=== PATIENT | female | born 1960 | race Caucasian/White ===

== ENCOUNTER → 2017-09-04 | Day surgery (SDC) | payer OTHER ==
--- NOTE | 2017-09-09 11:20 | PATH ---
Cytology Non-Gynecological Report Patient Name: KULWANT DAVIDSON [facility]. Rec. #: [id number] /Age/Gender: 1960 (Age: 56) / F Account: [id number] Location: [facility] Taken: 09/04/2017 Received: 09/04/2017 Reported: 09/09/2017 Physicians: Joann Duran M.D. Specimen(s) Received A: LEFT BREAST 10O'CLOCK ,ULTRA SOUND GUIDED FNA B: RIGHT 8 O'CLOCK BREAST,ULTRA SOUND GUIDED FNA Clinical History Bilateral breast cyst aspiration. Recently diagnosed left breast cancer. Final Diagnosis A. LEFT BREAST, 10:00 4 CM FROM NIPPLE, FINE NEEDLE ASPIRATION: SATISFACTORY FOR EVALUATION BUT LIMITED BY LACK OF AN INTACT EPITHELIAL COMPONENT. BENIGN (NO MALIGNANT CELLS IDENTIFIED). RED BLOOD CELLS AND DEBRIS PRESENT, ALONG WITH MACROPHAGES AND LYMPHOCYTES CONSISTENT WITH CYST CONTENTS. B. RIGHT BREAST, 8:00 3 CM FROM NIPPLE, FINE NEEDLE ASPIRATION: SATISFACTORY FOR EVALUATION BUT LIMITED BY LACK OF AN INTACT EPITHELIAL COMPONENT. BENIGN (NO MALIGNANT CELLS IDENTIFIED). MACROPHAGES AND DEBRIS CONSISTENT WITH CYST CONTENTS PRESENT. Comment: Immunostain for CD45 on Specimen A show lymphocytes staining positive, with nonstaining macrophages present. Immunostain for cytokeratin AE1/3 is negative. Also see prior specimen [id number]. Electronically Signed Fermin Richards M.D. Gross Description A. Approximately 30 cc of red tinged fluid received fixed in 50% alcohol. Two cytofunnels and one cellblock prepared. B. Approximately 30 cc of opaque white fluid received fixed in 50% alcohol. Two cytofunnels and one cellblock prepared.
== END | disposition home or self-care (01) ==
LOC: FRADUS-SUR 08:35
PROVIDERS: ATTEND Surgery
PROC: 0H9V3ZX Drainage of Bilateral Breast, Percutaneous Approach, Diagnostic (ICD-10-PCS; principal; 2017-09-04)
DX: N60.01 Solitary cyst of right breast (principal); N60.02 Solitary cyst of left breast
CPT/HCPCS: 19000; 19001; 76942-TC; 87899; 88173; 88305-TC; 88341-TC; 88342-TC

== ENCOUNTER 2017-10-22 09:00 | Day surgery (SDC) | payer OTHER ==
[2017-10-11 10:10] VITALS: BMI 26.0
--- NOTE | 2017-10-16 14:47 | HP ---
Admitting History and Physical - Primary Care Physician PCP: Kaden Tierney - Admission Chief Complaint: left breast cancer History of Present Illness: 56 year old postmenapausal female who felt left breast mass 05/2017. Diagnostic mammogram 07/2017 showed highly suspicious mass 3.0 cm left breast at 12:00. There is also a possible satellite lesion at 10:00 .6cm. US showed 2.9x1.4x1.7 cm spiculated mass at 12:00 and .6x.6x.6 cm mass vs cyst at 10:00. US core biopsy at 12:00 showed invasive lobular carcinoma 08/2017. She also underwent successful bilateral cyst aspirations right 8:00 and 10:00 left breast all /2017 due to MRI and targeted bilateral US of the breast. History Source: Patient Limitations to Obtaining History: No Limitations - Past Medical History Cardiovascular: Yes: HTN Musculoskeletal: Yes: Chronic low back pain, Osteoarthritis ENT: Yes: Other (mutiple allergies) - Past Surgical History Additional Past Surgical History: Right breast bx benign 12:00 1992 myomectomy 1999 TMJ 1992 septoplasty 1992. - Advance Directives Advance Directives: Yes: Health Care Proxy - Smoking History Smoking history: Never smoked Have you smoked in the past 12 months: No - Alcohol/Substance Use Hx Alcohol Use: Yes (RARELY) Home Medications - Allergies Allergies/Adverse Reactions: Allergies Allergy/AdvReac Type Severity Reaction Status Date / Time avocado Allergy Severe Vomiting Verified 10/11/17 09:58 Cephalosporins Allergy Severe Rash Verified 10/11/17 09:57 erythromycin base Allergy Severe Rash Verified 10/11/17 09:57 Penicillins Allergy Severe Rash Verified 10/11/17 09:56 Sulfa (Sulfonamide Allergy Severe Rash Verified 10/11/17 09:57 Antibiotics) doxycycline AdvReac Severe Nausea Verified 10/11/17 09:58 - Home Medications Home Medications: Ambulatory Orders Cyclobenzaprine HCl 10 mg PO HS PRN 10/11/17 Diclofenac Sodium 75 mg PO BID PRN 10/11/17 Loratadine 10 mg PO DAILY 10/11/17 Metoprolol Succinate [Toprol Xl] 50 mg PO DAILY 10/11/17 Olmesartan Medoxomil 5 mg PO DAILY 10/11/17 Ranitidine HCl 150 mg PO DAILY 10/11/17 Family Disease History - Family Disease History Family Disease History: CA: Grandparent (mat GM bladder ca 78), Father ( prostate ca 68), Brother (prostate ca 54) Physical Examination Constitutional: Yes: Well Nourished Breast(s): Yes: Other (dense bilaterally 3.0 cm hard irregular mass left breast 12:00retroareolar region nodularity at 10:00 bilaterall core/aspiration changes no adenopathy) Problem List - Problems (1) Breast cancer, left Code(s): C50.912 - MALIGNANT NEOPLASM OF UNSPECIFIED SITE OF LEFT FEMALE BREAST Qualifiers: Breast location: central portion of breast Patient sex: female Assessment/Plan Left breast wide excision lymphoscintogram, sentenel node biopsy possible axillary dissection , possible reconstruction
[2017-10-22] MEDS ORDERED: ROCURONIUM BROMIDE 50 MG/5 ML VIAL ONE (10:16)
[2017-10-22] MEDS ORDERED: PROPOFOL 20 ML ONE ×4 (10:16)
[2017-10-22] MEDS ORDERED: SUCCINYLCHOLINE CHLORIDE 200 MG/10 ML VIAL ONE (10:16)
[2017-10-22] MEDS ORDERED: fentaNYL CITRATE 250 MCG/5 ML VIAL ONE ×2 (10:16→11:52)
[2017-10-22] MEDS ORDERED: MIDAZOLAM HCL 2 MG/2 ML SINGLE DOSE VIAL ONE (10:17)
[2017-10-22] MEDS ORDERED: ISOSULFAN BLUE 10 MG/ML VIAL SQ ONE (10:33)
[2017-10-22] MEDS ORDERED: CLINDAMYCIN PHOSPHATE 600 MG/4 ML VIAL ONE (10:59)
[2017-10-22] MEDS ORDERED: DEXAMETHASONE SOD PHOSPHATE 4 MG/1 ML VIAL ONE (10:59)
[2017-10-22] MEDS ORDERED: ONDANSETRON 4 MG/2 ML VIAL ONE (10:59)
[2017-10-22] MEDS ORDERED: LIDOCAINE HCL 2% JELLY (5 ML/TUBE) ONE (10:59)
[2017-10-22] MEDS ORDERED: ePHEDrine SULFATE 50 MG/1 ML AMPULE ONE (11:11)
[2017-10-22] MEDS ORDERED: ONDANSETRON 4 MG/2 ML VIAL IVPUSH PRN (12:59)
[2017-10-22] MEDS ORDERED: KETOROLAC TROMETHAMINE 30 MG/1 ML VIAL IVPUSH PRN (12:59)
[2017-10-22] MEDS ORDERED: DEXTROSE 5%-0.45% SALINE 1,000 ML IV SCH (13:00)
[2017-10-22] MEDS ORDERED: PROMETHAZINE HCL 25 MG/1 ML VIAL ONE (14:19)
[2017-10-22] MEDS: PROMETHAZINE HCL 25 MG/1 ML VIAL IVPUSH PRN ×2 (14:25→14:49)
[2017-10-22] MEDS ORDERED: oxyCODONE HCL 5 MG TABLET PO PRN ×2 (14:26)
[2017-10-22] MEDS ORDERED: ACETAMINOPHEN 325 MG TABLET (FP) PO PRN (14:26)
[2017-10-22] MEDS ORDERED: LACTATED RINGERS SOLUTION 1,000 ML IV SCH (14:30)
--- NOTE | 2017-10-22 14:34 | OP ---
Operative Note - Note: Operative Date: 10/22/17 Pre-Operative Diagnosis: left breast cancer Operation: left breast reconstruction of partial mastectomy, right breast reduction, left axillary closure Post-Operative Diagnosis: Same as Pre-op Surgeon: Jensen Grove Anesthesia: General Specimens Removed: bilateral breast tissue Drains & Tubes with Location: ADRIANO x 2
[2017-10-22 15:51] VITALS: TEMP 98.9
[2017-10-22] MEDS ORDERED: oxyCODONE HCL 5 MG TABLET ONE (17:14)
[2017-10-22 18:07] VITALS: BP 118/71; PULSE 99
--- NOTE | 2017-10-22 19:29 | OP ---
DATE OF OPERATION:10/22/2017 TITLE OF PROCEDURE: 1. Left breast reconstruction of partial mastectomy defect using epigastric flap and local rearrangement of surrounding tissues. 2. Left sided 4-cm complex closure of axillary wound. 3. Right sided balancing breast reduction. ATTENDING SURGEON: Jensen Leigh M.D. Patient is seen and marked in the holding area with nipple sited at 21 cm from the sternal notch bilaterally, marking was overviewed with Dr. Duran, who was present for the markings and coordinated approach for her left-sided lumpectomy is prepared. ANESTHESIA: General endotracheal anesthesia. PREOPERATIVE DIAGNOSIS: Left-sided breast cancer. POSTOPERATIVE DIAGNOSIS: Left-sided breast cancer with the additional diagnosis of left axillary wound status post sentinel lymph node biopsy. ASSISTANTS: None. The procedure is performed in combination with a left sided central lumpectomy with sacrifice of the nipple areola and left sided sentinel lymph node biopsy; that portion of the procedure will be dictated by Dr. Duran. I was not present for the initial positioning and draping; however, the patient was positioned and draped by the general surgical team. Childress catheter had been placed prior to the surgery, which was removed at the end of the surgery. Patient received 900 mg of clindamycin IV preoperatively. Sequential compressions stockings, HUMBERTO hose had been applied in the holding area preoperatively. A timeout is called, patient procedure, incision sites are verified prior to surgery. While the left-sided central lumpectomy is being performed, attention was first directed by me to the right sided breast for breast reduction. On the right side, an inferior pedicle is marked which is 8 cm in width. A 38-mm cookie cutter is used to trace the nipple areola. This is then scored. The pedicle is entirely de-epithelialized with the exception of the nipple areola. Skin flaps are then elevated 2 cm thick superiorly, medially, and laterally to the level of the chest wall. A resection of breast tissue is then performed in the areas between the resection pattern and the pedicle; this involves skin and parenchymal tissue each superiorly, medially, and laterally. The hemostasis is achieved, wound was copiously irrigated with normal saline. The tissue is mobilized superiorly and the skin is tailor tacked, attention is then directed toward the contralateral side. At the completion of her lumpectomy, a total weight removed from the lumpectomy is 123 g, as compared to the right side, which is 119 g, given that the left side was larger to begin with, with tailor tacking the 2 sides it is determined the left size remains larger, and a small amount of residual tissue is to be removed on the left side. On the left side after completion of the lumpectomy and the additional margins, the inferiorly based epigastric flap is created, skin paddle is developed in the inferior pole of breast skin based on the inframammary fold. This is mobilized on a dermoglandular pedicle superiorly. At this point, incisions are then made on the breast which are mirror imaged to the incisions made on the right breast for the breast reduction on the right side. Skin flaps are elevated superiorly, medially, and laterally. Hemostasis achieved, wound was copiously irrigated with normal saline. The epigastric flap is then mobilized into the keyhole pattern, and it is inset as though the skin paddle is nipple areolar complex, as it is marked at 38 mm similar to the contralateral side. Size 15 round Roe drains are brought out the lateral extents of the incisions. The closures performed on both sides is the same way as per the closure of ordinary breast reduction; this is done with a series of interrupted buried deep dermal 3-0 Monocryl suture on all incision lines, running subcuticular 3-0 Monocryl suture on the vertical and horizontal limbs, with a running subcuticular 4-0 Monocryl suture around the nipple areola on the right breast and surrounding the skin paddle on the left breast flap reconstruction. The inverted T points on both breasts are closed with a half buried mattress 2-0 nylon suture. The axilla is then addressed. The axillary fascia is closed with a series [id number] 3-0 Monocryl suture. The dermis is then closed with a series of interrupted buried deep dermal 3-0 Monocryl suture followed by running subcuticular 3-0 Monocryl suture. All tissues are viable. Drains are placed to bulb suction, they are secured with 2-0 silk drain sutures. Patient is dressed with Steri-Strips, 4x4, and ABD gauze. Surgical bra is applied, she is awoken from anesthesia, transferred to recovery without complications. JENSEN LEIGH M.D. [id number]
--- NOTE | 2017-10-23 10:09 | OP ---
DATE OF OPERATION: 10/22/2017 PREOPERATIVE DIAGNOSIS: Left breast invasive lobular cancer. POSTOPERATIVE DIAGNOSIS: Left breast invasive lobular cancer. PROCEDURE: Left partial mastectomy and sentinel node biopsy with right breast reduction. SURGEONS: Kendall Pruett MD and Jensen Grove MD FILLING SEPARATOR: VANE Iyer ANESTHESIA: General. ANESTHESIOLOGIST: Abelino Dinero MD SPECIMENS: 1. Left axillary sentinel nodes. 2. Left partial mastectomy. 3. Additional margins. DRAINS: Two No. 10 ADRIANO. COMPLICATIONS: None. ESTIMATED BLOOD LOSS: Minimal. INDICATION FOR PROCEDURE: The patient is a 56-year-old white female who had not had a mammogram since 2009. She felt a mass in the left breast in May 2017. She was sent for a diagnostic mammogram which showed a highly suspicious left breast mass at 12 o'clock. Ultrasound showed a 2.9 x 1.4 x 1.7 cm spiculated mass at 12 o' clock retroareolar. Biopsy showed an ER/NY positive invasive lobular cancer. After a discussion of surgical options, she prefered breast conservation. Because the cancer was retroareolar and of a significant size, I referred her to the plastic surgeon to discuss excision through a reduction pattern on the left side with a concomitant right breast reduction for symmetry. Nipple removal was also necessary because of the locaion and size of the mass. The procedures, risks, and complications were discussed with her prior to surgery. DESCRIPTION OF PROCEDURE: The patient was taken to Nuclear Medicine where she underwent a lymphoscintigraphy. She was then identified in the holding area where informed consent was obtained, and the left breast was marked to identify the side with the cancer. Dr. Grove also placed markings on the breast for the planned plastic procedure. She was taken to the operating room and placed on the operating table in the supine position. Sequential compression devices were placed on both legs. She received clindamycin prior to surgery. She was intubated, and the bilateral chest and axilla were prepped and draped in the usual fashion. A timeout was performed. The left breast was injected with isosulfan blue and massaged for 5 minutes. Examination of the left axilla with the navigator probe showed an area of high counts. An incision was made with a scalpel in the axilla. The incision was deepened using electrocautery until the axillary fat pad was exposed. The probe identified an area of high counts in the lower axilla. Dissection in this area revealed 2 blue nodes which were grasped with a clamp and from the axillary fat using electrocautery. They were placed in formalin. Re-examination of the axilla showed additional high counts. Dissection in this area revealed a single larger blue node which was excised and included with the previous specimen. There was no other evidence of high counts when the axilla was re-examined so the procedure was terminated at this point. The lymph nodes were sent to Pathology for further examination. Examination of the left breast showed a retroareolar mass at 12 o'clock. Her breast had already been marked by Dr. Grove for the planned reduction approach. Using these markings as a guide, an incision was made around the areola using a scalpel. The incision was deepened using electrocautery. The mass was hard and irregular. The electrocautery was used to mobilize the mass and separate it from the surrounding breast tissue. The breast tissue was extremely dense, making dissection a little difficult. Once the specimen was completely mobilized, it was removed and labeled with sutures, with a long lateral stitch and a short superior stitch. Additional margins were then removed. Margins were taken from the superior, medial, lateral, deep, and inferior regions of the biopsy cavity. They were all labeled with a stitch at the biopsy cavity side. The specimens were placed in formalin. Hemostasis was achieved. The procedure was then turned over to Dr. Grove who performed bilateral reduction. He will dictate this part of the procedure as well as closure and placement of drains. The patient tolerated the procedure well. At the end of the procedure, all sponge, lap, and instrument counts were correct. The patient was awakened and taken to PACU in satisfactory condition. KENDALL PRUETT M.D. [id number] MTDD
--- NOTE | 2017-10-29 15:07 | PATH ---
Surgical Pathology Report Patient Name: KULWANT DAVIDSON [facility]. Rec. #: [id number] /Age/Gender: 1960 (Age: 57) / F Account: [id number] Location: [facility] Taken: 10/22/2017 Received: 10/22/2017 Reported: 10/29/2017 Physicians: Joann Duran M.D. Specimen(s) Received A: LEFT AXILLARY SENTINEL LYMPH NODE #1 B: LEFT PARTIAL MASTECTOMY C: LEFT BREAST SUPERIOR D: LEFT BREAST INFERIOR MARGIN E: LEFT BREAST MEDIAL MARGIN F: LEFT BREAST LATERAL MARGIN G: LEFT BREAST POSTERIOR MARGIN H: RIGHT BREAST SKIN AND TISSUE I: LEFT BREAST ADDITIONAL MEDIAL MARGIN Clinical History Palpable mass Mammograph findings: Suspicious Final Diagnosis A. AXILLA, SENTINEL LYMPH NODES #1, EXCISION: ONE OF FOUR LYMPH NODES POSITIVE FOR ISOLATED TUMOR CELLS (=0.2 MM AND =200 CELLS) ON H&E AND CYTOKERATIN AE1/3 IMMUNOHISTOCHEMICAL STAINS. B. BREAST, LEFT, PARTIAL MASTECTOMY: INVASIVE LOBULAR CARCINOMA, PLEOMORPHIC TYPE, NUCLEAR GRADE 3. INVASIVE CARCINOMA MEASURES 2.8 X 2 CM IN GREATEST DIMENSION, MICROSCOPICALLY. LOBULAR CARCINOMA IN SITU (LCIS), CLASSICAL TYPE PRESENT. NO LYMPHOVASCULAR INVASION IDENTIFIED. SURGICAL MARGINS ARE UNINVOLVED BY CARCINOMA; CARCINOMA IS AT 1 MM FROM THE CLOSEST SUPERIOR MARGIN. SEE SPECIMEN C-I FOR FINAL MARGINS. CARCINOMA INVADES DEEP DERMIS OF THE SKIN. NIPPLE WITHOUT SIGNIFICANT PATHOLOGIC FINDINGS. REMAINDER OF BREAST TISSUE SHOW FIBROCYSTIC CHANGES INCLUDING STROMAL FIBROSIS, MICROCYSTS, APOCRINE METAPLASIA, COLUMNAR CELL CHANGES, USUAL DUCTAL HYEPRPLASIA, SCLEROSING ADENOSIS, AND MICROCALCIFICATIONS WITHIN BENIGN DUCTS. PRIOR BIOPSY SITE CHANGES ARE PRESENT. SEE ALSO INVASIVE CARCINOMA CASE SUMMARY BELOW. C. BREAST, LEFT, SUPERIOR MARGIN, EXCISION: BENIGN BREAST TISSUE WITH FIBROCYSTIC CHANGES INCLUDING STROMAL FIBROSIS, MICROCYSTS, APOCRINE METAPLASIA, ADENOSIS, AND MICROCALCIFICATIONS WITHIN BENIGN DUCTS. D. BREAST, LEFT, INFERIOR MARGIN, EXCISION: BENIGN BREAST TISSUE WITH FIBROCYSTIC CHANGES INCLUDING STROMAL FIBROSIS, MICROCYSTS, APOCRINE METAPLASIA, COLUMNAR CELL CHANGES, AND MICROCALCIFICATIONS WITHIN BENIGN DUCTS. E. BREAST, LEFT, MEDIAL MARGIN, EXCISION: BENIGN BREAST TISSUE. F. BREAST, LEFT, LATERAL MARGIN, EXCISION: BENIGN BREAST TISSUE WITH CYSTIC CHANGES INCLUDING STROMAL FIBROSIS, MICROCYSTS, SCLEROSING ADENOSIS, AND MICROCALCIFICATIONS WITHIN BENIGN DUCTS. G. BREAST, LEFT, POSTERIOR MARGIN, EXCISION: BREAST TISSUE WITH LOBULAR CARCINOMA IN SITU (LCIS) AND ATYPICAL DUCTAL HYPERPLASIA. H. BREAST, LEFT, SKIN AND TISSUE, EXCISION: BENIGN BREAST TISSUE WITH ATYPICAL DUCTAL HYPERPLASIA, SCLEROSING ADENOSIS, AND COLUMNAR CELL CHANGES. SKIN WITHOUT SIGNIFICANT PATHOLOGIC FINDINGS. I. BREAST, LEFT, ADDITIONAL MEDIAL MARGIN, EXCISION: BENIGN BREAST TISSUE. PATHOLOGIC STAGE (pTNM): pT2 pN0(i+)(sn) Comment: Immunohistochemical stains performed and interpreted at [facility] for E-cadherin and AE1/3 utilized to evaluate this case. Comments Breast Invasive Carcinoma: Surgical Pathology Case Summary (Based on AJCC TNM 8 th edition) Procedure _X_ Excision (less than total mastectomy) Specimen Laterality _X_ Left Tumor Size _X_ Greatest dimension of largest invasive focus >1 mm (specify exact measurement) (millimeters): 28 mm Histologic Type _X_ Invasive lobular carcinoma Histologic Grade (Jewell Histologic Score) Glandular (Acinar)/Tubular Differentiation _X_ Score 3 (<10% of tumor area forming glandular/tubular structures) Nuclear Pleomorphism _X_ Score 3 Mitotic Rate _X_ Score 3 Overall Grade _X__ Grade 3 (scores of 9) Tumor Focality _X_ Single focus of invasive carcinoma Ductal Carcinoma In Situ (DCIS) _X_ No DCIS in specimen Tumor Extension Skin _X_ Invasive carcinoma directly invades into the deep dermis. Nipple _X_ Uninvolved by invasive carcinoma Margins Invasive Carcinoma Margins _X__ Uninvolved by invasive carcinoma Distance from closest margin (millimeters): <1 mm (wide excision) Closest margin: Superior margin (wide excision), additional margins (C-I) are negative. Number of Lymph Nodes Examined: 4 Number of Ethel Nodes Examined : 4 Number of Lymph Nodes with Micrometastases (>0.2 mm to 2 mm and/or >200 cells): 0 Number of Lymph Nodes with Isolated Tumor Cells (=0.2 mm and =200 cells): 1 Extranodal Extension: _X__ Not identified Treatment Effect _X__ No known presurgical therapy Lymphovascular Invasion _X__ Not identified Pathologic Stage Classification (pTNM, AJCC 8th Edition) Primary Tumor (Invasive Carcinoma) (pT) _X__ pT2: Tumor >20 mm but =50 mm in greatest dimension Regional Lymph Nodes (pN) Modifier _X__ (sn): Ethel node(s) evaluated. Category (pN) _X_ pN0 (i+): ITCs only (malignant cell clusters no larger than 0.2 mm) in regional lymph node(s) Biomarker Studies Results of ER and AK studies performed on prior biopsy ( [id number]) at [facility] are as follows: ER (clone [id number] mouse monoclonal antibody by [employer]):>95 % nuclear staining with strong intensity (Positive). AK (clone16 mouse monoclonal antibody by [employer]): ~30% nuclear staining with strong intensity (Positive). Results of Her2 (IHC) & Ki-67 studies performed on previous specimen ([id number]) at [place], [place] ([id number]) are as follows: Her2 IHC (EP3 from [employer], formerly known as [id number], using [employer] Polymer Refine detection kit): 1+ (Negative) Ki67: up to 20% (intermediate proliferative index) Electronically Signed Debi Cabral M.D. Gross Description A. Received in formalin labeled "left axillary sentinel node #1," are 4 walton, irregular lymph nodes ranging from 0.7 x 0.5 x 0.3 cm to 1.2 x 0.8 x 0.8 cm. The specimens are entirely submitted in 4 cassettes as follows: 1-2-one whole lymph node each; 3-one bisected lymph node; 4-one trisected lymph node. B. Received in formalin, labeled "left breast partial mastectomy," is a 8.2 x 7.8 x 4.5 cm. walton-yellow, irregular, portion of fibroadipose tissue. There is no needle localization wire present. There is a short suture marking the superior aspect and a long suture marking the lateral aspect of the specimen, per the surgeon. The anterior surface displays a 4.3 x 3.5 cm walton, ovoid portion of skin with a 1 cm in diameter nipple. The specimen is inked as follows: Superior blue; inferior green; lateral red; medial yellow; deep black. The specimen is serially sectioned from lateral to medial. Sectioning reveals a 2.5 x 2.2 x 2.0 cm walton, indurated mass focally at 0.1 cm from the superior margin. The mass is 0.6 cm from the skin and 1.1 cm from the deep margin. The remaining margins appear clear of the mass. Also received within the same container is an 8.5 x 8.0 x 1.7 cm aggregate of multiple irregular fragments of unremarkable skin and fibroadipose tissue. Assistant Fitness Manager sections are submitted in 10 cassettes as follows: 1-serially sectioned nipple; 2-subareolar shave; 3-full face section of mass; 4-5-mass with superior margin; 6-mass with skin; 7-mass with deep margin; 8-inferior margin; 9-lateral margin; 10-medial margin. Time to formalin fixation: 50 minutes Total formalin fixation time: Approximately 29 hours. C. Received in formalin labeled "left breast superior margin," is a 2.5 x 1.0 x 0.5 cm irregular portion of fibroadipose tissue with a suture marking the biopsy cavity side, per the surgeon. The new margin is inked blue and the specimen is serially sectioned. The specimen is entirely submitted in 2 cassettes. D. Received in formalin labeled "left breast inferior margin," is a 1.6 x 1.3 x 0.4 cm irregular portion of fibroadipose tissue with a suture marking the biopsy cavity side, per the surgeon. The new margin is inked blue and the specimen is serially sectioned. The specimen is entirely submitted in one cassette. E. Received in formalin labeled "left breast medial margin," is a 2.3 x 1.2 x 0.5 cm irregular portion of fibroadipose tissue with a suture marking the biopsy cavity side, per the surgeon. The new margin is inked blue and the specimen is serially sectioned. The specimen is entirely submitted in one cassette. F. Received in formalin labeled "left breast lateral margin," is a 1.8 x 0.8 x 0.7 cm irregular portion of fibroadipose tissue with a suture marking the biopsy cavity side, per the surgeon. The new margin is inked blue and the specimen is serially sectioned. The specimen is entirely submitted in 2 cassettes. G. Received in formalin labeled "left breast posterior margin," is a 1.1 x 1.0 x 0.7 cm irregular portion of fibroadipose tissue with a suture marking the biopsy cavity side, per the surgeon. The new margin is inked blue the specimen is serially sectioned. The specimen is entirely submitted in one cassette. H. Received in formalin labeled "right breast skin and tissue," is a 124 g, 1.5 x 10.0 x 2.0 cm aggregate of multiple irregular, unoriented portions of fibroadipose tissue and walton, unremarkable skin. Sectioning reveals foci of white fibrous tissue. Assistant Fitness Manager sections are submitted in 2 cassettes. I. Received in formalin labeled "left breast additional medial margin," is a 4.5 x 2.5 x 1.5 cm irregular, unoriented portion of fibroadipose tissue. The specimen is serially sectioned and entirely and sequentially submitted in 5 cassettes. 10/23/2017 saudi10/23/2017
== END 2017-10-22 18:09 | disposition home or self-care (01) ==
LOC: FASU 09:00
PROVIDERS: ATTEND Surgery
PROC: 0HBU0ZZ Excision of Left Breast, Open Approach (ICD-10-PCS; principal; 2017-10-22 11:17)
PROC: 0HBT0ZZ Excision of Right Breast, Open Approach (ICD-10-PCS; 2017-10-22 11:17)
PROC: 0HRT07Z Replacement of Right Breast with Autologous Tissue Substitute, Open Approach (ICD-10-PCS; 2017-10-22 11:17)
DX: C50.912 Malignant neoplasm of unspecified site of left female breast (principal); I10 Essential (primary) hypertension; M54.5 Low back pain; G89.29 Other chronic pain
CPT/HCPCS: 78195-TC; 88307-TC; 88342-TC; 94760; A9541

== ENCOUNTER 2017-11-12 07:55 | Day surgery (SDC) | payer OTHER ==
[2017-11-08 10:35] VITALS: BMI 27.1
--- NOTE | 2017-11-08 10:57 | HP ---
Admitting History and Physical - Primary Care Physician PCP: Anjali Pavon - Admission Chief Complaint: Left breast cancer needs chemotherapy History of Present Illness: 57 year old nulliparous female S/P left breast wide excsiion SNB bilateral reduction for a 2.8 cm ILC negative margins 1+/4 lymph nodes. needs life port for chemotherapy History Source: Patient Limitations to Obtaining History: No Limitations - Past Medical History Cardiovascular: Yes: HTN Musculoskeletal: Yes: Chronic low back pain, Osteoarthritis ENT: Yes: Other (mutiple allergies) - Past Surgical History Additional Past Surgical History: myomectomy 1999 TMJ 1992 septoplasty 1992 right breastbx 1992 benign left breast wide excision SNBX and reduction bilaterally for ILC 1+/4 nodes - Smoking History Smoking history: Never smoked Have you smoked in the past 12 months: No - Alcohol/Substance Use Hx Alcohol Use: Yes (RARELY) Home Medications - Allergies Allergies/Adverse Reactions: Allergies Allergy/AdvReac Type Severity Reaction Status Date / Time avocado Allergy Severe Vomiting Verified 11/08/17 10:28 Cephalosporins Allergy Severe Rash Verified 11/08/17 10:28 erythromycin base Allergy Severe Rash Verified 11/08/17 10:28 Penicillins Allergy Severe Rash Verified 11/08/17 10:28 Sulfa (Sulfonamide Allergy Severe Rash Verified 11/08/17 10:28 Antibiotics) doxycycline AdvReac Severe Nausea Verified 11/08/17 10:28 morphine AdvReac Severe Vomiting Verified 11/08/17 10:28 - Home Medications Home Medications: Ambulatory Orders Cyclobenzaprine HCl 10 mg PO HS PRN 10/11/17 Diclofenac Sodium 75 mg PO BID PRN 10/11/17 Loratadine 10 mg PO DAILY 10/11/17 Metoprolol Succinate [Toprol Xl] 50 mg PO DAILY 10/11/17 Olmesartan Medoxomil 5 mg PO DAILY 10/11/17 Ranitidine HCl 150 mg PO DAILY 10/11/17 Family Disease History - Family Disease History Family Disease History: CA: Grandparent (mat GM bladder ca 78), Father ( prostate ca 68), Brother (prostate ca 54) Physical Examination Constitutional: Yes: Well Nourished Breast(s): Yes: Other (Bilateral breast incisions healing well from wide excision and reduction some echymosis right breast) Problem List - Problems (1) Breast cancer, left Code(s): C50.912 - MALIGNANT NEOPLASM OF UNSPECIFIED SITE OF LEFT FEMALE BREAST Qualifiers: Breast location: central portion of breast Patient sex: female Assessment/Plan Life port insertion
[2017-11-12] MEDS ORDERED: PROPOFOL 20 ML ONE (07:56)
[2017-11-12] MEDS ORDERED: MIDAZOLAM HCL 2 MG/2 ML SINGLE DOSE VIAL ONE (07:56)
[2017-11-12 08:35] VITALS: TEMP 97.6
[2017-11-12] MEDS ORDERED: LIDOCAINE HCL 1%, 10 MG/ML (20ML VIAL) ONE ×2 (09:30→10:02)
[2017-11-12] MEDS ORDERED: KETOROLAC TROMETHAMINE 30 MG/1 ML VIAL IVPUSH PRN (09:32)
[2017-11-12] MEDS ORDERED: ONDANSETRON 4 MG/2 ML VIAL IVPUSH PRN (09:32)
[2017-11-12] MEDS ORDERED: DEXTROSE 5%-0.45% SALINE 1,000 ML IV SCH (09:45)
[2017-11-12] MEDS ORDERED: DEXAMETHASONE SOD PHOSPHATE 4 MG/1 ML VIAL ONE (09:46)
[2017-11-12 12:00] VITALS: BP 118/69; PULSE 79
--- NOTE | 2017-11-12 17:48 | OP ---
DATE OF OPERATION: 11/12/2017 PREOPERATIVE DIAGNOSIS: Left breast cancer. POSTOPERATIVE DIAGNOSIS: Left breast cancer. PROCEDURE: Right subclavian single-lumen LifePort placement. ANESTHESIA: IV sedation with local. ATTENDING SURGEON: Anjali Pavon MD ESTIMATED BLOOD LOSS: Minimal. COMPLICATIONS: None. DESCRIPTION OF PROCEDURE: Patient was made aware of the risks and benefits of the procedure. She was placed in supine position, and after IV sedation was administered, the operative site was prepped and draped in the usual sterile fashion. Patient was then placed in Trendelenburg position, and local anesthesia was administered with 1% lidocaine. Using a Seldinger technique, the wire was placed into the right subclavian vein and in good position as documented by intraoperative fluoroscopy. Incisions were then made over the puncture site and inferomedially. Using electrocautery, an inferior skin flap was made in the larger incision. The catheter was then tunneled from the large incision to the smaller incision and fashioned to the proper length. The proximal edge was then attached to the port head which was then placed in the skin pocket. Under direct fluoroscopic control, the dilator and introducer were placed over the wire into good position. The dilator and wire were then removed, and the catheter was placed through the introducer which was then stripped away. Intraoperative fluoroscopy confirmed good position of the catheter. There was easy withdrawal of blood and infusion of heparinized saline. Next, 1 mL of concentrated heparinized saline was infused. The port had to be sutured to the deep tissues with 2-0 Prolene. The wound was copiously irrigated with normal saline. Hemostasis maintained by electrocautery. The deep tissues were then closed with interrupted 3-0 Vicryl, followed by a running subcuticular 4-0 Monocryl. Dermabond was then applied, and the patient, having tolerated the procedure well, was transferred to the recovery room in good condition. Postoperative chest x-ray revealed good catheter placement and no evidence of complications. ANJALI PAVON M.D. [id number]
== END 2017-11-12 12:40 | disposition home or self-care (01) ==
LOC: FASU 07:55
PROVIDERS: ATTEND Surgery Surgical Oncology
PROC: B516ZZA Fluoroscopy of Right Subclavian Vein, Guidance (ICD-10-PCS; 2017-11-12)
PROC: 05H533Z Insertion of Infusion Device into Right Subclavian Vein, Percutaneous Approach (ICD-10-PCS; principal; 2017-11-12 10:00)
DX: C50.912 Malignant neoplasm of unspecified site of left female breast (principal)
CPT/HCPCS: 71045-TC; 76000-TC; J1644

== ENCOUNTER 2017-11-21 07:23 | Day surgery (SDC) | payer OTHER ==
[2017-11-21] MEDS ORDERED: FOSAPREPITANT DIMEGLUMINE 150 MG in SODIUM CHLORIDE 145 ML IVPB ONE (08:00)
[2017-11-21] MEDS ORDERED: PALONOSETRON HCL 0.25 MG/5 ML VIAL IVPUSH ONE (08:00)
[2017-11-21] MEDS ORDERED: DEXAMETHASONE INJECTION 20 MG in SODIUM CHLORIDE 100 ML IVPB ONE (08:00)
[2017-11-21] MEDS ORDERED: SODIUM CHLORIDE IVPB ONE (08:30)
[2017-11-21] MEDS ORDERED: DOXORUBICIN HCL IVPB ONE (08:30)
[2017-11-21] MEDS ORDERED: CYCLOPHOSPHAMIDE INJECTION 980 MG in SODIUM CHLORIDE 250 ML IVPB ONE (09:30)
[2017-11-21 10:09] VITALS: TEMP 98.4
[2017-11-21 10:27] LABS: BASO % 0.9 % (0-2.0); EOS % 5.1 % (0-4.5); HEMATOCRIT 40.5 % (32.4-45.2); HEMOGLOBIN 13.1 GM/dL (10.7-15.3); LYMPH % 28.5 % (8-40); MCH 29.7 pg (25.7-33.7); MCHC 32.4 g/dl (32.0-36.0); MEAN CELL VOLUME 91.5 fl (80-96); MEAN PLT VOLUME 8.2 fl (7.5-11.1); MONO % 8.4 % (3.8-10.2); NEUT % 57.1 % (42.8-82.8); PLATELET COUNT 288 K/MM3 (134-434); RBC 4.42 M/mm3 (3.60-5.2); RDW 12.4 % (11.6-15.6); WHITE BLOOD COUNT 6.3 K/mm3 (4.0-10.0)
[2017-11-21 10:57] LABS: ALBUMIN 3.7 g/dl (3.4-5.0); ANION GAP 7 (8-16); BILIRUBIN,DIRECT < 0.2 mg/dL (0.0-0.2); BILIRUBIN,TOTAL 0.3 mg/dL (0.2-1.0); BLOOD UREA NITROGEN 14 mg/dL (7-18); CALCIUM 9.5 mg/dL (8.5-10.1); CHLORIDE 104 mmol/L (98-107); CO2 30 mmol/L (21-32); CREATININE 0.7 mg/dL (0.55-1.02); GLUCOSE,RANDOM 151 mg/dL (74-106); MAGNESIUM 2.1 mg/dL (1.8-2.4); POTASSIUM 4.6 mmol/L (3.5-5.1); SGOT/AST 21 U/L (15-37); SGPT/ALT 38 U/L (12-78); SODIUM 141 mmol/L (136-145)
[2017-11-21 10:58] LABS: ALK PHOS 101 U/L (45-117)
[2017-11-21 16:53] VITALS: BP 147/76; PULSE 97
[2017-11-21] MEDS ORDERED: PORTA CATH FLUSH 10 ML IVPUSH ONE (16:53)
== END 2017-11-21 15:15 | disposition home or self-care (01) ==
LOC: JONCCHEMO 07:23 → J7W 11:33 → JONCCHEMO 15:15
PROVIDERS: ATTEND Internal Medicine Hematology & Oncology
DX: Z51.11 Encounter for antineoplastic chemotherapy (principal); C50.919 Malignant neoplasm of unspecified site of unspecified female breast; Z17.0 Estrogen receptor positive status [ER+]
CPT/HCPCS: 36415; 80053; 80076; 83735; 85025; 96367; 96375; 96413; 96417; J1100; J1453; J2469; J9070

== ENCOUNTER 2017-11-22 07:26 | Day surgery (SDC) | payer OTHER ==
[2017-11-22] MEDS ORDERED: PEGFILGRASTIM 6 MG/0.6 ML DISP.SYRIN SQ ONE (08:00)
[2017-11-22 13:47] VITALS: BP 134/70; PULSE 110; TEMP 99.2
== END 2017-11-22 10:40 | disposition home or self-care (01) ==
LOC: JONCCHEMO 07:26 → J7W 10:24 → JONCCHEMO 10:40
PROVIDERS: ATTEND Internal Medicine Hematology & Oncology
PROC: 3E013GC Introduction of Other Therapeutic Substance into Subcutaneous Tissue, Percutaneous Approach (ICD-10-PCS; principal; 2017-11-22)
DX: C50.919 Malignant neoplasm of unspecified site of unspecified female breast (principal); Z17.0 Estrogen receptor positive status [ER+]; Z76.89 Persons encountering health services in other specified circumstances
CPT/HCPCS: 96372; J2505

== ENCOUNTER 2017-11-27 16:29 | Inpatient (IN) | payer OTHER ==
--- NOTE | 2017-11-27 17:06 | PDOC ---
Rapid Medical Evaluation Time Seen by Provider: 11/27/17 17:03 Medical Evaluation: Allergies Allergy/AdvReac Type Severity Reaction Status Date / Time avocado Allergy Severe Vomiting Verified 11/08/17 10:28 Cephalosporins Allergy Severe Rash Verified 11/08/17 10:28 erythromycin base Allergy Severe Rash Verified 11/08/17 10:28 Penicillins Allergy Severe Rash Verified 11/08/17 10:28 Sulfa (Sulfonamide Allergy Severe Rash Verified 11/08/17 10:28 Antibiotics) doxycycline AdvReac Severe Nausea Verified 11/08/17 10:28 morphine AdvReac Severe Vomiting Verified 11/08/17 10:28 11/27/17 17:03 I have performed a brief in-person evaluation of this patient. The patient presents with a chief complaint of: hx of brca first chemo treatment last , arm red and "puffy", oncologist sent for US, told by US she has DVT today Pertinent physical exam findings: no SOB, chest pain I have ordered the following: R arm erythema and swelling The patient will proceed to the ED for further evaluation. Discharge Disposition - Diagnosis DVT (deep venous thrombosis) - Referrals - Patient Instructions - Post Discharge Activity
[2017-11-27 17:09] VITALS: BMI 26.8
--- NOTE | 2017-11-27 17:27 | PDOC ---
Attending Attestation - HPI HPI: 11/27/17 18:56 The patient is a 57 year old female, with a significant past medical history of L breast CA (on cytotoxan, doxirubicin), neutropenia (ANC 500) and HTN, who presents to the emergency department with right upper extremity heaviness and swelling. The patient was sent over by her oncologist regarding these symptoms for evaluation. The patient states that she first noticed the swelling 4 days ago. She notes that her arm pain was alleviated with movement. She notes that she went to her oncologist for evaluation and was sent for an US, which revealed a clot on her tight subclavian. She was sent to the ED for further evaluation and lovenox therapy. The patient denies chest pain, shortness of breath, headache and dizziness. Denies fever, chills, nausea, vomit, diarrhea and constipation. Denies dysuria, frequency, urgency and hematuria. Allergies: None Past surgical history: Right chest port Social history: No alcohol, tobacco or drug use reported - Physicial Exam PE: 11/27/17 18:56 General Appearance: Yes: Nourished. 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 Pennie Chan, DO, attest that this document has been prepared under my direction and personally reviewed by me in its entirety. I further attest, that it accurately reflects all work, treatment, procedures and medical decision -making performed by me. 11/27/17 18:31 a/p: 57yo female with R arm heaviness - port placed on Nov 12 -dvt + as outpt in subclavian vein on R -normal renal function on 11/21 - will start lovenox therapy now -tachy - will check cta chest -pt neutropenic on outpt labs - will place in neutropenic precautions -no fevers at this time -will send labs, cta chest, ekg -pt will need to be admitted 11/27/17 23:37 pt updated on labs and imaging microblog sent to [facility] for admission no pe on exam 11/27/17 23:44 pt accepted by [facility] for admission <Pennie Chan - Last Filed: 11/27/17 23:46> Discharge Disposition - Discharge Dispostion Admit: Yes <Pennie Chan - Last Filed: 11/27/17 23:46> - Diagnosis DVT (deep venous thrombosis) - Discharge Dispostion Condition at time of disposition: Fair - Referrals Referrals: Kimberly Rodriguez MD [Primary Care Provider] - - Patient Instructions - Post Discharge Activity Heart Score/ECG Review - ECG Intrepretation Comment:: 11/27/17 18:30 sinus tach at 112, nl axis, lvh, nl interval, no acute st/t wave findings <Pennie Chan - Last Filed: 11/27/17 23:46>
--- NOTE | 2017-11-27 17:38 | PDOC ---
History of Present Illness - General Chief Complaint: Edema Stated Complaint: PCP SENT Time Seen by Provider: 11/27/17 17:03 History Source: Patient Exam Limitations: No Limitations - History of Present Illness Initial Comments: 11/27/17 17:40 57 F with PMH L breast CA (on cytotoxan, doxirubicin), neutropenia (ANC 500), HTN, who presents to the ED after being sent by her oncologist for RUE edema. As per pt, on Saturday, she noticed that her RUE was painful, edematous, erythematous, and "felt heavy." Her arm pain was alleviated by movement, so pt decided to halie. Today, the pt went to see Dr. Mallory and was sent for U/ S which showed a clot in her R subclavian. For this reason, she was sent to the ED for lovenox and further evaluation. Pt denies recent arm immobilization, surgery, hemoptysis, SOB, chest pain, or recent leg edema. Past History - Travel Traveled outside of the country in the last 30 days: No - Past Medical History Allergies/Adverse Reactions: Allergies Allergy/AdvReac Type Severity Reaction Status Date / Time avocado Allergy Severe Vomiting Verified 11/27/17 17:09 Cephalosporins Allergy Severe Rash Verified 11/27/17 17:09 erythromycin base Allergy Severe Rash Verified 11/27/17 17:09 Penicillins Allergy Severe Rash Verified 11/27/17 17:09 Sulfa (Sulfonamide Allergy Severe Rash Verified 11/27/17 17:09 Antibiotics) doxycycline AdvReac Severe Nausea Verified 11/27/17 17:09 morphine AdvReac Severe Vomiting Verified 11/27/17 17:09 Home Medications: Ambulatory Orders Loratadine 10 mg PO DAILY 10/11/17 Metoprolol Succinate [Toprol Xl] 50 mg PO DAILY 10/11/17 Olmesartan Medoxomil 5 mg PO DAILY 10/11/17 Ranitidine HCl 150 mg PO DAILY 10/11/17 Acetaminophen [Tylenol] 650 mg PO TID PRN #30 tablet 11/12/17 Anemia: No Asthma: No Cancer: Yes (LEFT BREAST 09/29) Cardiac Disorders: No CVA: No COPD: No CHF: No Dementia: No Diabetes: No GI Disorders: No Disorders: No HTN: Yes Hypercholesterolemia: No Liver Disease: No Seizures: No Thyroid Disease: No - Surgical History Abdominal Surgery: No Appendectomy: No Cardiac Surgery: No Cholecystectomy: No Lung Surgery: No Neurologic Surgery: No Orthopedic Surgery: No - Suicide/Smoking/Psychosocial Hx Smoking History: Never smoked Have you smoked in the past 12 months: No Information on smoking cessation initiated: No Hx Alcohol Use: No Drug/Substance Use Hx: No Substance Use Type: None Hx Substance Use Treatment: No Review of Systems - Review of Systems Able to Perform ROS?: Yes Is the patient limited Czech proficient: No Musculoskeletal: Yes: Joint Swelling, Muscle Pain Hematologic/Lymphatic: Yes: Blood Clots *Physical Exam - Vital Signs Last Vital Signs Temp Pulse Resp BP Pulse Ox 99.5 F 143 H 18 132/82 99 11/27/17 17:03 11/27/17 17:03 11/27/17 17:03 11/27/17 17:03 11/27/17 17:03 - Physical Exam General Appearance: Yes: Nourished HEENT: positive: EOMI, SUMAN Neck: positive: Supple Respiratory/Chest: positive: Lungs Clear, Normal Breath Sounds, Other ((+) R anterior scar from chemo port ) Cardiovascular: positive: Tachycardia Vascular Pulses: Carotid (R): 2+ Gastrointestinal/Abdominal: positive: Normal Bowel Sounds, Soft Extremity: positive: Other ((+) RUE edema and erythema, warm to touch ) 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 Possible LA enlargement ED Treatment Course - LABORATORY CBC & Chemistry Diagram: 11/27/17 17:43 11/27/17 17:43 Medical Decision Making - Medical Decision Making 11/27/17 17:51 57 F with PMH L breast CA (on cytotoxan, doxirubicin), neutropenia (ANC 500), HTN, who presents to the ED after being sent by her oncologist for RUE edema. Pt found to have R subcavian clot. Started on lovenox 65 mg BID stat. Pt tachycardic, will get CTA to r/o PE The following have been sent: CBC CMP PT/INR PTT Type and screen CTA to r/o PE EKG Tele monitoring Isolation precautions - as pt neutropenic Pt started on: Lovenox 65mg PO BID IV NS 100 cc/hr (in L /unaffected arm) *DC/Admit/Observation/Transfer Diagnosis at time of Disposition: DVT (deep venous thrombosis) - Referrals Referrals: Kimberly Rodriguez MD [Primary Care Provider] - - Patient Instructions - Post Discharge Activity
[2017-11-27] MEDS ORDERED: SODIUM CHLORIDE 1,000 ML IV SCH (17:45)
[2017-11-27 17:56] LABS: BASO % 0.8 % (0-2.0); EOS % 12.2 % (0-4.5); HEMATOCRIT 38.9 % (32.4-45.2); HEMOGLOBIN 12.8 GM/dL (10.7-15.3); LYMPH % 58.4 % (8-40); MCH 30.1 pg (25.7-33.7); MEAN CELL VOLUME 91.2 fl (80-96); MEAN PLT VOLUME 8.8 fl (7.5-11.1); MONO % 10.2 % (3.8-10.2); NEUT % 18.4 % (42.8-82.8); PLATELET COUNT 166 K/MM3 (134-434); RBC 4.26 M/mm3 (3.60-5.2); RDW 12.3 % (11.6-15.6)
[2017-11-27] MEDS ORDERED: ENOXAPARIN NA (PORCINE) 80 MG/0.8 ML DISP.SYRIN SQ ONE ×2 (18:12→22:06)
[2017-11-27] MEDS: ENOXAPARIN NA (PORCINE) 60 MG/0.6 ML DISP.SYRIN SQ SCH ×2 (18:13→22:10)
[2017-11-27 18:21] LABS: INR 1.09 (0.82-1.09); PROTHROMBIN TIME (PATIENT) 12.3 SEC (9.98-11.88)
[2017-11-27 18:23] LABS: ACTIVATED PTT 29.7 SECONDS (26.9-34.4)
[2017-11-27 18:41] LABS: WHITE BLOOD COUNT 1.5 K/mm3 (4.0-10.0)
[2017-11-27 19:14] LABS: ALBUMIN 3.6 g/dl (3.4-5.0); ANION GAP 8 (8-16); BLOOD UREA NITROGEN 10 mg/dL (7-18); CALCIUM 9.4 mg/dL (8.5-10.1); CHLORIDE 102 mmol/L (98-107); CO2 29 mmol/L (21-32); GLUCOSE,RANDOM 106 mg/dL (74-106); POTASSIUM 4.1 mmol/L (3.5-5.1); SODIUM 139 mmol/L (136-145)
[2017-11-27 19:18] LABS: ALK PHOS 145 U/L (45-117); BILIRUBIN,TOTAL 0.4 mg/dL (0.2-1.0); CREATININE 0.5 mg/dL (0.55-1.02); SGOT/AST 15 U/L (15-37); SGPT/ALT 30 U/L (12-78); TOT PROT 7.2 g/dl (6.4-8.2)
--- NOTE | 2017-11-28 01:25 | PN ---
Teaching Attending Note Name of Resident: Glenn Ann ATTENDING PHYSICIAN STATEMENT I saw and evaluated the patient. I reviewed the resident's note and discussed the case with the resident. I agree with the resident's findings and plan as documented. SUBJECTIVE:57yo F with PMH HTN and L breast ca diagnosed 08/30 with permacath placed last month for chemo currently on chemo c/o RUE swelling x 3 days. states arm felt heavy. pain improved with movement. saw oncologist today who ordered u/s showing R SCV clot and sent her to the Er. denkilos Cp, SOB, fever, chills, palpitations, N/V/C/D OBJECTIVE: Last Vital Signs Temp Pulse Resp BP Pulse Ox 99.5 F 110 H 16 142/74 100 11/27/17 17:03 11/27/17 21:54 11/27/17 21:54 11/27/17 21:54 11/27/17 21:54 General NAD CV S1 S2 tachycardic R chest port, non tender, scar across the area, no erythema Lungs CTA B/L no wheezing/rales/rhonchi Extremities RUE swollen, 2+ pulses full ROM at shoulder/elbow wrist. slight diffuse tenderness on palpation ASSESSMENT AND PLAN: 57yo F with PMH HTN and L breast ca diagnosed 08/30 with permacath placed last month for chemo currently on chemo c/o RUE swelling x 3 days. 1. R SCV thrombus- medicine admission. CTA negative for PE. started on full dose lovenox. oncology consulted. consider vascular surgery evaluation for port replacement. pain control 2. neutropenia- ANC 276. afebrile. neutropenic precautions. 3. HTn- controlled. cont home medicaitons 4. DVT ppx- full dose lovenox
--- NOTE | 2017-11-28 02:08 | HP ---
CHIEF COMPLAINT: Sent in by Heme/Onc for RUE swelling PCP: Dr. Rodriguez HISTORY OF PRESENT ILLNESS: 57 y/o F w/PMH of L breast ca (on chemo: cytotoxan & doxirubicin), neutropenia, HTN, migraines, OA presents to the ER after being sent in my oncologist with RUE edema. Pt states she noticed on Saturday her RUE was edematous and felt heavy but had no other symptoms. Heaviness and some swelling was relieved by exercises of the hands/arms and halie. Pt saw her oncologist today who sent her in for duplex US of RUE and found to have R subclavian vein thrombus around port-a-cath. Pt denies any CP, SOB, arm weakness, sensation loss, MEDELLIN, light- headedness, swelling in other extremities. ER course was notable for: (1) CTA chest, lovenox (2) (3) Recent Travel: denies PAST MEDICAL HISTORY:breast ca (on chemo: cytotoxan & doxirubicin), neutropenia , HTN, migraines, OA PAST SURGICAL HISTORY: port-a-cath placed Oct 2017; L lumpectomy Oct 22, 2017, TMJ arthroscopy, septoplasty 1992, myomectomy 1999 Social History: Smoking:denies Alcohol:denies Drugs: denies Family History: mother: stroke at approx 80 y/o and subsequently developed DVT from immobilization after stroke. Father: prostate ca, DM2 Allergies avocado Allergy (Severe, Verified 11/27/17 17:09) Vomiting Cephalosporins Allergy (Severe, Verified 11/27/17 17:09) Rash erythromycin base Allergy (Severe, Verified 11/27/17 17:09) Rash Penicillins Allergy (Severe, Verified 11/27/17 17:09) Rash Sulfa (Sulfonamide Antibiotics) Allergy (Severe, Verified 11/27/17 17:09) Rash doxycycline Adverse Reaction (Severe, Verified 11/27/17 17:09) Nausea morphine Adverse Reaction (Severe, Verified 11/27/17 17:09) Vomiting HOME MEDICATIONS: Home Medications Medication Instructions Recorded Loratadine 10 mg PO DAILY 10/11/17 Metoprolol Succinate [Toprol Xl] 50 mg PO DAILY 10/11/17 Olmesartan Medoxomil 5 mg PO DAILY 10/11/17 Ranitidine HCl 150 mg PO DAILY 10/11/17 Acetaminophen [Tylenol] 650 mg PO TID PRN #30 tablet 11/12/17 REVIEW OF SYSTEMS CONSTITUTIONAL: Absent: fever, chills HEENT: Absent: visual changes CARDIOVASCULAR: Absent: chest pain, palpitations, lightheadedness, peripheral edema RESPIRATORY: Absent: cough, shortness of breath GASTROINTESTINAL: Absent: abdominal pain, nausea, vomiting, diarrhea GENITOURINARY: Absent: dysuria MUSCULOSKELETAL: +RUE swelling and heaviness PHYSICAL EXAMINATION Vital Signs - 24 hr 11/27/17 11/27/17 17:03 21:54 Temperature 99.5 F Pulse Rate 143 H Pulse Rate [ 110 H Apical] Respiratory 18 16 Rate Blood Pressure 132/82 Blood Pressure 142/74 [Left Arm] O2 Sat by Pulse 99 100 Oximetry (%) GENERAL: Awake, alert, and fully oriented, in no acute distress. EYES: extraocular movements intact, sclera anicteric, conjunctiva clear. NECK: Normal range of motion, supple LUNGS: Breath sounds equal, clear to auscultation bilaterally. No wheezes, and no crackles. HEART: Tachycardic, normal S1 and S2 without murmur, rub or gallop. R chest wall port-a-cath in place ABDOMEN: Soft, nontender, not distended, normoactive bowel sounds. MUSCULOSKELETAL: RUE with diffuse mild swelling. No pain to palpation. sensation intact, radial pulse intact, full ROM. 5/5 b/l UE and LE strength. UPPER EXTREMITIES: 2+ pulses, warm, well-perfused. No cyanosis. No clubbing. RUE with diffuse mild swelling. LOWER EXTREMITIES: warm, well-perfused. No calf tenderness. No peripheral edema. NEUROLOGICAL: Normal speech. Gait not observed. sensation to light touch intact on face, b/l UE and LE. PSYCHIATRIC: Cooperative. Good eye contact. Appropriate mood and affect. SKIN: Warm, dry Laboratory Results - last 24 hr 11/27/17 11/27/17 11/27/17 17:43 17:43 17:43 WBC 1.5 L* D RBC 4.26 Hgb 12.8 Hct 38.9 MCV 91.2 MCH 30.1 MCHC 33.0 RDW 12.3 Plt Count 166 D MPV 8.8 Neutrophils % 18.4 L D Lymphocytes % 58.4 H D Monocytes % 10.2 Eosinophils % 12.2 H D Basophils % 0.8 PT with INR 12.30 H INR 1.09 PTT (Actin FS) 29.7 Sodium 139 Potassium 4.1 Chloride 102 Carbon Dioxide 29 Anion Gap 8 BUN 10 Creatinine 0.5 L Creat Clearance w eGFR > 60 Random Glucose 106 Calcium 9.4 Total Bilirubin 0.4 D AST 15 ALT 30 Alkaline Phosphatase 145 H Total Protein 7.2 Albumin 3.6 Blood Type Antibody Screen 11/27/17 17:43 WBC RBC Hgb Hct MCV MCH MCHC RDW Plt Count MPV Neutrophils % Lymphocytes % Monocytes % Eosinophils % Basophils % PT with INR INR PTT (Actin FS) Sodium Potassium Chloride Carbon Dioxide Anion Gap BUN Creatinine Creat Clearance w eGFR Random Glucose Calcium Total Bilirubin AST ALT Alkaline Phosphatase Total Protein Albumin Blood Type A POSITIVE Antibody Screen Negative Imaging: Duplex U/S RUE 11/27/17: IMPRESSION: Findings consistent with deep venous thromboses involving the right subclavian vein around the Port -A-Cath catheter. CTA chest 11/27/17: Impression: No CT evidence of pulmonary embolism. Right subclavian vein thrombosis which is probably acute/subacute. Correlate clinically. Right subclavian venous catheter in place. Active Medications Enoxaparin Sodium (Lovenox -) 65 mg SQ BID [facility] Last Admin: 11/27/17 22:10 Dose: 65 mg Sodium Chloride (Normal Saline -) 1,000 mls @ 100 mls/hr IV ASDIR [facility] [place] Last Admin: 11/27/17 17:55 Dose: 100 mls/hr Metoprolol Succinate (Toprol Xl -) 50 mg PO DAILY [facility] [place] Non-Formulary Medication (Olmesartan Medoxomil [Olmesartan Medoxomil]) 5 mg PO DAILY [facility] [place] Ranitidine HCl (Zantac -) 150 mg PO DAILY [facility] [place] ASSESSMENT/PLAN: 57 y/o F w/PMH of L breast ca (on chemo: cytotoxan & doxirubicin), neutropenia, HTN, migraines, OA presents to the ER after being sent in my oncologist with RUE edema. Found to have to R subclavian vein thrombosis around port-a-cath -R subclavian vein thrombosis around port-a-cath -Lovenox 65 mg bid -Heme/onc consult -will follow recs for port-a-cath going forward -pain control with ibuprofen 400 mg po q6h prn -pt does not tolerate opiods well and prefers ibuprofen over tylenol -Neutropenia -due to chemotherapy -neutropenic precautions -HTN -c/w metoprolol succ 50 mg qd, olmesartan 5mg qd -GERD -c/w ranitidine 150 mg po qd -DVT ppx -on lovenox -FEN -NS @ 75 ml/hr, can d/c if on diet -monitor electrolytes -will make npo for now, put on neutropenic diet if needed. -Dispo: Admit to tele Visit type - Emergency Visit Emergency Visit: Yes ED Registration Date: 11/28/17 Care time: The patient presented to the Emergency Department on the above date and was hospitalized for further evaluation of their emergent condition. - New Patient This patient is new to me today: Yes Date on this admission: 11/28/17 - Critical Care Critical Care patient: No
[2017-11-28] MEDS: SODIUM CHLORIDE 1,000 ML IV SCH (03:01)
[2017-11-28 07:09] LABS: HEMATOCRIT 34.8 % (32.4-45.2); HEMOGLOBIN 11.2 GM/dL (10.7-15.3); MCH 29.5 pg (25.7-33.7); MCHC 32.2 g/dl (32.0-36.0); MEAN CELL VOLUME 91.5 fl (80-96); MEAN PLT VOLUME 9.1 fl (7.5-11.1); PLATELET COUNT 138 K/MM3 (134-434); RDW 12.1 % (11.6-15.6); WHITE BLOOD COUNT 2.1 K/mm3 (4.0-10.0)
[2017-11-28 07:35] LABS: ALBUMIN 3.2 g/dl (3.4-5.0); ALK PHOS 118 U/L (45-117); ANION GAP 6 (8-16); BILIRUBIN,TOTAL 0.3 mg/dL (0.2-1.0); BLOOD UREA NITROGEN 10 mg/dL (7-18); CALCIUM 8.3 mg/dL (8.5-10.1); CHLORIDE 109 mmol/L (98-107); CO2 27 mmol/L (21-32); CREATININE 0.6 mg/dL (0.55-1.02); GLUCOSE,RANDOM 98 mg/dL (74-106); SGOT/AST 10 U/L (15-37); SGPT/ALT 24 U/L (12-78); SODIUM 142 mmol/L (136-145); TOT PROT 5.8 g/dl (6.4-8.2)
[2017-11-28] MEDS ORDERED: ACETAMINOPHEN 325 MG TABLET (FP) ONE (08:03)
--- NOTE | 2017-11-28 08:28 | PN ---
Teaching Attending Note Name of Resident: Barber Hurtado ATTENDING PHYSICIAN STATEMENT I saw and evaluated the patient. I reviewed the resident's note and discussed the case with the resident. I agree with the resident's findings and plan as documented. SUBJECTIVE: OBJECTIVE: Vital Signs Temperature 98.6 F 11/28/17 06:48 Pulse Rate 102 H 11/28/17 06:48 Respiratory Rate 20 11/28/17 06:48 Blood Pressure 138/84 11/28/17 06:48 O2 Sat by Pulse Oximetry (%) 94 L 11/28/17 06:48 CBCD WBC 2.1 K/mm3 (4.0-10.0) L D 11/28/17 06:32 RBC 3.80 M/mm3 (3.60-5.2) 11/28/17 06:32 Hgb 11.2 GM/dL (10.7-15.3) D 11/28/17 06:32 Hct 34.8 % (32.4-45.2) 11/28/17 06:32 MCV 91.5 fl (80-96) 11/28/17 06:32 MCHC 32.2 g/dl (32.0-36.0) 11/28/17 06:32 RDW 12.1 % (11.6-15.6) 11/28/17 06:32 Plt Count 138 K/MM3 (134-434) 11/28/17 06:32 MPV 9.1 fl (7.5-11.1) 11/28/17 06:32 CMP Sodium 142 mmol/L (136-145) 11/28/17 06:32 Potassium 4.0 mmol/L (3.5-5.1) 11/28/17 06:32 Chloride 109 mmol/L (98-107) H 11/28/17 06:32 Carbon Dioxide 27 mmol/L (21-32) 11/28/17 06:32 Anion Gap 6 (8-16) L 11/28/17 06:32 BUN 10 mg/dL (7-18) 11/28/17 06:32 Creatinine 0.6 mg/dL (0.55-1.02) 11/28/17 06:32 Creat Clearance w eGFR > 60 (>60) 11/28/17 06:32 Random Glucose 98 mg/dL (74-106) 11/28/17 06:32 Calcium 8.3 mg/dL (8.5-10.1) L 11/28/17 06:32 Total Bilirubin 0.3 mg/dL (0.2-1.0) D 11/28/17 06:32 AST 10 U/L (15-37) L 11/28/17 06:32 ALT 24 U/L (12-78) 11/28/17 06:32 Alkaline Phosphatase 118 U/L (45-117) H 11/28/17 06:32 Total Protein 5.8 g/dl (6.4-8.2) L 11/28/17 06:32 Albumin 3.2 g/dl (3.4-5.0) L 11/28/17 06:32 Current Medications Generic Name Dose Route Start Last Admin Trade Name Freq PRN Reason Stop Dose Admin Acetaminophen 650 mg 11/28/17 08:11 Tylenol - PO Q6H PRN PAIN Enoxaparin Sodium 65 mg 11/28/17 08:09 Lovenox - SQ BID [facility] Sodium Chloride 1,000 mls @ 75 mls/hr 11/28/17 02:08 11/28/17 03:01 Normal Saline - IV 75 mls/hr ASDIR [facility] Administration Metoprolol Succinate 50 mg 11/28/17 10:00 Toprol Xl - PO DAILY [facility] Ranitidine HCl 150 mg 11/28/17 10:00 Zantac - PO DAILY [facility] Valsartan 40 mg 11/28/17 10:00 Diovan - PO DAILY [facility] Home Medications Medication Instructions Recorded Loratadine 10 mg PO DAILY 10/11/17 Metoprolol Succinate [Toprol Xl] 50 mg PO DAILY 10/11/17 Olmesartan Medoxomil 5 mg PO DAILY 10/11/17 Ranitidine HCl 150 mg PO DAILY 10/11/17 Acetaminophen [Tylenol] 650 mg PO TID PRN #30 tablet 11/12/17 ASSESSMENT AND PLAN: 57yo F with PMH HTN and L breast ca diagnosed 08/30 with permacath placed last month for chemo currently on chemo c/o RUE swelling x 3 days. # R SCV thrombus- medicine admission. CTA negative for PE. started on full dose lovenox. oncology consulted. consider vascular surgery evaluation for port replacement. pain control # neutropenia- ANC 276. afebrile. neutropenic precautions. # HTn- controlled. cont home medicaitons DVT ppx- full dose lovenox
[2017-11-28] MEDS: ACETAMINOPHEN 325 MG TABLET (FP) PO PRN ×2 (08:30→15:56)
--- NOTE | 2017-11-28 09:38 | PN ---
Progress Note (short form) - Note Progress Note: Pt seen and examined chart reviewed in detail Sent from office to the ER yesterday for new onset RUE DVT ( c/o swelling in the office ) and also was tachy to as high as 136. She feels much better today. She does feel her arm is less heavier than the past week. O/E: General: NAD HEENT: NCAT Cor: tachy. regular Lungs: CTA b/l Abd: benign Extremeties: LE: wnl, RUE: mild swelling present Neuro: AAOx3 Last Vital Signs Temp Pulse Resp BP Pulse Ox 99.2 F 105 H 18 134/82 100 11/28/17 08:44 11/28/17 08:44 11/28/17 08:44 11/28/17 08:44 11/28/17 08:44 Current Medications Generic Name Dose Route Start Last Admin Trade Name Freq PRN Reason Stop Dose Admin Acetaminophen 650 mg 11/28/17 08:11 11/28/17 08:30 Tylenol - PO 650 mg Q6H PRN Administration PAIN Enoxaparin Sodium 65 mg 11/28/17 08:09 Lovenox - SQ BID [facility] Sodium Chloride 1,000 mls @ 75 mls/hr 11/28/17 02:08 11/28/17 03:01 Normal Saline - IV 75 mls/hr ASDIR [facility] Administration Metoprolol Succinate 50 mg 11/28/17 10:00 Toprol Xl - PO DAILY [facility] Ranitidine HCl 150 mg 11/28/17 10:00 Zantac - PO DAILY [facility] Valsartan 40 mg 11/28/17 10:00 Diovan - PO DAILY [facility] CBC, BMP 11/28/17 06:32 11/28/17 06:32 New DVT: -provoked from Port-a-cath -will continue with therapeutic dose of lovenox. -prior d/c, will change to NOACs ( will need to confirm from Pharmacy if insurance will cover ) -duration: as long as the Port is in or to be determined upon completion of chemo Tachycardia: ?hypovolemia no PE will repeat TTE, to see if there's been a change in EF ( as post Anthra) will ask cardiology evaluation prior to ddAC, MUGA with 77% will c.w IVF Stage II Left Breast Ca, s/p Lumpectomy , bilateral reduction.presently on adjuvant chemotherapy given high risk histological features s/p C1 of ddAC, today is C1D9 Neutropenic precautions monitor fever curve Appreciate all consultants/ER input
[2017-11-28] MEDS: ENOXAPARIN NA (PORCINE) 80 MG/0.8 ML DISP.SYRIN SQ SCH ×2 (10:17→22:00)
[2017-11-28] MEDS: RANITIDINE HCL 150 MG TABLET (FP) PO SCH (10:17)
[2017-11-28] MEDS: VALSARTAN 40 MG TABLET (FP) PO SCH (10:17)
--- NOTE | 2017-11-28 10:59 | CON.CARD ---
Consult Consult Specialty:: Cardiology Referred by:: Oncology Reason for Consultation:: Sinus tachycardia, h/o adriamycin administration - History of Present Illness Chief Complaint: Right UE swelling History of Present Illness: 57yo F with PMH HTN and L breast ca diagnosed 08/30 with permacath placed last month for chemo post 1 cycle Adriamycin c/o RUE swelling since Saturday. States arm felt heavy. pain improved with movement. saw oncologist ordered u/s showing R SCV clot and sent her to the ER, ruled out PE. She denies Cp, SOB, fever, chills, palpitations, near or true syncope, palpitations, orthopnea, PND or LE edema, noted to be in sinus tachycardia. - History Source History Provided By: Patient Limitations to Obtaining History: No Limitations - Past Medical History Cardio/Vascular: Yes: HTN Musculoskeletal: Yes: Chronic low back pain, Osteoarthritis ENT: Yes: Other (mutiple allergies) - Alcohol/Substance Use Hx Alcohol Use: No - Smoking History Smoking history: Never smoked Have you smoked in the past 12 months: No Home Medications - Allergies Allergies/Adverse Reactions: Allergies Allergy/AdvReac Type Severity Reaction Status Date / Time avocado Allergy Severe Vomiting Verified 11/27/17 17:09 Cephalosporins Allergy Severe Rash Verified 11/27/17 17:09 erythromycin base Allergy Severe Rash Verified 11/27/17 17:09 Penicillins Allergy Severe Rash Verified 11/27/17 17:09 Sulfa (Sulfonamide Allergy Severe Rash Verified 11/27/17 17:09 Antibiotics) doxycycline AdvReac Severe Nausea Verified 11/27/17 17:09 morphine AdvReac Severe Vomiting Verified 11/27/17 17:09 - Home Medications Home Medications: Ambulatory Orders Loratadine 10 mg PO DAILY 10/11/17 Metoprolol Succinate [Toprol Xl] 50 mg PO DAILY 10/11/17 Olmesartan Medoxomil 5 mg PO DAILY 10/11/17 Ranitidine HCl 150 mg PO DAILY 10/11/17 Acetaminophen [Tylenol] 650 mg PO TID PRN #30 tablet 11/12/17 Family Disease History - Family Disease History Family Disease History: CA: Grandparent (mat GM bladder ca 78), Father ( prostate ca 68), Brother (prostate ca 54) Review of Systems - Review of Systems Cardiovascular: reports: Edema Vital Signs: Vital Signs Temperature 98.7 F 11/28/17 10:17 Pulse Rate 107 H 11/28/17 10:17 Respiratory Rate 16 11/28/17 10:17 Blood Pressure 131/81 11/28/17 10:17 O2 Sat by Pulse Oximetry (%) 98 11/28/17 10:17 Constitutional: Yes: No Distress, Calm Neck: Yes: Supple Respiratory: Yes: Regular, CTA Bilaterally Gastrointestinal: Yes: Normal Bowel Sounds, Soft Cardiovascular: Yes: Tachycardia JVD: No Carotid Bruit: No Heart Sounds: Yes: S1, S2 Edema: Yes Edema: RUE: 2+ - Other Data Labs, Other Data: CBC, BMP 11/28/17 06:32 11/28/17 06:32 INR, PTT INR 1.09 (0.82-1.09) 11/27/17 17:43 ST @ 112 LVH, LAE Ejection Fraction %: LVEF > or = 40 % Imaging - Results Cat Scan: Report Reviewed (Rt SCV thrombus without PE) Ultrasound: Report Reviewed (Rt SCV thrombus) Problem List - Problems (1) Sinus tachycardia Code(s): R00.0 - TACHYCARDIA, UNSPECIFIED (2) DVT (deep venous thrombosis) Code(s): I82.409 - ACUTE EMBOLISM AND THOMBOS UNSP DEEP VN UNSP LOWER EXTREMITY Qualifiers: DVT location: upper extremity Chronicity: acute Laterality: right (3) Breast cancer, left Code(s): C50.912 - MALIGNANT NEOPLASM OF UNSPECIFIED SITE OF LEFT FEMALE BREAST Qualifiers: Breast location: central portion of breast Patient sex: female (4) Hypertensive cardiomyopathy Code(s): I11.9 - HYPERTENSIVE HEART DISEASE WITHOUT HEART FAILURE; I43 - CARDIOMYOPATHY IN DISEASES CLASSIFIED ELSEWHERE Qualifiers: Heart failure presence: without heart failure Qualified Code(s): I11.9 - Hypertensive heart disease without heart failure; I43 - Cardiomyopathy in diseases classified elsewhere; I43 - Cardiomyopathy in diseases classified elsewhere; I43 - Cardiomyopathy in diseases classified elsewhere; I43 - Cardiomyopathy in diseases classified elsewhere (5) Neutropenia Code(s): D70.9 - NEUTROPENIA, UNSPECIFIED Qualifiers: Neutropenia type: secondary to cancer chemotherapy Qualified Code(s): D70.1 - Agranulocytosis secondary to cancer chemotherapy; T45.1X5A - Adverse effect of antineoplastic and immunosuppressive drugs, initial encounter; T45.1X5A - Adverse effect of antineoplastic and immunosuppressive drugs, initial encounter Assessment/Plan 11/12/2017 MUGA: Normal LV size and fxn, LVEF 77% 1. New provoked R SCV thrombus from port-a-cath, ruled out for PE 2. Left breast ca s/p Adriamycin 3. HTN/HCVD 4. Neutropenia without fevers 5. Sinus tachycardia P:1. Echocardiogram to assess ventricular function 2. Holter monitor to assess tachyarrhythmia burden 3. Continue Toprol XL 50 qd and Diovan 40 qd 4. Neutropenic precautions, IVF, therapeutic Lovenox->NOAC per heme input 5. Thank you for consultative opportunity
--- NOTE | 2017-11-28 11:50 | EKG ---
Test Reason : Blood Pressure : / mmHG Vent. Rate : 112 BPM Atrial Rate : 112 BPM P-R Int : 144 ms QRS Dur : 064 ms QT Int : 316 ms P-R-T Axes : 045 -02 027 degrees QTc Int : 431 ms SINUS TACHYCARDIA POSSIBLE LEFT ATRIAL ENLARGEMENT LEFT VENTRICULAR HYPERTROPHY ABNORMAL ECG WHEN COMPARED WITH ECG OF 11-OCT-2017 09:51, NO SIGNIFICANT CHANGE WAS FOUND Confirmed by SHIRLENE QUINTANILLA MD ([id number]) on 11/28/2017 11:50:40 AM Referred By: Confirmed By:SHIRLENE QUINTANILLA MD
--- NOTE | 2017-11-28 14:05 | PN ---
Progress Note (short form) - Note Progress Note: VAscular Surgery Pt seen and examined in the ER. Port placed for breast CA end of oct. Now comes in with 4 day history of right upper ext swelling. CT scan shows right subclavian vein DVT. Lovenox is started. Will need AC for 6 months. Right upper ext swelling will get better with AC. No need to remove port. Cont treatments through port. CAn remove once all chemo treatments are finished. Gino Ann DO
--- NOTE | 2017-11-28 16:06 | PN ---
<Barber Hurtado - Last Filed: 11/28/17 16:16> Physical Exam: SUBJECTIVE: Patient seen and examined at bedside. Patient states that her arm is in no pain but that the swelling in the R arm is persistent. States that it started Saturday with edema and progressed. She sees Dr. Mallory as an outpatient. Denies chest pain, SOB, nausea, vomiting, diarrhea. OBJECTIVE: Vital Signs Period Temp Pulse Resp BP Sys/Hurst Pulse Ox Last 24 Hr 98.1 F-99.5 F 100-143 16-20 131-148/63-84 94-100 GENERAL: The patient is awake, alert, and fully oriented, in no acute distress. HEAD: Normal with no signs of trauma. EYES: PERRL, extraocular movements intact, sclera anicteric, conjunctiva clear. No ptosis. ENT: Ears normal, nares patent, oropharynx clear without exudates, moist mucous membranes. NECK: Trachea midline, full range of motion, supple. LUNGS: Breath sounds equal, clear to auscultation bilaterally, no wheezes, no crackles, no accessory muscle use. HEART: Regular rate and rhythm, S1, S2 without murmur, rub or gallop. Port placed in R chest wall without surrounding edema or erythema. ABDOMEN: Soft, nontender, nondistended, normoactive bowel sounds, no guarding, no rebound, no hepatosplenomegaly, no masses. EXTREMITIES: 2+ pulses, warm, well-perfused, RUE significantly more edematous than the left, non-pitting. RUE mildly more erythematous than the left. NEUROLOGICAL: Cranial nerves II through XII grossly intact. Normal speech, gait not observed. PSYCH: Normal mood, normal affect. SKIN: Warm, dry, normal turgor, no rashes or lesions noted Laboratory Results - last 24 hr 11/27/17 11/27/17 11/27/17 17:43 17:43 17:43 WBC 1.5 L* D RBC 4.26 Hgb 12.8 Hct 38.9 MCV 91.2 MCH 30.1 MCHC 33.0 RDW 12.3 Plt Count 166 D MPV 8.8 Neutrophils % 18.4 L D Lymphocytes % 58.4 H D Monocytes % 10.2 Eosinophils % 12.2 H D Basophils % 0.8 PT with INR 12.30 H INR 1.09 PTT (Actin FS) 29.7 Sodium 139 Potassium 4.1 Chloride 102 Carbon Dioxide 29 Anion Gap 8 BUN 10 Creatinine 0.5 L Creat Clearance w eGFR > 60 Random Glucose 106 Calcium 9.4 Total Bilirubin 0.4 D AST 15 ALT 30 Alkaline Phosphatase 145 H Total Protein 7.2 Albumin 3.6 Blood Type Antibody Screen 11/27/17 11/28/17 11/28/17 17:43 06:32 06:32 WBC 2.1 L D RBC 3.80 Hgb 11.2 D Hct 34.8 MCV 91.5 MCH 29.5 MCHC 32.2 RDW 12.1 Plt Count 138 MPV 9.1 Neutrophils % Lymphocytes % Monocytes % Eosinophils % Basophils % PT with INR INR PTT (Actin FS) Sodium 142 Potassium 4.0 Chloride 109 H Carbon Dioxide 27 Anion Gap 6 L BUN 10 Creatinine 0.6 Creat Clearance w eGFR > 60 Random Glucose 98 Calcium 8.3 L Total Bilirubin 0.3 D AST 10 L ALT 24 Alkaline Phosphatase 118 H Total Protein 5.8 L Albumin 3.2 L Blood Type A POSITIVE Antibody Screen Negative Active Medications Generic Name Dose Route Start Last Admin Trade Name Freq PRN Reason Stop Dose Admin Acetaminophen 650 mg 11/28/17 08:11 11/28/17 15:56 Tylenol - PO 650 mg Q6H PRN Administration PAIN Enoxaparin Sodium 65 mg 11/28/17 08:09 11/28/17 10:17 Lovenox - SQ 65 mg BID [facility] Administration Sodium Chloride 1,000 mls @ 75 mls/hr 11/28/17 02:08 11/28/17 03:01 Normal Saline - IV 75 mls/hr ASDIR [facility] Administration Metoprolol Succinate 50 mg 11/28/17 10:00 11/28/17 10:17 Toprol Xl - PO 50 mg DAILY [facility] Administration Ranitidine HCl 150 mg 11/28/17 10:00 11/28/17 10:17 Zantac - PO 150 mg DAILY [facility] Administration Valsartan 40 mg 11/28/17 10:00 11/28/17 10:17 Diovan - PO 40 mg DAILY [facility] Administration ASSESSMENT/PLAN: 57 year old female with a past medical history of HTN, neutropenia, L breast CA s/p lumpectomy currently on chemotherapy is admitted to the hospital for the treatment of R upper extremity subclavian venous thrombosis. #RUE Subclavian vein thrombosis: likely 2/2 hypercoagulability due to cancer to port placement -consult Dr. Ann appreciated - no surgical intervention will be required -consult Dr. Mallory appreciated -Continue lovenox 65mg SQ BID -PRN tylenol for pain -echocardiogram normal -will consider NOACs for future anticoagulation #Hypertension: controlled -continue metoprolol 50mg PO QD -continue diovan 40mg PO QD #Neutropenia: stable #L Breast CA: on chemotherapy -consult Dr. Mallory #FEN -IVF NS -replete lytes in AM -cardiac diet #Prophylaxis -on lovenox #Disposition: continue to monitor on telemetry Visit type - Emergency Visit Emergency Visit: Yes ED Registration Date: 11/27/17 Care time: The patient presented to the Emergency Department on the above date and was hospitalized for further evaluation of their emergent condition. - New Patient This patient is new to me today: Yes Date on this admission: 11/28/17 - Critical Care Critical Care patient: No <Hosea Alvarez - Last Filed: 11/28/17 22:58> Physical Exam: Patient seen and examined with the resident. Agree with the plan. Vital Signs Temperature 98.5 F 11/28/17 18:00 Pulse Rate 76 11/28/17 18:00 Respiratory Rate 18 11/28/17 18:00 Blood Pressure 148/74 11/28/17 18:00 O2 Sat by Pulse Oximetry (%) 98 11/28/17 14:24 CBCD WBC 2.1 K/mm3 (4.0-10.0) L D 11/28/17 06:32 RBC 3.80 M/mm3 (3.60-5.2) 11/28/17 06:32 Hgb 11.2 GM/dL (10.7-15.3) D 11/28/17 06:32 Hct 34.8 % (32.4-45.2) 11/28/17 06:32 MCV 91.5 fl (80-96) 11/28/17 06:32 MCHC 32.2 g/dl (32.0-36.0) 11/28/17 06:32 RDW 12.1 % (11.6-15.6) 11/28/17 06:32 Plt Count 138 K/MM3 (134-434) 11/28/17 06:32 MPV 9.1 fl (7.5-11.1) 11/28/17 06:32 CMP Sodium 142 mmol/L (136-145) 11/28/17 06:32 Potassium 4.0 mmol/L (3.5-5.1) 11/28/17 06:32 Chloride 109 mmol/L (98-107) H 11/28/17 06:32 Carbon Dioxide 27 mmol/L (21-32) 11/28/17 06:32 Anion Gap 6 (8-16) L 11/28/17 06:32 BUN 10 mg/dL (7-18) 11/28/17 06:32 Creatinine 0.6 mg/dL (0.55-1.02) 11/28/17 06:32 Creat Clearance w eGFR > 60 (>60) 11/28/17 06:32 Random Glucose 98 mg/dL (74-106) 11/28/17 06:32 Calcium 8.3 mg/dL (8.5-10.1) L 11/28/17 06:32 Total Bilirubin 0.3 mg/dL (0.2-1.0) D 11/28/17 06:32 AST 10 U/L (15-37) L 11/28/17 06:32 ALT 24 U/L (12-78) 11/28/17 06:32 Alkaline Phosphatase 118 U/L (45-117) H 11/28/17 06:32 Total Protein 5.8 g/dl (6.4-8.2) L 11/28/17 06:32 Albumin 3.2 g/dl (3.4-5.0) L 11/28/17 06:32 Current Medications Generic Name Dose Route Start Last Admin Trade Name Freq PRN Reason Stop Dose Admin Acetaminophen 650 mg 11/28/17 08:11 11/28/17 15:56 Tylenol - PO 650 mg Q6H PRN Administration PAIN Enoxaparin Sodium 65 mg 11/28/17 08:09 11/28/17 10:17 Lovenox - SQ 65 mg BID [facility] Administration Sodium Chloride 1,000 mls @ 75 mls/hr 11/28/17 02:08 11/28/17 03:01 Normal Saline - IV 75 mls/hr ASDIR [facility] Administration Metoprolol Succinate 50 mg 11/28/17 10:00 11/28/17 10:17 Toprol Xl - PO 50 mg DAILY [facility] Administration Ranitidine HCl 150 mg 11/28/17 10:00 11/28/17 10:17 Zantac - PO 150 mg DAILY [facility] Administration Valsartan 40 mg 11/28/17 10:00 11/28/17 10:17 Diovan - PO 40 mg DAILY [facility] Administration Home Medications Medication Instructions Recorded Loratadine 10 mg PO DAILY 10/11/17 Metoprolol Succinate [Toprol Xl] 50 mg PO DAILY 10/11/17 Olmesartan Medoxomil 5 mg PO DAILY 10/11/17 Ranitidine HCl 150 mg PO DAILY 10/11/17 Acetaminophen [Tylenol] 650 mg PO TID PRN #30 tablet 11/12/17
[2017-11-29] MEDS: ACETAMINOPHEN 325 MG TABLET (FP) PO PRN ×2 (01:53→16:28)
[2017-11-29] MEDS: SODIUM CHLORIDE 1,000 ML IV SCH (05:27)
[2017-11-29 06:48] LABS: HEMATOCRIT 32.6 % (32.4-45.2); HEMOGLOBIN 10.9 GM/dL (10.7-15.3); MCH 30.3 pg (25.7-33.7); MCHC 33.3 g/dl (32.0-36.0); MEAN CELL VOLUME 90.8 fl (80-96); MEAN PLT VOLUME 9.5 fl (7.5-11.1); PLATELET COUNT 137 K/MM3 (134-434); RBC 3.59 M/mm3 (3.60-5.2); WHITE BLOOD COUNT 3.9 K/mm3 (4.0-10.0)
[2017-11-29 07:03] LABS: ALBUMIN 2.7 g/dl (3.4-5.0); ANION GAP 9 (8-16); BLOOD UREA NITROGEN 7 mg/dL (7-18); CALCIUM 7.7 mg/dL (8.5-10.1); CHLORIDE 109 mmol/L (98-107); CO2 25 mmol/L (21-32); GLUCOSE,RANDOM 95 mg/dL (74-106); POTASSIUM 3.9 mmol/L (3.5-5.1); SODIUM 143 mmol/L (136-145)
[2017-11-29 07:09] LABS: ALK PHOS 104 U/L (45-117); BILIRUBIN,TOTAL 0.3 mg/dL (0.2-1.0); CREATININE 0.4 mg/dL (0.55-1.02); SGOT/AST 11 U/L (15-37); SGPT/ALT 17 U/L (12-78); TOT PROT 5.3 g/dl (6.4-8.2)
[2017-11-29] MEDS ORDERED: PT OWN MED DRAWER 7, Y5N ONE (09:24)
[2017-11-29] MEDS: ENOXAPARIN NA (PORCINE) 80 MG/0.8 ML DISP.SYRIN SQ SCH ×2 (09:27→21:35)
[2017-11-29] MEDS: RANITIDINE HCL 150 MG TABLET (FP) PO SCH (09:28)
[2017-11-29] MEDS: VALSARTAN 40 MG TABLET (FP) PO SCH (09:28)
--- NOTE | 2017-11-29 09:44 | PN ---
Progress Note, Physician History of Present Illness: RUE swelling and heaviness, denies chest pain or dyspnea. - Current Medication List Current Medications: Active Medications Acetaminophen (Tylenol -) 650 mg PO Q6H PRN PRN Reason: PAIN Last Admin: 11/29/17 01:53 Dose: 650 mg Enoxaparin Sodium (Lovenox -) 65 mg SQ BID [facility] Last Admin: 11/29/17 09:27 Dose: 65 mg Sodium Chloride (Normal Saline -) 1,000 mls @ 75 mls/hr IV ASDIR [facility] Last Admin: 11/29/17 05:27 Dose: 75 mls/hr Metoprolol Succinate (Toprol Xl -) 50 mg PO DAILY [facility] Last Admin: 11/29/17 09:28 Dose: 50 mg Ranitidine HCl (Zantac -) 150 mg PO DAILY [facility] Last Admin: 11/29/17 09:28 Dose: 150 mg Valsartan (Diovan -) 40 mg PO DAILY [facility] Last Admin: 11/29/17 09:28 Dose: 40 mg - Objective Vital Signs: Vital Signs Temperature 98.5 F 11/29/17 05:34 Pulse Rate 96 H 11/29/17 05:34 Respiratory Rate 16 11/29/17 05:34 Blood Pressure 116/65 11/29/17 05:34 O2 Sat by Pulse Oximetry (%) 98 11/28/17 21:00 Constitutional: Yes: No Distress, Calm Neck: Yes: Supple Cardiovascular: Yes: Regular Rate and Rhythm Respiratory: Yes: Regular, CTA Bilaterally Gastrointestinal: Yes: Normal Bowel Sounds, Soft Edema: Yes Edema: RUE: 2+ Labs: CBC, BMP 11/29/17 05:30 11/29/17 05:30 INR, PTT INR 1.09 (0.82-1.09) 11/27/17 17:43 - ....Imaging EKG: Report Reviewed (Tele: ST 110-120) Problem List - Problems (1) Sinus tachycardia Code(s): R00.0 - TACHYCARDIA, UNSPECIFIED (2) DVT (deep venous thrombosis) Code(s): I82.409 - ACUTE EMBOLISM AND THOMBOS UNSP DEEP VN UNSP LOWER EXTREMITY Qualifiers: DVT location: upper extremity Chronicity: acute Laterality: right (3) Breast cancer, left Code(s): C50.912 - MALIGNANT NEOPLASM OF UNSPECIFIED SITE OF LEFT FEMALE BREAST Qualifiers: Breast location: central portion of breast Patient sex: female (4) Hypertensive cardiomyopathy Code(s): I11.9 - HYPERTENSIVE HEART DISEASE WITHOUT HEART FAILURE; I43 - CARDIOMYOPATHY IN DISEASES CLASSIFIED ELSEWHERE Qualifiers: Heart failure presence: without heart failure Qualified Code(s): I11.9 - Hypertensive heart disease without heart failure; I43 - Cardiomyopathy in diseases classified elsewhere; I43 - Cardiomyopathy in diseases classified elsewhere; I43 - Cardiomyopathy in diseases classified elsewhere; I43 - Cardiomyopathy in diseases classified elsewhere (5) Neutropenia Code(s): D70.9 - NEUTROPENIA, UNSPECIFIED Qualifiers: Neutropenia type: secondary to cancer chemotherapy Qualified Code(s): D70.1 - Agranulocytosis secondary to cancer chemotherapy; T45.1X5A - Adverse effect of antineoplastic and immunosuppressive drugs, initial encounter; T45.1X5A - Adverse effect of antineoplastic and immunosuppressive drugs, initial encounter Assessment/Plan 11/12/2017 MUGA: Normal LV size and fxn, LVEF 77% 11/28/2017 Echo: normal biventricular size and fxn, tr MR 1. New provoked R SCV thrombus from port-a-cath, ruled out for PE 2. Left breast ca s/p Adriamycin 3. HTN/HCVD 4. Neutropenia without fevers 5. Sinus tachycardia P: 1. F/u Holter monitor to assess tachyarrhythmia burden 2. Increase Toprol XL 50 bid and Diovan 40 qd, may continue Anthracycline therapy 3. Neutropenic precautions, IVF, therapeutic Lovenox->NOAC per heme input
[2017-11-29 09:55] LABS: ANISOCYTOSIS 2+; MACROCYTOSIS 0; PLATELET ESTIMATE DECREASED
--- NOTE | 2017-11-29 12:29 | PN ---
Progress Note (short form) - Note Progress Note: Pt seen and examined feels much better. Denies any complains Last Vital Signs Temp Pulse Resp BP Pulse Ox 99 F 98 H 16 125/85 98 11/29/17 10:00 11/29/17 10:00 11/29/17 10:00 11/29/17 10:00 11/29/17 09:00 CBC, BMP 11/29/17 05:30 11/29/17 05:30 Current Medications Generic Name Dose Route Start Last Admin Trade Name Freq PRN Reason Stop Dose Admin Acetaminophen 650 mg 11/28/17 08:11 11/29/17 01:53 Tylenol - PO 650 mg Q6H PRN Administration PAIN Enoxaparin Sodium 65 mg 11/28/17 08:09 11/29/17 09:27 Lovenox - SQ 65 mg BID [facility] Administration Sodium Chloride 1,000 mls @ 75 mls/hr 11/28/17 02:08 11/29/17 05:27 Normal Saline - IV 75 mls/hr ASDIR [facility] Administration Metoprolol Succinate 50 mg 11/29/17 10:00 11/29/17 10:23 Toprol Xl - PO Not Given BID [facility] Ranitidine HCl 150 mg 11/28/17 10:00 11/29/17 09:28 Zantac - PO 150 mg DAILY [facility] Administration Rivaroxaban 15 mg 11/30/17 10:00 Xarelto - PO BID [facility] Valsartan 40 mg 11/28/17 10:00 11/29/17 09:28 Diovan - PO 40 mg DAILY [facility] Administration O/E: General: NAD HEENT: NCAT Cor: tachy. regular Lungs: CTA b/l Abd: benign Extremeties: LE: wnl, RUE: no further erythema, swelling decreased Neuro: AAOx3 New DVT: -provoked from Port-a-cath -will continue with therapeutic dose of lovenox. for today -start xarelto from tomorrow (15mg bid for 21 days and then 20mg daily, with food). I spoke to [place] [facility], sent the prescriptions over. pt has only 3 dollar co-pay. 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 Today, 750. if discharged over the weekend, pt to come to office at [facility]'s first floor on 12/03 2:30pm
--- NOTE | 2017-11-29 13:07 | PN ---
<Barber Hurtado - Last Filed: 11/29/17 13:32> Physical Exam: SUBJECTIVE: Patient seen and examined at bedside. Patient appears clinically improved. Denies any pain, shortness of breath, nausea, vomiting, diarrhea. OBJECTIVE: Vital Signs Period Temp Pulse Resp BP Sys/Hurst Pulse Ox Last 24 Hr 98.1 F-99 F 76-103 16-20 116-148/63-85 98-98 GENERAL: The patient is awake, alert, and fully oriented, in no acute distress. LUNGS: Breath sounds equal, clear to auscultation bilaterally, no wheezes, no crackles, no accessory muscle use. HEART: Regular rate and rhythm, S1, S2 without murmur, rub or gallop. Port placed in R chest wall without surrounding edema or erythema. ABDOMEN: Soft, nontender, nondistended, normoactive bowel sounds, no guarding, no rebound, no hepatosplenomegaly, no masses. EXTREMITIES: 2+ pulses, warm, well-perfused, RUE slightly more edematous than the left, non-pitting. RUE mildly more erythematous than the left. Significantly improved compared to yesterday. Laboratory Results - last 24 hr 11/29/17 11/29/17 05:30 05:30 WBC 3.9 L D RBC 3.59 L Hgb 10.9 Hct 32.6 MCV 90.8 MCH 30.3 MCHC 33.3 RDW 12.0 Plt Count 137 MPV 9.5 Neutrophils % Family Helper Neutrophils % (Manual) 19.4 L Band Neutrophils % 8.2 Lymphocytes % Family Helper Lymphocytes % (Manual) 52.1 H Monocytes % Family Helper Monocytes % (Manual) 8 Eosinophils % Family Helper Eosinophils % (Manual) 1.0 Basophils % Family Helper Basophils % (Manual) 0.0 Myelocytes % (Man) 2 Promyelocytes % (Man) 0 Nucleated RBC % 0 Metamyelocytes 2 Hypochromia 0 Platelet Estimate Decreased Polychromasia 0 Poikilocytosis 0 Anisocytosis 2+ Microcytosis 2+ Macrocytosis 0 Sodium 143 Potassium 3.9 Chloride 109 H Carbon Dioxide 25 Anion Gap 9 BUN 7 Creatinine 0.4 L Creat Clearance w eGFR > 60 Random Glucose 95 Calcium 7.7 L Magnesium 2.0 Total Bilirubin 0.3 AST 11 L ALT 17 Alkaline Phosphatase 104 Total Protein 5.3 L Albumin 2.7 L Active Medications Generic Name Dose Route Start Last Admin Trade Name Freq PRN Reason Stop Dose Admin Acetaminophen 650 mg 11/28/17 08:11 11/29/17 01:53 Tylenol - PO 650 mg Q6H PRN Administration PAIN Enoxaparin Sodium 65 mg 11/28/17 08:09 11/29/17 09:27 Lovenox - SQ 11/29/17 23:59 65 mg BID VANESSA Administration Sodium Chloride 1,000 mls @ 75 mls/hr 11/28/17 02:08 11/29/17 05:27 Normal Saline - IV 75 mls/hr ASDIR VANESSA Administration Metoprolol Succinate 50 mg 11/29/17 10:00 11/29/17 10:23 Toprol Xl - PO Not Given BID VANESSA Ranitidine HCl 150 mg 11/28/17 10:00 11/29/17 09:28 Zantac - PO 150 mg DAILY VANESSA Administration Rivaroxaban 15 mg 11/30/17 08:00 Xarelto - PO BID@0800,1800 VANESSA Valsartan 40 mg 11/28/17 10:00 11/29/17 09:28 Diovan - PO 40 mg DAILY VANESSA Administration ASSESSMENT/PLAN: 57 year old female with a past medical history of HTN, neutropenia, L breast CA s/p lumpectomy currently on chemotherapy is admitted to the hospital for the treatment of R upper extremity subclavian venous thrombosis. #RUE Subclavian vein thrombosis: likely 2/2 hypercoagulability due to cancer to port placement, improving -consult Dr. Ann appreciated - no surgical intervention will be required -consult Dr. Mallory appreciated -start Xarelto tomorrow (15mg bid for 21 days and then 20mg daily, with food). -PRN tylenol for pain -echocardiogram normal #Tachycardia: will need better rate control -Toprol XL PO BID -> increased from once a day #Hypertension: controlled -continue metoprolol 50mg PO BID -continue diovan 40mg PO QD #Neutropenia: stable #L Breast CA: on chemotherapy -consult Dr. Mallory #FEN -IVF NS @ 75 -replete lytes in AM -cardiac diet #Prophylaxis -on lovenox -> will change to Xarelto tomorrow #Disposition: continue to monitor on telemetry Visit type - Emergency Visit Emergency Visit: No - New Patient This patient is new to me today: No - Critical Care Critical Care patient: No <Hosea Alvarez - Last Filed: 11/29/17 16:35> Physical Exam: Patient seen and examined, patient is doing better with no acute distress, no shortness of breath, no headache, reduced swelling of the RUE, denies any pain. No fever or chills, no headache. Vital Signs Temperature 100.9 F H 11/29/17 16:25 Pulse Rate 106 H 11/29/17 16:25 Respiratory Rate 19 11/29/17 16:25 Blood Pressure 132/81 11/29/17 16:25 O2 Sat by Pulse Oximetry (%) 98 11/29/17 09:00 CBCD WBC 3.9 K/mm3 (4.0-10.0) L D 11/29/17 05:30 RBC 3.59 M/mm3 (3.60-5.2) L 11/29/17 05:30 Hgb 10.9 GM/dL (10.7-15.3) 11/29/17 05:30 Hct 32.6 % (32.4-45.2) 11/29/17 05:30 MCV 90.8 fl (80-96) 11/29/17 05:30 MCHC 33.3 g/dl (32.0-36.0) 11/29/17 05:30 RDW 12.0 % (11.6-15.6) 11/29/17 05:30 Plt Count 137 K/MM3 (134-434) 11/29/17 05:30 MPV 9.5 fl (7.5-11.1) 11/29/17 05:30 CMP Sodium 143 mmol/L (136-145) 11/29/17 05:30 Potassium 3.9 mmol/L (3.5-5.1) 11/29/17 05:30 Chloride 109 mmol/L (98-107) H 11/29/17 05:30 Carbon Dioxide 25 mmol/L (21-32) 11/29/17 05:30 Anion Gap 9 (8-16) 11/29/17 05:30 BUN 7 mg/dL (7-18) 11/29/17 05:30 Creatinine 0.4 mg/dL (0.55-1.02) L 11/29/17 05:30 Creat Clearance w eGFR > 60 (>60) 11/29/17 05:30 Random Glucose 95 mg/dL (74-106) 11/29/17 05:30 Calcium 7.7 mg/dL (8.5-10.1) L 11/29/17 05:30 Total Bilirubin 0.3 mg/dL (0.2-1.0) 11/29/17 05:30 AST 11 U/L (15-37) L 11/29/17 05:30 ALT 17 U/L (12-78) 11/29/17 05:30 Alkaline Phosphatase 104 U/L (45-117) 11/29/17 05:30 Total Protein 5.3 g/dl (6.4-8.2) L 11/29/17 05:30 Albumin 2.7 g/dl (3.4-5.0) L 11/29/17 05:30 Current Medications Generic Name Dose Route Start Last Admin Trade Name Freq PRN Reason Stop Dose Admin Acetaminophen 650 mg 11/28/17 08:11 11/29/17 16:28 Tylenol - PO 650 mg Q6H PRN Administration PAIN Enoxaparin Sodium 65 mg 11/28/17 08:09 11/29/17 09:27 Lovenox - SQ 11/29/17 23:59 65 mg BID VANESSA Administration Sodium Chloride 1,000 mls @ 75 mls/hr 11/28/17 02:08 11/29/17 05:27 Normal Saline - IV 75 mls/hr ASDIR VANESSA Administration Metoprolol Succinate 50 mg 11/29/17 10:00 11/29/17 10:23 Toprol Xl - PO Not Given BID [facility] Ranitidine HCl 150 mg 11/28/17 10:00 11/29/17 09:28 Zantac - PO 150 mg DAILY VANESSA Administration Rivaroxaban 15 mg 11/30/17 08:00 Xarelto - PO BID@0800,1800 [facility] Valsartan 40 mg 11/28/17 10:00 11/29/17 09:28 Diovan - PO 40 mg DAILY VANESSA Administration Home Medications Medication Instructions Recorded Loratadine 10 mg PO DAILY 10/11/17 Metoprolol Succinate [Toprol Xl] 50 mg PO DAILY 10/11/17 Olmesartan Medoxomil 5 mg PO DAILY 10/11/17 Ranitidine HCl 150 mg PO DAILY 10/11/17 Acetaminophen [Tylenol] 650 mg PO TID PRN #30 tablet 11/12/17
--- NOTE | 2017-11-29 14:54 | HOL ---
Hook-up date: 2017-11-28 12:18:00 Duration: 23:25:00 Test Indications: EVALUATE TACHARRHYTHMIA BURDEN Medications: [id number] QRS complexes 113 Ventricular ectopics which represent <1 % of total QRS comp. 22 Supraventricular ectopics which represent <1 % of total QRS comp. * Paced QRS complexs which represent % of total QRS comp. * % of Time Classified as Noise VENTRICULAR ECTOPY 112 Isolated 0 Bigeminal Cycles 0 Couplets 0 Runs 0 Beats in Runs * Beats LONGEST at * BPM at :: -- * Beats FASTEST at * BPM at :: -- SUPRAVENTRICULAR ECTOPY 16 Isolated 0 Couplets 2 Runs 6 Beats in Runs 3 Beats LONGEST at 174 BPM at 17:52:10 2017-11-28 3 Beats FASTEST at 174 BPM at 17:52:10 2017-11-28 HEART RATES 81 MIN at 20:46:24 2017-11-28 97 AVG 137 MAX at 08:43:38 2017-11-29 LONGEST RR 1.272 secs at 06:25:52 2017-11-29 The underlying rhythm is normal sinus ranging from 81bpm to 137 bpm, average rate = 97 bpm. Minimum rate: 81bpm, Maximum rate: 137 bpm, sinus tachycardia. Rare single APCs and VPCs. No pauses or diary entries. Confirmed by JARVIS OLIVIA MD ([id number]) on 11/29/2017 2:53:56 PM Referred By: [facility] Overread By: JARVIS OLIVIA MD
--- NOTE | 2017-11-29 18:15 | PN ---
Progress Note (short form) - Note Progress Note: noticed pt with fever 100.9 Tachycardia noticed Concern for sepsis in this Pt with Neutropenia (as mentioned earlier to monitor fever curve, pt was given Tylenol): -stat Blood cultures/CXR/Urine studies -One dose of vanc and cefepime -ID consult -close monitoring -nicole [place] and resident
[2017-11-29] MEDS ORDERED: VANCOMYCIN 1 GRAM (PRE-DOCKED) 1,000 MG/250 ML BAG IVPB ONE (18:24)
[2017-11-29] MEDS ORDERED: VANCOMYCIN 1,000 MG in DEXTROSE 5%-WATER - 250 ML IVPB ONE (18:30)
[2017-11-29] MEDS ORDERED: MEROPENEM 500 MG VIAL (RESTRICTED TO ID) IVPB SCH (18:30)
[2017-11-29 19:33] LABS: URINE APPEARANCE CLEAR; URINE BILIRUBIN NEGATIVE (NEGATIVE); URINE BLOOD NEGATIVE (NEGATIVE); URINE COLOR COLORLESS; URINE GLUCOSE (UA) NEGATIVE (NEGATIVE); URINE KETONE NEGATIVE (NEGATIVE); URINE LEUK ESTERASE NEGATIVE (NEGATIVE); URINE NITRITE NEGATIVE (NEGATIVE); URINE PROTEIN NEGATIVE (NEGATIVE); URINE UROBILINOGEN NEGATIVE mg/dL (0.2-1.0)
[2017-11-29] MEDS ORDERED: AZTREONAM 1 GM in DEXTROSE 5%-WATER - 50 ML IVPB SCH (20:00)
[2017-11-29] MEDS ORDERED: AZTREONAM 1 GRAM SYRINGE 1 GM/10 ML DISP.SYRIN IVPUSH SCH (20:15)
[2017-11-30] MEDS ORDERED: AZTREONAM 1 GRAM SYRINGE 1 GM/10 ML DISP.SYRIN IVPUSH ONE (06:30)
[2017-11-30] MEDS: SODIUM CHLORIDE 1,000 ML IV SCH ×2 (06:33→12:13)
[2017-11-30 07:35] LABS: BASO % 0.3 % (0-2.0); HEMATOCRIT 34.1 % (32.4-45.2); HEMOGLOBIN 11.3 GM/dL (10.7-15.3); LYMPH % 16.2 % (8-40); MCH 30.1 pg (25.7-33.7); MCHC 33.1 g/dl (32.0-36.0); MEAN CELL VOLUME 90.9 fl (80-96); MEAN PLT VOLUME 9.4 fl (7.5-11.1); MONO % 0.2 % (3.8-10.2); NEUT % 82.3 % (42.8-82.8); PLATELET COUNT 141 K/MM3 (134-434); RBC 3.75 M/mm3 (3.60-5.2); RDW 12.4 % (11.6-15.6); WHITE BLOOD COUNT 11.7 K/mm3 (4.0-10.0)
[2017-11-30 07:58] LABS: ALBUMIN 2.8 g/dl (3.4-5.0); ANION GAP 8 (8-16); BLOOD UREA NITROGEN 7 mg/dL (7-18); CALCIUM 8.2 mg/dL (8.5-10.1); CHLORIDE 109 mmol/L (98-107); CO2 25 mmol/L (21-32); GLUCOSE,RANDOM 96 mg/dL (74-106); MAGNESIUM 2.2 mg/dL (1.8-2.4); POTASSIUM 3.9 mmol/L (3.5-5.1); SODIUM 142 mmol/L (136-145)
[2017-11-30 08:02] LABS: ALK PHOS 113 U/L (45-117); BILIRUBIN,TOTAL 0.1 mg/dL (0.2-1.0); CREATININE 0.5 mg/dL (0.55-1.02); SGOT/AST 18 U/L (15-37); SGPT/ALT 19 U/L (12-78); TOT PROT 5.6 g/dl (6.4-8.2)
[2017-11-30] MEDS: RIVAROXABAN 15 MG TABLET PO SCH ×2 (09:12→18:00)
--- NOTE | 2017-11-30 10:54 | PN ---
Progress Note (short form) - Note Progress Note: ID Consult dictated Febrile neutropenia R/O neutropenic sepsis R subclavian vein thrombosis Stage II ER+ breast ca Multiple antibiotic allergies Await sepsis work up Empiric vancomycin/ meropenem
[2017-11-30] MEDS ORDERED: MEROPENEM 500 MG VIAL (RESTRICTED TO ID) IVPB SCH (11:00)
[2017-11-30] MEDS: RANITIDINE HCL 150 MG TABLET (FP) PO SCH (11:14)
[2017-11-30] MEDS: VALSARTAN 40 MG TABLET (FP) PO SCH (11:14)
--- NOTE | 2017-11-30 12:02 | PN ---
Progress Note (short form) - Note Progress Note: Hematology/Oncology Follow-up Note S: Patient feels well with no complaints today. She has mild pain and tenderness at the port site where her DVT is. Last Vital Signs Temp Pulse Resp BP Pulse Ox 99.2 F 94 H 16 139/75 98 11/30/17 06:00 11/30/17 06:00 11/30/17 06:00 11/30/17 06:00 11/29/17 21:00 PE : Pleasant, AOx3 PERRLA, EOMI CTA (BL), S1S2 wnl Soft abdomen No c/c/e Nonfocal neuro exam Labs : CBC, BMP 11/30/17 06:00 11/30/17 06:00 Current Medications Generic Name Dose Route Start Last Admin Trade Name Freq PRN Reason Stop Dose Admin Acetaminophen 650 mg 11/28/17 08:11 11/29/17 16:28 Tylenol - PO 650 mg Q6H PRN Administration PAIN Sodium Chloride 1,000 mls @ 75 mls/hr 11/28/17 02:08 11/30/17 06:33 Normal Saline - IV Not Given ASDIR VANESSA Vancomycin HCl 1,000 mg/ 250 mls @ 200 mls/hr 11/30/17 11:00 Dextrose IVPB Q12H VANESSA Meropenem 500 mg in 10 mls @ 120 mls/hr 11/30/17 11:00 Merrem (Restricted To Id) - IVPUSH Q8H-IV VANESSA Metoprolol Succinate 50 mg 11/29/17 10:00 11/30/17 11:14 Toprol Xl - PO 50 mg BID VANESSA Administration Ranitidine HCl 150 mg 11/28/17 10:00 11/30/17 11:14 Zantac - PO 150 mg DAILY VANESSA Administration Rivaroxaban 15 mg 11/30/17 08:00 Xarelto - PO BID@0800,1800 VANESSA Valsartan 40 mg 11/28/17 10:00 11/30/17 11:14 Diovan - PO 40 mg DAILY VANESSA Administration A/P : 57 y/o female with Stage II Left Breast Ca, s/p Lumpectomy , bilateral reduction.presently on adjuvant chemotherapy now admitted with new right arm DVT (provoked, portacath induced) , tachycardia and new onset fever -On Xarelto 15 mg BID for treatment of DVT, continue with the same -tachycardia now improved, on metoprolol 50 mg BID - S/p fever, afebrile today, Blood cultures awaited, on broad spectrum antibiotics - aztreonam (cephalosporin allergy) + vancomycin -ANC > 5000, can discontinue neutropenic precautions
[2017-11-30] MEDS: VANCOMYCIN 1,000 MG in DEXTROSE 5%-WATER - 250 ML IVPB SCH ×2 (12:13→22:08)
[2017-11-30] MEDS: MEROPENEM 500 MG PUSH 500 MG/10 ML DISP.SYRIN IVPUSH SCH ×2 (12:13→18:06)
--- NOTE | 2017-11-30 14:52 | PN ---
Progress Note, Physician Chief Complaint: Events noted Not in distress History of Present Illness: Patient was seen and examined. Awake and alert. Chart was reviewed Denies chest pain, SOB or palpitations - Current Medication List Current Medications: Active Medications Acetaminophen (Tylenol -) 650 mg PO Q6H PRN PRN Reason: PAIN Last Admin: 11/29/17 16:28 Dose: 650 mg Sodium Chloride (Normal Saline -) 1,000 mls @ 75 mls/hr IV ASDIR [facility] Last Admin: 11/30/17 12:13 Dose: 75 mls/hr Vancomycin HCl 1,000 mg/ (Dextrose) 250 mls @ 200 mls/hr IVPB Q12H [facility] Last Admin: 11/30/17 12:13 Dose: 200 mls/hr Meropenem (Merrem (Restricted To Id) -) 500 mg in 10 mls @ 120 mls/hr IVPUSH Q8H-IV [facility] Last Admin: 11/30/17 12:13 Dose: 120 mls/hr Metoprolol Succinate (Toprol Xl -) 50 mg PO BID [facility] Last Admin: 11/30/17 11:14 Dose: 50 mg Ranitidine HCl (Zantac -) 150 mg PO DAILY [facility] Last Admin: 11/30/17 11:14 Dose: 150 mg Rivaroxaban (Xarelto -) 15 mg PO BID@0800,1800 [facility] Last Admin: 11/30/17 09:12 Dose: 15 mg Valsartan (Diovan -) 40 mg PO DAILY [facility] Last Admin: 11/30/17 11:14 Dose: 40 mg - Objective Vital Signs: Vital Signs Temperature 99.2 F 11/30/17 06:00 Pulse Rate 94 H 11/30/17 06:00 Respiratory Rate 16 11/30/17 06:00 Blood Pressure 139/75 11/30/17 06:00 O2 Sat by Pulse Oximetry (%) 98 11/29/17 21:00 Constitutional: Yes: Well Nourished Eyes: Yes: PERRL HENT: Yes: Atraumatic Neck: Yes: Supple Cardiovascular: Yes: Regular Rate and Rhythm, S1, S2 Respiratory: Yes: CTA Bilaterally Gastrointestinal: Yes: Normal Bowel Sounds, Soft. No: Tenderness Edema: Yes Edema: RUE: 1+ Additional Findings/Remarks: - Review of Systems Constitutional: denies: Chills, Fever Cardiovascular: denies: Shortness of Breath. denies: Chest Pain, Palpitations Respiratory: denies: Cough, SOB, SOB on Exertion. denies: Hemoptysis, Orthopnea , PND, Wheezing Gastrointestinal: denies: Abdominal Pain, Constipation, Diarrhea, Melena, Nausea , Rectal Bleeding, Vomiting Genitourinary: denies: Dysuria, Hematuria Neurological: denies: Dizziness, Headache, Seizure, Syncope Labs: CBC, BMP 11/30/17 06:00 11/30/17 06:00 Problem List - Problems (1) DVT (deep venous thrombosis) Code(s): I82.409 - ACUTE EMBOLISM AND THOMBOS UNSP DEEP VN UNSP LOWER EXTREMITY Qualifiers: DVT location: upper extremity Chronicity: acute Laterality: right (2) Hypertensive cardiomyopathy Code(s): I11.9 - HYPERTENSIVE HEART DISEASE WITHOUT HEART FAILURE; I43 - CARDIOMYOPATHY IN DISEASES CLASSIFIED ELSEWHERE Qualifiers: Heart failure presence: without heart failure Qualified Code(s): I11.9 - Hypertensive heart disease without heart failure; I43 - Cardiomyopathy in diseases classified elsewhere; I43 - Cardiomyopathy in diseases classified elsewhere; I43 - Cardiomyopathy in diseases classified elsewhere; I43 - Cardiomyopathy in diseases classified elsewhere (3) Neutropenia Code(s): D70.9 - NEUTROPENIA, UNSPECIFIED Qualifiers: Neutropenia type: secondary to cancer chemotherapy Qualified Code(s): D70.1 - Agranulocytosis secondary to cancer chemotherapy; T45.1X5A - Adverse effect of antineoplastic and immunosuppressive drugs, initial encounter; T45.1X5A - Adverse effect of antineoplastic and immunosuppressive drugs, initial encounter (4) Breast cancer, left Code(s): C50.912 - MALIGNANT NEOPLASM OF UNSPECIFIED SITE OF LEFT FEMALE BREAST Qualifiers: Breast location: central portion of breast Patient sex: female Assessment/Plan 1. New provoked right subclavian vein thrombus from port-a-cath - ruled out for PE 2. Left breast cancer s/p Adriamycin 3. HTN/HCVD 4. Neutropenia without fevers PLAN: 1. Holter report noted 2. Continue Toprol XL 50 bid and Diovan 40 qd 3. Neutropenic precautions 4. Continue Xarelto 5. Continue management as per Hematology/Oncology Further plans are to follow Bunny Stearns MD
[2017-11-30] MEDS ORDERED: PT OWN MED DRAWER 7, Y5N ONE ×2 (16:35→21:29)
[2017-11-30] MEDS: ACETAMINOPHEN 325 MG TABLET (FP) PO PRN (18:09)
--- NOTE | 2017-11-30 21:11 | PN ---
Physical Exam: SUBJECTIVE: Patient seen and examined OBJECTIVE: Vital Signs Temperature 100 F H 11/30/17 17:43 Pulse Rate 99 H 11/30/17 17:43 Respiratory Rate 18 11/30/17 21:00 Blood Pressure 141/75 11/30/17 17:43 O2 Sat by Pulse Oximetry (%) 98 11/30/17 21:00 GENERAL: The patient is awake, alert, and fully oriented, in no acute distress. HEAD: Normal with no signs of trauma. EYES: PERRL, extraocular movements intact, sclera anicteric, conjunctiva clear. No ptosis. ENT: Ears normal, nares patent, oropharynx clear without exudates, moist mucous membranes. NECK: Trachea midline, full range of motion, supple. LUNGS: Breath sounds equal, clear to auscultation bilaterally, no wheezes, no crackles, no accessory muscle use. HEART: Regular rate and rhythm, S1, S2 without murmur, rub or gallop. ABDOMEN: Soft, nontender, nondistended, normoactive bowel sounds, no guarding, no rebound, no hepatosplenomegaly, no masses. EXTREMITIES: 2+ pulses, warm, well-perfused, no edema. NEUROLOGICAL: Cranial nerves II through XII grossly intact. Normal speech, gait not observed. PSYCH: Normal mood, normal affect. SKIN: Warm, dry, normal turgor, no rashes or lesions noted CBCD WBC 11.7 K/mm3 (4.0-10.0) H D 11/30/17 06:00 RBC 3.75 M/mm3 (3.60-5.2) 11/30/17 06:00 Hgb 11.3 GM/dL (10.7-15.3) 11/30/17 06:00 Hct 34.1 % (32.4-45.2) 11/30/17 06:00 MCV 90.9 fl (80-96) 11/30/17 06:00 MCHC 33.1 g/dl (32.0-36.0) 11/30/17 06:00 RDW 12.4 % (11.6-15.6) 11/30/17 06:00 Plt Count 141 K/MM3 (134-434) 11/30/17 06:00 MPV 9.4 fl (7.5-11.1) 11/30/17 06:00 CMP Sodium 142 mmol/L (136-145) 11/30/17 06:00 Potassium 3.9 mmol/L (3.5-5.1) 11/30/17 06:00 Chloride 109 mmol/L (98-107) H 11/30/17 06:00 Carbon Dioxide 25 mmol/L (21-32) 11/30/17 06:00 Anion Gap 8 (8-16) 11/30/17 06:00 BUN 7 mg/dL (7-18) 11/30/17 06:00 Creatinine 0.5 mg/dL (0.55-1.02) L 11/30/17 06:00 Creat Clearance w eGFR > 60 (>60) 11/30/17 06:00 Random Glucose 96 mg/dL (74-106) 11/30/17 06:00 Calcium 8.2 mg/dL (8.5-10.1) L 11/30/17 06:00 Total Bilirubin 0.1 mg/dL (0.2-1.0) L D 11/30/17 06:00 AST 18 U/L (15-37) 11/30/17 06:00 ALT 19 U/L (12-78) 11/30/17 06:00 Alkaline Phosphatase 113 U/L (45-117) 11/30/17 06:00 Total Protein 5.6 g/dl (6.4-8.2) L 11/30/17 06:00 Albumin 2.8 g/dl (3.4-5.0) L 11/30/17 06:00 Home Medications Medication Instructions Recorded Loratadine 10 mg PO DAILY 10/11/17 Metoprolol Succinate [Toprol Xl] 50 mg PO DAILY 10/11/17 Olmesartan Medoxomil 5 mg PO DAILY 10/11/17 Ranitidine HCl 150 mg PO DAILY 10/11/17 Acetaminophen [Tylenol] 650 mg PO TID PRN #30 tablet 11/12/17 Current Medications Generic Name Dose Route Start Last Admin Trade Name Freq PRN Reason Stop Dose Admin Acetaminophen 650 mg 11/28/17 08:11 11/30/17 18:09 Tylenol - PO 650 mg Q6H PRN Administration PAIN Sodium Chloride 1,000 mls @ 75 mls/hr 11/28/17 02:08 11/30/17 12:13 Normal Saline - IV 75 mls/hr ASDIR VANESSA Administration Vancomycin HCl 1,000 mg/ 250 mls @ 200 mls/hr 11/30/17 11:00 11/30/17 12:13 Dextrose IVPB 200 mls/hr Q12H VANESSA Administration Meropenem 500 mg in 10 mls @ 120 mls/hr 11/30/17 11:00 11/30/17 18:06 Merrem (Restricted To Id) - IVPUSH 120 mls/hr Q8H-IV VANESSA Administration Loratadine 10 mg 11/30/17 21:15 Claritin - PO DAILY VANESSA Metoprolol Succinate 50 mg 11/29/17 10:00 11/30/17 11:14 Toprol Xl - PO 50 mg BID VANESSA Administration Ranitidine HCl 150 mg 11/28/17 10:00 11/30/17 11:14 Zantac - PO 150 mg DAILY VANESSA Administration Rivaroxaban 15 mg 11/30/17 08:00 11/30/17 18:00 Xarelto - PO 15 mg BID@0800,1800 VANESSA Administration Valsartan 40 mg 11/28/17 10:00 11/30/17 11:14 Diovan - PO 40 mg DAILY VANESSA Administration A/P: Patient is a 57 year old female with a past medical history of HTN, neutropenia , L breast CA s/p lumpectomy currently on chemotherapy is admitted to the hospital for the treatment of R upper extremity subclavian venous thrombosis. #Neutropenia: Patient developed fever , septic w/u initiated , Id on the case, IV abx continue as per ID; Meropenem/Vancomycin #RUE Subclavian vein thrombosis: s/p Lovenox, switched to Xarelto as per oncologist . #Hypertension: controlled continue metoprolol , diovan #Tachycardia: will need better rate control, Toprol XL PO BID -> increased from once a day #L Breast CA: on chemotherapy, consult Dr. Mallory DVt Px: Xarelto - Visit type - Emergency Visit Emergency Visit: Yes ED Registration Date: 11/27/17 Care time: The patient presented to the Emergency Department on the above date and was hospitalized for further evaluation of their emergent condition. - New Patient This patient is new to me today: No - Critical Care Critical Care patient: No - Discharge Referral Referred to [facility] Med P.C.: No
[2017-11-30] MEDS: LORATADINE 10 MG TABLET PO SCH (21:32)
[2017-12-01] MEDS: MEROPENEM 500 MG PUSH 500 MG/10 ML DISP.SYRIN IVPUSH SCH ×3 (02:34→18:26)
[2017-12-01] MEDS: SODIUM CHLORIDE 1,000 ML IV SCH ×2 (05:00→19:45)
[2017-12-01] MEDS: RIVAROXABAN 15 MG TABLET PO SCH ×2 (08:17→18:26)
[2017-12-01] MEDS ORDERED: PT OWN MED DRAWER 7, Y5N ONE ×2 (08:58→17:50)
[2017-12-01] MEDS: ACETAMINOPHEN 325 MG TABLET (FP) PO PRN ×3 (09:16→20:59)
[2017-12-01] MEDS: LORATADINE 10 MG TABLET PO SCH (09:17)
[2017-12-01] MEDS: RANITIDINE HCL 150 MG TABLET (FP) PO SCH (09:17)
[2017-12-01] MEDS: VALSARTAN 40 MG TABLET (FP) PO SCH (09:17)
--- NOTE | 2017-12-01 10:41 | PN ---
Progress Note, Physician Chief Complaint: Events noted Not in distress History of Present Illness: Patient was seen and examined. Awake and alert. Chart was reviewed Denies chest pain, SOB or palpitations Febrile - Current Medication List Current Medications: Active Medications Acetaminophen (Tylenol -) 650 mg PO Q6H PRN PRN Reason: PAIN Last Admin: 12/01/17 09:16 Dose: 650 mg Sodium Chloride (Normal Saline -) 1,000 mls @ 75 mls/hr IV ASDIR [facility] Last Admin: 12/01/17 05:00 Dose: 75 mls/hr Vancomycin HCl 1,000 mg/ (Dextrose) 250 mls @ 200 mls/hr IVPB Q12H [facility] Last Admin: 11/30/17 22:08 Dose: 200 mls/hr Meropenem (Merrem (Restricted To Id) -) 500 mg in 10 mls @ 120 mls/hr IVPUSH Q8H-IV [facility] Last Admin: 12/01/17 09:17 Dose: 120 mls/hr Loratadine (Claritin -) 10 mg PO DAILY [facility] Last Admin: 12/01/17 09:17 Dose: 10 mg Metoprolol Succinate (Toprol Xl -) 50 mg PO BID [facility] Last Admin: 12/01/17 09:17 Dose: 50 mg Ranitidine HCl (Zantac -) 150 mg PO DAILY [facility] Last Admin: 12/01/17 09:17 Dose: 150 mg Rivaroxaban (Xarelto -) 15 mg PO BID@0800,1800 [facility] Last Admin: 12/01/17 08:17 Dose: 15 mg Valsartan (Diovan -) 40 mg PO DAILY [facility] Last Admin: 12/01/17 09:17 Dose: 40 mg - Objective Vital Signs: Vital Signs Temperature 100.9 F H 12/01/17 05:48 Pulse Rate 102 H 12/01/17 05:48 Respiratory Rate 20 12/01/17 05:48 Blood Pressure 121/60 12/01/17 05:48 O2 Sat by Pulse Oximetry (%) 98 11/30/17 21:00 Constitutional: Yes: Well Nourished Eyes: Yes: Conjunctiva Clear, PERRL HENT: Yes: Atraumatic Neck: Yes: Supple Cardiovascular: Yes: Regular Rate and Rhythm, Tachycardia, S1, S2 Respiratory: Yes: CTA Bilaterally Gastrointestinal: Yes: Normal Bowel Sounds, Soft. No: Tenderness Edema: Yes Edema: RUE: Trace Additional Findings/Remarks: - Review of Systems Constitutional: denies: Chills, Fever Cardiovascular: denies: Shortness of Breath. denies: Chest Pain, Palpitations Respiratory: denies: Cough, SOB, SOB on Exertion. denies: Hemoptysis, Orthopnea , PND, Wheezing Gastrointestinal: denies: Abdominal Pain, Constipation, Diarrhea, Melena, Nausea , Rectal Bleeding, Vomiting Genitourinary: denies: Dysuria, Hematuria Neurological: denies: Dizziness, Headache, Seizure, Syncope Problem List - Problems (1) DVT (deep venous thrombosis) Code(s): I82.409 - ACUTE EMBOLISM AND THOMBOS UNSP DEEP VN UNSP LOWER EXTREMITY Qualifiers: DVT location: upper extremity Chronicity: acute Laterality: right (2) Hypertensive cardiomyopathy Code(s): I11.9 - HYPERTENSIVE HEART DISEASE WITHOUT HEART FAILURE; I43 - CARDIOMYOPATHY IN DISEASES CLASSIFIED ELSEWHERE Qualifiers: Heart failure presence: without heart failure Qualified Code(s): I11.9 - Hypertensive heart disease without heart failure; I43 - Cardiomyopathy in diseases classified elsewhere; I43 - Cardiomyopathy in diseases classified elsewhere; I43 - Cardiomyopathy in diseases classified elsewhere; I43 - Cardiomyopathy in diseases classified elsewhere (3) Neutropenia Code(s): D70.9 - NEUTROPENIA, UNSPECIFIED Qualifiers: Neutropenia type: secondary to cancer chemotherapy Qualified Code(s): D70.1 - Agranulocytosis secondary to cancer chemotherapy; T45.1X5A - Adverse effect of antineoplastic and immunosuppressive drugs, initial encounter; T45.1X5A - Adverse effect of antineoplastic and immunosuppressive drugs, initial encounter (4) Breast cancer, left Code(s): C50.912 - MALIGNANT NEOPLASM OF UNSPECIFIED SITE OF LEFT FEMALE BREAST Qualifiers: Breast location: central portion of breast Patient sex: female Assessment/Plan 1. New provoked right subclavian vein thrombus from port-a-cath - ruled out for PE 2. Left breast cancer s/p Adriamycin 3. HTN/HCVD 4. Neutropenia currently with episode of fevers PLAN: 1. Continue Toprol XL 50 bid and Diovan 40 qd 2. Neutropenic precautions 3. Continue Xarelto 4. Continue management as per Hematology/Oncology 5. Blood culture pending. Empiric antibiotics Further plans are to follow Bunny Stearns MD
[2017-12-01] MEDS: VANCOMYCIN 1,000 MG in DEXTROSE 5%-WATER - 250 ML IVPB SCH ×2 (10:51→23:18)
[2017-12-01] MEDS: LACTOBACILLUS ACIDOPHILUS 1 EACH TAB (FP) PO SCH (14:06)
--- NOTE | 2017-12-01 14:44 | CONS ---
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 The patient was admitted to the hospital on November 27, 2017, with a 4-day history of worsening right upper extremity swelling. She was status post port placement of November 12, 2017. She was found on Doppler exam to have a right subclavian vein thrombosis. The patient was seen in consultation by Vascular Surgery. Her course was complicated by leukopenia and neutropenia, and now fever to 100.9. The patient denies any shaking chills. She does have pain and tenderness at the right port site. She denies any chest pain, shortness of breath, cough, or sputum production. No complaints of dysuria or hematuria. No vomiting or diarrhea. Past medical history positive for left breast CA. She was diagnosed in August of 2017. She reports having a positive lymph node. She was treated with a lumpectomy and bilateral breast reduction. She had a port placed and received the 1st cycle of Adriamycin and Cytoxan on November 21, 2017. Her course has been further complicated by tachycardia. At the present time, she is awake and alert, she is comfortable, she has no complaints of pain. No complaints of recurrent fever or chills. 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 PAST SURGICAL HISTORY: Status post port placement, November 12, 2017; left lumpectomy, October 22, 2017; myomectomy, 2009. Allergies to CEPHALOSPORINS, PENICILLINS, SULFA, DOXYCYCLINE, ERYTHROMYCIN. With respect to the antibiotics, patient reports developing bad rashes. She denies any history of anaphylactic reaction to any of the above. Medications include Tylenol, Diovan, Xarelto, Toprol, Zantac. SOCIAL HISTORY: She lives at home. She is a nonsmoker, nondrinker. SYSTEMS REVIEW: Neurologic: No loss of consciousness, seizure activity, or focal weakness. Cardiac: Negative chest pain or palpitations. Respiratory: Negative cough or sputum production. Gastrointestinal: Negative vomiting or diarrhea. Genitourinary: Negative for urinary tract infection. LABORATORY DATA: White count at the present time is 11.7, 82 neutrophils, 16 lymphocytes, hematocrit 34.1, platelet count 141. BUN 7, creatinine 0.5. Liver enzymes normal. Urine leukocyte esterase negative. Chest x-ray negative. PHYSICAL EXAMINATION: General: She is awake and alert, she is in no acute distress, not acutely toxic appearing. Vital Signs: Temperature 99.2, T-max 100.9. Blood pressure 139/75. Pulse 94, regular. Respirations 16 per minute. Eyes: Sclerae anicteric. Port Site: No erythema. Slight tenderness. Heart Sounds: S1, S2. Lungs: Clear bilaterally. Abdomen: Soft. No tenderness elicited. No mass, rebound or rigidity. Extremities: Negative for edema. Breasts: Surgical sites, bilateral breasts: No evidence of infection. IMPRESSION: 1. Febrile neutropenia. Rule out neutropenic sepsis. 2. Right subclavian vein thrombosis. 3. Stage 2 estrogen-receptor positive left breast cancer. 4. MULTIPLE ANTIBIOTIC ALLERGIES. Await sepsis workup, empiric antibiotic coverage with vancomycin and meropenem. At the present time, it appears her neutropenia has resolved; however, would continue antibiotics, pending cultures, to rule out a bacteremia secondary to possible septic thrombophlebitis. Will follow. Thank you for the kind referral. JARVIS RASHID M.D. [id number]
--- NOTE | 2017-12-01 17:16 | PN ---
Progress Note (short form) - Note Progress Note: Patient is feeling better , with no acute distress. Vital Signs Temperature 102.2 F H 12/01/17 15:18 Pulse Rate 102 H 12/01/17 15:11 Respiratory Rate 22 12/01/17 15:11 Blood Pressure 127/71 12/01/17 15:11 O2 Sat by Pulse Oximetry (%) 98 12/01/17 10:00 GENERAL: The patient is awake, alert, and fully oriented, in no acute distress. HEAD: Normal with no signs of trauma. EYES: PERRL, extraocular movements intact, sclera anicteric, conjunctiva clear. ENT: Ears normal, oropharynx clear without exudates, moist mucous membranes. NECK: Trachea midline, full range of motion, supple. LUNGS: Breath sounds equal, clear to auscultation bilaterally, no wheezes, no crackles, no accessory muscle use. HEART: Regular rate and rhythm, S1, S2 without murmur, rub or gallop. ABDOMEN: Soft, nontender, nondistended, normoactive bowel sounds, no guarding, no rebound, no hepatosplenomegaly, no masses. EXTREMITIES: 2+ pulses, warm, well-perfused, no edema. NEUROLOGICAL: Cranial nerves II through XII grossly intact. Normal speech, gait not observed. PSYCH: Normal mood, normal affect. SKIN: Warm, dry, normal turgor, no rashes or lesions noted CBCD WBC 11.7 K/mm3 (4.0-10.0) H D 11/30/17 06:00 RBC 3.75 M/mm3 (3.60-5.2) 11/30/17 06:00 Hgb 11.3 GM/dL (10.7-15.3) 11/30/17 06:00 Hct 34.1 % (32.4-45.2) 11/30/17 06:00 MCV 90.9 fl (80-96) 11/30/17 06:00 MCHC 33.1 g/dl (32.0-36.0) 11/30/17 06:00 RDW 12.4 % (11.6-15.6) 11/30/17 06:00 Plt Count 141 K/MM3 (134-434) 11/30/17 06:00 MPV 9.4 fl (7.5-11.1) 11/30/17 06:00 CMP Sodium 142 mmol/L (136-145) 11/30/17 06:00 Potassium 3.9 mmol/L (3.5-5.1) 11/30/17 06:00 Chloride 109 mmol/L (98-107) H 11/30/17 06:00 Carbon Dioxide 25 mmol/L (21-32) 11/30/17 06:00 Anion Gap 8 (8-16) 11/30/17 06:00 BUN 7 mg/dL (7-18) 11/30/17 06:00 Creatinine 0.5 mg/dL (0.55-1.02) L 11/30/17 06:00 Creat Clearance w eGFR > 60 (>60) 11/30/17 06:00 Random Glucose 96 mg/dL (74-106) 11/30/17 06:00 Calcium 8.2 mg/dL (8.5-10.1) L 11/30/17 06:00 Total Bilirubin 0.1 mg/dL (0.2-1.0) L D 11/30/17 06:00 AST 18 U/L (15-37) 11/30/17 06:00 ALT 19 U/L (12-78) 11/30/17 06:00 Alkaline Phosphatase 113 U/L (45-117) 11/30/17 06:00 Total Protein 5.6 g/dl (6.4-8.2) L 11/30/17 06:00 Albumin 2.8 g/dl (3.4-5.0) L 11/30/17 06:00 Current Medications Generic Name Dose Route Start Last Admin Trade Name Freq PRN Reason Stop Dose Admin Acetaminophen 650 mg 11/28/17 08:11 12/01/17 15:17 Tylenol - PO 650 mg Q6H PRN Administration PAIN Sodium Chloride 1,000 mls @ 75 mls/hr 11/28/17 02:08 12/01/17 05:00 Normal Saline - IV 75 mls/hr ASDIR VANESSA Administration Vancomycin HCl 1,000 mg/ 250 mls @ 200 mls/hr 11/30/17 11:00 12/01/17 10:51 Dextrose IVPB 200 mls/hr Q12H VANESSA Administration Meropenem 500 mg in 10 mls @ 120 mls/hr 11/30/17 11:00 02/18/18 09:17 Merrem (Restricted To Id) - IVPUSH 120 mls/hr Q8H-IV VANESSA Administration Lactobacillus Acidophilus 1 tab 12/01/17 13:45 12/01/17 14:06 Bacid - PO 1 tab DAILY VANESSA Administration Loratadine 10 mg 11/30/17 21:15 12/01/17 09:17 Claritin - PO 10 mg DAILY VANESSA Administration Metoprolol Succinate 50 mg 11/29/17 10:00 12/01/17 09:17 Toprol Xl - PO 50 mg BID VANESSA Administration Ranitidine HCl 150 mg 11/28/17 10:00 12/01/17 09:17 Zantac - PO 150 mg DAILY VANESSA Administration Rivaroxaban 15 mg 11/30/17 08:00 12/01/17 08:17 Xarelto - PO 15 mg BID@0800,1800 VANESSA Administration Valsartan 40 mg 11/28/17 10:00 12/01/17 09:17 Diovan - PO 40 mg DAILY VANESSA Administration Home Medications Medication Instructions Recorded Loratadine 10 mg PO DAILY 10/11/17 Metoprolol Succinate [Toprol Xl] 50 mg PO DAILY 10/11/17 Olmesartan Medoxomil 5 mg PO DAILY 10/11/17 Ranitidine HCl 150 mg PO DAILY 10/11/17 Acetaminophen [Tylenol] 650 mg PO TID PRN #30 tablet 11/12/17 A/P: Patient is a 57 year old female with a past medical history of HTN, neutropenia , L breast CA s/p lumpectomy currently on chemotherapy is admitted to the hospital for the treatment of R upper extremity subclavian venous thrombosis. #Neutropenia improved on IV antibiotic Meropenem and Vancomycin, ID on the case appreciated, continues to have Fever. #RUE Subclavian vein thrombosis: s/p Lovenox, continue with Xarelto as per oncologist . #Hypertension: controlled continue metoprolol , diovan #Tachycardia: will need better rate control, Toprol XL PO BID -> increased from once a day #Left Breast CA: on chemotherapy, consult Dr. Mallory DVt Px: Xarelto Visit type - Emergency Visit Emergency Visit: Yes ED Registration Date: 11/27/17 Care time: The patient presented to the Emergency Department on the above date and was hospitalized for further evaluation of their emergent condition. - New Patient This patient is new to me today: No - Critical Care Critical Care patient: No - Discharge Referral Referred to [facility] No
--- NOTE | 2017-12-01 17:27 | PN ---
Progress Note, Physician History of Present Illness: Persistent fever past 24hr No rigors + R UE and port site discomfort, occasional cough No dysuria Tolerating antibiotics - Current Medication List Current Medications: Active Medications Acetaminophen (Tylenol -) 650 mg PO Q6H PRN PRN Reason: PAIN Last Admin: 12/01/17 15:17 Dose: 650 mg Sodium Chloride (Normal Saline -) 1,000 mls @ 75 mls/hr IV ASDIR [facility] [place] Last Admin: 12/01/17 05:00 Dose: 75 mls/hr Vancomycin HCl 1,000 mg/ (Dextrose) 250 mls @ 200 mls/hr IVPB Q12H [facility] [place] Last Admin: 12/01/17 10:51 Dose: 200 mls/hr Meropenem (Merrem (Restricted To Id) -) 500 mg in 10 mls @ 120 mls/hr IVPUSH Q8H-IV [facility] [place] Last Admin: 12/01/17 09:17 Dose: 120 mls/hr Lactobacillus Acidophilus (Bacid -) 1 tab PO DAILY [facility] [place] Last Admin: 12/01/17 14:06 Dose: 1 tab Loratadine (Claritin -) 10 mg PO DAILY [facility] [place] Last Admin: 12/01/17 09:17 Dose: 10 mg Metoprolol Succinate (Toprol Xl -) 50 mg PO BID [facility] [place] Last Admin: 12/01/17 09:17 Dose: 50 mg Ranitidine HCl (Zantac -) 150 mg PO DAILY [facility] [place] Last Admin: 12/01/17 09:17 Dose: 150 mg Rivaroxaban (Xarelto -) 15 mg PO BID@0800,1800 [facility] [place] Last Admin: 12/01/17 08:17 Dose: 15 mg Valsartan (Diovan -) 40 mg PO DAILY [facility] [place] Last Admin: 12/01/17 09:17 Dose: 40 mg - Objective Vital Signs: Vital Signs Temperature 102.2 F H 12/01/17 15:18 Pulse Rate 102 H 12/01/17 15:11 Respiratory Rate 22 12/01/17 15:11 Blood Pressure 127/71 12/01/17 15:11 O2 Sat by Pulse Oximetry (%) 98 12/01/17 10:00 Constitutional: Yes: No Distress Eyes: Yes: Conjunctiva Clear Cardiovascular: Yes: Regular Rate and Rhythm, S1, S2 Respiratory: Yes: CTA Bilaterally Gastrointestinal: Yes: Normal Bowel Sounds, Soft Extremities: Yes: Other (+ R UE edema/ warmth/ mild erythema) Edema: No Integumentary: Yes: Other (no erythema at port site) Labs: CBC, BMP 11/30/17 06:00 11/30/17 06:00 INR, PTT INR 1.09 (0.82-1.09) 11/27/17 17:43 Assessment/Plan Fever ? R UE cellulitis R subclavian vein thrombosis S/P neutropenia Stage II breast ca Multiple antibiotic allergies Repeat BC Continue vancomycin/ meropenem Repeat CBC Influenza swab
[2017-12-01] MEDS ORDERED: ACETAMINOPHEN 325 MG TABLET (FP) PO ONE (23:45)
[2017-12-02] MEDS: MEROPENEM 500 MG PUSH 500 MG/10 ML DISP.SYRIN IVPUSH SCH ×3 (02:06→17:45)
[2017-12-02] MEDS: SODIUM CHLORIDE 1,000 ML IV SCH (06:08)
[2017-12-02 07:17] LABS: HEMATOCRIT 32.6 % (32.4-45.2); HEMOGLOBIN 10.6 GM/dL (10.7-15.3); MCH 29.9 pg (25.7-33.7); MCHC 32.7 g/dl (32.0-36.0); MEAN CELL VOLUME 91.5 fl (80-96); MEAN PLT VOLUME 9.4 fl (7.5-11.1); PLATELET COUNT 122 K/MM3 (134-434); RBC 3.56 M/mm3 (3.60-5.2); RDW 12.9 % (11.6-15.6); WHITE BLOOD COUNT 9.2 K/mm3 (4.0-10.0)
[2017-12-02] MEDS ORDERED: PT OWN MED DRAWER 7, Y5N ONE ×4 (07:45→17:42)
[2017-12-02 07:48] LABS: ANION GAP 10 (8-16); BLOOD UREA NITROGEN 10 mg/dL (7-18); CALCIUM 7.7 mg/dL (8.5-10.1); CHLORIDE 109 mmol/L (98-107); CO2 24 mmol/L (21-32); GLUCOSE,RANDOM 87 mg/dL (74-106); POTASSIUM 3.7 mmol/L (3.5-5.1); SODIUM 143 mmol/L (136-145)
[2017-12-02 07:50] LABS: CREATININE 0.6 mg/dL (0.55-1.02)
[2017-12-02] MEDS: RIVAROXABAN 15 MG TABLET PO SCH ×2 (09:10→17:45)
--- NOTE | 2017-12-02 09:56 | PN ---
Progress Note, Physician History of Present Illness: RUE swelling and heaviness resolving, denies chest pain or dyspnea, febrile overnight Tm 103.1. - Current Medication List Current Medications: Active Medications Acetaminophen (Tylenol -) 650 mg PO Q6H PRN PRN Reason: PAIN Last Admin: 12/01/17 20:59 Dose: 650 mg Sodium Chloride (Normal Saline -) 1,000 mls @ 75 mls/hr IV ASDIR [facility] Last Admin: 12/02/17 06:08 Dose: Not Given Vancomycin HCl 1,000 mg/ (Dextrose) 250 mls @ 200 mls/hr IVPB Q12H [facility] Last Admin: 12/01/17 23:18 Dose: 200 mls/hr Meropenem (Merrem (Restricted To Id) -) 500 mg in 10 mls @ 120 mls/hr IVPUSH Q8H-IV [facility] Last Admin: 12/02/17 02:06 Dose: 120 mls/hr Lactobacillus Acidophilus (Bacid -) 1 tab PO DAILY [facility] Last Admin: 12/01/17 14:06 Dose: 1 tab Loratadine (Claritin -) 10 mg PO DAILY [facility] Last Admin: 12/01/17 09:17 Dose: 10 mg Metoprolol Succinate (Toprol Xl -) 50 mg PO BID [facility] Last Admin: 12/01/17 21:00 Dose: 50 mg Ranitidine HCl (Zantac -) 150 mg PO DAILY [facility] Last Admin: 12/01/17 09:17 Dose: 150 mg Rivaroxaban (Xarelto -) 15 mg PO BID@0800,1800 [facility] Last Admin: 12/02/17 09:10 Dose: 15 mg Valsartan (Diovan -) 40 mg PO DAILY [facility] Last Admin: 12/01/17 09:17 Dose: 40 mg - Objective Vital Signs: Vital Signs Temperature 99.2 F 12/02/17 06:33 Pulse Rate 90 12/02/17 06:33 Respiratory Rate 18 12/02/17 06:33 Blood Pressure 97/61 12/02/17 06:33 O2 Sat by Pulse Oximetry (%) 98 12/01/17 21:00 Constitutional: Yes: No Distress, Calm Neck: Yes: Supple Cardiovascular: Yes: Regular Rate and Rhythm Respiratory: Yes: Regular, CTA Bilaterally Gastrointestinal: Yes: Normal Bowel Sounds, Soft Edema: Yes Edema: RUE: 1+ Labs: CBC, BMP 12/02/17 06:50 12/02/17 06:50 INR, PTT INR 1.09 (0.82-1.09) 11/27/17 17:43 - ....Imaging EKG: Report Reviewed (Sinus tachycarda) Problem List - Problems (1) Sinus tachycardia Code(s): R00.0 - TACHYCARDIA, UNSPECIFIED (2) DVT (deep venous thrombosis) Code(s): I82.409 - ACUTE EMBOLISM AND THOMBOS UNSP DEEP VN UNSP LOWER EXTREMITY Qualifiers: DVT location: upper extremity Chronicity: acute Laterality: right (3) Breast cancer, left Code(s): C50.912 - MALIGNANT NEOPLASM OF UNSPECIFIED SITE OF LEFT FEMALE BREAST Qualifiers: Breast location: central portion of breast Patient sex: female (4) Hypertensive cardiomyopathy Code(s): I11.9 - HYPERTENSIVE HEART DISEASE WITHOUT HEART FAILURE; I43 - CARDIOMYOPATHY IN DISEASES CLASSIFIED ELSEWHERE Qualifiers: Heart failure presence: without heart failure Qualified Code(s): I11.9 - Hypertensive heart disease without heart failure; I43 - Cardiomyopathy in diseases classified elsewhere; I43 - Cardiomyopathy in diseases classified elsewhere; I43 - Cardiomyopathy in diseases classified elsewhere; I43 - Cardiomyopathy in diseases classified elsewhere (5) Fever of unknown origin (FUO) Code(s): R50.9 - FEVER, UNSPECIFIED Assessment/Plan 11/12/2017 MUGA: Normal LV size and fxn, LVEF 77% 11/28/2017 Echo: normal biventricular size and fxn, tr MR 11/29/2017 Holter: SR AVG 97 range 81-137 rare since PAC, PVC, no pauses 1. New provoked R SCV thrombus from port-a-cath, ruled out for PE 2. Left breast ca s/p Adriamycin 3. HTN/HCVD 4. Post neutropenia w/ fevers 5. Sinus tachycardia P: 1. Continue Toprol XL 50 bid and Diovan 40 qd, may continue Anthracycline therapy 2. Empiric abx pending C&S, Xarelto 15 bid per heme input
[2017-12-02] MEDS: LACTOBACILLUS ACIDOPHILUS 1 EACH TAB (FP) PO SCH (10:38)
[2017-12-02] MEDS: RANITIDINE HCL 150 MG TABLET (FP) PO SCH (10:39)
[2017-12-02] MEDS: LORATADINE 10 MG TABLET PO SCH (10:39)
[2017-12-02] MEDS: VALSARTAN 40 MG TABLET (FP) PO SCH (10:39)
[2017-12-02] MEDS: ACETAMINOPHEN 325 MG TABLET (FP) PO PRN ×2 (11:01→21:45)
[2017-12-02] MEDS: VANCOMYCIN 1,000 MG in DEXTROSE 5%-WATER - 250 ML IVPB SCH ×2 (11:01→23:21)
--- NOTE | 2017-12-02 11:14 | PN ---
Progress Note (short form) - Note Progress Note: pt seen and examined. New fever, as high 103. +New dry cough +feels "congested" and she feels that she has a "cold". +slight tenderness at the site of the port. O/E: General: NAD HEENT: NCAT Cor: tachy. regular Lungs: CTA b/l Abd: benign Extremeties: LE: wnl, RUE: no further erythema, swelling decreased, +mild tenderness at the site of the port Neuro: AAOx3 Temp Pulse Resp BP Pulse Ox 99.2 F 90 18 97/61 98 12/02/17 06:33 12/02/17 06:33 12/02/17 06:33 12/02/17 06:33 12/01/17 21:00 CBC, BMP 12/02/17 06:50 12/02/17 06:50 Current Medications Generic Name Dose Route Start Last Admin Trade Name Freq PRN Reason Stop Dose Admin Acetaminophen 650 mg 11/28/17 08:11 12/02/17 11:01 Tylenol - PO 650 mg Q6H PRN Administration PAIN Sodium Chloride 1,000 mls @ 75 mls/hr 11/28/17 02:08 12/02/17 06:08 Normal Saline - IV Not Given ASDIR VANESSA Vancomycin HCl 1,000 mg/ 250 mls @ 200 mls/hr 11/30/17 11:00 12/02/17 11:01 Dextrose IVPB 200 mls/hr Q12H VANESSA Administration Meropenem 500 mg in 10 mls @ 120 mls/hr 11/30/17 11:00 12/02/17 10:39 Merrem (Restricted To Id) - IVPUSH 120 mls/hr Q8H-IV VANESSA Administration Lactobacillus Acidophilus 1 tab 12/01/17 13:45 12/02/17 10:38 Bacid - PO 1 tab DAILY VANESSA Administration Loratadine 10 mg 11/30/17 21:15 12/02/17 10:39 Claritin - PO 10 mg DAILY VNAESSA Administration Metoprolol Succinate 50 mg 11/29/17 10:00 12/02/17 10:39 Toprol Xl - PO 50 mg BID VANESSA Administration Ranitidine HCl 150 mg 11/28/17 10:00 12/02/17 10:39 Zantac - PO 150 mg DAILY VANESSA Administration Rivaroxaban 15 mg 11/30/17 08:00 12/02/17 09:10 Xarelto - PO 15 mg BID@0800,1800 VANESSA Administration Valsartan 40 mg 11/28/17 10:00 12/02/17 10:39 Diovan - PO 40 mg DAILY VANESSA Administration A/P : 57 y/o female with Stage II Left Breast Ca, s/p Lumpectomy , bilateral reduction.presently on adjuvant chemotherapy now admitted with new right arm DVT (provoked, portacath induced) , tachycardia and new onset fever -On Xarelto 15 mg BID for treatment of DVT, continue with the same -tachycardia , fever, r/o flu, on abx, repeat cultures, CXR/US UE -abx as written per ID , appreciate ID [id number] -close monitoring
[2017-12-02 11:16] LABS: ANISOCYTOSIS 0; MACROCYTOSIS 1+; OVALOCYTE 1+; PLATELET ESTIMATE DECREASED; TEAR DROP CELLS 1+
--- NOTE | 2017-12-02 11:28 | PN ---
Progress Note, Physician History of Present Illness: Awake, alert Persistant fever + sinus congesion, post nasal drip Less R UE and port site discomfort No dysuria/ diarrhea Tolerating antibiotics WBC 9.2 - Current Medication List Current Medications: Active Medications Acetaminophen (Tylenol -) 650 mg PO Q6H PRN PRN Reason: PAIN Last Admin: 12/02/17 11:01 Dose: 650 mg Sodium Chloride (Normal Saline -) 1,000 mls @ 75 mls/hr IV ASDIR [facility] Last Admin: 12/02/17 06:08 Dose: Not Given Vancomycin HCl 1,000 mg/ (Dextrose) 250 mls @ 200 mls/hr IVPB Q12H [facility] Last Admin: 12/02/17 11:01 Dose: 200 mls/hr Meropenem (Merrem (Restricted To Id) -) 500 mg in 10 mls @ 120 mls/hr IVPUSH Q8H-IV [facility] Last Admin: 12/02/17 10:39 Dose: 120 mls/hr Lactobacillus Acidophilus (Bacid -) 1 tab PO DAILY [facility] Last Admin: 12/02/17 10:38 Dose: 1 tab Loratadine (Claritin -) 10 mg PO DAILY [facility] Last Admin: 12/02/17 10:39 Dose: 10 mg Metoprolol Succinate (Toprol Xl -) 50 mg PO BID [facility] Last Admin: 12/02/17 10:39 Dose: 50 mg Ranitidine HCl (Zantac -) 150 mg PO DAILY [facility] Last Admin: 12/02/17 10:39 Dose: 150 mg Rivaroxaban (Xarelto -) 15 mg PO BID@0800,1800 [facility] Last Admin: 12/02/17 09:10 Dose: 15 mg Valsartan (Diovan -) 40 mg PO DAILY [facility] Last Admin: 12/02/17 10:39 Dose: 40 mg - Objective Vital Signs: Vital Signs Temperature 99.2 F 12/02/17 06:33 Pulse Rate 90 12/02/17 06:33 Respiratory Rate 18 12/02/17 06:33 Blood Pressure 97/61 12/02/17 06:33 O2 Sat by Pulse Oximetry (%) 98 12/01/17 21:00 Constitutional: Yes: No Distress Eyes: Yes: PERRL Cardiovascular: Yes: Regular Rate and Rhythm, S1, S2 Respiratory: Yes: CTA Bilaterally Gastrointestinal: Yes: Normal Bowel Sounds, Soft. No: Tenderness Extremities: Yes: Other (R UE edema. No erythema/ warmth.) Integumentary: Yes: Other (no tenderness or erythema at port site.) Labs: CBC, BMP 12/02/17 06:50 12/02/17 06:50 INR, PTT INR 1.09 (0.82-1.09) 11/27/17 17:43 Assessment/Plan Fever R/O sepsis ?Influenza R subclavian vein thrombosis S/P neutropenia Stage II breast ca Multiple antibiotic allergies Repeat BC pending Continue vancomycin/ meropenem Influenza swab ordered Start empiric Tamiflu
[2017-12-02] MEDS: OSELTAMIVIR PHOSPHATE 75 MG CAPSULE PO SCH ×2 (13:14→21:45)
--- NOTE | 2017-12-02 17:12 | PN ---
Progress Note (short form) - Note Progress Note: Patient continues to have fever, otherwise comfortable. Feels better now. Positive for cough. Vital Signs Temperature 100.0 F H 12/02/17 13:05 Pulse Rate 86 12/02/17 13:05 Respiratory Rate 21 12/02/17 13:05 Blood Pressure 111/65 12/02/17 13:05 O2 Sat by Pulse Oximetry (%) 98 12/02/17 10:00 GENERAL: The patient is awake, alert, and fully oriented, in no acute distress. HEAD: Normal with no signs of trauma. EYES: PERRL, extraocular movements intact, sclera anicteric, conjunctiva clear. ENT: Ears normal, oropharynx clear without exudates, moist mucous membranes. NECK: Trachea midline, full range of motion, supple. LUNGS: decreased Breath sounds bl, otherwise clear to auscultation bilaterally, no wheezes, no crackles, no accessory muscle use. HEART: Regular rate and rhythm, S1, S2 without murmur, rub or gallop. ABDOMEN: Soft, nontender, nondistended, normoactive bowel sounds, no guarding, no rebound, no hepatosplenomegaly, no masses. EXTREMITIES: 2+ pulses, warm, well-perfused, no edema. NEUROLOGICAL: Cranial nerves II through XII grossly intact. Normal speech, gait not observed. PSYCH: Normal mood, normal affect. SKIN: Warm, dry, normal turgor, no rashes or lesions noted CBCD WBC 9.2 K/mm3 (4.0-10.0) 12/02/17 06:50 RBC 3.56 M/mm3 (3.60-5.2) L 12/02/17 06:50 Hgb 10.6 GM/dL (10.7-15.3) L 12/02/17 06:50 Hct 32.6 % (32.4-45.2) 12/02/17 06:50 MCV 91.5 fl (80-96) 12/02/17 06:50 MCHC 32.7 g/dl (32.0-36.0) 12/02/17 06:50 RDW 12.9 % (11.6-15.6) 12/02/17 06:50 Plt Count 122 K/MM3 (134-434) L 12/02/17 06:50 MPV 9.4 fl (7.5-11.1) 12/02/17 06:50 CMP Sodium 143 mmol/L (136-145) 12/02/17 06:50 Potassium 3.7 mmol/L (3.5-5.1) 12/02/17 06:50 Chloride 109 mmol/L (98-107) H 12/02/17 06:50 Carbon Dioxide 24 mmol/L (21-32) 12/02/17 06:50 Anion Gap 10 (8-16) 12/02/17 06:50 BUN 10 mg/dL (7-18) 12/02/17 06:50 Creatinine 0.6 mg/dL (0.55-1.02) 12/02/17 06:50 Creat Clearance w eGFR > 60 (>60) 11/30/17 06:00 Random Glucose 87 mg/dL (74-106) 12/02/17 06:50 Calcium 7.7 mg/dL (8.5-10.1) L 12/02/17 06:50 Total Bilirubin 0.1 mg/dL (0.2-1.0) L D 11/30/17 06:00 AST 18 U/L (15-37) 11/30/17 06:00 ALT 19 U/L (12-78) 11/30/17 06:00 Alkaline Phosphatase 113 U/L (45-117) 11/30/17 06:00 Total Protein 5.6 g/dl (6.4-8.2) L 11/30/17 06:00 Albumin 2.8 g/dl (3.4-5.0) L 11/30/17 06:00 Current Medications Generic Name Dose Route Start Last Admin Trade Name Freq PRN Reason Stop Dose Admin Acetaminophen 650 mg 11/28/17 08:11 12/02/17 11:01 Tylenol - PO 650 mg Q6H PRN Administration PAIN Sodium Chloride 1,000 mls @ 75 mls/hr 11/28/17 02:08 12/02/17 06:08 Normal Saline - IV Not Given ASDIR VANESSA Vancomycin HCl 1,000 mg/ 250 mls @ 200 mls/hr 11/30/17 11:00 12/02/17 11:01 Dextrose IVPB 200 mls/hr Q12H VANESSA Administration Meropenem 500 mg in 10 mls @ 120 mls/hr 11/30/17 11:00 12/02/17 10:39 Merrem (Restricted To Id) - IVPUSH 120 mls/hr Q8H-IV VANESSA Administration Lactobacillus Acidophilus 1 tab 12/01/17 13:45 12/02/17 10:38 Bacid - PO 1 tab DAILY VANESSA Administration Loratadine 10 mg 11/30/17 21:15 12/02/17 10:39 Claritin - PO 10 mg DAILY VANESSA Administration Metoprolol Succinate 50 mg 11/29/17 10:00 12/02/17 10:39 Toprol Xl - PO 50 mg BID VANESSA Administration Oseltamivir Phosphate 75 mg 12/02/17 11:45 12/02/17 13:14 Tamiflu - PO 12/07/17 11:44 75 mg BID VANESSA Administration Ranitidine HCl 150 mg 11/28/17 10:00 12/02/17 10:39 Zantac - PO 150 mg DAILY VANESSA Administration Rivaroxaban 15 mg 11/30/17 08:00 12/02/17 09:10 Xarelto - PO 15 mg BID@0800,1800 VANESSA Administration Valsartan 40 mg 11/28/17 10:00 12/02/17 10:39 Diovan - PO 40 mg DAILY VANESSA Administration Home Medications Medication Instructions Recorded Loratadine 10 mg PO DAILY 10/11/17 Metoprolol Succinate [Toprol Xl] 50 mg PO DAILY 10/11/17 Olmesartan Medoxomil 5 mg PO DAILY 10/11/17 Ranitidine HCl 150 mg PO DAILY 10/11/17 Acetaminophen [Tylenol] 650 mg PO TID PRN #30 tablet 11/12/17 A/P: Patient is a 57 year old female with a past medical history of HTN, neutropenia , L breast CA s/p lumpectomy currently on chemotherapy is admitted to the hospital for the treatment of R upper extremity subclavian venous thrombosis. #Neutropenia improving to continue IV antibiotic Meropenem and Vancomycin as per ID on the case appreciated, continues to have Fever. #RUE Subclavian vein thrombosis: s/p Lovenox, continue with Xarelto as per oncologist . #Hypertension: controlled , continue metoprolol and diovan #s/p Tachycardia rate is controlled now on Toprol XL PO BID -> increased from once a day #Left Breast CA: on chemotherapy, sees Dr. Mallory in the office. DVt Px: Xarelto Visit type - Emergency Visit Emergency Visit: Yes ED Registration Date: 11/27/17 Care time: The patient presented to the Emergency Department on the above date and was hospitalized for further evaluation of their emergent condition. - New Patient This patient is new to me today: No - Critical Care Critical Care patient: No - Discharge Referral Referred to [facility] Med P.C.: No
[2017-12-03] MEDS: diphenhydrAMINE HCL 25 MG CAPSULE (FP) PO PRN
[2017-12-03] MEDS: MEROPENEM 500 MG PUSH 500 MG/10 ML DISP.SYRIN IVPUSH SCH ×3 (02:25→17:18)
[2017-12-03] MEDS: SODIUM CHLORIDE 1,000 ML IV SCH (02:25)
[2017-12-03] MEDS ORDERED: PT OWN MED DRAWER 7, Y5N ONE ×4 (08:55→21:34)
[2017-12-03] MEDS: RIVAROXABAN 15 MG TABLET PO SCH ×2 (09:00→18:52)
[2017-12-03] MEDS: VALSARTAN 40 MG TABLET (FP) PO SCH (09:26)
[2017-12-03] MEDS: LACTOBACILLUS ACIDOPHILUS 1 EACH TAB (FP) PO SCH (09:27)
[2017-12-03] MEDS: LORATADINE 10 MG TABLET PO SCH (09:27)
[2017-12-03] MEDS: OSELTAMIVIR PHOSPHATE 75 MG CAPSULE PO SCH ×2 (09:27→21:41)
[2017-12-03] MEDS: RANITIDINE HCL 150 MG TABLET (FP) PO SCH (09:28)
--- NOTE | 2017-12-03 11:07 | PN ---
Physical Exam: SUBJECTIVE: Patient seen and examined at bedside. States that overnight she had a hives-like rash. Night team gave benadryl. Appears to be slightly improved today. Denies fevers, chills, nausea, vomiting, diarrhea, chest pain, SOB. Arm has significantly improved. OBJECTIVE: Vital Signs Period Temp Pulse Resp BP Sys/Hurst Pulse Ox Last 24 Hr 98.9 F-101.6 F 85-98 18-21 111-127/52-70 98 GENERAL: The patient is awake, alert, and fully oriented, in no acute distress. HEAD: Normal with no signs of trauma. EYES: PERRL, extraocular movements intact, sclera anicteric, conjunctiva clear. No ptosis. ENT: Ears normal, nares patent, oropharynx clear without exudates, moist mucous membranes. NECK: Trachea midline, full range of motion, supple. LUNGS: Breath sounds equal, clear to auscultation bilaterally, no wheezes, no crackles, no accessory muscle use. HEART: Regular rate and rhythm, S1, S2 without murmur, rub or gallop. Port placed in R chest wall without surrounding edema or erythema. ABDOMEN: Soft, nontender, nondistended, normoactive bowel sounds, no guarding, no rebound, no hepatosplenomegaly, no masses. small area of maculopapular rash noted in LLQ of abdomen, likely hive-like EXTREMITIES: 2+ pulses, warm, well-perfused, improved erythema of R upper extremity NEUROLOGICAL: Cranial nerves II through XII grossly intact. Normal speech, gait not observed. PSYCH: Normal mood, normal affect. SKIN: Warm, dry, normal turgor, no rashes or lesions noted Laboratory Results - last 24 hr 12/02/17 12/03/17 06:50 09:25 Neutrophils % (Manual) 55.8 D Band Neutrophils % 8.4 Lymphocytes % (Manual) 6.3 L D Monocytes % (Manual) 16 H* D Eosinophils % (Manual) 0.0 D Basophils % (Manual) 1.0 D Myelocytes % (Man) 5 H D Promyelocytes % (Man) 0 Nucleated RBC % 0 Metamyelocytes 6 H D Hypochromia 0 Platelet Estimate Decreased Polychromasia 1+ Poikilocytosis 0 Anisocytosis 0 Microcytosis 0 Macrocytosis 1+ Tear Drop Cells 1+ Ovalocytes 1+ Vancomycin Pre-Dose 9.941 Active Medications Generic Name Dose Route Start Last Admin Trade Name Freq PRN Reason Stop Dose Admin Acetaminophen 650 mg 11/28/17 08:11 12/02/17 21:45 Tylenol - PO 650 mg Q6H PRN Administration PAIN Diphenhydramine HCl 25 mg 12/02/17 23:37 12/03/17 00:00 Benadryl - PO 25 mg Q6H PRN Administration FOR ITCHING Sodium Chloride 1,000 mls @ 75 mls/hr 11/28/17 02:08 12/03/17 02:25 Normal Saline - IV 75 mls/hr ASDIR VANESSA Administration Vancomycin HCl 1,000 mg/ 250 mls @ 200 mls/hr 11/30/17 11:00 12/02/17 23:21 Dextrose IVPB 200 mls/hr Q12H VANESSA Administration Meropenem 500 mg in 10 mls @ 120 mls/hr 11/30/17 11:00 12/03/17 09:28 Merrem (Restricted To Id) - IVPUSH 120 mls/hr Q8H-IV VANESSA Administration Lactobacillus Acidophilus 1 tab 12/01/17 13:45 12/03/17 09:27 Bacid - PO 1 tab DAILY VANESSA Administration Loratadine 10 mg 11/30/17 21:15 12/03/17 09:27 Claritin - PO 10 mg DAILY VANESSA Administration Metoprolol Succinate 50 mg 11/29/17 10:00 12/03/17 09:27 Toprol Xl - PO 50 mg BID VANESSA Administration Oseltamivir Phosphate 75 mg 12/02/17 11:45 12/03/17 09:27 Tamiflu - PO 12/07/17 11:44 75 mg BID VANESSA Administration Ranitidine HCl 150 mg 11/28/17 10:00 12/03/17 09:28 Zantac - PO 150 mg DAILY VANESSA Administration Rivaroxaban 15 mg 11/30/17 08:00 12/02/17 17:45 Xarelto - PO 15 mg BID@0800,1800 VANESSA Administration Valsartan 40 mg 11/28/17 10:00 12/03/17 09:26 Diovan - PO 40 mg DAILY VANESSA Administration ASSESSMENT/PLAN: 57 year old female with a past medical history of HTN, neutropenia, L breast CA s/p lumpectomy currently on chemotherapy is admitted to the hospital for the treatment of R upper extremity subclavian venous thrombosis. #RUE Subclavian vein thrombosis: likely 2/2 hypercoagulability due to cancer to port placement, improving -consult Dr. Ann appreciated - no surgical intervention will be required -consult Dr. Mallory appreciated -continue xarelto 15mg BID (for 21 days total, then increase to 20mg) -PRN tylenol for pain -echocardiogram normal #SIRS: over the weekend, patient had fever, tachycardia, suspect for sepsis due to neutropenic status, no current source found -CXR negative -Blood cultures negative -UA/Ucx neg #Allergic Dermatitis: hive-like rash likely allergic in origin, possibly 2/2 meropenem -need to discuss with ID if need to continue meropenem #Tachycardia: hr 98 this morning -continue toprol 50 BID #Hypertension: controlled -continue metoprolol 50mg PO BID -continue diovan 40mg PO QD #Neutropenia: stable #L Breast CA: on chemotherapy -consult Dr. Mallory #FEN -IVF NS @ 75 -replete lytes in AM -cardiac diet #Prophylaxis -on lovenox -> will change to Xarelto tomorrow #Disposition: continue to monitor on telemetry -dispo planning once HR stable and not concern for sepsis Visit type - Emergency Visit Emergency Visit: No - New Patient This patient is new to me today: No - Critical Care Critical Care patient: No
[2017-12-03] MEDS: VANCOMYCIN 1,000 MG in DEXTROSE 5%-WATER - 250 ML IVPB SCH ×2 (11:29→22:02)
--- NOTE | 2017-12-03 12:20 | PN ---
Progress Note, Physician Chief Complaint: Events noted Not in distress History of Present Illness: Patient was seen and examined. Awake and alert. Chart was reviewed Denies chest pain, SOB or palpitations - Current Medication List Current Medications: Active Medications Acetaminophen (Tylenol -) 650 mg PO Q6H PRN PRN Reason: PAIN Last Admin: 12/02/17 21:45 Dose: 650 mg Diphenhydramine HCl (Benadryl -) 25 mg PO Q6H PRN PRN Reason: FOR ITCHING Last Admin: 12/03/17 00:00 Dose: 25 mg Sodium Chloride (Normal Saline -) 1,000 mls @ 75 mls/hr IV ASDIR VANESSA Last Admin: 12/03/17 02:25 Dose: 75 mls/hr Vancomycin HCl 1,000 mg/ (Dextrose) 250 mls @ 200 mls/hr IVPB Q12H [facility] Last Admin: 12/03/17 11:29 Dose: 200 mls/hr Meropenem (Merrem (Restricted To Id) -) 500 mg in 10 mls @ 120 mls/hr IVPUSH Q8H-IV VANESSA Last Admin: 12/03/17 09:28 Dose: 120 mls/hr Lactobacillus Acidophilus (Bacid -) 1 tab PO DAILY [facility] Last Admin: 12/03/17 09:27 Dose: 1 tab Loratadine (Claritin -) 10 mg PO DAILY [facility] Last Admin: 12/03/17 09:27 Dose: 10 mg Metoprolol Succinate (Toprol Xl -) 50 mg PO BID [facility] Last Admin: 12/03/17 09:27 Dose: 50 mg Oseltamivir Phosphate (Tamiflu -) 75 mg PO BID [facility] Stop: 12/07/17 11:44 Last Admin: 12/03/17 09:27 Dose: 75 mg Ranitidine HCl (Zantac -) 150 mg PO DAILY [facility] Last Admin: 12/03/17 09:28 Dose: 150 mg Rivaroxaban (Xarelto -) 15 mg PO BID@0800,1800 [facility] Last Admin: 12/03/17 09:00 Dose: 15 mg Valsartan (Diovan -) 40 mg PO DAILY [facility] Last Admin: 12/03/17 09:26 Dose: 40 mg - Objective Vital Signs: Vital Signs Temperature 99.6 F 12/03/17 09:00 Pulse Rate 98 H 12/03/17 09:00 Respiratory Rate 20 12/03/17 09:00 Blood Pressure 124/66 12/03/17 09:00 O2 Sat by Pulse Oximetry (%) 98 12/03/17 09:00 HENT: Yes: Atraumatic Neck: Yes: Supple Cardiovascular: Yes: Regular Rate and Rhythm, Tachycardia, S1, S2 Respiratory: Yes: CTA Bilaterally Gastrointestinal: Yes: Normal Bowel Sounds, Soft. No: Tenderness Edema: No Additional Findings/Remarks: - Review of Systems Constitutional: denies: Chills, Fever Cardiovascular: denies: Shortness of Breath. denies: Chest Pain, Palpitations Respiratory: denies: Cough, SOB, SOB on Exertion. denies: Hemoptysis, Orthopnea , PND, Wheezing Gastrointestinal: denies: Abdominal Pain, Constipation, Diarrhea, Melena, Nausea , Rectal Bleeding, Vomiting Genitourinary: denies: Dysuria, Hematuria Neurological: denies: Dizziness, Headache, Seizure, Syncope Labs: CBC, BMP 12/02/17 06:50 12/02/17 06:50 Problem List - Problems (1) DVT (deep venous thrombosis) Code(s): I82.409 - ACUTE EMBOLISM AND THOMBOS UNSP DEEP VN UNSP LOWER EXTREMITY Qualifiers: DVT location: upper extremity Chronicity: acute Laterality: right (2) Hypertensive cardiomyopathy Code(s): I11.9 - HYPERTENSIVE HEART DISEASE WITHOUT HEART FAILURE; I43 - CARDIOMYOPATHY IN DISEASES CLASSIFIED ELSEWHERE Qualifiers: Heart failure presence: without heart failure Qualified Code(s): I11.9 - Hypertensive heart disease without heart failure; I43 - Cardiomyopathy in diseases classified elsewhere; I43 - Cardiomyopathy in diseases classified elsewhere; I43 - Cardiomyopathy in diseases classified elsewhere; I43 - Cardiomyopathy in diseases classified elsewhere (3) Neutropenia Code(s): D70.9 - NEUTROPENIA, UNSPECIFIED Qualifiers: Neutropenia type: secondary to cancer chemotherapy Qualified Code(s): D70.1 - Agranulocytosis secondary to cancer chemotherapy; T45.1X5A - Adverse effect of antineoplastic and immunosuppressive drugs, initial encounter; T45.1X5A - Adverse effect of antineoplastic and immunosuppressive drugs, initial encounter (4) Breast cancer, left Code(s): C50.912 - MALIGNANT NEOPLASM OF UNSPECIFIED SITE OF LEFT FEMALE BREAST Qualifiers: Breast location: central portion of breast Patient sex: female Assessment/Plan 1. New provoked right subclavian vein thrombus from port-a-cath 2. Left breast cancer s/p Adriamycin 3. HTN/HCVD 4. Neutropenia PLAN: 1. Continue Toprol XL 50 bid and Diovan 40 qd 2. WBC improved 3. Continue Xarelto 4. Continue management as per Hematology/Oncology 5. Blood culture pending. Empiric antibiotics Further plans are to follow Bunny Stearns MD
--- NOTE | 2017-12-03 12:32 | PN ---
Progress Note, Physician History of Present Illness: Awake, alert Feeling better Temps down this am ?Tamiflu Occasional cough Developed small urticarial lesions R chest, L hip + sinus congesion, post nasal drip Less R UE and port site discomfort No dysuria/ diarrhea Tolerating antibiotics - Current Medication List Current Medications: Active Medications Acetaminophen (Tylenol -) 650 mg PO Q6H PRN PRN Reason: PAIN Last Admin: 12/02/17 21:45 Dose: 650 mg Diphenhydramine HCl (Benadryl -) 25 mg PO Q6H PRN PRN Reason: FOR ITCHING Last Admin: 12/03/17 00:00 Dose: 25 mg Sodium Chloride (Normal Saline -) 1,000 mls @ 75 mls/hr IV ASDIR VANESSA Last Admin: 12/03/17 02:25 Dose: 75 mls/hr Vancomycin HCl 1,000 mg/ (Dextrose) 250 mls @ 200 mls/hr IVPB Q12H [facility] Last Admin: 12/03/17 11:29 Dose: 200 mls/hr Meropenem (Merrem (Restricted To Id) -) 500 mg in 10 mls @ 120 mls/hr IVPUSH Q8H-IV [facility] Last Admin: 12/03/17 09:28 Dose: 120 mls/hr Lactobacillus Acidophilus (Bacid -) 1 tab PO DAILY [facility] Last Admin: 12/03/17 09:27 Dose: 1 tab Loratadine (Claritin -) 10 mg PO DAILY [facility] Last Admin: 12/03/17 09:27 Dose: 10 mg Metoprolol Succinate (Toprol Xl -) 50 mg PO BID [facility] Last Admin: 12/03/17 09:27 Dose: 50 mg Oseltamivir Phosphate (Tamiflu -) 75 mg PO BID [facility] Stop: 12/07/17 11:44 Last Admin: 12/03/17 09:27 Dose: 75 mg Ranitidine HCl (Zantac -) 150 mg PO DAILY [facility] Last Admin: 12/03/17 09:28 Dose: 150 mg Rivaroxaban (Xarelto -) 15 mg PO BID@0800,1800 [facility] Last Admin: 12/03/17 09:00 Dose: 15 mg Valsartan (Diovan -) 40 mg PO DAILY [facility] Last Admin: 12/03/17 09:26 Dose: 40 mg - Objective Vital Signs: Vital Signs Temperature 99.6 F 12/03/17 09:00 Pulse Rate 98 H 12/03/17 09:00 Respiratory Rate 20 12/03/17 09:00 Blood Pressure 124/66 12/03/17 09:00 O2 Sat by Pulse Oximetry (%) 98 12/03/17 09:00 Constitutional: Yes: No Distress Eyes: Yes: Conjunctiva Clear Cardiovascular: Yes: Regular Rate and Rhythm, S1, S2 Respiratory: Yes: CTA Bilaterally Gastrointestinal: Yes: Normal Bowel Sounds, Soft. No: Tenderness Extremities: Yes: Other (R UE edema) Integumentary: Yes: Other (port site no erythema) Labs: CBC, BMP 12/02/17 06:50 12/02/17 06:50 INR, PTT INR 1.09 (0.82-1.09) 11/27/17 17:43 Assessment/Plan Fever R/O sepsis ?Influenza R subclavian vein thrombosis S/P neutropenia Stage II breast ca Multiple antibiotic allergies Repeat BC no growth Continue vancomycin/ meropenem If temps down, c/s negative D/C antibiotics next 24h Influenza swab pending Continue Tamiflu
--- NOTE | 2017-12-03 16:13 | PN ---
Progress Note (short form) - Note Progress Note: pt seen and examined. feels better than yesterday feels less congested O/E: General: NAD HEENT: NCAT Cor: tachy. regular Lungs: CTA b/l Abd: benign Extremeties: LE: wnl, RUE: no further erythema, swelling decreased, +mild tenderness at the site of the port Neuro: AAOx3 Last Vital Signs Temp Pulse Resp BP Pulse Ox 99.3 F 91 H 18 130/70 98 12/03/17 13:05 12/03/17 13:05 12/03/17 13:05 12/03/17 13:05 12/03/17 09:00 Current Medications Generic Name Dose Route Start Last Admin Trade Name Freq PRN Reason Stop Dose Admin Acetaminophen 650 mg 11/28/17 08:11 12/02/17 21:45 Tylenol - PO 650 mg Q6H PRN Administration PAIN Diphenhydramine HCl 25 mg 12/02/17 23:37 12/03/17 00:00 Benadryl - PO 25 mg Q6H PRN Administration FOR ITCHING Sodium Chloride 1,000 mls @ 75 mls/hr 11/28/17 02:08 12/03/17 02:25 Normal Saline - IV 75 mls/hr ASDIR VANESSA Administration Vancomycin HCl 1,000 mg/ 250 mls @ 200 mls/hr 11/30/17 11:00 12/03/17 11:29 Dextrose IVPB 200 mls/hr Q12H VANESSA Administration Meropenem 500 mg in 10 mls @ 120 mls/hr 11/30/17 11:00 12/03/17 09:28 Merrem (Restricted To Id) - IVPUSH 120 mls/hr Q8H-IV VANESSA Administration Lactobacillus Acidophilus 1 tab 12/01/17 13:45 12/03/17 09:27 Bacid - PO 1 tab DAILY VANESSA Administration Loratadine 10 mg 11/30/17 21:15 12/03/17 09:27 Claritin - PO 10 mg DAILY VANESSA Administration Metoprolol Succinate 50 mg 11/29/17 10:00 12/03/17 09:27 Toprol Xl - PO 50 mg BID VANESSA Administration Oseltamivir Phosphate 75 mg 12/02/17 11:45 12/03/17 09:27 Tamiflu - PO 12/07/17 11:44 75 mg BID VANESSA Administration Ranitidine HCl 150 mg 11/28/17 10:00 12/03/17 09:28 Zantac - PO 150 mg DAILY VANESSA Administration Rivaroxaban 15 mg 11/30/17 08:00 12/03/17 09:00 Xarelto - PO 15 mg BID@0800,1800 VANESSA Administration Valsartan 40 mg 11/28/17 10:00 12/03/17 09:26 Diovan - PO 40 mg DAILY VANESSA Administration A/P : 57 y/o female with Stage II Left Breast Ca, s/p Lumpectomy , bilateral reduction.presently on adjuvant chemotherapy now admitted with new right arm DVT (provoked, portacath induced) , tachycardia and new onset fever -On Xarelto 15 mg BID for treatment of DVT, continue with the same -on broad spectrum abx. Fever curve better after ?tamiflu -for labs in the am
--- NOTE | 2017-12-03 16:51 | PN ---
Progress Note (short form) - Note Progress Note: Patient is feeling better, Had fever of 101.6 last night otherwise is feeling better. No acute distress. Vital Signs Temperature 99.3 F 12/03/17 13:05 Pulse Rate 91 H 12/03/17 13:05 Respiratory Rate 18 12/03/17 13:05 Blood Pressure 130/70 12/03/17 13:05 O2 Sat by Pulse Oximetry (%) 98 12/03/17 09:00 CBCD WBC 9.2 K/mm3 (4.0-10.0) 12/02/17 06:50 RBC 3.56 M/mm3 (3.60-5.2) L 12/02/17 06:50 Hgb 10.6 GM/dL (10.7-15.3) L 12/02/17 06:50 Hct 32.6 % (32.4-45.2) 12/02/17 06:50 MCV 91.5 fl (80-96) 12/02/17 06:50 MCHC 32.7 g/dl (32.0-36.0) 12/02/17 06:50 RDW 12.9 % (11.6-15.6) 12/02/17 06:50 Plt Count 122 K/MM3 (134-434) L 12/02/17 06:50 MPV 9.4 fl (7.5-11.1) 12/02/17 06:50 CMP Sodium 143 mmol/L (136-145) 12/02/17 06:50 Potassium 3.7 mmol/L (3.5-5.1) 12/02/17 06:50 Chloride 109 mmol/L (98-107) H 12/02/17 06:50 Carbon Dioxide 24 mmol/L (21-32) 12/02/17 06:50 Anion Gap 10 (8-16) 12/02/17 06:50 BUN 10 mg/dL (7-18) 12/02/17 06:50 Creatinine 0.6 mg/dL (0.55-1.02) 12/02/17 06:50 Creat Clearance w eGFR > 60 (>60) 11/30/17 06:00 Random Glucose 87 mg/dL (74-106) 12/02/17 06:50 Calcium 7.7 mg/dL (8.5-10.1) L 12/02/17 06:50 Total Bilirubin 0.1 mg/dL (0.2-1.0) L D 11/30/17 06:00 AST 18 U/L (15-37) 11/30/17 06:00 ALT 19 U/L (12-78) 11/30/17 06:00 Alkaline Phosphatase 113 U/L (45-117) 11/30/17 06:00 Total Protein 5.6 g/dl (6.4-8.2) L 11/30/17 06:00 Albumin 2.8 g/dl (3.4-5.0) L 11/30/17 06:00 Current Medications Generic Name Dose Route Start Last Admin Trade Name Freq PRN Reason Stop Dose Admin Acetaminophen 650 mg 11/28/17 08:11 12/02/17 21:45 Tylenol - PO 650 mg Q6H PRN Administration PAIN Diphenhydramine HCl 25 mg 12/02/17 23:37 12/03/17 00:00 Benadryl - PO 25 mg Q6H PRN Administration FOR ITCHING Sodium Chloride 1,000 mls @ 75 mls/hr 11/28/17 02:08 12/03/17 02:25 Normal Saline - IV 75 mls/hr ASDIR VANESSA Administration Vancomycin HCl 1,000 mg/ 250 mls @ 200 mls/hr 11/30/17 11:00 12/03/17 11:29 Dextrose IVPB 200 mls/hr Q12H VANESSA Administration Meropenem 500 mg in 10 mls @ 120 mls/hr 11/30/17 11:00 12/03/17 09:28 Merrem (Restricted To Id) - IVPUSH 120 mls/hr Q8H-IV VANESSA Administration Lactobacillus Acidophilus 1 tab 12/01/17 13:45 12/03/17 09:27 Bacid - PO 1 tab DAILY VANESSA Administration Loratadine 10 mg 11/30/17 21:15 12/03/17 09:27 Claritin - PO 10 mg DAILY VANESSA Administration Metoprolol Succinate 50 mg 11/29/17 10:00 12/03/17 09:27 Toprol Xl - PO 50 mg BID VANESSA Administration Oseltamivir Phosphate 75 mg 12/02/17 11:45 12/03/17 09:27 Tamiflu - PO 12/07/17 11:44 75 mg BID VANESSA Administration Ranitidine HCl 150 mg 11/28/17 10:00 12/03/17 09:28 Zantac - PO 150 mg DAILY VANESSA Administration Rivaroxaban 15 mg 11/30/17 08:00 12/03/17 09:00 Xarelto - PO 15 mg BID@0800,1800 VANESSA Administration Valsartan 40 mg 11/28/17 10:00 12/03/17 09:26 Diovan - PO 40 mg DAILY VANESSA Administration Home Medications Medication Instructions Recorded Loratadine 10 mg PO DAILY 10/11/17 Metoprolol Succinate [Toprol Xl] 50 mg PO DAILY 10/11/17 Olmesartan Medoxomil 5 mg PO DAILY 10/11/17 Ranitidine HCl 150 mg PO DAILY 10/11/17 Acetaminophen [Tylenol] 650 mg PO TID PRN #30 tablet 11/12/17 Microbiology 12/02/17 18:10 Nasopharyngeal Swab Influenza Types A,B Antigen (MARYAM) - Preliminary 12/02/17 18:10 Nasopharyngeal Swab - Preliminary 11/29/17 20:15 Blood - Peripheral Venous Blood Culture - Preliminary NO GROWTH OBTAINED AFTER 72 HOURS, INCUBATION TO CONTINUE FOR 2 DAYS. 11/29/17 19:30 Blood - Peripheral Venous Blood Culture - Preliminary NO GROWTH OBTAINED AFTER 72 HOURS, INCUBATION TO CONTINUE FOR 2 DAYS. 12/01/17 18:10 Blood - Peripheral Venous Blood Culture - Preliminary NO GROWTH OBTAINED AFTER 24 HOURS, INCUBATION TO CONTINUE FOR 4 DAYS. 12/01/17 17:02 Blood - Peripheral Venous Blood Culture - Preliminary NO GROWTH OBTAINED AFTER 24 HOURS, INCUBATION TO CONTINUE FOR 4 DAYS. 11/29/17 18:40 Urine - Urine Clean Catch Urine Culture - Final NO GROWTH OBTAINED PE: per resident's note A/P: Patient is a 57 year old female with a past medical history of HTN, neutropenia , L breast CA s/p lumpectomy currently on chemotherapy is admitted to the hospital for the treatment of R upper extremity subclavian venous thrombosis. #Fever with Tmax of 101.6 last night r/o Sepsis /Influenza since states that she has allergic like symptoms added Tamiflu as per ID, Influenza swab pending, fever seems better today, will continue to monitor. On IV Abx as per ID continue Vancomycin and Merropenem , repeat BC no growth. If temps down, c/s negative D/C antibiotics next 24h. # S/P Neutropenia improving to continue IV antibiotic Meropenem and Vancomycin as per ID on the case appreciated, continues to have Fever. #RUE Subclavian vein thrombosis: s/p Lovenox, continue with Xarelto as per oncologist . #Hypertension: controlled , continue metoprolol and Diovan. #s/p Tachycardia rate is controlled now on Toprol XL PO BID -> increased from once a day #Stage II Left Breast CA : on chemotherapy, sees Dr. Mallory in the office. DVt Px: Xarelto Visit type - Emergency Visit Emergency Visit: Yes ED Registration Date: 11/27/17 Care time: The patient presented to the Emergency Department on the above date and was hospitalized for further evaluation of their emergent condition. - New Patient This patient is new to me today: No - Critical Care Critical Care patient: No - Discharge Referral Referred to [facility] Med P.C.: No
[2017-12-03] MEDS: ACETAMINOPHEN 325 MG TABLET (FP) PO PRN (21:41)
[2017-12-04] MEDS ORDERED: PT OWN MED DRAWER 7, Y5N ONE ×2 (01:00→09:43)
[2017-12-04] MEDS: MEROPENEM 500 MG PUSH 500 MG/10 ML DISP.SYRIN IVPUSH SCH ×2 (01:02→10:27)
[2017-12-04] MEDS: SODIUM CHLORIDE 1,000 ML IV SCH (01:05)
[2017-12-04 08:00] LABS: HEMOGLOBIN 10.8 GM/dL (10.7-15.3); MCH 29.1 pg (25.7-33.7); MCHC 31.7 g/dl (32.0-36.0); MEAN CELL VOLUME 91.6 fl (80-96); MEAN PLT VOLUME 9.2 fl (7.5-11.1); PLATELET COUNT 192 K/MM3 (134-434); RBC 3.72 M/mm3 (3.60-5.2); WHITE BLOOD COUNT 4.4 K/mm3 (4.0-10.0)
[2017-12-04 08:26] LABS: ALBUMIN 2.6 g/dl (3.4-5.0); ANION GAP 9 (8-16); BLOOD UREA NITROGEN 7 mg/dL (7-18); CALCIUM 8.5 mg/dL (8.5-10.1); CHLORIDE 108 mmol/L (98-107); CO2 27 mmol/L (21-32); GLUCOSE,RANDOM 99 mg/dL (74-106); POTASSIUM 4.2 mmol/L (3.5-5.1); SODIUM 144 mmol/L (136-145)
[2017-12-04 08:28] LABS: ALK PHOS 78 U/L (45-117); BILIRUBIN,TOTAL 0.3 mg/dL (0.2-1.0); CREATININE 0.4 mg/dL (0.55-1.02); SGOT/AST 24 U/L (15-37); SGPT/ALT 43 U/L (12-78); TOT PROT 5.5 g/dl (6.4-8.2)
--- NOTE | 2017-12-04 10:17 | PN ---
Progress Note (short form) - Note Progress Note: pt seen and examined. no further fevers Feels like she has a "post-nasal". Flu swab pending. O/E: General: NAD HEENT: NCAT Cor: tachy. regular Lungs: CTA b/l Abd: benign Extremeties: RUE : stable, swelling improved Neuro: AAOx3 Last Vital Signs Temp Pulse Resp BP Pulse Ox 99.3 F 91 H 18 130/70 98 12/03/17 13:05 12/03/17 13:05 12/03/17 13:05 12/03/17 13:05 12/03/17 09:00 Current Medications Generic Name Dose Route Start Last Admin Trade Name Freq PRN Reason Stop Dose Admin Acetaminophen 650 mg 11/28/17 08:11 12/02/17 21:45 Tylenol - PO 650 mg Q6H PRN Administration PAIN Diphenhydramine HCl 25 mg 12/02/17 23:37 12/03/17 00:00 Benadryl - PO 25 mg Q6H PRN Administration FOR ITCHING Sodium Chloride 1,000 mls @ 75 mls/hr 11/28/17 02:08 12/03/17 02:25 Normal Saline - IV 75 mls/hr ASDIR VANESSA Administration Vancomycin HCl 1,000 mg/ 250 mls @ 200 mls/hr 11/30/17 11:00 12/03/17 11:29 Dextrose IVPB 200 mls/hr Q12H VANESSA Administration Meropenem 500 mg in 10 mls @ 120 mls/hr 11/30/17 11:00 12/03/17 09:28 Merrem (Restricted To Id) - IVPUSH 120 mls/hr Q8H-IV VANESSA Administration Lactobacillus Acidophilus 1 tab 12/01/17 13:45 12/03/17 09:27 Bacid - PO 1 tab DAILY VANESSA Administration Loratadine 10 mg 11/30/17 21:15 12/03/17 09:27 Claritin - PO 10 mg DAILY VANESSA Administration Metoprolol Succinate 50 mg 11/29/17 10:00 12/03/17 09:27 Toprol Xl - PO 50 mg BID VANESSA Administration Oseltamivir Phosphate 75 mg 12/02/17 11:45 12/03/17 09:27 Tamiflu - PO 12/07/17 11:44 75 mg BID VANESSA Administration Ranitidine HCl 150 mg 11/28/17 10:00 12/03/17 09:28 Zantac - PO 150 mg DAILY VANESSA Administration Rivaroxaban 15 mg 11/30/17 08:00 12/03/17 09:00 Xarelto - PO 15 mg BID@0800,1800 VANESSA Administration Valsartan 40 mg 11/28/17 10:00 12/03/17 09:26 Diovan - PO 40 mg DAILY VANESSA Administration A/P : 57 y/o female with Stage II Left Breast Ca, s/p Lumpectomy , bilateral reduction.presently on adjuvant chemotherapy now admitted with new right arm DVT (provoked, portacath induced) , tachycardia and new onset fever -On Xarelto 15 mg BID for treatment of DVT, continue with the same -on broad spectrum abx. Fever curve better after tamiflu -abx course per ID. -labs stable
[2017-12-04] MEDS: VALSARTAN 40 MG TABLET (FP) PO SCH (10:24)
[2017-12-04] MEDS: RIVAROXABAN 15 MG TABLET PO SCH (10:24)
[2017-12-04] MEDS: LORATADINE 10 MG TABLET PO SCH (10:24)
[2017-12-04] MEDS: OSELTAMIVIR PHOSPHATE 75 MG CAPSULE PO SCH (10:25)
[2017-12-04] MEDS: RANITIDINE HCL 150 MG TABLET (FP) PO SCH (10:26)
[2017-12-04] MEDS: VANCOMYCIN 1,000 MG in DEXTROSE 5%-WATER - 250 ML IVPB SCH (10:27)
[2017-12-04 10:34] VITALS: BP 116/64; PULSE 84; TEMP 99.6
[2017-12-04] MEDS: LACTOBACILLUS ACIDOPHILUS 1 EACH TAB (FP) PO SCH (11:34)
--- NOTE | 2017-12-04 11:44 | PN ---
Progress Note, Physician History of Present Illness: Awake, alert Feeling better Temps renain down + cough noted small urticarial lesions R chest, L hip area + sinus congesion, post nasal drip Less R UE and port site discomfort No dysuria/ diarrhea Cultures negative - Current Medication List Current Medications: Active Medications Acetaminophen (Tylenol -) 650 mg PO Q6H PRN PRN Reason: PAIN Last Admin: 12/03/17 21:41 Dose: 650 mg Diphenhydramine HCl (Benadryl -) 25 mg PO Q6H PRN PRN Reason: FOR ITCHING Last Admin: 12/03/17 00:00 Dose: 25 mg Sodium Chloride (Normal Saline -) 1,000 mls @ 75 mls/hr IV ASDIR VANESSA Last Admin: 12/04/17 01:05 Dose: 75 mls/hr Vancomycin HCl 1,000 mg/ (Dextrose) 250 mls @ 200 mls/hr IVPB Q12H [facility] Last Admin: 12/04/17 10:27 Dose: 200 mls/hr Meropenem (Merrem (Restricted To Id) -) 500 mg in 10 mls @ 120 mls/hr IVPUSH Q8H-IV VANESSA Last Admin: 12/04/17 10:27 Dose: 120 mls/hr Lactobacillus Acidophilus (Bacid -) 1 tab PO DAILY [facility] Last Admin: 12/04/17 11:34 Dose: 1 tab Loratadine (Claritin -) 10 mg PO DAILY [facility] Last Admin: 12/04/17 10:24 Dose: 10 mg Metoprolol Succinate (Toprol Xl -) 50 mg PO BID [facility] Last Admin: 12/04/17 10:24 Dose: 50 mg Oseltamivir Phosphate (Tamiflu -) 75 mg PO BID [facility] Stop: 12/07/17 11:44 Last Admin: 12/04/17 10:25 Dose: 75 mg Ranitidine HCl (Zantac -) 150 mg PO DAILY [facility] Last Admin: 12/04/17 10:26 Dose: 150 mg Rivaroxaban (Xarelto -) 15 mg PO BID@0800,1800 [facility] Last Admin: 12/04/17 10:24 Dose: 15 mg Valsartan (Diovan -) 40 mg PO DAILY [facility] Last Admin: 12/04/17 10:24 Dose: 40 mg - Objective Vital Signs: Vital Signs Temperature 99.6 F 12/04/17 10:00 Pulse Rate 84 12/04/17 10:00 Respiratory Rate 20 12/04/17 10:00 Blood Pressure 116/64 12/04/17 10:00 O2 Sat by Pulse Oximetry (%) 97 12/04/17 09:00 Constitutional: Yes: No Distress Eyes: Yes: Conjunctiva Clear Cardiovascular: Yes: Regular Rate and Rhythm, S1, S2 Respiratory: Yes: CTA Bilaterally Gastrointestinal: Yes: Normal Bowel Sounds, Soft. No: Tenderness Extremities: Yes: Other (R UE edema) Integumentary: Yes: Other (port site no erythema/ tenderness) Labs: CBC, BMP 12/04/17 07:00 12/04/17 07:00 INR, PTT INR 1.09 (0.82-1.09) 11/27/17 17:43 Assessment/Plan Fever resolved. Cultures negative R subclavian vein thrombosis S/P neutropenia Stage II breast ca Multiple antibiotic allergies Discontinue vancomycin/ meropenem Complete 5d course Tamiflu No objection to discharge
--- NOTE | 2017-12-04 12:05 | PN ---
Progress Note, Physician History of Present Illness: RUE swelling and heaviness resolving, denies chest pain or dyspnea, afebrile. - Current Medication List Current Medications: Active Medications Acetaminophen (Tylenol -) 650 mg PO Q6H PRN PRN Reason: PAIN Last Admin: 12/03/17 21:41 Dose: 650 mg Diphenhydramine HCl (Benadryl -) 25 mg PO Q6H PRN PRN Reason: FOR ITCHING Last Admin: 12/03/17 00:00 Dose: 25 mg Sodium Chloride (Normal Saline -) 1,000 mls @ 75 mls/hr IV ASDIR [facility] Last Admin: 12/04/17 01:05 Dose: 75 mls/hr Lactobacillus Acidophilus (Bacid -) 1 tab PO DAILY [facility] Last Admin: 12/04/17 11:34 Dose: 1 tab Loratadine (Claritin -) 10 mg PO DAILY [facility] Last Admin: 12/04/17 10:24 Dose: 10 mg Metoprolol Succinate (Toprol Xl -) 50 mg PO BID [facility] Last Admin: 12/04/17 10:24 Dose: 50 mg Oseltamivir Phosphate (Tamiflu -) 75 mg PO BID [facility] Stop: 12/07/17 11:44 Last Admin: 12/04/17 10:25 Dose: 75 mg Ranitidine HCl (Zantac -) 150 mg PO DAILY [facility] Last Admin: 12/04/17 10:26 Dose: 150 mg Rivaroxaban (Xarelto -) 15 mg PO BID@0800,1800 [facility] Last Admin: 12/04/17 10:24 Dose: 15 mg Valsartan (Diovan -) 40 mg PO DAILY [facility] Last Admin: 12/04/17 10:24 Dose: 40 mg - Objective Vital Signs: Vital Signs Temperature 99.6 F 12/04/17 10:00 Pulse Rate 84 12/04/17 10:00 Respiratory Rate 20 12/04/17 10:00 Blood Pressure 116/64 12/04/17 10:00 O2 Sat by Pulse Oximetry (%) 97 12/04/17 09:00 Constitutional: Yes: No Distress, Calm, Thin Neck: Yes: Supple Cardiovascular: Yes: Regular Rate and Rhythm Respiratory: Yes: CTA Bilaterally Gastrointestinal: Yes: Normal Bowel Sounds, Soft Edema: Yes Edema: RUE: 1+ Labs: CBC, BMP 12/04/17 07:00 12/04/17 07:00 INR, PTT INR 1.09 (0.82-1.09) 11/27/17 17:43 - ....Imaging EKG: Report Reviewed (Tele: SR) Problem List - Problems (1) Sinus tachycardia Code(s): R00.0 - TACHYCARDIA, UNSPECIFIED (2) DVT (deep venous thrombosis) Code(s): I82.409 - ACUTE EMBOLISM AND THOMBOS UNSP DEEP VN UNSP LOWER EXTREMITY Qualifiers: DVT location: upper extremity Chronicity: acute Laterality: right (3) Breast cancer, left Code(s): C50.912 - MALIGNANT NEOPLASM OF UNSPECIFIED SITE OF LEFT FEMALE BREAST Qualifiers: Breast location: central portion of breast Patient sex: female (4) Hypertensive cardiomyopathy Code(s): I11.9 - HYPERTENSIVE HEART DISEASE WITHOUT HEART FAILURE; I43 - CARDIOMYOPATHY IN DISEASES CLASSIFIED ELSEWHERE Qualifiers: Heart failure presence: without heart failure Qualified Code(s): I11.9 - Hypertensive heart disease without heart failure; I43 - Cardiomyopathy in diseases classified elsewhere; I43 - Cardiomyopathy in diseases classified elsewhere; I43 - Cardiomyopathy in diseases classified elsewhere; I43 - Cardiomyopathy in diseases classified elsewhere (5) Fever of unknown origin (FUO) Code(s): R50.9 - FEVER, UNSPECIFIED Assessment/Plan 11/12/2017 MUGA: Normal LV size and fxn, LVEF 77% 11/28/2017 Echo: normal biventricular size and fxn, tr MR 11/29/2017 Holter: SR AVG 97 range 81-137 rare since PAC, PVC, no pauses 1. New provoked R SCV thrombus from port-a-cath, ruled out for PE 2. Left breast ca s/p Adriamycin 3. HTN/HCVD 4. Post neutropenia w/ fevers 5. Sinus tachycardia since resolved P: 1. Continue Toprol XL 50 bid and Diovan 40 qd, may continue Anthracycline therapy 2. Complete Tamiflu course, Xarelto 15 bid per heme input
[2017-12-04] MEDS: diphenhydrAMINE HCL 25 MG CAPSULE (FP) PO PRN (13:57)
--- NOTE | 2017-12-04 14:15 | DS ---
Physical Exam: SUBJECTIVE: Patient seen and examined at bedside. Patient states that she has a mildly pruritic rash on her abdomen and chest. Denies chest pain, SOB, nausea, vomiting, diarrhea, fevers, chills. OBJECTIVE: Vital Signs Period Temp Pulse Resp BP Sys/Hurst Pulse Ox Last 24 Hr 98.4 F-99.6 F 81-97 18-20 109-120/64-73 97-97 PHYSICAL EXAM GENERAL: The patient is awake, alert, and fully oriented, in no acute distress. HEAD: Normal with no signs of trauma. EYES: PERRL, extraocular movements intact, sclera anicteric, conjunctiva clear. No ptosis. ENT: Ears normal, nares patent, oropharynx clear without exudates, moist mucous membranes. NECK: Trachea midline, full range of motion, supple. LUNGS: Breath sounds equal, clear to auscultation bilaterally, no wheezes, no crackles, no accessory muscle use. HEART: Regular rate and rhythm, S1, S2 without murmur, rub or gallop. Port placed in R chest wall without surrounding edema or erythema. ABDOMEN: Soft, nontender, nondistended, normoactive bowel sounds, no guarding, no rebound, no hepatosplenomegaly, no masses. small area of maculopapular rash noted in LLQ of abdomen, likely hive-like EXTREMITIES: 2+ pulses, warm, well-perfused, improved erythema of R upper extremity - nearly resolved NEUROLOGICAL: Cranial nerves II through XII grossly intact. Normal speech, gait not observed. PSYCH: Normal mood, normal affect. SKIN: Warm, dry, normal turgor, no rashes or lesions noted LABS Laboratory Results - last 24 hr 12/04/17 12/04/17 07:00 07:00 WBC 4.4 D RBC 3.72 Hgb 10.8 Hct 34.0 MCV 91.6 MCH 29.1 MCHC 31.7 L RDW 13.0 Plt Count 192 D MPV 9.2 Sodium 144 Potassium 4.2 Chloride 108 H Carbon Dioxide 27 Anion Gap 9 BUN 7 Creatinine 0.4 L Creat Clearance w eGFR > 60 Random Glucose 99 Calcium 8.5 Total Bilirubin 0.3 D AST 24 ALT 43 Alkaline Phosphatase 78 Total Protein 5.5 L Albumin 2.6 L IMAGING: Extremity US: No evidence of right Port-A-Cath insertion site collection. CXR 12/02: Cannot rule out early right infrahilar/cardiophrenic angle infiltrate. No definite pleural effusion. Normal cardiac silhouette size. Right Port-A-Cath in place. Chest CTA 11/27/17: No CT evidence of pulmonary embolism. Right subclavian vein thrombosis which is probably acute/subacute. Correlate clinically. Right subclavian venous catheter in place. RUE US 11/27: Findings consistent with deep venous thromboses involving the right subclavian vein around the Port -A-Cath catheter. Microbiology 11/29/17 20:15 Blood - Peripheral Venous Blood Culture - Preliminary NO GROWTH OBTAINED AFTER 96 HOURS, INCUBATION TO CONTINUE FOR 1 DAYS. 11/29/17 19:30 Blood - Peripheral Venous Blood Culture - Preliminary NO GROWTH OBTAINED AFTER 96 HOURS, INCUBATION TO CONTINUE FOR 1 DAYS. 12/01/17 18:10 Blood - Peripheral Venous Blood Culture - Preliminary NO GROWTH OBTAINED AFTER 48 HOURS, INCUBATION TO CONTINUE FOR 3 DAYS. 12/01/17 17:02 Blood - Peripheral Venous Blood Culture - Preliminary NO GROWTH OBTAINED AFTER 48 HOURS, INCUBATION TO CONTINUE FOR 3 DAYS. 12/02/17 18:10 Nasopharyngeal Swab Influenza Types A,B Antigen (MARYAM) - Preliminary 12/02/17 18:10 Nasopharyngeal Swab - Preliminary 11/29/17 18:40 Urine - Urine Clean Catch Urine Culture - Final NO GROWTH OBTAINED HOSPITAL COURSE: Date of Admission:11/27/17 57 year old female with a past medical history of left breast ca (on chemo: cytotoxan & doxirubicin), neutropenia, hypertension, migraines, osteoarthritis, presented to the ER after being sent in by Dr. Mallory for RUE swelling she noticed on Saturday. Patient had an US of the RUE and found she had a right subclavian vein thrombus around port-a-cath. She was put on therapeutic lovenox and admitted for treatment of the DVT. Patient was seen by Dr. Ann (vascular surgery), who did not suggest any change in usage of port. Dr. Mallory saw patient in the hospital and recommended switching lovenox to xarelto. On the evening of 11/29/17, patient was found to be febrile and tachycardic. Because of her neutropenic status, full sepsis workup was ordered. CXR returned negative, UA/UCx showed no sign of UTI, and blood Cx did not grow any organisms after [address] Chase was consulted. Patient was started on vancomycin, meropenem and tamiflu. Patient's flu swab returned positive for influenza A. Patient was seen by cardiology, who increased her toprol 50mg to BID dosing to control her heart rate. A couple of days after starting antibiotics, patient developed a diffuse, hive-like rash that was mildly pruritic, likely from meropenem administration, given its cross-reactivity to penicillins and pt's allergy to penicillins. She was given benadryl PRN. Patient clinically improved and her heart rate/temperature stabilized and remained within normal limits. She had to skip one chemo appointment this week due to her abnormal vitals - will restart next week. She was discharged home with instructions to finish 1 day of tamiflu and to take xarelto 15mg twice a day for 16 more days and then to increase to 20mg once a day and to follow with Dr. Mallory. Date of Discharge: 12/04/17 Minutes to complete discharge: 35 Discharge Summary Reason For Visit: DVT Current Active Problems Neutropenia (Chronic) Condition: Improved - Instructions Diet, Activity, Other Instructions: You were admitted to the hospital for the treatment of right upper extremity deep venous thrombosis. You were treated with lovenox, a blood thinner, as well as xarelto. You will need to be on thinners as an outpatient You were also found to have fevers, possibly due to infection. you completed a course of antibiotics and are still on medication Tamiflu for possible flu virus. Medical Recommendations -Please take xarelto 15mg twice a day for 16 more days- this is a blood thinner that does not require you to have your levels checked - You will have your dose changed to 20mg once a day after you finish the 16 days of 15 twice a day . Your script was sent by Dr. High to your pharmacy -Please take tamiflu for one more day -Please take Benadryl as needed to itching -Continue the rest of your home medications -You can continue to use your Port for dialysis -Please make an appointment with your primary care physician within 1 week of discharge -Please make an appointment with the addiction psychiatrist Dr. Houston within 1 month of discharge -Please make an appointment with your oncologist, Dr. Mallory within 2 weeks of discharge -If you experience severe bruising, swelling, chest pain, shortness of breath, fevers, or chills, please return to the emergency room. Referrals: Kimberly Rodriguez MD [Primary Care Provider] - 1 Week Sarah Mallory MD [Staff Physician] - 1 Week Raghu Houston MD [Staff Physician] - Disposition: HOME - Home Medications Comprehensive Discharge Medication List: Ambulatory Orders Loratadine 10 mg PO DAILY 10/11/17 Metoprolol Succinate [Toprol Xl] 50 mg PO DAILY 10/11/17 Olmesartan Medoxomil 5 mg PO DAILY 10/11/17 Ranitidine HCl 150 mg PO DAILY 10/11/17 Acetaminophen [Tylenol] 650 mg PO TID PRN #30 tablet 11/12/17 Diphenhydramine HCl [Benadryl Capsule -] 25 mg PO Q6H PRN #24 capsule 12/04/17 Oseltamivir Phosphate [Tamiflu -] 75 mg PO BID #2 capsule 12/04/17 Rivaroxaban [Xarelto -] 15 mg PO BID@0800,1800 #32 tablet 12/04/17 This patient is new to me today: No Emergency Visit: No Critical Care patient: No - Discharge Referral Referred to [facility].C[facility] No
--- NOTE | 2017-12-04 19:24 | PN ---
Teaching Attending Note Name of Resident: Barber Hurtado ATTENDING PHYSICIAN STATEMENT I saw and evaluated the patient. I reviewed the resident's note and discussed the case with the resident. I agree with the resident's findings and plan as documented. SUBJECTIVE:sen at 11 am no fever or chills . has no abd pain , no CP or SOB. she has pruritic rash on her abd, which has been stable form the day before OBJECTIVE: NAD Cv: RRR Lungs: CTAB ext: sergio dariel Abd: soft, NT, ND , NL BS , sry macular slightly papular and scaly rash . A/P : 57 y/o unfortunate lady with h/o L breast ca, s/p lumpectomy, on chemo therapy , HTN, neutropenia, and other medical problems who presented with RUE DVT. Hospital course was complicated by fever . she was found ot have flu a 1- RUE DVT: - cont xarelto 15 BID to complete 21 days then 20 daily after that - f/u with heme 2- Fever,due to the Flu A . IV abx , stopped today cont vianney flu to finish 5 days 3- HTN: cont toprol BID , cont her home Olmesartan . 4- rash , likely due to Abx. stoped abx 5- h/o Breast cancer, cont f/u with heme as outpt dc home today .
== END 2017-12-04 15:38 | disposition home or self-care (01) | DRG 206 ==
LOC: JER 16:29 → JERBED 23:46 → UNDOADMIN 11-28 00:13 → J4S 11-28 15:22
PROVIDERS: ADMIT Internal Medicine; ATTEND Internal Medicine
DX: T82.868A Thrombosis due to vascular prosthetic devices, implants and grafts, initial encounter (principal); I82.B11 Acute embolism and thrombosis of right subclavian vein; D70.1 Agranulocytosis secondary to cancer chemotherapy; D70.9 Neutropenia, unspecified; C50.912 Malignant neoplasm of unspecified site of left female breast; I11.9 Hypertensive heart disease without heart failure; J11.1 Influenza due to unidentified influenza virus with other respiratory manifestations; Y83.8 Other surgical procedures as the cause of abnormal reaction of the patient, or of later complication, without mention of misadventure at the time of the procedure; I10 Essential (primary) hypertension; R00.0 Tachycardia, unspecified; K21.9 Gastro-esophageal reflux disease without esophagitis; L27.0 Generalized skin eruption due to drugs and medicaments taken internally; T36.1X5A Adverse effect of cephalosporins and other beta-lactam antibiotics, initial encounter; Z86.718 Personal history of other venous thrombosis and embolism; Z79.01 Long term (current) use of anticoagulants; M19.90 Unspecified osteoarthritis, unspecified site; R50.81 Fever presenting with conditions classified elsewhere; Z17.0 Estrogen receptor positive status [ER+]
CPT/HCPCS: 36415; 71045-TC-FY; 71046-TC-FY; 71275-TC; 76882; 80048; 80053; 81003; 83735; 85025; 85027; 85610; 85730; 86850; 86900; 86901; 87040; 87086; 87804; 93005; 93010; 93225; 93226; 93306-TC; 99285-25; G0480

== ENCOUNTER 2017-12-05 12:29 | Emergency (ER) | payer OTHER ==
[2017-12-05 12:56] VITALS: BP 118/68; PULSE 88; TEMP 98; BMI 26.6
[2017-12-05] MEDS ORDERED: predniSONE 20 MG TABLET (UD) PO ONE (13:14)
[2017-12-05] MEDS ORDERED: diphenhydrAMINE HCL 50 MG CAPSULE PO ONE (13:14)
[2017-12-05] MEDS ORDERED: diphenhydrAMINE HCL 50 MG CAPSULE ONE (13:14)
--- NOTE | 2017-12-05 13:14 | PDOC ---
History of Present Illness - General Chief Complaint: Allergic Reaction Stated Complaint: HIVES Time Seen by Provider: 12/05/17 12:30 Past History - Past Medical History Allergies/Adverse Reactions: Allergies Allergy/AdvReac Type Severity Reaction Status Date / Time avocado Allergy Severe Vomiting Verified 11/27/17 17:09 Cephalosporins Allergy Severe Rash Verified 11/27/17 17:09 erythromycin base Allergy Severe Rash Verified 11/27/17 17:09 Penicillins Allergy Severe Rash Verified 11/27/17 17:09 Sulfa (Sulfonamide Allergy Severe Rash Verified 11/27/17 17:09 Antibiotics) doxycycline AdvReac Severe Nausea Verified 11/27/17 17:09 morphine AdvReac Severe Vomiting Verified 11/27/17 17:09 Home Medications: Ambulatory Orders Loratadine 10 mg PO DAILY 10/11/17 Olmesartan Medoxomil 5 mg PO DAILY 10/11/17 Ranitidine HCl 150 mg PO DAILY 10/11/17 Acetaminophen [Tylenol] 650 mg PO TID PRN #30 tablet 11/12/17 Diphenhydramine HCl [Benadryl Capsule -] 25 mg PO Q6H PRN #24 capsule 12/04/17 Metoprolol Succinate [Toprol Xl] 50 mg PO BID #28 tab 12/04/17 Rivaroxaban [Xarelto -] 15 mg PO BID@0800,1800 #32 tablet 12/04/17 Diphenhydramine HCl [Benadryl -] 25 mg PO Q8H #21 capsule 12/05/17 Famotidine [Pepcid] 20 mg PO BID #20 tablet 12/05/17 Oseltamivir Phosphate [Tamiflu] 75 mg PO BID #2 capsule 12/05/17 Prednisone 10 mg PO AM #20 tablet 12/05/17 Anemia: No Asthma: No Cancer: Yes (LEFT BREAST 09/29) Cardiac Disorders: No CVA: No COPD: No CHF: No Dementia: No Diabetes: No GI Disorders: No Disorders: No HTN: Yes Hypercholesterolemia: No Liver Disease: No Seizures: No Thyroid Disease: No - Surgical History Abdominal Surgery: No Appendectomy: No Cardiac Surgery: No Cholecystectomy: No Lung Surgery: No Neurologic Surgery: No Orthopedic Surgery: No - Suicide/Smoking/Psychosocial Hx Smoking History: Never smoked Have you smoked in the past 12 months: No Hx Alcohol Use: No Drug/Substance Use Hx: No Substance Use Type: None Hx Substance Use Treatment: No *Physical Exam - Vital Signs Last Vital Signs Temp Pulse Resp BP Pulse Ox 98.0 F 88 16 118/68 100 12/05/17 12:29 12/05/17 12:29 12/05/17 12:29 12/05/17 12:29 12/05/17 12:29 *DC/Admit/Observation/Transfer Diagnosis at time of Disposition: Allergic reaction Qualifiers: Encounter type: initial encounter Qualified Code(s): T78.40XA - Allergy, unspecified, initial encounter - Discharge Dispostion Disposition: HOME Condition at time of disposition: Improved Admit: No - Prescriptions Prescriptions: Diphenhydramine HCl [Benadryl -] 25 mg PO Q8H #21 capsule Famotidine [Pepcid] 20 mg PO BID #20 tablet Prednisone 10 mg PO AM #20 tablet - Referrals Referrals: Kimberly Rodriguez MD [Primary Care Provider] - - Patient Instructions Printed Discharge Instructions: DI for Adverse Drug Reaction -- Allergic Additional Instructions: Fluids, rest - Post Discharge Activity
[2017-12-05] MEDS ORDERED: FAMOTIDINE 20 MG TABLET ONE (13:15)
[2017-12-05] MEDS ORDERED: predniSONE 20 MG TABLET (UD) ONE (13:15)
[2017-12-05] MEDS ORDERED: FAMOTIDINE 20 MG TABLET PO ONE (13:15)
== END 2017-12-05 13:39 | disposition home or self-care (01) ==
LOC: SUPCPDRO 12:29 → FER 12:29
DX: T78.40XA Allergy, unspecified, initial encounter (principal); I10 Essential (primary) hypertension; Z85.3 Personal history of malignant neoplasm of breast
CPT/HCPCS: 99282-25

== ENCOUNTER 2017-12-12 07:37 | Day surgery (SDC) | payer OTHER ==
[2017-12-12] MEDS ORDERED: PALONOSETRON HCL 0.25 MG/5 ML VIAL IVPUSH ONE (10:00)
[2017-12-12] MEDS ORDERED: DEXAMETHASONE INJECTION 20 MG in SODIUM CHLORIDE 100 ML IVPB ONE (10:00)
[2017-12-12] MEDS ORDERED: FOSAPREPITANT DIMEGLUMINE 150 MG in SODIUM CHLORIDE 150 ML IVPB ONE (10:00)
[2017-12-12] MEDS ORDERED: SODIUM CHLORIDE IV ONE (10:30)
[2017-12-12] MEDS ORDERED: DOXORUBICIN HCL IV ONE (10:30)
[2017-12-12] MEDS ORDERED: CYCLOPHOSPHAMIDE INJECTION 980 MG in SODIUM CHLORIDE 250 ML IVPB ONE (11:00)
[2017-12-12 11:39] LABS: HEMATOCRIT 38.3 % (32.4-45.2); HEMOGLOBIN 12.6 GM/dL (10.7-15.3); MCH 30.2 pg (25.7-33.7); MCHC 32.9 g/dl (32.0-36.0); MEAN PLT VOLUME 8.4 fl (7.5-11.1); PLATELET COUNT 658 K/MM3 (134-434); RBC 4.16 M/mm3 (3.60-5.2); RDW 13.2 % (11.6-15.6); WHITE BLOOD COUNT 12.3 K/mm3 (4.0-10.0)
[2017-12-12 12:07] LABS: ALBUMIN 3.4 g/dl (3.4-5.0); ANION GAP 5 (8-16); BILIRUBIN,TOTAL 0.3 mg/dL (0.2-1.0); BLOOD UREA NITROGEN 12 mg/dL (7-18); CALCIUM 8.9 mg/dL (8.5-10.1); CHLORIDE 106 mmol/L (98-107); CO2 31 mmol/L (21-32); CREATININE 0.6 mg/dL (0.55-1.02); GLUCOSE,RANDOM 95 mg/dL (74-106); POTASSIUM 3.7 mmol/L (3.5-5.1); SGOT/AST 12 U/L (15-37); SGPT/ALT 28 U/L (12-78); SODIUM 142 mmol/L (136-145); TOT PROT 6.5 g/dl (6.4-8.2)
[2017-12-12 12:08] LABS: ALK PHOS 86 U/L (45-117)
[2017-12-12 12:40] LABS: ANISOCYTOSIS 1+; MACROCYTOSIS 1+; PLATELET ESTIMATE INCREASED
[2017-12-12 12:54] LABS: ALBUMIN 3.4 g/dl (3.4-5.0); ALK PHOS 88 U/L (45-117); BILIRUBIN,DIRECT < 0.2 mg/dL (0.0-0.2); BILIRUBIN,TOTAL 0.2 mg/dL (0.2-1.0); MAGNESIUM 2.2 mg/dL (1.8-2.4); SGOT/AST 15 U/L (15-37); TOT PROT 6.5 g/dl (6.4-8.2)
[2017-12-12 13:00] LABS: SGPT/ALT 30 U/L (12-78)
[2017-12-12] MEDS ORDERED: PORTA CATH FLUSH 10 ML IVPUSH ONE (13:54)
[2017-12-12 13:55] VITALS: TEMP 9832
[2017-12-12 15:02] VITALS: BP 124/71; PULSE 91
== END 2017-12-12 15:04 | disposition home or self-care (01) ==
LOC: JONCCHEMO 07:37
PROVIDERS: ATTEND Internal Medicine Hematology & Oncology
PROC: 3E04305 Introduction of Other Antineoplastic into Central Vein, Percutaneous Approach (ICD-10-PCS; principal; 2017-12-12)
PROC: 3E043GC Introduction of Other Therapeutic Substance into Central Vein, Percutaneous Approach (ICD-10-PCS; 2017-12-12)
PROC: 3E0437Z Introduction of Electrolytic and Water Balance Substance into Central Vein, Percutaneous Approach (ICD-10-PCS; 2017-12-12)
DX: Z51.11 Encounter for antineoplastic chemotherapy (principal); C50.912 Malignant neoplasm of unspecified site of left female breast; Z17.0 Estrogen receptor positive status [ER+]
CPT/HCPCS: 36415; 80053; 80076; 83735; 85025; 96367; 96375; 96413; 96417; J1100; J1453; J2469; J9070

== ENCOUNTER 2017-12-26 07:22 | Day surgery (SDC) | payer OTHER ==
[~2017-12-26 07:22] MED LIST: CYCLOPHOSPHAMIDE INJECTION 980 MG in SODIUM CHLORIDE 250 ML IVPB ONE; DEXAMETHASONE INJECTION 20 MG in SODIUM CHLORIDE 100 ML IVPB ONE; DOXORUBICIN HCL IV ONE; FOSAPREPITANT DIMEGLUMINE 150 MG in SODIUM CHLORIDE 150 ML IVPB ONE; PALONOSETRON HCL 0.25 MG/5 ML VIAL IVPUSH ONE; SODIUM CHLORIDE IV ONE
[2017-12-26 09:12] LABS: HEMATOCRIT 35.4 % (32.4-45.2); HEMOGLOBIN 11.7 GM/dL (10.7-15.3); MCH 30.2 pg (25.7-33.7); MCHC 33.2 g/dl (32.0-36.0); MEAN CELL VOLUME 91.1 fl (80-96); MEAN PLT VOLUME 8.4 fl (7.5-11.1); PLATELET COUNT 197 K/MM3 (134-434); RBC 3.88 M/mm3 (3.60-5.2); RDW 13.8 % (11.6-15.6); WHITE BLOOD COUNT 8.8 K/mm3 (4.0-10.0)
[2017-12-26] MEDS ORDERED: FOSAPREPITANT DIMEGLUMINE 150 MG in SODIUM CHLORIDE 150 ML IVPB ONE (10:00)
[2017-12-26] MEDS ORDERED: PALONOSETRON HCL 0.25 MG/5 ML VIAL IVPUSH ONE (10:00)
[2017-12-26] MEDS ORDERED: DEXAMETHASONE INJECTION 20 MG in SODIUM CHLORIDE 100 ML IVPB ONE (10:00)
[2017-12-26 10:16] LABS: ALBUMIN 3.2 g/dl (3.4-5.0); ANION GAP 9 (8-16); BILIRUBIN,TOTAL 0.3 mg/dL (0.2-1.0); BLOOD UREA NITROGEN 8 mg/dL (7-18); CALCIUM 8.6 mg/dL (8.5-10.1); CHLORIDE 106 mmol/L (98-107); CO2 27 mmol/L (21-32); CREATININE 0.6 mg/dL (0.55-1.02); GLUCOSE,RANDOM 112 mg/dL (74-106); MAGNESIUM 2.1 mg/dL (1.8-2.4); POTASSIUM 4.3 mmol/L (3.5-5.1); SGOT/AST 20 U/L (15-37); SGPT/ALT 36 U/L (12-78); SODIUM 142 mmol/L (136-145); TOT PROT 6.1 g/dl (6.4-8.2)
[2017-12-26 10:19] LABS: ALK PHOS 123 U/L (45-117); BILIRUBIN,DIRECT < 0.2 mg/dL (0.0-0.2)
[2017-12-26 10:26] LABS: ANISOCYTOSIS 0; MACROCYTOSIS 0; PLATELET ESTIMATE NORMAL
[2017-12-26] MEDS ORDERED: SODIUM CHLORIDE IV ONE (10:30)
[2017-12-26] MEDS ORDERED: DOXORUBICIN HCL IV ONE (10:30)
[2017-12-26] MEDS ORDERED: CYCLOPHOSPHAMIDE INJECTION 980 MG in SODIUM CHLORIDE 250 ML IVPB ONE (11:00)
[2017-12-26 15:25] VITALS: BP 136/72; PULSE 92; TEMP 98.5
[2017-12-26] MEDS ORDERED: PORTA CATH FLUSH 10 ML IVPUSH ONE (15:25)
== END 2017-12-26 13:00 | disposition home or self-care (01) ==
LOC: JONCCHEMO 07:22 → J7W 10:00 → JONCCHEMO 13:00
PROVIDERS: ATTEND Internal Medicine Hematology & Oncology
PROC: 3E04305 Introduction of Other Antineoplastic into Central Vein, Percutaneous Approach (ICD-10-PCS; principal; 2017-12-26)
PROC: 3E0437Z Introduction of Electrolytic and Water Balance Substance into Central Vein, Percutaneous Approach (ICD-10-PCS; 2017-12-26)
DX: Z51.11 Encounter for antineoplastic chemotherapy (principal); C50.912 Malignant neoplasm of unspecified site of left female breast; Z17.0 Estrogen receptor positive status [ER+]; G43.A0 Cyclical vomiting, in migraine, not intractable; I10 Essential (primary) hypertension; M19.90 Unspecified osteoarthritis, unspecified site
CPT/HCPCS: 36415; 80053; 80076; 83735; 85025; 96367; 96375; 96413; 96417; J1100; J1453; J2469; J9070

== ENCOUNTER 2017-12-27 07:45 | Day surgery (SDC) | payer OTHER ==
[2017-12-27] MEDS ORDERED: PEGFILGRASTIM 6 MG/0.6 ML DISP.SYRIN SQ ONE (10:00)
[2017-12-27 10:53] VITALS: BP 121/65; TEMP 98.5
[2017-12-27 11:06] VITALS: PULSE 65
== END 2017-12-27 10:40 | disposition home or self-care (01) ==
LOC: JONCCHEMO 07:45 → J7W 10:17 → JONCCHEMO 10:40
PROVIDERS: ATTEND Internal Medicine Hematology & Oncology
PROC: 3E013GC Introduction of Other Therapeutic Substance into Subcutaneous Tissue, Percutaneous Approach (ICD-10-PCS; principal; 2017-12-27)
DX: Z76.89 Persons encountering health services in other specified circumstances (principal); C50.912 Malignant neoplasm of unspecified site of left female breast; Z17.0 Estrogen receptor positive status [ER+]; G43.A0 Cyclical vomiting, in migraine, not intractable; I10 Essential (primary) hypertension; M19.90 Unspecified osteoarthritis, unspecified site
CPT/HCPCS: 96372; J2505

== ENCOUNTER 2018-01-03 10:25 | Day surgery (SDC) | payer OTHER ==
[2018-01-03 11:18] VITALS: TEMP 98.2
[2018-01-03 11:56] LABS: HEMOGLOBIN 9.7 GM/dL (10.7-15.3); MCH 29.9 pg (25.7-33.7); MCHC 33.5 g/dl (32.0-36.0); MEAN CELL VOLUME 89.2 fl (80-96); MEAN PLT VOLUME 8.2 fl (7.5-11.1); PLATELET COUNT 121 K/MM3 (134-434); RBC 3.26 M/mm3 (3.60-5.2); RDW 14.1 % (11.6-15.6)
[2018-01-03 12:13] LABS: WHITE BLOOD COUNT 1.4 K/mm3 (4.0-10.0)
[2018-01-03] MEDS ORDERED: ONDANSETRON 4 MG/2 ML VIAL ONE (12:27)
[2018-01-03] MEDS ORDERED: ONDANSETRON 4 MG/2 ML VIAL IVPB ONE (12:45)
[2018-01-03] MEDS ORDERED: SODIUM CHLORIDE 1,000 ML IV SCH (12:45)
[2018-01-03 13:02] LABS: TOXIC GRANULATION 1+
[2018-01-03 13:03] LABS: PLATELET ESTIMATE SLT DECREASE
[2018-01-03 16:44] VITALS: BP 113/60; PULSE 104
== END 2018-01-03 16:47 | disposition home or self-care (01) ==
LOC: JONCNONCHE 10:25 → J7W 10:56 → JONCNONCHE 16:47
PROVIDERS: ATTEND Internal Medicine Hematology & Oncology
PROC: 3E043GC Introduction of Other Therapeutic Substance into Central Vein, Percutaneous Approach (ICD-10-PCS; principal; 2018-01-03)
PROC: 3E043GC Introduction of Other Therapeutic Substance into Central Vein, Percutaneous Approach (ICD-10-PCS; 2018-01-03)
DX: C50.911 Malignant neoplasm of unspecified site of right female breast (principal); Z17.0 Estrogen receptor positive status [ER+]; Z76.89 Persons encountering health services in other specified circumstances
CPT/HCPCS: 36415; 71045-TC-FY; 85027; 86850; 86900; 86901; 87040; 96360; 96361; 96365; J7030

== ENCOUNTER 2018-01-16 07:19 | Day surgery (SDC) | payer OTHER ==
[2018-01-16] MEDS ORDERED: DEXAMETHASONE INJECTION 20 MG, DIPHENHYDRAMINE 50 MG, RANITIDINE INJECTION 50 MG in SOD... IVPB ONE (08:00)
[2018-01-16] MEDS ORDERED: PALONOSETRON HCL 0.25 MG/5 ML VIAL IVPUSH ONE (08:00)
[2018-01-16] MEDS ORDERED: PACLITAXEL 132 MG in SODIUM CHLORIDE 250 ML IVPB ONE (08:30)
[2018-01-16 12:27] LABS: HEMATOCRIT 34.9 % (32.4-45.2); HEMOGLOBIN 11.4 GM/dL (10.7-15.3); MCH 29.9 pg (25.7-33.7); MCHC 32.6 g/dl (32.0-36.0); MEAN CELL VOLUME 91.7 fl (80-96); MEAN PLT VOLUME 8.1 fl (7.5-11.1); PLATELET COUNT 414 K/MM3 (134-434); RBC 3.81 M/mm3 (3.60-5.2); RDW 16.8 % (11.6-15.6); WHITE BLOOD COUNT 9.2 K/mm3 (4.0-10.0)
[2018-01-16 12:57] LABS: ALBUMIN 3.3 g/dl (3.4-5.0); ALK PHOS 103 U/L (45-117); ANION GAP 11 (8-16); BILIRUBIN,DIRECT < 0.2 mg/dL (0.0-0.2); BILIRUBIN,TOTAL 0.3 mg/dL (0.2-1.0); BLOOD UREA NITROGEN 9 mg/dL (7-18); CALCIUM 9.3 mg/dL (8.5-10.1); CHLORIDE 103 mmol/L (98-107); CO2 28 mmol/L (21-32); CREATININE 0.6 mg/dL (0.55-1.02); GLUCOSE,RANDOM 94 mg/dL (74-106); MAGNESIUM 2.4 mg/dL (1.8-2.4); POTASSIUM 4.4 mmol/L (3.5-5.1); SGOT/AST 33 U/L (15-37); SGPT/ALT 41 U/L (12-78); SODIUM 142 mmol/L (136-145); TOT PROT 6.3 g/dl (6.4-8.2)
[2018-01-16 14:43] LABS: ACANTHOCYTES 0; ANISOCYTOSIS 0; HELMET CELLS 0; HOWELL-JOLLY BODIES 0; MACROCYTOSIS 0; OVALOCYTE 0; PLATELET ESTIMATE NORMAL; ROULEAU 0; SICKELED CELLS 0; TARGET CELLS 0; TEAR DROP CELLS 0; TOXIC GRANULATION 0
[2018-01-16 15:34] VITALS: TEMP 98.3
[2018-01-16] MEDS ORDERED: PORTA CATH FLUSH 10 ML IVPUSH ONE (15:34)
[2018-01-16 15:37] VITALS: BP 113/61; PULSE 84
== END 2018-01-16 15:00 | disposition home or self-care (01) ==
LOC: JONCCHEMO 07:19 → JONCNONCHE 07:19 → J7W 12:42 → JONCCHEMO 15:00
PROVIDERS: ATTEND Internal Medicine Hematology & Oncology
DX: Z51.11 Encounter for antineoplastic chemotherapy (principal); C50.911 Malignant neoplasm of unspecified site of right female breast
CPT/HCPCS: 36415; 80053; 80076; 83735; 85025; 96367; 96375; 96413; J1100; J2469

== ENCOUNTER 2018-01-23 07:29 | Day surgery (SDC) | payer OTHER ==
[2018-01-23] MEDS ORDERED: PALONOSETRON HCL 0.25 MG/5 ML VIAL IVPUSH ONE (08:00)
[2018-01-23] MEDS ORDERED: DEXAMETHASONE INJECTION 10 MG, DIPHENHYDRAMINE 50 MG, RANITIDINE INJECTION 50 MG in SOD... IVPB ONE (08:00)
[2018-01-23] MEDS ORDERED: PACLITAXEL 132 MG in SODIUM CHLORIDE 250 ML IVPB ONE (08:30)
[2018-01-23 11:21] LABS: BASO % 0.5 % (0-2.0); EOS % 4.2 % (0-4.5); HEMATOCRIT 31.6 % (32.4-45.2); HEMOGLOBIN 10.5 GM/dL (10.7-15.3); LYMPH % 47.8 % (8-40); MCH 30.6 pg (25.7-33.7); MCHC 33.2 g/dl (32.0-36.0); MEAN PLT VOLUME 7.6 fl (7.5-11.1); NEUT % 38.5 % (42.8-82.8); PLATELET COUNT 343 K/MM3 (134-434); RBC 3.43 M/mm3 (3.60-5.2); RDW 16.9 % (11.6-15.6); WHITE BLOOD COUNT 8.3 K/mm3 (4.0-10.0)
[2018-01-23 11:53] LABS: ALBUMIN 3.4 g/dl (3.4-5.0); ALK PHOS 84 U/L (45-117); ANION GAP 5 (8-16); BILIRUBIN,DIRECT < 0.2 mg/dL (0.0-0.2); BILIRUBIN,TOTAL 0.3 mg/dL (0.2-1.0); BLOOD UREA NITROGEN 8 mg/dL (7-18); CALCIUM 9.3 mg/dL (8.5-10.1); CHLORIDE 107 mmol/L (98-107); CO2 29 mmol/L (21-32); CREATININE 0.6 mg/dL (0.55-1.02); GLUCOSE,RANDOM 125 mg/dL (74-106); MAGNESIUM 2.3 mg/dL (1.8-2.4); POTASSIUM 4.2 mmol/L (3.5-5.1); SGOT/AST 31 U/L (15-37); SGPT/ALT 51 U/L (12-78); SODIUM 141 mmol/L (136-145); TOT PROT 6.3 g/dl (6.4-8.2)
[2018-01-23 18:07] VITALS: BP 124/71; PULSE 90; TEMP 97.9
[2018-01-23] MEDS ORDERED: PORTA CATH FLUSH 10 ML IVPUSH ONE (18:07)
== END 2018-01-23 14:30 | disposition home or self-care (01) ==
LOC: JONCCHEMO 07:29 → J7W 11:42 → JONCCHEMO 14:30
PROVIDERS: ATTEND Internal Medicine Hematology & Oncology
DX: Z51.11 Encounter for antineoplastic chemotherapy (principal); C50.911 Malignant neoplasm of unspecified site of right female breast
CPT/HCPCS: 36415; 80053; 80076; 83735; 85025; 96367; 96375; 96413; J1100; J2469

== ENCOUNTER 2018-01-30 07:32 | Day surgery (SDC) | payer OTHER ==
[2018-01-30] MEDS ORDERED: DEXAMETHASONE INJECTION 10 MG, DIPHENHYDRAMINE 50 MG, RANITIDINE INJECTION 50 MG in SOD... IVPB ONE (10:00)
[2018-01-30] MEDS ORDERED: PALONOSETRON HCL 0.25 MG/5 ML VIAL IVPUSH ONE (10:00)
[2018-01-30] MEDS ORDERED: PACLITAXEL 132 MG in SODIUM CHLORIDE 250 ML IVPB ONE (10:30)
[2018-01-30 11:51] LABS: EOS % 4.8 % (0-4.5); HEMATOCRIT 33.1 % (32.4-45.2); HEMOGLOBIN 11.1 GM/dL (10.7-15.3); LYMPH % 43.9 % (8-40); MCH 30.9 pg (25.7-33.7); MCHC 33.5 g/dl (32.0-36.0); MEAN CELL VOLUME 92.1 fl (80-96); MEAN PLT VOLUME 7.8 fl (7.5-11.1); MONO % 8.3 % (3.8-10.2); PLATELET COUNT 303 K/MM3 (134-434); RDW 17.3 % (11.6-15.6); WHITE BLOOD COUNT 6.2 K/mm3 (4.0-10.0)
[2018-01-30 12:49] LABS: ALBUMIN 3.4 g/dl (3.4-5.0); ANION GAP 6 (8-16); BILIRUBIN,TOTAL 0.2 mg/dL (0.2-1.0); BLOOD UREA NITROGEN 7 mg/dL (7-18); CHLORIDE 108 mmol/L (98-107); CO2 27 mmol/L (21-32); CREATININE 0.5 mg/dL (0.55-1.02); GLUCOSE,RANDOM 90 mg/dL (74-106); SGOT/AST 29 U/L (15-37); SGPT/ALT 50 U/L (12-78); SODIUM 141 mmol/L (136-145); TOT PROT 6.3 g/dl (6.4-8.2)
[2018-01-30 12:50] LABS: ALK PHOS 90 U/L (45-117)
[2018-01-30 13:10] LABS: BILIRUBIN,DIRECT < 0.2 mg/dL (0.0-0.2); MAGNESIUM 2.1 mg/dL (1.8-2.4)
[2018-01-30 15:43] VITALS: TEMP 98.3
[2018-01-30] MEDS ORDERED: PORTA CATH FLUSH 10 ML IVPUSH ONE (15:43)
[2018-01-30 15:46] VITALS: BP 113/67; PULSE 89
== END 2018-01-30 14:00 | disposition home or self-care (01) ==
LOC: JONCCHEMO 07:32 → J7W 12:16 → JONCCHEMO 14:00
PROVIDERS: ATTEND Internal Medicine Hematology & Oncology
DX: Z51.11 Encounter for antineoplastic chemotherapy (principal); C50.911 Malignant neoplasm of unspecified site of right female breast
CPT/HCPCS: 36415; 80053; 80076; 83735; 85025; 96367; 96375; 96413; J1100; J2469

== ENCOUNTER 2018-02-06 07:20 | Day surgery (SDC) | payer OTHER ==
[2018-02-06] MEDS ORDERED: PALONOSETRON HCL 0.25 MG/5 ML VIAL IVPUSH ONE (10:00)
[2018-02-06] MEDS ORDERED: DEXAMETHASONE INJECTION 10 MG, DIPHENHYDRAMINE 50 MG, RANITIDINE INJECTION 50 MG in SOD... IVPB ONE (10:00)
[2018-02-06] MEDS ORDERED: PACLITAXEL 132 MG in SODIUM CHLORIDE 250 ML IVPB ONE (10:30)
[2018-02-06 11:23] LABS: BASO % 0.6 % (0-2.0); EOS % 3.9 % (0-4.5); HEMATOCRIT 33.3 % (32.4-45.2); HEMOGLOBIN 11.2 GM/dL (10.7-15.3); MCH 31.8 pg (25.7-33.7); MCHC 33.8 g/dl (32.0-36.0); MEAN CELL VOLUME 94.2 fl (80-96); MEAN PLT VOLUME 8.1 fl (7.5-11.1); MONO % 8.7 % (3.8-10.2); NEUT % 49.8 % (42.8-82.8); PLATELET COUNT 282 K/MM3 (134-434); RBC 3.53 M/mm3 (3.60-5.2); RDW 17.9 % (11.6-15.6); WHITE BLOOD COUNT 6.8 K/mm3 (4.0-10.0)
[2018-02-06 12:21] VITALS: TEMP 97.8
[2018-02-06] MEDS ORDERED: PORTA CATH FLUSH 10 ML IVPUSH ONE (12:21)
[2018-02-06 12:22] LABS: ALBUMIN 3.6 g/dl (3.4-5.0); ALK PHOS 93 U/L (45-117); ANION GAP 8 (8-16); BILIRUBIN,DIRECT < 0.2 mg/dL (0.0-0.2); BILIRUBIN,TOTAL 0.3 mg/dL (0.2-1.0); BLOOD UREA NITROGEN 10 mg/dL (7-18); CALCIUM 9.3 mg/dL (8.5-10.1); CHLORIDE 107 mmol/L (98-107); CO2 28 mmol/L (21-32); CREATININE 0.5 mg/dL (0.55-1.02); GLUCOSE,RANDOM 109 mg/dL (74-106); MAGNESIUM 2.1 mg/dL (1.8-2.4); SGOT/AST 29 U/L (15-37); SGPT/ALT 49 U/L (12-78); SODIUM 143 mmol/L (136-145); TOT PROT 6.4 g/dl (6.4-8.2)
[2018-02-06 14:34] VITALS: BP 118/74; PULSE 96
== END 2018-02-06 13:45 | disposition home or self-care (01) ==
LOC: JONCCHEMO 07:20 → J7W 11:43 → JONCCHEMO 13:45
PROVIDERS: ATTEND Internal Medicine Hematology & Oncology
DX: Z51.11 Encounter for antineoplastic chemotherapy (principal); C50.911 Malignant neoplasm of unspecified site of right female breast
CPT/HCPCS: 36415; 80053; 80076; 83735; 85025; 96367; 96375; 96413; J1100; J2469

== ENCOUNTER 2018-02-13 07:42 | Day surgery (SDC) | payer OTHER ==
[2018-02-13] MEDS ORDERED: DEXAMETHASONE INJECTION 10 MG, DIPHENHYDRAMINE 50 MG, RANITIDINE INJECTION 50 MG in SOD... IVPB ONE (10:00)
[2018-02-13] MEDS ORDERED: PALONOSETRON HCL 0.25 MG/5 ML VIAL IVPUSH ONE (10:00)
[2018-02-13] MEDS ORDERED: PACLITAXEL 132 MG in SODIUM CHLORIDE 250 ML IVPB ONE (10:30)
[2018-02-13 11:47] LABS: BASO % 0.6 % (0-2.0); EOS % 4.2 % (0-4.5); HEMATOCRIT 32.7 % (32.4-45.2); LYMPH % 42.5 % (8-40); MCH 31.7 pg (25.7-33.7); MCHC 33.7 g/dl (32.0-36.0); MEAN CELL VOLUME 93.9 fl (80-96); MEAN PLT VOLUME 8.1 fl (7.5-11.1); MONO % 8.8 % (3.8-10.2); NEUT % 43.9 % (42.8-82.8); PLATELET COUNT 277 K/MM3 (134-434); RBC 3.48 M/mm3 (3.60-5.2); RDW 17.3 % (11.6-15.6); WHITE BLOOD COUNT 6.6 K/mm3 (4.0-10.0)
[2018-02-13 11:58] LABS: ALBUMIN 3.5 g/dl (3.4-5.0); ANION GAP 8 (8-16); BILIRUBIN,DIRECT < 0.2 mg/dL (0.0-0.2); BILIRUBIN,TOTAL 0.3 mg/dL (0.2-1.0); BLOOD UREA NITROGEN 11 mg/dL (7-18); CALCIUM 9.3 mg/dL (8.5-10.1); CHLORIDE 107 mmol/L (98-107); CO2 27 mmol/L (21-32); CREATININE 0.6 mg/dL (0.55-1.02); GLUCOSE,RANDOM 100 mg/dL (74-106); MAGNESIUM 2.1 mg/dL (1.8-2.4); POTASSIUM 4.5 mmol/L (3.5-5.1); SGOT/AST 24 U/L (15-37); SGPT/ALT 43 U/L (12-78); SODIUM 142 mmol/L (136-145); TOT PROT 6.5 g/dl (6.4-8.2)
[2018-02-13 11:59] LABS: ALK PHOS 95 U/L (45-117)
[2018-02-13] MEDS ORDERED: ALTEPLASE 2 MG VIAL CVP ONE (12:45)
[2018-02-13 13:30] VITALS: TEMP 98.3
[2018-02-13 17:42] VITALS: BP 147/87; PULSE 58
[2018-02-13] MEDS ORDERED: PORTA CATH FLUSH 10 ML IVPUSH ONE (17:42)
== END 2018-02-13 16:30 | disposition home or self-care (01) ==
LOC: JONCCHEMO 07:42 → J7W 12:04 → JONCCHEMO 16:30
PROVIDERS: ATTEND Internal Medicine Hematology & Oncology
DX: Z51.11 Encounter for antineoplastic chemotherapy (principal); C50.911 Malignant neoplasm of unspecified site of right female breast
CPT/HCPCS: 36415; 80053; 80076; 83735; 85025; 96367; 96375; 96413; J1100; J2469; J2997

== ENCOUNTER 2018-02-20 07:26 | Day surgery (SDC) | payer OTHER ==
[2018-02-20] MEDS ORDERED: PALONOSETRON HCL 0.25 MG/5 ML VIAL IVPUSH ONE (10:00)
[2018-02-20] MEDS ORDERED: DEXAMETHASONE INJECTION 10 MG, DIPHENHYDRAMINE 50 MG, RANITIDINE INJECTION 50 MG in SOD... IVPB ONE (10:00)
[2018-02-20] MEDS ORDERED: PACLITAXEL 132 MG in SODIUM CHLORIDE 250 ML IVPB ONE (10:30)
[2018-02-20 11:58] LABS: BASO % 0.8 % (0-2.0); EOS % 3.6 % (0-4.5); HEMATOCRIT 33.7 % (32.4-45.2); HEMOGLOBIN 11.7 GM/dL (10.7-15.3); LYMPH % 30.3 % (8-40); MCH 32.6 pg (25.7-33.7); MCHC 34.5 g/dl (32.0-36.0); MEAN CELL VOLUME 94.3 fl (80-96); MEAN PLT VOLUME 8.6 fl (7.5-11.1); MONO % 8.3 % (3.8-10.2); PLATELET COUNT 312 K/MM3 (134-434); RBC 3.58 M/mm3 (3.60-5.2); RDW 17.2 % (11.6-15.6); WHITE BLOOD COUNT 7.1 K/mm3 (4.0-10.0)
[2018-02-20 12:25] LABS: ALBUMIN 3.5 g/dl (3.4-5.0); ANION GAP 7 (8-16); BLOOD UREA NITROGEN 10 mg/dL (7-18); CALCIUM 8.9 mg/dL (8.5-10.1); CHLORIDE 108 mmol/L (98-107); CO2 28 mmol/L (21-32); GLUCOSE,RANDOM 96 mg/dL (74-106); MAGNESIUM 2.2 mg/dL (1.8-2.4); POTASSIUM 4.5 mmol/L (3.5-5.1); SODIUM 143 mmol/L (136-145)
[2018-02-20 12:29] LABS: ALK PHOS 96 U/L (45-117); BILIRUBIN,DIRECT < 0.2 mg/dL (0.0-0.2); BILIRUBIN,TOTAL 0.5 mg/dL (0.2-1.0); CREATININE 0.5 mg/dL (0.55-1.02); SGOT/AST 25 U/L (15-37); SGPT/ALT 39 U/L (12-78); TOT PROT 6.2 g/dl (6.4-8.2)
[2018-02-20 16:33] VITALS: TEMP 98.3
[2018-02-20 16:39] VITALS: BP 120/68; PULSE 88
[2018-02-20] MEDS ORDERED: PORTA CATH FLUSH 10 ML IVPUSH ONE (16:43)
== END 2018-02-20 14:45 | disposition home or self-care (01) ==
LOC: JONCCHEMO 07:26 → J7W 12:12 → JONCCHEMO 18:31
PROVIDERS: ATTEND Internal Medicine Hematology & Oncology
PROC: 3E04305 Introduction of Other Antineoplastic into Central Vein, Percutaneous Approach (ICD-10-PCS; principal; 2018-02-20)
PROC: 3E043GC Introduction of Other Therapeutic Substance into Central Vein, Percutaneous Approach (ICD-10-PCS; 2018-02-20)
DX: Z51.11 Encounter for antineoplastic chemotherapy (principal); C50.912 Malignant neoplasm of unspecified site of left female breast; Z17.0 Estrogen receptor positive status [ER+]; I10 Essential (primary) hypertension; M19.91 Primary osteoarthritis, unspecified site; J30.9 Allergic rhinitis, unspecified
CPT/HCPCS: 36415; 80053; 80076; 83735; 85025; 96367; 96375; 96413; J1100; J2469

== ENCOUNTER → 2018-02-27 | Day surgery (SDC) | payer OTHER ==
[~2018-02-27] MED LIST changes: -CYCLOPHOSPHAMIDE INJECTION 980 MG in SODIUM CHLORIDE 250 ML IVPB ONE; +DEXAMETHASONE INJECTION 10 MG, DIPHENHYDRAMINE 50 MG, RANITIDINE INJECTION 50 MG in SOD... IVPB ONE; -DEXAMETHASONE INJECTION 20 MG in SODIUM CHLORIDE 100 ML IVPB ONE; -DOXORUBICIN HCL IV ONE; -FOSAPREPITANT DIMEGLUMINE 150 MG in SODIUM CHLORIDE 150 ML IVPB ONE; +PACLITAXEL 132 MG in SODIUM CHLORIDE 250 ML IVPB ONE; -SODIUM CHLORIDE IV ONE
[2018-02-27 11:03] VITALS: BP 147/83; PULSE 111; TEMP 98.4
[2018-02-27 11:17] LABS: BASO % 0.7 % (0-2.0); EOS % 3.4 % (0-4.5); HEMATOCRIT 34.6 % (32.4-45.2); HEMOGLOBIN 11.7 GM/dL (10.7-15.3); LYMPH % 29.7 % (8-40); MCH 31.8 pg (25.7-33.7); MCHC 33.8 g/dl (32.0-36.0); MEAN CELL VOLUME 94.1 fl (80-96); MEAN PLT VOLUME 8.1 fl (7.5-11.1); MONO % 8.6 % (3.8-10.2); NEUT % 57.6 % (42.8-82.8); PLATELET COUNT 333 K/MM3 (134-434); RBC 3.68 M/mm3 (3.60-5.2); RDW 16.4 % (11.6-15.6)
[2018-02-27 11:44] LABS: ALBUMIN 3.2 g/dl (3.4-5.0); ANION GAP 9 (8-16); BLOOD UREA NITROGEN 9 mg/dL (7-18); CALCIUM 8.8 mg/dL (8.5-10.1); CHLORIDE 109 mmol/L (98-107); CO2 25 mmol/L (21-32); CREATININE 0.6 mg/dL (0.55-1.02); GLUCOSE,RANDOM 128 mg/dL (74-106); POTASSIUM 4.1 mmol/L (3.5-5.1); SGOT/AST 25 U/L (15-37); SGPT/ALT 44 U/L (12-78); SODIUM 143 mmol/L (136-145); TOT PROT 6.1 g/dl (6.4-8.2)
[2018-02-27 11:59] LABS: ALK PHOS 93 U/L (45-117); BILIRUBIN,TOTAL 0.3 mg/dL (0.2-1.0)
[2018-02-27 12:33] LABS: BILIRUBIN,DIRECT < 0.2 mg/dL (0.0-0.2); MAGNESIUM 2.1 mg/dL (1.8-2.4)
== END | disposition home or self-care (01) ==
LOC: JONCCHEMO 07:30
PROVIDERS: ATTEND Internal Medicine Hematology & Oncology
PROC: 3E033GC Introduction of Other Therapeutic Substance into Peripheral Vein, Percutaneous Approach (ICD-10-PCS; principal; 2018-02-27)
DX: Z53.8 Procedure and treatment not carried out for other reasons (principal)
CPT/HCPCS: 36415; 80053; 80076; 83735; 85025; 96365

== ENCOUNTER 2018-03-06 06:41 | Day surgery (SDC) | payer OTHER ==
[2018-03-06] MEDS ORDERED: PALONOSETRON HCL 0.25 MG/5 ML VIAL IVPUSH ONE (08:00)
[2018-03-06] MEDS ORDERED: DEXAMETHASONE INJECTION 10 MG, DIPHENHYDRAMINE 50 MG, RANITIDINE INJECTION 50 MG in SOD... IVPB ONE (08:00)
[2018-03-06] MEDS ORDERED: PACLITAXEL 132 MG in SODIUM CHLORIDE 250 ML IVPB ONE (08:30)
[2018-03-06 10:18] LABS: BASO % 0.9 % (0-2.0); EOS % 3.9 % (0-4.5); HEMATOCRIT 35.3 % (32.4-45.2); HEMOGLOBIN 12.1 GM/dL (10.7-15.3); LYMPH % 32.4 % (8-40); MCH 31.5 pg (25.7-33.7); MCHC 34.1 g/dl (32.0-36.0); MEAN CELL VOLUME 92.2 fl (80-96); MEAN PLT VOLUME 7.5 fl (7.5-11.1); MONO % 12.7 % (3.8-10.2); NEUT % 50.1 % (42.8-82.8); PLATELET COUNT 339 K/MM3 (134-434); RBC 3.83 M/mm3 (3.60-5.2); RDW 15.9 % (11.6-15.6); WHITE BLOOD COUNT 6.3 K/mm3 (4.0-10.0)
[2018-03-06 10:57] LABS: ALBUMIN 3.3 g/dl (3.4-5.0); ALK PHOS 112 U/L (45-117); ANION GAP 8 (8-16); BILIRUBIN,DIRECT < 0.2 mg/dL (0.0-0.2); BILIRUBIN,TOTAL 0.3 mg/dL (0.2-1.0); CALCIUM 8.7 mg/dL (8.5-10.1); CHLORIDE 107 mmol/L (98-107); CO2 26 mmol/L (21-32); CREATININE 0.6 mg/dL (0.55-1.02); GLUCOSE,RANDOM 145 mg/dL (74-106); MAGNESIUM 2.1 mg/dL (1.8-2.4); POTASSIUM 4.3 mmol/L (3.5-5.1); SGOT/AST 28 U/L (15-37); SGPT/ALT 39 U/L (12-78); SODIUM 141 mmol/L (136-145); TOT PROT 6.3 g/dl (6.4-8.2)
[2018-03-06 11:00] LABS: BLOOD UREA NITROGEN 8 mg/dL (7-18)
[2018-03-06 14:35] VITALS: TEMP 98.2
[2018-03-06] MEDS ORDERED: PORTA CATH FLUSH 10 ML IVPUSH ONE (15:15)
[2018-03-06 15:17] VITALS: BP 135/77; PULSE 85
== END 2018-03-06 13:15 | disposition home or self-care (01) ==
LOC: JONCCHEMO 06:41 → J7W 10:47 → JONCCHEMO 13:15
PROVIDERS: ATTEND Internal Medicine Hematology & Oncology
PROC: 3E04305 Introduction of Other Antineoplastic into Central Vein, Percutaneous Approach (ICD-10-PCS; principal; 2018-03-06)
PROC: 3E043GC Introduction of Other Therapeutic Substance into Central Vein, Percutaneous Approach (ICD-10-PCS; 2018-03-06)
DX: Z51.11 Encounter for antineoplastic chemotherapy (principal); C50.912 Malignant neoplasm of unspecified site of left female breast; Z17.0 Estrogen receptor positive status [ER+]; G43.A0 Cyclical vomiting, in migraine, not intractable
CPT/HCPCS: 36415; 80053; 80076; 83735; 85025; 96367; 96375; 96413; J1100; J2469

== ENCOUNTER 2018-03-13 07:22 | Day surgery (SDC) | payer OTHER ==
[2018-03-13] MEDS ORDERED: DEXAMETHASONE INJECTION 10 MG, DIPHENHYDRAMINE 50 MG, RANITIDINE INJECTION 50 MG in SOD... IVPB ONE (08:00)
[2018-03-13] MEDS ORDERED: PALONOSETRON HCL 0.25 MG/5 ML VIAL IVPUSH ONE (08:00)
[2018-03-13] MEDS ORDERED: PACLITAXEL 132 MG in SODIUM CHLORIDE 250 ML IVPB ONE (08:30)
[2018-03-13 10:40] LABS: EOS % 5.5 % (0-4.5); HEMATOCRIT 36.3 % (32.4-45.2); HEMOGLOBIN 12.2 GM/dL (10.7-15.3); LYMPH % 28.9 % (8-40); MCH 30.5 pg (25.7-33.7); MCHC 33.5 g/dl (32.0-36.0); MEAN CELL VOLUME 91.1 fl (80-96); MEAN PLT VOLUME 7.8 fl (7.5-11.1); MONO % 12.3 % (3.8-10.2); NEUT % 52.3 % (42.8-82.8); PLATELET COUNT 367 K/MM3 (134-434); RBC 3.99 M/mm3 (3.60-5.2); RDW 16.1 % (11.6-15.6); WHITE BLOOD COUNT 6.4 K/mm3 (4.0-10.0)
[2018-03-13 11:05] LABS: CHLORIDE 108 mmol/L (98-107); POTASSIUM 4.2 mmol/L (3.5-5.1); SODIUM 141 mmol/L (136-145)
[2018-03-13 11:07] LABS: BLOOD UREA NITROGEN 9 mg/dL (7-18)
[2018-03-13 11:12] LABS: ALBUMIN 3.4 g/dl (3.4-5.0); ALK PHOS 103 U/L (45-117); ANION GAP 6 (8-16); BILIRUBIN,DIRECT < 0.2 mg/dL (0.0-0.2); BILIRUBIN,TOTAL 0.3 mg/dL (0.2-1.0); CO2 27 mmol/L (21-32); CREATININE 0.6 mg/dL (0.55-1.02); GLUCOSE,RANDOM 96 mg/dL (74-106); MAGNESIUM 2.1 mg/dL (1.8-2.4); SGOT/AST 22 U/L (15-37); SGPT/ALT 40 U/L (12-78); TOT PROT 6.3 g/dl (6.4-8.2)
[2018-03-13 11:29] VITALS: TEMP 98.2
[2018-03-13] MEDS ORDERED: PORTA CATH FLUSH 10 ML IVPUSH ONE (11:45)
[2018-03-13 13:47] VITALS: BP 153/81; PULSE 97
== END 2018-03-13 19:34 | disposition home or self-care (01) ==
LOC: JONCCHEMO 07:22 → J7W 11:16 → JONCCHEMO 19:34
PROVIDERS: ATTEND Internal Medicine Hematology & Oncology
PROC: 3E04305 Introduction of Other Antineoplastic into Central Vein, Percutaneous Approach (ICD-10-PCS; principal; 2018-03-13)
PROC: 3E043GC Introduction of Other Therapeutic Substance into Central Vein, Percutaneous Approach (ICD-10-PCS; 2018-03-13)
DX: Z51.11 Encounter for antineoplastic chemotherapy (principal); C50.912 Malignant neoplasm of unspecified site of left female breast; Z17.0 Estrogen receptor positive status [ER+]; G43.A0 Cyclical vomiting, in migraine, not intractable; I10 Essential (primary) hypertension
CPT/HCPCS: 36415; 80053; 80076; 83735; 85025; 96367; 96375; 96413; J1100; J2469

== ENCOUNTER 2018-03-27 09:23 | Day surgery (SDC) | payer OTHER ==
[2018-03-27 09:43] LABS: BASO % 0.8 % (0-2.0); HEMATOCRIT 36.2 % (32.4-45.2); LYMPH % 34.6 % (8-40); MCH 30.3 pg (25.7-33.7); MCHC 33.1 g/dl (32.0-36.0); MEAN CELL VOLUME 91.5 fl (80-96); MEAN PLT VOLUME 8.1 fl (7.5-11.1); NEUT % 48.6 % (42.8-82.8); PLATELET COUNT 313 K/MM3 (134-434); RBC 3.96 M/mm3 (3.60-5.2); RDW 15.6 % (11.6-15.6); WHITE BLOOD COUNT 4.1 K/mm3 (4.0-10.0)
[2018-03-27] MEDS ORDERED: DEXAMETHASONE INJECTION 10 MG, DIPHENHYDRAMINE 50 MG, RANITIDINE INJECTION 50 MG in SOD... IVPB ONE (10:00)
[2018-03-27] MEDS ORDERED: PALONOSETRON HCL 0.25 MG/5 ML VIAL IVPUSH ONE (10:00)
[2018-03-27] MEDS ORDERED: PACLITAXEL 132 MG in SODIUM CHLORIDE 250 ML IVPB ONE (10:30)
[2018-03-27 10:37] LABS: ALBUMIN 3.4 g/dl (3.4-5.0); ANION GAP 8 (8-16); BILIRUBIN,DIRECT < 0.2 mg/dL (0.0-0.2); BILIRUBIN,TOTAL 0.2 mg/dL (0.2-1.0); BLOOD UREA NITROGEN 9 mg/dL (7-18); CHLORIDE 108 mmol/L (98-107); CO2 26 mmol/L (21-32); CREATININE 0.6 mg/dL (0.55-1.02); GLUCOSE,RANDOM 116 mg/dL (74-106); POTASSIUM 3.9 mmol/L (3.5-5.1); SGOT/AST 25 U/L (15-37); SGPT/ALT 45 U/L (12-78); SODIUM 142 mmol/L (136-145); TOT PROT 6.4 g/dl (6.4-8.2)
[2018-03-27 10:38] LABS: ALK PHOS 98 U/L (45-117)
[2018-03-27 18:27] VITALS: TEMP 98.1
[2018-03-27 18:44] VITALS: BP 119/70; PULSE 88
[2018-03-27] MEDS ORDERED: PORTA CATH FLUSH 10 ML IVPUSH ONE (18:44)
== END 2018-03-27 13:00 | disposition home or self-care (01) ==
LOC: JONCCHEMO 09:23 → J7W 10:34 → JONCCHEMO 13:00
PROVIDERS: ATTEND Internal Medicine Hematology & Oncology
DX: Z51.11 Encounter for antineoplastic chemotherapy (principal); C50.912 Malignant neoplasm of unspecified site of left female breast; Z17.0 Estrogen receptor positive status [ER+]
CPT/HCPCS: 36415; 80048; 80076; 83735; 85025; 96367; 96375; 96413; J1100; J2469

== ENCOUNTER 2018-04-03 07:33 | Day surgery (SDC) | payer OTHER ==
[2018-04-03] MEDS ORDERED: PALONOSETRON HCL 0.25 MG/5 ML VIAL IVPUSH ONE (10:00)
[2018-04-03] MEDS ORDERED: DEXAMETHASONE INJECTION 10 MG, DIPHENHYDRAMINE 50 MG, RANITIDINE INJECTION 50 MG in SOD... IVPB ONE (10:00)
[2018-04-03 10:01] LABS: BASO % 0.9 % (0-2.0); EOS % 4.1 % (0-4.5); HEMOGLOBIN 12.5 GM/dL (10.7-15.3); LYMPH % 35.1 % (8-40); MCH 30.3 pg (25.7-33.7); MCHC 33.8 g/dl (32.0-36.0); MEAN CELL VOLUME 89.9 fl (80-96); MEAN PLT VOLUME 7.9 fl (7.5-11.1); MONO % 11.8 % (3.8-10.2); NEUT % 48.1 % (42.8-82.8); PLATELET COUNT 316 K/MM3 (134-434); RBC 4.12 M/mm3 (3.60-5.2); RDW 15.5 % (11.6-15.6); WHITE BLOOD COUNT 4.2 K/mm3 (4.0-10.0)
[2018-04-03 10:20] LABS: ALBUMIN 3.3 g/dl (3.4-5.0); ANION GAP 10 (8-16); BILIRUBIN,TOTAL 0.2 mg/dL (0.2-1.0); BLOOD UREA NITROGEN 7 mg/dL (7-18); CALCIUM 8.8 mg/dL (8.5-10.1); CHLORIDE 105 mmol/L (98-107); CO2 26 mmol/L (21-32); CREATININE 0.5 mg/dL (0.55-1.02); GLUCOSE,RANDOM 128 mg/dL (74-106); POTASSIUM 3.9 mmol/L (3.5-5.1); SGOT/AST 28 U/L (15-37); SGPT/ALT 43 U/L (12-78); SODIUM 141 mmol/L (136-145); TOT PROT 6.4 g/dl (6.4-8.2)
[2018-04-03 10:21] LABS: ALK PHOS 96 U/L (45-117)
[2018-04-03] MEDS ORDERED: PACLITAXEL 132 MG in SODIUM CHLORIDE 250 ML IVPB ONE (10:30)
[2018-04-03 10:55] LABS: BILIRUBIN,DIRECT < 0.2 mg/dL (0.0-0.2); MAGNESIUM 1.9 mg/dL (1.8-2.4)
[2018-04-03 12:09] VITALS: TEMP 98.9
[2018-04-03] MEDS ORDERED: PORTA CATH FLUSH 10 ML IVPUSH ONE (12:57)
[2018-04-03 17:42] VITALS: BP 112/67; PULSE 96
[2018-04-10] MEDS ORDERED: PALONOSETRON HCL 0.25 MG/5 ML VIAL IVPUSH ONE (10:00)
[2018-04-10] MEDS ORDERED: DEXAMETHASONE INJECTION 10 MG, DIPHENHYDRAMINE 50 MG, RANITIDINE INJECTION 50 MG in SOD... IVPB ONE (10:00)
[2018-04-10] MEDS ORDERED: PACLITAXEL 132 MG in SODIUM CHLORIDE 250 ML IVPB ONE (10:30)
== END 2018-04-03 14:35 | disposition home or self-care (01) ==
LOC: JONCCHEMO 07:33 → J7W 11:05 → JONCCHEMO 14:35
PROVIDERS: ATTEND Internal Medicine Hematology & Oncology
DX: Z51.11 Encounter for antineoplastic chemotherapy (principal); C50.912 Malignant neoplasm of unspecified site of left female breast; Z17.0 Estrogen receptor positive status [ER+]
CPT/HCPCS: 36415; 80053; 80076; 83735; 85025; 96367; 96375; 96413; J1100; J2469

== ENCOUNTER 2018-12-02 07:17 | Day surgery (SDC) | payer OTHER ==
[2018-11-18 16:04] VITALS: BMI 27.7
--- NOTE | 2018-11-25 11:18 | HP ---
Admitting History and Physical - Primary Care Physician PCP: Anjali Pavon - Admission Chief Complaint: Left breast cancer History of Present Illness: 58 year old female S/P left breast wide excision bilateral reduction SNBX ER/IL + HER2- invasive lobular carcinoma 3.0cm,10/22/2017 S/P chemotherapy. here for life port removal. History Source: Patient Limitations to Obtaining History: No Limitations - Past Medical History Cardiovascular: Yes: HTN Musculoskeletal: Yes: Chronic low back pain, Osteoarthritis ENT: Yes: Other (mutiple allergies) Additional Past Medical History: allergies - Past Surgical History Additional Past Surgical History: Right breast wide excision SNBX chemotherapy ERBT anastrozole. 10/2017 myomectomy 1999 TMJ 1991 septoplasty 1992 - Smoking History Smoking history: Never smoked Have you smoked in the past 12 months: No - Alcohol/Substance Use Hx Alcohol Use: No Home Medications - Allergies Allergies/Adverse Reactions: Allergies Allergy/AdvReac Type Severity Reaction Status Date / Time avocado Allergy Severe Vomiting Verified 11/27/17 17:09 Cephalosporins Allergy Severe Rash Verified 11/27/17 17:09 erythromycin base Allergy Severe Rash Verified 11/27/17 17:09 Penicillins Allergy Severe Rash Verified 11/27/17 17:09 Sulfa (Sulfonamide Allergy Severe Rash Verified 11/27/17 17:09 Antibiotics) doxycycline AdvReac Severe Nausea Verified 11/27/17 17:09 morphine AdvReac Severe Vomiting Verified 11/27/17 17:09 - Home Medications Home Medications: Ambulatory Orders Loratadine 10 mg PO DAILY 10/11/17 Olmesartan Medoxomil 5 mg PO DAILY 10/11/17 Ranitidine HCl 150 mg PO DAILY 10/11/17 Diphenhydramine HCl [Benadryl Capsule -] 25 mg PO Q6H PRN #24 capsule 12/04/17 Metoprolol Succinate [Toprol Xl] 50 mg PO BID #28 tab 12/04/17 Rivaroxaban [Xarelto] 15 mg PO BID@0800,1800 #32 tablet 12/04/17 Famotidine [Pepcid] 20 mg PO BID #20 tablet 12/05/17 Anastrozole [Arimidex -] 1 mg PO DAILY 11/18/18 Ascorbate Calcium [Vitamin C] 500 mg PO BID 11/18/18 Ca/D3/Mag Ox/Zinc/Rug Designer/Abilio/Bor [Calcium 600+D3 Plus Caplet] 1 each PO DAILY 03/01 Multivitamin [One-Daily Multi-Vitamin] 1 each PO DAILY 11/18/18 Vitamin B Complex [Super B-50 Complex] 1 each PO DAILY 11/18/18 Zinc 50 mg PO DAILY 11/18/18 Family Disease History - Family Disease History Family Disease History: CA: Grandparent (mat GM bladder ca 78), Father ( prostate ca 68), Brother (prostate ca 54) Physical Examination Constitutional: Yes: No Distress Breast(s): Yes: Other ( Breast incisions are healed well ther are no palpable masses or adenopathy bilaterally) Problem List - Problems (1) Breast cancer, left Code(s): C50.912 - MALIGNANT NEOPLASM OF UNSPECIFIED SITE OF LEFT FEMALE BREAST Qualifiers: Breast location: central portion of breast Estrogen receptor status: positive Patient sex: female Qualified Code(s): C50.112 - Malignant neoplasm of central portion of left female breast; Z17.0 - Estrogen receptor positive status [ER+] Assessment/Plan Life port excision.
[2018-12-02] MEDS ORDERED: BUPIVACAINE HCL/PF 2.5 MG/ML - 30 ML VIAL IJ ONE (07:34)
[2018-12-02] MEDS ORDERED: LIDOCAINE HCL 1% PRESERVATIVE FREE - 30ML VIAL ONE (07:34)
[2018-12-02] MEDS ORDERED: KETOROLAC TROMETHAMINE 30 MG/1 ML VIAL IVPUSH PRN (08:46)
[2018-12-02] MEDS ORDERED: ONDANSETRON 4 MG/2 ML VIAL IVPUSH PRN (08:46)
[2018-12-02] MEDS ORDERED: DEXTROSE 5%-0.45% SALINE 1,000 ML IV SCH (09:00)
[2018-12-02] MEDS ORDERED: GUM MASTIC/STORAX/MSAL/ALCOHOL 1 DRP DROPSBTL MC ONE (09:15)
[2018-12-02 09:43] VITALS: TEMP 98.6
[2018-12-02 10:13] VITALS: BP 137/73; PULSE 84
--- NOTE | 2018-12-02 11:19 | OP ---
DATE OF OPERATION: 12/02/2018 PREOPERATIVE DIAGNOSIS: Left breast cancer. POSTOPERATIVE DIAGNOSIS: Left breast cancer. PROCEDURE: Excision of right chest wall Life Port. ANESTHESIA: Local. SURGEON: Carlos Pavon MD SIGNS CLEANER: VANE Espinoza ESTIMATED BLOOD LOSS: Minimal. COMPLICATIONS: None. DESCRIPTION OF PROCEDURE: The patient was made aware of the risks and benefits of the procedure and consented. The patient was placed in a supine position, and the operative site was prepped and draped in the usual sterile fashion. Then 1% lidocaine mixed with 0.25% bupivacaine in a 1:1 ratio and was used for local anesthesia. An oblique incision was made over the prior incision. Using sharp dissection, tissues were dissected down to the port where the capsule was incised. The port was removed from the capsule area and sharply excised away from the pocket and submitted in its entirety for growths only. Using a 3-0 [id number] suture, the vessel lumen was closed. The wound was copiously irrigated with normal saline. Hemostasis was maintained by electrocautery. The wound was then closed with deep 3-0 Vicryl followed by a running subcuticular 4-0 Monocryl. Steri-Strips and a sterile bandage was applied and the patient having tolerated the procedure well was transferred to the recovery room in excellent condition. CARLOS PAVON M.D. [id number]
== END 2018-12-02 10:10 | disposition home or self-care (01) ==
LOC: FASU 07:17
PROVIDERS: ATTEND Surgery Surgical Oncology
PROC: 0JPT0WZ Removal of Totally Implantable Vascular Access Device from Trunk Subcutaneous Tissue and Fascia, Open Approach (ICD-10-PCS; principal; 2018-12-02 09:06)
DX: Z45.2 Encounter for adjustment and management of vascular access device (principal); C50.112 Malignant neoplasm of central portion of left female breast; Z17.0 Estrogen receptor positive status [ER+]; I10 Essential (primary) hypertension; M19.90 Unspecified osteoarthritis, unspecified site; M54.5 Low back pain; G89.29 Other chronic pain

== ENCOUNTER → 2019-11-04 | Day surgery (SDC) | payer OTHER ==
--- NOTE | 2019-11-05 11:33 | PATH ---
Cytology Non-Gynecological Report Patient Name: KULWANT DAVIDSON [facility]. Rec. #: [id number] /Age/Gender: 1960 (Age: 59) / F Account: [id number] Location: RADIOLOGY INTER Taken: 11/04/2019 Received: 11/04/2019 Reported: 11/05/2019 Physicians: Musa Isaac M.D. Specimen(s) Received THYROID, LEFT LOBE, FINE NEEDLE ASPIRATION Clinical History Left lobe, 2.29 x 1.01 x 1.75 cm Final Diagnosis THYROID, LEFT LOBE, FINE NEEDLE ASPIRATION: SATISFACTORY FOR EVALUATION. BETHESDA CLASS II: BENIGN. CYTOLOGIC FINDINGS ARE CONSISTENT WITH A BENIGN FOLLICULAR NODULE WITH POST-HEMORRHAGIC CHANGE. FOLLICULAR CELLS IN A BACKGROUND OF COLLOID AND HEMOSIDERIN-LADEN MACROPHAGES. Electronically Signed Debi Cabral M.D. Gross Description Received are eight direct smears, four of which are air-dried and Diff-Quik stained, and four of which are alcohol fixed and Pap stained. Also received is 20 ml of bloody formalin from which one cellblock is prepared.
== END | disposition home or self-care (01) ==
LOC: JRADIR 09:19
PROVIDERS: ATTEND Internal Medicine Endocrinology, Diabetes & Metabolism
PROC: 0G9G3ZX Drainage of Left Thyroid Gland Lobe, Percutaneous Approach, Diagnostic (ICD-10-PCS; principal; 2019-11-04)
DX: E04.1 Nontoxic single thyroid nodule (principal)
CPT/HCPCS: 76942

== ENCOUNTER 2019-11-10 09:40 | Day surgery (SDC) | payer OTHER ==
[2019-11-10 10:21] VITALS: BMI 27.3
[2019-11-10 11:48] VITALS: TEMP 97.9
[2019-11-10 12:17] VITALS: BP 158/77; PULSE 83
--- NOTE | 2019-11-11 18:39 | PATH ---
Surgical Pathology Report Patient Name: KULWANT DAVIDSON [facility]. Rec. #: [id number] /Age/Gender: 1960 (Age: 59) / F Account: [id number] Location: U-ENDOSCOPY Taken: 11/10/2019 Received: 11/10/2019 Reported: 11/11/2019 Physicians: Dalton Baldwin D.O. Specimen(s) Received A: CECAL POLYP B: HEPATIC FLEXURE POLYP C: SPLENIC FLEXURE POLYP Clinical History Screening colonoscopy Postoperative diagnosis: colon polyps, diverticulosis Final Diagnosis A. CECAL POLYP, BIOPSY: POLYPOID COLONIC MUCOSA WITH MILD SUPERFICIAL HYPERPLASTIC FEATURES. B. COLON, HEPATIC FLEXURE, POLYP, BIOPSY: POLYPOID COLONIC MUCOSA WITH SMALL LYMPHOID AGGREGATE. C. COLON, SPLENIC FLEXURE, POLYP, BIOPSY: HYPERPLASTIC POLYP. SEPARATE FRAGMENT OF COLONIC MUCOSA WITH PROMINENT LYMPHOID AGGREGATES. Electronically Signed Debi Cabral M.D. Gross Description A. Received in formalin, labeled "cecal polyp" is a wal[place], irregular portion of soft tissue measuring 0.3 cm. in greatest dimension. The specimen is submitted in toto in one cassette. B. Received in formalin, labeled "hepatic flexure polyp" is a [place], irregular portion of soft tissue measuring 0.2 cm. in greatest dimension. The specimen is submitted in toto in one cassette. C. Received in formalin, labeled "splenic flexure polyp" are 2 wal[place], irregular portions of soft tissue measuring 0.1 and 0.2 cm. in greatest dimension. The specimens are submitted in toto in one cassette. MLSZ/11/10/2019 sanml/11/10/2019
== END 2019-11-10 12:17 | disposition home or self-care (01) ==
LOC: JASU-ENDO 09:40
PROVIDERS: ATTEND Internal Medicine Gastroenterology
PROC: 0DBE8ZX Excision of Large Intestine, Via Natural or Artificial Opening Endoscopic, Diagnostic (ICD-10-PCS; 2019-11-10)
PROC: 0DBL8ZX Excision of Transverse Colon, Via Natural or Artificial Opening Endoscopic, Diagnostic (ICD-10-PCS; 2019-11-10)
PROC: 0DBH8ZX Excision of Cecum, Via Natural or Artificial Opening Endoscopic, Diagnostic (ICD-10-PCS; principal; 2019-11-10 09:45)
DX: Z12.11 Encounter for screening for malignant neoplasm of colon (principal); D12.0 Benign neoplasm of cecum; D12.3 Benign neoplasm of transverse colon; K57.30 Diverticulosis of large intestine without perforation or abscess without bleeding; K63.89 Other specified diseases of intestine; K64.4 Residual hemorrhoidal skin tags
CPT/HCPCS: 88305-TC

== ENCOUNTER 2021-07-04 04:31 | Day surgery (SDC) | payer OTHER ==
[2021-06-27 16:22] VITALS: BMI 27.3
[2021-07-04] MEDS ORDERED: LIDOCAINE HCL/PF 1% SDV 5ML VIAL ONE (07:12)
[2021-07-04] MEDS ORDERED: BUPIVACAINE HCL/PF 0.5% (5MG/ML) 10 ML VIAL ONE (07:12)
[2021-07-04] MEDS ORDERED: BUPIVACAINE HCL/PF 0.25% (2.5MG/ML) 10 ML VIAL ONE (07:12)
[2021-07-04] MEDS ORDERED: BUPIVACAINE HCL/PF 0.75% 10 ML VIAL ONE (07:13)
[2021-07-04] MEDS ORDERED: SODIUM CHLORIDE 0.9% P/F 10 ML VIAL IJ ONE (07:17)
[2021-07-04] MEDS ORDERED: IOHEXOL 180 MG/1 ML ML IJ ONE ×2 (08:18→08:20)
[2021-07-04] MEDS ORDERED: LIDOCAINE HCL 1% PRESERVATIVE FREE - 30ML VIAL EP ONE ×2 (08:18→08:20)
[2021-07-04] MEDS ORDERED: BUPIVACAINE HCL/PF 0.75% 10 ML VIAL PNB ONE ×2 (08:18→08:20)
[2021-07-04 09:22] VITALS: PULSE 80
[2021-07-04 10:13] VITALS: BP 140/80; TEMP 98.6
== END 2021-07-04 09:45 | disposition home or self-care (01) ==
LOC: JASU-SURG 04:31
PROVIDERS: ATTEND Pain Medicine Pain Medicine
PROC: BR16YZZ Fluoroscopy of Lumbar Facet Joint(s) using Other Contrast (ICD-10-PCS; 2021-07-04)
PROC: 3E0T3BZ Introduction of Anesthetic Agent into Peripheral Nerves and Plexi, Percutaneous Approach (ICD-10-PCS; principal; 2021-07-04 08:00)
DX: M47.816 Spondylosis without myelopathy or radiculopathy, lumbar region (principal)
CPT/HCPCS: 76000-TC-FY

== ENCOUNTER 2021-08-09 08:18 | Day surgery (SDC) | payer OTHER ==
[2021-08-09] MEDS ORDERED: ZOLEDRONIC ACID/MAN/WATER 5 MG/100 ML INFUS..BTL IVPB ONE (10:30)
[2021-08-09 11:16] VITALS: TEMP 98.7
[2021-08-09 11:18] VITALS: BP 122/67; PULSE 90
== END 2021-08-09 11:00 | disposition home or self-care (01) ==
LOC: JONCCHEMO 08:18
PROVIDERS: ATTEND Internal Medicine Hematology & Oncology
PROC: 3E033GC Introduction of Other Therapeutic Substance into Peripheral Vein, Percutaneous Approach (ICD-10-PCS; principal; 2021-08-09)
DX: C50.912 Malignant neoplasm of unspecified site of left female breast (principal); M85.80 Other specified disorders of bone density and structure, unspecified site; Z17.0 Estrogen receptor positive status [ER+]; E55.9 Vitamin D deficiency, unspecified; Z76.89 Persons encountering health services in other specified circumstances
CPT/HCPCS: 96365; J3489

== ENCOUNTER 2021-12-19 04:41 | Day surgery (SDC) | payer OTHER ==
[2021-12-18 16:10] VITALS: BMI 25.7
[2021-12-19] MEDS ORDERED: MIDAZOLAM HCL 2 MG/2 ML SINGLE DOSE VIAL ONE (10:23)
[2021-12-19] MEDS ORDERED: SODIUM CHLORIDE 500 ML IV SCH (10:25)
[2021-12-19] MEDS ORDERED: MIDAZOLAM HCL 2 MG/2 ML SINGLE DOSE VIAL IVPUSH ONE ×2 (10:34→10:56)
[2021-12-19] MEDS ORDERED: ACETAMINOPHEN 500 MG TABLET (FP) PO ONE (13:06)
[2021-12-19 14:00] VITALS: TEMP 98.7
[2021-12-19 14:48] VITALS: BP 127/68; PULSE 79
== END 2021-12-19 13:30 | disposition home or self-care (01) ==
LOC: JRADIR 04:41
PROVIDERS: ATTEND Internal Medicine Hematology & Oncology
PROC: 0JH63WZ Insertion of Totally Implantable Vascular Access Device into Chest Subcutaneous Tissue and Fascia, Percutaneous Approach (ICD-10-PCS; principal; 2021-12-19)
DX: C50.919 Malignant neoplasm of unspecified site of unspecified female breast (principal)
CPT/HCPCS: 36561; C1788

== ENCOUNTER 2022-01-03 07:10 | Day surgery (SDC) | payer OTHER ==
[2022-01-03] MEDS ORDERED: SODIUM CHLORIDE 500 ML IV ONE (10:00)
[2022-01-03] MEDS ORDERED: FOSAPREPITANT DIMEGLUMINE 150 MG in SODIUM CHLORIDE 145 ML IVPB ONE (10:30)
[2022-01-03] MEDS ORDERED: PALONOSETRON HCL 0.25 MG/5 ML VIAL IVPUSH ONE (10:30)
[2022-01-03] MEDS ORDERED: DEXAMETHASONE SODIUM PHOSPHATE 10 MG in SODIUM CHLORIDE 50 ML IVPB ONE (10:30)
[2022-01-03] MEDS ORDERED: CISPLATIN IV ONE (11:00)
[2022-01-03] MEDS ORDERED: SODIUM CHLORIDE IV ONE (11:00)
[2022-01-03] MEDS ORDERED: POTASSIUM CHLORIDE 10 MEQ, MAGNESIUM SULFATE 1 GM in SODIUM CHLORIDE 500 ML IV ONE (12:00)
[2022-01-03 18:06] VITALS: TEMP 98.3
[2022-01-03 18:10] VITALS: BP 121/61; PULSE 86
== END 2022-01-03 16:30 | disposition home or self-care (01) ==
LOC: JONCCHEMO 07:10
PROVIDERS: ATTEND Internal Medicine Hematology & Oncology
DX: Z51.11 Encounter for antineoplastic chemotherapy (principal); C50.919 Malignant neoplasm of unspecified site of unspecified female breast
CPT/HCPCS: 96361; 96367; 96375; 96413; J1453; J2469

== ENCOUNTER 2022-01-04 07:30 | Day surgery (SDC) | payer OTHER ==
[2022-01-04] MEDS ORDERED: D5-1/2NS+20 MEQ KCL - 20 MEQ/1,000 ML INFUS.BAG IV ONE (09:00)
[2022-01-04] MEDS ORDERED: MAGNESIUM 1GM/D5W - 1 GM/100 ML IVPB IVPB ONE (10:00)
[2022-01-04] MEDS ORDERED: PEGFILGRASTIM-CBQV (UDENYCA) 6 MG/0.6 ML SYRINGE SQ ONE (10:00)
[2022-01-04 15:51] VITALS: TEMP 98.5
[2022-01-04 16:07] VITALS: BP 121/52; PULSE 95
== END 2022-01-04 15:30 | disposition home or self-care (01) ==
LOC: JONCCHEMO 07:30
PROVIDERS: ATTEND Internal Medicine Hematology & Oncology
PROC: 3E0437Z Introduction of Electrolytic and Water Balance Substance into Central Vein, Percutaneous Approach (ICD-10-PCS; principal; 2022-01-04)
PROC: 3E043GC Introduction of Other Therapeutic Substance into Central Vein, Percutaneous Approach (ICD-10-PCS; 2022-01-04)
PROC: 3E013GC Introduction of Other Therapeutic Substance into Subcutaneous Tissue, Percutaneous Approach (ICD-10-PCS; 2022-01-04)
DX: C50.919 Malignant neoplasm of unspecified site of unspecified female breast (principal); Z76.89 Persons encountering health services in other specified circumstances
CPT/HCPCS: 96361; 96365; 96372; Q5111

== ENCOUNTER 2022-01-11 17:30 | Inpatient (IN) | payer OTHER ==
[2022-01-11] MEDS ORDERED: ACETAMINOPHEN 1000 MG/100 ML BAG IVPB ONE (18:36)
[2022-01-11] MEDS ORDERED: ACETAMINOPHEN INJECTION 100 ML IVPB ONE (18:55)
[2022-01-11] MEDS ORDERED: SODIUM CHLORIDE 0.9% 500 ML INFUS.BAG IV ONE (19:08)
[2022-01-11 19:31] LABS: EOS % 0.1 % (0-4.5); HEMATOCRIT 33.6 % (32.4-45.2); HEMOGLOBIN 10.9 GM/dL (10.7-15.3); LYMPH % 4.5 % (8-40); MCH 28.2 pg (25.7-33.7); MCHC 32.6 g/dl (32.0-36.0); MEAN CELL VOLUME 86.7 fl (80-96); MEAN PLT VOLUME 8.4 fl (7.5-11.1); MONO % 7.8 % (3.8-10.2); NEUT % 87.6 % (42.8-82.8); PLATELET COUNT 183 10^3/uL (134-434); RBC 3.87 M/mm3 (3.60-5.2); RDW 13.1 % (11.6-15.6); WHITE BLOOD COUNT 14.4 K/mm3 (4.0-10.0)
[2022-01-11 19:40] LABS: INR 1.32 (0.83-1.09); PROTHROMBIN TIME (PATIENT) 15.2 SEC (9.7-13.0)
[2022-01-11 19:53] LABS: CALCIUM 8.8 mg/dL (8.5-10.1)
[2022-01-11 19:54] LABS: ALBUMIN 3.3 g/dl (3.4-5.0); BLOOD UREA NITROGEN 8.4 mg/dL (7-18)
[2022-01-11 19:57] LABS: CREATININE 0.6 mg/dL (0.55-1.3)
[2022-01-11 19:58] LABS: BILIRUBIN,TOTAL 0.5 mg/dL (0.2-1); TOT PROT 6.5 g/dl (6.4-8.2)
[2022-01-11 20:53] LABS: EPI CELLS >36 /uL (0-25.1); HYALINE CASTS 4 /uL (0-3.1); PH,URINE 6.5 (5.0-8.0); URINE APPEARANCE CLEAR; URINE BACTERIA 28 /uL (0-1359); URINE BILIRUBIN NEGATIVE (NEGATIVE); URINE COLOR YELLOW; URINE GLUCOSE (UA) NEGATIVE (NEGATIVE); URINE KETONE 1+ (NEGATIVE); URINE LEUK ESTERASE 1+ (NEGATIVE); URINE NITRITE NEGATIVE (NEGATIVE); URINE PROTEIN TRACE (NEGATIVE); URINE RBC 27 /uL (0-23.9); URINE WBC 313 /uL (0-25.8)
[2022-01-11] MEDS ORDERED: ACETAMINOPHEN 1000 MG/100 ML BAG IVPB PRN (23:42)
[2022-01-12] MEDS: SODIUM CHLORIDE 1,000 ML IV SCH ×2 (00:18→23:40)
[2022-01-12 03:16] VITALS: BMI 26.5
[2022-01-12 09:20] LABS: BASO % 0.1 % (0-2.0); EOS % 0.1 % (0-4.5); HEMATOCRIT 30.8 % (32.4-45.2); HEMOGLOBIN 10.2 GM/dL (10.7-15.3); LYMPH % 4.9 % (8-40); MCH 28.8 pg (25.7-33.7); MCHC 33.2 g/dl (32.0-36.0); MEAN CELL VOLUME 86.7 fl (80-96); MEAN PLT VOLUME 8.4 fl (7.5-11.1); MONO % 6.7 % (3.8-10.2); NEUT % 88.2 % (42.8-82.8); PLATELET COUNT 139 10^3/uL (134-434); RBC 3.55 M/mm3 (3.60-5.2); RDW 13.4 % (11.6-15.6)
[2022-01-12] MEDS: ACETAMINOPHEN 1000 MG/100 ML BAG IVPB PRN ×2 (09:32→18:45)
[2022-01-12 09:36] LABS: BLOOD UREA NITROGEN 6.2 mg/dL (7-18); CALCIUM 8.1 mg/dL (8.5-10.1)
[2022-01-12 09:37] LABS: ALBUMIN 2.6 g/dl (3.4-5.0)
[2022-01-12 09:40] LABS: CREATININE 0.5 mg/dL (0.55-1.3); PHOSPHOROUS 1.4 mg/dL (2.5-4.9)
[2022-01-12 09:41] LABS: BILIRUBIN,TOTAL 0.6 mg/dL (0.2-1); TOT PROT 5.7 g/dl (6.4-8.2)
[2022-01-12] MEDS ORDERED: SODIUM PHOSPHATE - 30 MM in DEXTROSE 5%-WATER - 250 ML IVPB ONE (10:35)
[2022-01-12] MEDS ORDERED: SODIUM PHOSPHATE - 15 MM in DEXTROSE 5%-WATER - 250 ML IVPB ONE (11:15)
[2022-01-12] MEDS: ENOXAPARIN NA (PORCINE) 40 MG/0.4 ML DISP.SYRIN SQ SCH (11:30)
[2022-01-12] MEDS: ANASTROZOLE 1 MG TABLET PO SCH (11:31)
[2022-01-12] MEDS: VANCOMYCIN 1 GM in D5W (PRE-DOCKED) 1,000 MG/250 ML IVPB SCH (20:17)
[2022-01-12] MEDS: AZTREONAM 2 GM in DEXTROSE 5%-WATER 100 ML IVPB SCH (20:58)
[2022-01-12] MEDS ORDERED: AZTREONAM 2 GM VIAL (RESTRICTED TO ID) ONE (21:47)
[2022-01-12] MEDS ORDERED: DEXTROSE 5%-WATER 100 ML IVPB ONE (21:47)
[2022-01-12] MEDS: GABAPENTIN 300 MG CAPSULE PO SCH (22:18)
[2022-01-13] MEDS ORDERED: AZTREONAM 2 GM VIAL (RESTRICTED TO ID) ONE ×2 (02:59→21:17)
[2022-01-13] MEDS ORDERED: DEXTROSE 5%-WATER 100 ML IVPB ONE ×2 (03:00→21:17)
[2022-01-13] MEDS: AZTREONAM 2 GM in DEXTROSE 5%-WATER 100 ML IVPB SCH ×3 (03:12→21:39)
[2022-01-13] MEDS ORDERED: ACETAMINOPHEN 325 MG TABLET (FP) PO ONE (06:28)
[2022-01-13] MEDS: SODIUM CHLORIDE 1,000 ML IV SCH ×2 (07:04→23:47)
[2022-01-13] MEDS: VANCOMYCIN 1 GM in D5W (PRE-DOCKED) 1,000 MG/250 ML IVPB SCH (08:28)
[2022-01-13 09:15] LABS: CHLORIDE 108 mmol/L (98-107); SODIUM 138 mmol/L (136-145)
[2022-01-13] MEDS: VANCOMYCIN/WATER FOR INJ (PEG) 1,000 MG/200 ML BAG IVPB SCH ×2 (09:17→22:25)
[2022-01-13] MEDS: ENOXAPARIN NA (PORCINE) 40 MG/0.4 ML DISP.SYRIN SQ SCH (09:17)
[2022-01-13] MEDS: ANASTROZOLE 1 MG TABLET PO SCH (09:17)
[2022-01-13 09:18] LABS: ANION GAP 8 MMOL/L (8-16); BLOOD UREA NITROGEN 6.3 mg/dL (7-18); CALCIUM 7.7 mg/dL (8.5-10.1); CO2 22 mmol/L (21-32); GLUCOSE,RANDOM 119 mg/dL (74-106); MAGNESIUM 1.9 mg/dL (1.8-2.4)
[2022-01-13 09:19] LABS: HEMATOCRIT 28.8 % (32.4-45.2); MCH 30.1 pg (25.7-33.7); MCHC 34.8 g/dl (32.0-36.0); MEAN CELL VOLUME 86.5 fl (80-96); MEAN PLT VOLUME 8.9 fl (7.5-11.1); PLATELET COUNT 120 10^3/uL (134-434); RBC 3.33 M/mm3 (3.60-5.2); RDW 13.1 % (11.6-15.6)
[2022-01-13 09:22] LABS: CREATININE 0.5 mg/dL (0.55-1.3)
[2022-01-13] MEDS ORDERED: POTASSIUM CHLORIDE TABS 20 MEQ TABLET.ER (FP) PO ONE (09:23)
[2022-01-13 09:26] LABS: PHOSPHOROUS 1.1 mg/dL (2.5-4.9)
[2022-01-13] MEDS ORDERED: NAPH,MB-DB/K PH,MBDB POWDER PACKET PO ONE (10:45)
[2022-01-13] MEDS ORDERED: POTASSIUM PHOSPHATE 30 MM in DEXTROSE 5%-WATER - 500 ML IVPB ONE (12:00)
[2022-01-13] MEDS: ACETAMINOPHEN 1000 MG/100 ML BAG IVPB PRN (14:40)
[2022-01-13] MEDS: GABAPENTIN 300 MG CAPSULE PO SCH (21:38)
[2022-01-13] MEDS: NAPH,MB-DB/K PH,MBDB POWDER PACKET PO SCH (21:43)
[2022-01-14] MEDS ORDERED: DEXTROSE 5%-WATER 100 ML IVPB ONE ×3 (03:13→20:12)
[2022-01-14] MEDS ORDERED: AZTREONAM 2 GM VIAL (RESTRICTED TO ID) ONE ×3 (03:13→20:12)
[2022-01-14] MEDS: AZTREONAM 2 GM in DEXTROSE 5%-WATER 100 ML IVPB SCH ×3 (03:27→20:34)
[2022-01-14] MEDS: SODIUM CHLORIDE 1,000 ML IV SCH (03:28)
[2022-01-14] MEDS: ACETAMINOPHEN 1000 MG/100 ML BAG IVPB PRN (06:13)
[2022-01-14] MEDS: VANCOMYCIN/WATER FOR INJ (PEG) 1,000 MG/200 ML BAG IVPB SCH ×2 (08:43→21:24)
[2022-01-14 09:09] LABS: BASO % 0.3 % (0-2.0); EOS % 0.5 % (0-4.5); HEMOGLOBIN 9.3 GM/dL (10.7-15.3); LYMPH % 6.9 % (8-40); MCH 28.8 pg (25.7-33.7); MCHC 33.3 g/dl (32.0-36.0); MEAN CELL VOLUME 86.5 fl (80-96); MEAN PLT VOLUME 8.7 fl (7.5-11.1); MONO % 5.6 % (3.8-10.2); NEUT % 86.7 % (42.8-82.8); PLATELET COUNT 139 10^3/uL (134-434); RBC 3.24 M/mm3 (3.60-5.2); RDW 13.5 % (11.6-15.6); WHITE BLOOD COUNT 8.9 K/mm3 (4.0-10.0)
[2022-01-14] MEDS: ENOXAPARIN NA (PORCINE) 40 MG/0.4 ML DISP.SYRIN SQ SCH (09:14)
[2022-01-14] MEDS: ANASTROZOLE 1 MG TABLET PO SCH (09:14)
[2022-01-14] MEDS: NAPH,MB-DB/K PH,MBDB POWDER PACKET PO SCH ×2 (09:14→21:25)
[2022-01-14 09:34] LABS: BLOOD UREA NITROGEN 5.7 mg/dL (7-18)
[2022-01-14 09:35] LABS: CALCIUM 7.2 mg/dL (8.5-10.1)
[2022-01-14 09:36] LABS: MAGNESIUM 1.8 mg/dL (1.8-2.4)
[2022-01-14 09:39] LABS: PHOSPHOROUS 1.3 mg/dL (2.5-4.9)
[2022-01-14 09:40] LABS: BILIRUBIN,TOTAL 0.4 mg/dL (0.2-1); CREATININE 0.5 mg/dL (0.55-1.3); TOT PROT 4.9 g/dl (6.4-8.2)
[2022-01-14 09:41] LABS: ALBUMIN 1.9 g/dl (3.4-5.0)
[2022-01-14] MEDS ORDERED: ACETAMINOPHEN 500 MG TABLET (FP) PO PRN (15:33)
[2022-01-14] MEDS: POTASSIUM CHLORIDE TABS 20 MEQ TABLET.ER (FP) PO SCH ×2 (16:04→21:25)
[2022-01-14] MEDS ORDERED: POTASSIUM PHOSPHATE 45 MM in DEXTROSE 5%-WATER - 500 ML IVPB ONE (17:00)
[2022-01-14] MEDS: GABAPENTIN 300 MG CAPSULE PO SCH (21:25)
[2022-01-15] MEDS ORDERED: AZTREONAM 2 GM VIAL (RESTRICTED TO ID) ONE ×3 (03:23→20:29)
[2022-01-15] MEDS ORDERED: DEXTROSE 5%-WATER 100 ML IVPB ONE ×3 (03:24→20:29)
[2022-01-15] MEDS: AZTREONAM 2 GM in DEXTROSE 5%-WATER 100 ML IVPB SCH ×3 (03:25→20:44)
[2022-01-15] MEDS: SODIUM CHLORIDE 1,000 ML IV SCH ×2 (06:17→22:58)
[2022-01-15 09:07] LABS: BASO % 0.2 % (0-2.0); EOS % 1.3 % (0-4.5); HEMATOCRIT 27.7 % (32.4-45.2); HEMOGLOBIN 9.2 GM/dL (10.7-15.3); LYMPH % 9.9 % (8-40); MCH 28.9 pg (25.7-33.7); MCHC 33.1 g/dl (32.0-36.0); MEAN CELL VOLUME 87.2 fl (80-96); MEAN PLT VOLUME 8.4 fl (7.5-11.1); NEUT % 83.6 % (42.8-82.8); PLATELET COUNT 170 10^3/uL (134-434); RBC 3.18 M/mm3 (3.60-5.2); RDW 13.8 % (11.6-15.6); WHITE BLOOD COUNT 6.5 K/mm3 (4.0-10.0)
[2022-01-15 09:16] LABS: BLOOD UREA NITROGEN 5.5 mg/dL (7-18); CALCIUM 7.8 mg/dL (8.5-10.1)
[2022-01-15 09:17] LABS: ALBUMIN 2.2 g/dl (3.4-5.0); MAGNESIUM 1.9 mg/dL (1.8-2.4)
[2022-01-15 09:20] LABS: CREATININE 0.3 mg/dL (0.55-1.3); PHOSPHOROUS 1.6 mg/dL (2.5-4.9)
[2022-01-15 09:21] LABS: BILIRUBIN,TOTAL 0.3 mg/dL (0.2-1); TOT PROT 5.2 g/dl (6.4-8.2)
[2022-01-15] MEDS: VANCOMYCIN/WATER FOR INJ (PEG) 1,000 MG/200 ML BAG IVPB SCH ×2 (09:44→21:59)
[2022-01-15] MEDS: ENOXAPARIN NA (PORCINE) 40 MG/0.4 ML DISP.SYRIN SQ SCH (09:45)
[2022-01-15] MEDS: NAPH,MB-DB/K PH,MBDB POWDER PACKET PO SCH ×2 (09:45→21:58)
[2022-01-15] MEDS: ANASTROZOLE 1 MG TABLET PO SCH (09:45)
[2022-01-15] MEDS: GABAPENTIN 300 MG CAPSULE PO SCH (21:58)
[2022-01-16] MEDS ORDERED: DEXTROSE 5%-WATER 100 ML IVPB ONE ×3 (03:41→21:54)
[2022-01-16] MEDS ORDERED: AZTREONAM 2 GM VIAL (RESTRICTED TO ID) ONE ×3 (03:41→21:53)
[2022-01-16] MEDS: AZTREONAM 2 GM in DEXTROSE 5%-WATER 100 ML IVPB SCH ×3 (03:46→22:06)
[2022-01-16 08:53] LABS: BASO % 0.4 % (0-2.0); EOS % 2.6 % (0-4.5); HEMATOCRIT 26.4 % (32.4-45.2); HEMOGLOBIN 8.9 GM/dL (10.7-15.3); LYMPH % 13.7 % (8-40); MCH 29.1 pg (25.7-33.7); MCHC 33.6 g/dl (32.0-36.0); MEAN CELL VOLUME 86.6 fl (80-96); MEAN PLT VOLUME 7.7 fl (7.5-11.1); MONO % 8.1 % (3.8-10.2); NEUT % 75.2 % (42.8-82.8); PLATELET COUNT 192 10^3/uL (134-434); RBC 3.05 M/mm3 (3.60-5.2); RDW 13.7 % (11.6-15.6)
[2022-01-16] MEDS: ENOXAPARIN NA (PORCINE) 40 MG/0.4 ML DISP.SYRIN SQ SCH (09:02)
[2022-01-16 09:21] LABS: ALBUMIN 1.9 g/dl (3.4-5.0); CALCIUM 7.5 mg/dL (8.5-10.1)
[2022-01-16 09:22] LABS: CALCIUM 7.5 mg/dL (8.5-10.1)
[2022-01-16 09:23] LABS: BLOOD UREA NITROGEN 5.8 mg/dL (7-18); MAGNESIUM 1.9 mg/dL (1.8-2.4)
[2022-01-16 09:24] LABS: CREATININE 0.3 mg/dL (0.55-1.3)
[2022-01-16 09:26] LABS: BILIRUBIN,TOTAL 0.3 mg/dL (0.2-1); CREATININE 0.3 mg/dL (0.55-1.3); PHOSPHOROUS 1.3 mg/dL (2.5-4.9); TOT PROT 4.9 g/dl (6.4-8.2)
[2022-01-16] MEDS ORDERED: SODIUM PHOSPHATE - 30 MM in SODIUM CHLORIDE 500 ML IVPB ONE (09:39)
[2022-01-16] MEDS ORDERED: LACTOBACILLUS ACIDOPHILUS 1 TABLET PO SCH (10:00)
[2022-01-16] MEDS ORDERED: PATIENT'S OWN MEDICATION (NON-FORMULARY) (Omega-3/Dha/Epa/Fish Oil [Fish Oil 1,000 Mg Soft PO SCH (10:00)
[2022-01-16] MEDS ORDERED: CHOLESTYRAMINE/SUCROSE 4 GM PACKET PO SCH (10:30)
[2022-01-16] MEDS ORDERED: PORTA CATH FLUSH 10 ML IVPUSH PRN (10:55)
[2022-01-16] MEDS: MULTIVITAMINS (DAILY MVI) TABLET (FP) PO SCH (11:21)
[2022-01-16] MEDS: NAPH,MB-DB/K PH,MBDB POWDER PACKET PO SCH ×2 (11:21→22:14)
[2022-01-16] MEDS: LOSARTAN POTASSIUM 25 MG TABLET PO SCH (11:21)
[2022-01-16] MEDS: VANCOMYCIN/WATER FOR INJ (PEG) 1,000 MG/200 ML BAG IVPB SCH (11:42)
[2022-01-16] MEDS: ANASTROZOLE 1 MG TABLET PO SCH (12:21)
[2022-01-16] MEDS: CHOLESTYRAMINE/ASPARTAME 4 GM PACKET PO SCH ×2 (15:05→22:14)
[2022-01-16] MEDS: SODIUM CHLORIDE 1,000 ML IV SCH ×2 (16:22→23:50)
[2022-01-16] MEDS: GABAPENTIN 300 MG CAPSULE PO SCH (22:14)
[2022-01-16] MEDS: VANCOMYCIN/WATER BAGS 1,250 MG/250 ML BAG IVPB SCH (23:50)
[2022-01-17] MEDS ORDERED: DEXTROSE 5%-WATER 100 ML IVPB ONE ×2 (02:44→21:01)
[2022-01-17] MEDS ORDERED: AZTREONAM 2 GM VIAL (RESTRICTED TO ID) ONE ×2 (02:44→21:00)
[2022-01-17] MEDS: AZTREONAM 2 GM in DEXTROSE 5%-WATER 100 ML IVPB SCH ×3 (04:09→21:02)
[2022-01-17] MEDS: CHOLESTYRAMINE/ASPARTAME 4 GM PACKET PO SCH (05:44)
[2022-01-17] MEDS: SODIUM CHLORIDE 1,000 ML IV SCH (05:45)
[2022-01-17 08:24] LABS: BASO % 0.4 % (0-2.0); EOS % 2.9 % (0-4.5); HEMATOCRIT 26.4 % (32.4-45.2); HEMOGLOBIN 8.7 GM/dL (10.7-15.3); LYMPH % 16.4 % (8-40); MCH 28.6 pg (25.7-33.7); MCHC 32.9 g/dl (32.0-36.0); MEAN CELL VOLUME 86.9 fl (80-96); MONO % 9.3 % (3.8-10.2); PLATELET COUNT 209 10^3/uL (134-434); RBC 3.04 M/mm3 (3.60-5.2); RDW 13.6 % (11.6-15.6); WHITE BLOOD COUNT 4.3 K/mm3 (4.0-10.0)
[2022-01-17 08:41] LABS: BLOOD UREA NITROGEN 5.2 mg/dL (7-18)
[2022-01-17 08:43] LABS: CREATININE 0.3 mg/dL (0.55-1.3); PHOSPHOROUS 2.2 mg/dL (2.5-4.9)
[2022-01-17] MEDS: LOSARTAN POTASSIUM 25 MG TABLET PO SCH (09:22)
[2022-01-17] MEDS: NAPH,MB-DB/K PH,MBDB POWDER PACKET PO SCH (09:22)
[2022-01-17] MEDS: MULTIVITAMINS (DAILY MVI) TABLET (FP) PO SCH (09:22)
[2022-01-17] MEDS: ANASTROZOLE 1 MG TABLET PO SCH (09:22)
[2022-01-17] MEDS: ENOXAPARIN NA (PORCINE) 40 MG/0.4 ML DISP.SYRIN SQ SCH (09:26)
[2022-01-17] MEDS: VANCOMYCIN/WATER BAGS 1,250 MG/250 ML BAG IVPB SCH (11:36)
[2022-01-17] MEDS ORDERED: POTASSIUM PHOSPHATE 15 MM in SODIUM CHLORIDE 250 ML IVPB ONE (14:05)
[2022-01-17] MEDS: GABAPENTIN 300 MG CAPSULE PO SCH (21:03)
[2022-01-17] MEDS: LACTOBACILLUS ACIDOPHILUS 1 TABLET PO SCH (21:22)
[2022-01-18] MEDS: VANCOMYCIN/WATER BAGS 1,250 MG/250 ML BAG IVPB SCH ×3 (00:32→23:05)
[2022-01-18] MEDS: SODIUM CHLORIDE 1,000 ML IV SCH ×2 (00:35→12:21)
[2022-01-18] MEDS ORDERED: AZTREONAM 2 GM VIAL (RESTRICTED TO ID) ONE ×3 (04:31→19:31)
[2022-01-18] MEDS ORDERED: DEXTROSE 5%-WATER 100 ML IVPB ONE ×3 (04:31→19:31)
[2022-01-18] MEDS: AZTREONAM 2 GM in DEXTROSE 5%-WATER 100 ML IVPB SCH ×3 (04:44→19:51)
[2022-01-18 08:27] LABS: BASO % 0.4 % (0-2.0); HEMATOCRIT 25.6 % (32.4-45.2); HEMOGLOBIN 8.4 GM/dL (10.7-15.3); LYMPH % 19.9 % (8-40); MCH 28.3 pg (25.7-33.7); MCHC 32.7 g/dl (32.0-36.0); MEAN CELL VOLUME 86.6 fl (80-96); MEAN PLT VOLUME 8.1 fl (7.5-11.1); MONO % 10.4 % (3.8-10.2); NEUT % 66.3 % (42.8-82.8); PLATELET COUNT 217 10^3/uL (134-434); RBC 2.96 M/mm3 (3.60-5.2); RDW 13.5 % (11.6-15.6); WHITE BLOOD COUNT 3.8 K/mm3 (4.0-10.0)
[2022-01-18 08:46] LABS: MAGNESIUM 1.9 mg/dL (1.8-2.4)
[2022-01-18 08:47] LABS: BLOOD UREA NITROGEN 3.2 mg/dL (7-18)
[2022-01-18 08:50] LABS: CREATININE 0.3 mg/dL (0.55-1.3); PHOSPHOROUS 2.2 mg/dL (2.5-4.9)
[2022-01-18] MEDS: MULTIVITAMINS (DAILY MVI) TABLET (FP) PO SCH (09:39)
[2022-01-18] MEDS: ENOXAPARIN NA (PORCINE) 40 MG/0.4 ML DISP.SYRIN SQ SCH (09:39)
[2022-01-18] MEDS: ANASTROZOLE 1 MG TABLET PO SCH (09:39)
[2022-01-18] MEDS: LOSARTAN POTASSIUM 25 MG TABLET PO SCH (09:39)
[2022-01-18] MEDS: LACTOBACILLUS ACIDOPHILUS 1 TABLET PO SCH (21:59)
[2022-01-18] MEDS: GABAPENTIN 300 MG CAPSULE PO SCH (21:59)
[2022-01-19] MEDS ORDERED: DEXTROSE 5%-WATER 100 ML IVPB ONE ×3 (04:20→21:30)
[2022-01-19] MEDS ORDERED: AZTREONAM 2 GM VIAL (RESTRICTED TO ID) ONE ×3 (04:20→21:30)
[2022-01-19] MEDS: AZTREONAM 2 GM in DEXTROSE 5%-WATER 100 ML IVPB SCH ×3 (04:28→21:35)
[2022-01-19] MEDS: SODIUM CHLORIDE 1,000 ML IV SCH (04:29)
[2022-01-19 09:15] LABS: BASO % 0.8 % (0-2.0); EOS % 3.1 % (0-4.5); HEMOGLOBIN 8.3 GM/dL (10.7-15.3); LYMPH % 24.3 % (8-40); MCH 28.7 pg (25.7-33.7); MCHC 33.3 g/dl (32.0-36.0); MEAN CELL VOLUME 86.2 fl (80-96); MEAN PLT VOLUME 8.1 fl (7.5-11.1); MONO % 10.3 % (3.8-10.2); NEUT % 61.5 % (42.8-82.8); PLATELET COUNT 220 10^3/uL (134-434); RDW 13.9 % (11.6-15.6); WHITE BLOOD COUNT 3.2 K/mm3 (4.0-10.0)
[2022-01-19] MEDS ORDERED: NAPH,MB-DB/K PH,MBDB POWDER PACKET PO ONE (09:16)
[2022-01-19] MEDS: LOSARTAN POTASSIUM 25 MG TABLET PO SCH (09:23)
[2022-01-19] MEDS: ENOXAPARIN NA (PORCINE) 40 MG/0.4 ML DISP.SYRIN SQ SCH (09:23)
[2022-01-19] MEDS: MULTIVITAMINS (DAILY MVI) TABLET (FP) PO SCH (09:23)
[2022-01-19] MEDS: ANASTROZOLE 1 MG TABLET PO SCH (09:23)
[2022-01-19 09:30] LABS: CALCIUM 8.2 mg/dL (8.5-10.1)
[2022-01-19 09:31] LABS: MAGNESIUM 1.9 mg/dL (1.8-2.4)
[2022-01-19 09:34] LABS: CREATININE 0.3 mg/dL (0.55-1.3); PHOSPHOROUS 2.3 mg/dL (2.5-4.9)
[2022-01-19] MEDS ORDERED: SODIUM PHOSPHATE - 15 MM in SODIUM CHLORIDE 250 ML IVPB SCH (10:00)
[2022-01-19] MEDS: VANCOMYCIN/WATER BAGS 1,250 MG/250 ML BAG IVPB SCH ×2 (10:16→23:41)
[2022-01-19 10:43] LABS: ANISOCYTOSIS 0; MACROCYTOSIS 0
[2022-01-19] MEDS: GABAPENTIN 300 MG CAPSULE PO SCH (21:35)
[2022-01-19] MEDS: LACTOBACILLUS ACIDOPHILUS 1 TABLET PO SCH (21:35)
[2022-01-20] MEDS ORDERED: DEXTROSE 5%-WATER 100 ML IVPB ONE ×3 (05:02→20:56)
[2022-01-20] MEDS ORDERED: AZTREONAM 2 GM VIAL (RESTRICTED TO ID) ONE ×3 (05:02→20:56)
[2022-01-20] MEDS: AZTREONAM 2 GM in DEXTROSE 5%-WATER 100 ML IVPB SCH ×3 (05:18→21:27)
[2022-01-20 08:08] LABS: BASO % 0.8 % (0-2.0); EOS % 3.1 % (0-4.5); HEMOGLOBIN 8.6 GM/dL (10.7-15.3); LYMPH % 27.5 % (8-40); MCH 28.7 pg (25.7-33.7); MCHC 33.1 g/dl (32.0-36.0); MEAN CELL VOLUME 86.6 fl (80-96); MEAN PLT VOLUME 8.2 fl (7.5-11.1); NEUT % 57.6 % (42.8-82.8); PLATELET COUNT 235 10^3/uL (134-434); RDW 13.9 % (11.6-15.6); WHITE BLOOD COUNT 3.1 K/mm3 (4.0-10.0)
[2022-01-20 08:47] LABS: CREATININE 0.3 mg/dL (0.55-1.3); MAGNESIUM 1.9 mg/dL (1.8-2.4); PHOSPHOROUS 2.2 mg/dL (2.5-4.9)
[2022-01-20] MEDS: MULTIVITAMINS (DAILY MVI) TABLET (FP) PO SCH (09:05)
[2022-01-20] MEDS: ANASTROZOLE 1 MG TABLET PO SCH (09:06)
[2022-01-20] MEDS: LOSARTAN POTASSIUM 25 MG TABLET PO SCH (09:06)
[2022-01-20] MEDS: ENOXAPARIN NA (PORCINE) 40 MG/0.4 ML DISP.SYRIN SQ SCH (09:06)
[2022-01-20] MEDS ORDERED: NAPH,MB-DB/K PH,MBDB POWDER PACKET PO SCH (10:00)
[2022-01-20 10:28] LABS: ANISOCYTOSIS 2+; MACROCYTOSIS 2+
[2022-01-20] MEDS: SODIUM CHLORIDE 1,000 ML IV SCH (11:14)
[2022-01-20] MEDS: VANCOMYCIN/WATER BAGS 1,250 MG/250 ML BAG IVPB SCH (11:14)
[2022-01-20] MEDS: LACTOBACILLUS ACIDOPHILUS 1 TABLET PO SCH (21:31)
[2022-01-20] MEDS: GABAPENTIN 300 MG CAPSULE PO SCH (21:31)
[2022-01-21] MEDS: VANCOMYCIN/WATER BAGS 1,250 MG/250 ML BAG IVPB SCH ×3 (00:08→22:53)
[2022-01-21] MEDS ORDERED: DEXTROSE 5%-WATER 100 ML IVPB ONE ×3 (03:09→20:18)
[2022-01-21] MEDS ORDERED: AZTREONAM 2 GM VIAL (RESTRICTED TO ID) ONE ×3 (03:09→20:17)
[2022-01-21] MEDS: AZTREONAM 2 GM in DEXTROSE 5%-WATER 100 ML IVPB SCH ×3 (03:22→20:36)
[2022-01-21] MEDS: LOSARTAN POTASSIUM 25 MG TABLET PO SCH (09:05)
[2022-01-21] MEDS: ENOXAPARIN NA (PORCINE) 40 MG/0.4 ML DISP.SYRIN SQ SCH (09:05)
[2022-01-21] MEDS: MULTIVITAMINS (DAILY MVI) TABLET (FP) PO SCH (09:05)
[2022-01-21] MEDS: ANASTROZOLE 1 MG TABLET PO SCH (09:12)
[2022-01-21 11:31] LABS: HEMATOCRIT 27.3 % (32.4-45.2); MCH 28.6 pg (25.7-33.7); MCHC 32.8 g/dl (32.0-36.0); MEAN CELL VOLUME 87.1 fl (80-96); MEAN PLT VOLUME 8.2 fl (7.5-11.1); PLATELET COUNT 247 10^3/uL (134-434); RBC 3.14 M/mm3 (3.60-5.2); WHITE BLOOD COUNT 4.1 K/mm3 (4.0-10.0)
[2022-01-21 11:52] LABS: ALBUMIN 1.8 g/dl (3.4-5.0); BLOOD UREA NITROGEN 6.3 mg/dL (7-18); CALCIUM 7.9 mg/dL (8.5-10.1)
[2022-01-21 11:55] LABS: CREATININE 0.4 mg/dL (0.55-1.3)
[2022-01-21 11:57] LABS: BILIRUBIN,TOTAL 0.1 mg/dL (0.2-1); TOT PROT 5.1 g/dl (6.4-8.2)
[2022-01-21 12:20] LABS: ANISOCYTOSIS 1+; MACROCYTOSIS 1+
[2022-01-21 12:30] LABS: PLATELET ESTIMATE ADEQUATE
[2022-01-21 15:38] VITALS: PULSE 82
[2022-01-21] MEDS: GABAPENTIN 300 MG CAPSULE PO SCH (21:17)
[2022-01-21] MEDS: LACTOBACILLUS ACIDOPHILUS 1 TABLET PO SCH (21:17)
[2022-01-22] MEDS ORDERED: DEXTROSE 5%-WATER 100 ML IVPB ONE ×2 (03:24→13:21)
[2022-01-22] MEDS ORDERED: AZTREONAM 2 GM VIAL (RESTRICTED TO ID) ONE ×2 (03:24→13:21)
[2022-01-22] MEDS: AZTREONAM 2 GM in DEXTROSE 5%-WATER 100 ML IVPB SCH ×2 (03:35→13:28)
[2022-01-22 06:19] VITALS: BP 120/68; TEMP 97.6
[2022-01-22] MEDS: MULTIVITAMINS (DAILY MVI) TABLET (FP) PO SCH (09:41)
[2022-01-22] MEDS: LOSARTAN POTASSIUM 25 MG TABLET PO SCH (09:41)
[2022-01-22] MEDS: ENOXAPARIN NA (PORCINE) 40 MG/0.4 ML DISP.SYRIN SQ SCH (09:41)
[2022-01-22] MEDS: ANASTROZOLE 1 MG TABLET PO SCH (09:41)
[2022-01-22 09:46] LABS: BASO % 0.8 % (0-2.0); EOS % 3.7 % (0-4.5); HEMATOCRIT 33.5 % (32.4-45.2); HEMOGLOBIN 10.8 GM/dL (10.7-15.3); LYMPH % 31.9 % (8-40); MCH 28.1 pg (25.7-33.7); MCHC 32.2 g/dl (32.0-36.0); MEAN CELL VOLUME 87.4 fl (80-96); MEAN PLT VOLUME 8.6 fl (7.5-11.1); MONO % 9.4 % (3.8-10.2); NEUT % 54.2 % (42.8-82.8); PLATELET COUNT 324 10^3/uL (134-434); RBC 3.83 M/mm3 (3.60-5.2); RDW 14.4 % (11.6-15.6); WHITE BLOOD COUNT 4.4 K/mm3 (4.0-10.0)
[2022-01-22] MEDS ORDERED: NAPH,MB-DB/K PH,MBDB POWDER PACKET PO SCH (10:00)
[2022-01-22 10:06] LABS: CALCIUM 8.4 mg/dL (8.5-10.1)
[2022-01-22 10:07] LABS: BLOOD UREA NITROGEN 5.9 mg/dL (7-18); MAGNESIUM 2.1 mg/dL (1.8-2.4)
[2022-01-22 10:10] LABS: CREATININE 0.4 mg/dL (0.55-1.3); PHOSPHOROUS 2.5 mg/dL (2.5-4.9)
[2022-01-22 10:11] LABS: BILIRUBIN,TOTAL 0.2 mg/dL (0.2-1); TOT PROT 6.3 g/dl (6.4-8.2)
[2022-01-22 10:15] LABS: ALBUMIN 2.4 g/dl (3.4-5.0)
[2022-01-22] MEDS: VANCOMYCIN/WATER BAGS 1,250 MG/250 ML BAG IVPB SCH (11:35)
[2022-01-22] MEDS ORDERED: metroNIDAZOLE 250 MG TABLET PO SCH (14:00)
== END 2022-01-22 17:39 | disposition home or self-care (01) | DRG 720 ==
LOC: JER 17:30 → JERBED 22:14 → J8W 01-12 01:12
PROVIDERS: ADMIT Hospitalist; ATTEND Internal Medicine
DX: A41.9 Sepsis, unspecified organism (principal); D64.81 Anemia due to antineoplastic chemotherapy; E83.39 Other disorders of phosphorus metabolism; K52.0 Gastroenteritis and colitis due to radiation; K57.92 Diverticulitis of intestine, part unspecified, without perforation or abscess without bleeding; I10 Essential (primary) hypertension; A09 Infectious gastroenteritis and colitis, unspecified; C53.9 Malignant neoplasm of cervix uteri, unspecified; D72.829 Elevated white blood cell count, unspecified; N39.0 Urinary tract infection, site not specified
CPT/HCPCS: 36415; 71045-TC-FY; 74177-TC; 80048; 80053; 80076; 81003; 82272; 83605; 83690; 83735; 83993; 84100; 85025; 85027; 85610; 85651; 85730; 86140; 86850; 86900; 86901; 87040; 87045; 87046; 87086; 87177; 87209; 87324; 87449; 93005; 93010; 93306-TC; 93970-TC; 97116-GP; 97161-GP; 99291; C9803-CS; G0480; Q9967; U0003; U0005

== ENCOUNTER 2022-01-30 12:02 | Inpatient (IN) | payer OTHER ==
[2022-01-30 12:35] VITALS: BMI 25.4
[2022-01-30] MEDS ORDERED: ACETAMINOPHEN 1000 MG/100 ML BAG IVPB ONE (14:59)
[2022-01-30] MEDS ORDERED: ACETAMINOPHEN INJECTION 100 ML IVPB ONE (15:03)
[2022-01-30 16:10] LABS: BASO % 0.6 % (0-2.0); EOS % 2.3 % (0-4.5); HEMATOCRIT 34.4 % (32.4-45.2); HEMOGLOBIN 11.1 GM/dL (10.7-15.3); LYMPH % 37.1 % (8-40); MCH 28.3 pg (25.7-33.7); MCHC 32.3 g/dl (32.0-36.0); MEAN CELL VOLUME 87.6 fl (80-96); MEAN PLT VOLUME 7.6 fl (7.5-11.1); MONO % 12.2 % (3.8-10.2); NEUT % 47.8 % (42.8-82.8); PLATELET COUNT 444 10^3/uL (134-434); RBC 3.92 M/mm3 (3.60-5.2); WHITE BLOOD COUNT 5.5 K/mm3 (4.0-10.0)
[2022-01-30 16:23] LABS: INR 1.19 (0.83-1.09); PROTHROMBIN TIME (PATIENT) 13.7 SEC (9.7-13.0)
[2022-01-30 16:25] LABS: ACTIVATED PTT 29.3 SECONDS (25.2-36.5)
[2022-01-30 16:30] LABS: CALCIUM 9.3 mg/dL (8.5-10.1)
[2022-01-30 16:31] LABS: ALBUMIN 2.8 g/dl (3.4-5.0); BLOOD UREA NITROGEN 7.6 mg/dL (7-18)
[2022-01-30 16:34] LABS: CREATININE 0.5 mg/dL (0.55-1.3)
[2022-01-30 16:35] LABS: BILIRUBIN,TOTAL 0.2 mg/dL (0.2-1); TOT PROT 6.8 g/dl (6.4-8.2)
[2022-01-30 18:57] LABS: PH,URINE 6.5 (5.0-8.0); URINE APPEARANCE CLEAR; URINE BILIRUBIN NEGATIVE (NEGATIVE); URINE COLOR YELLOW; URINE GLUCOSE (UA) NEGATIVE (NEGATIVE); URINE KETONE NEGATIVE (NEGATIVE); URINE LEUK ESTERASE NEGATIVE (NEGATIVE); URINE NITRITE NEGATIVE (NEGATIVE); URINE PROTEIN NEGATIVE (NEGATIVE); URINE UROBILINOGEN 0.2 mg/dL (0.2-1.0)
[2022-01-30] MEDS ORDERED: IBUPROFEN 600 MG TABLET (FP) PO ONE ×2 (19:04→19:44)
[2022-01-30] MEDS ORDERED: ACETAMINOPHEN 1000 MG/100 ML BAG IVPB PRN (23:20)
[2022-01-30] MEDS ORDERED: MELATONIN 5 MG TABLETS PO PRN (23:34)
[2022-01-30] MEDS ORDERED: ONDANSETRON 4 MG/2 ML VIAL IVPUSH PRN (23:35)
[2022-01-31 10:11] LABS: BASO % 0.8 % (0-2.0); EOS % 3.1 % (0-4.5); HEMATOCRIT 32.7 % (32.4-45.2); HEMOGLOBIN 10.6 GM/dL (10.7-15.3); LYMPH % 35.7 % (8-40); MCH 28.3 pg (25.7-33.7); MCHC 32.5 g/dl (32.0-36.0); MEAN CELL VOLUME 87.2 fl (80-96); MEAN PLT VOLUME 8.1 fl (7.5-11.1); MONO % 10.6 % (3.8-10.2); NEUT % 49.8 % (42.8-82.8); PLATELET COUNT 379 10^3/uL (134-434); RBC 3.76 M/mm3 (3.60-5.2); RDW 15.4 % (11.6-15.6); WHITE BLOOD COUNT 3.6 K/mm3 (4.0-10.0)
[2022-01-31] MEDS: ZINC SULFATE 220 MG CAPSULE (FP) PO SCH (10:15)
[2022-01-31] MEDS: LOSARTAN POTASSIUM 25 MG TABLET PO SCH (10:15)
[2022-01-31] MEDS: LORATADINE 10 MG TABLET PO SCH (10:15)
[2022-01-31] MEDS: ASCORBIC ACID 500 MG TABLET (FP) PO SCH (10:15)
[2022-01-31] MEDS: CHOLECALCIFEROL (VIT D3) 1,000 UNIT (25 MCG) TABLET PO SCH (10:15)
[2022-01-31] MEDS: ENOXAPARIN NA (PORCINE) 40 MG/0.4 ML DISP.SYRIN SQ SCH (10:17)
[2022-01-31 10:58] LABS: BLOOD UREA NITROGEN 5.9 mg/dL (7-18); CALCIUM 8.8 mg/dL (8.5-10.1)
[2022-01-31 10:59] LABS: ALBUMIN 2.8 g/dl (3.4-5.0); MAGNESIUM 2.2 mg/dL (1.8-2.4)
[2022-01-31 11:01] LABS: CREATININE 0.5 mg/dL (0.55-1.3); PHOSPHOROUS 3.4 mg/dL (2.5-4.9)
[2022-01-31 11:03] LABS: BILIRUBIN,TOTAL 0.4 mg/dL (0.2-1); TOT PROT 6.3 g/dl (6.4-8.2)
[2022-01-31] MEDS ORDERED: AZTREONAM 1 GM in DEXTROSE 5%-WATER - 50 ML IVPB ONE (11:55)
[2022-01-31] MEDS ORDERED: LACTATED RINGERS SOLUTION 1,000 ML/1,000 ML INFUS.BAG IV SCH (12:00)
[2022-01-31] MEDS ORDERED: DEXTROSE 5%-WATER - 50 ML IVPB ONE (12:59)
[2022-01-31] MEDS ORDERED: AZTREONAM 1 GM VIAL (RESTRICTED TO ID) ONE (12:59)
[2022-01-31] MEDS: KETOROLAC TROMETHAMINE 15 MG/ML VIAL IVPUSH PRN (14:30)
[2022-01-31] MEDS: ANASTROZOLE 1 MG TABLET PO SCH (14:30)
[2022-01-31] MEDS ORDERED: traMADol HCL 50 MG TABLET PO PRN (16:08)
[2022-01-31] MEDS: GABAPENTIN 300 MG CAPSULE PO SCH (21:38)
[2022-01-31] MEDS: LACTOBACILLUS ACIDOPHILUS 1 TABLET PO SCH (21:38)
[2022-02-01 09:20] LABS: BASO % 0.6 % (0-2.0); HEMATOCRIT 32.1 % (32.4-45.2); HEMOGLOBIN 10.5 GM/dL (10.7-15.3); MCH 28.5 pg (25.7-33.7); MCHC 32.6 g/dl (32.0-36.0); MEAN CELL VOLUME 87.3 fl (80-96); MEAN PLT VOLUME 8.1 fl (7.5-11.1); MONO % 14.3 % (3.8-10.2); NEUT % 50.1 % (42.8-82.8); PLATELET COUNT 363 10^3/uL (134-434); RBC 3.68 M/mm3 (3.60-5.2); RDW 15.4 % (11.6-15.6)
[2022-02-01 09:37] LABS: CALCIUM 8.9 mg/dL (8.5-10.1)
[2022-02-01 09:38] LABS: ALBUMIN 2.6 g/dl (3.4-5.0); BLOOD UREA NITROGEN 6.2 mg/dL (7-18)
[2022-02-01 09:41] LABS: CREATININE 0.5 mg/dL (0.55-1.3)
[2022-02-01 09:42] LABS: BILIRUBIN,TOTAL 0.4 mg/dL (0.2-1)
[2022-02-01 09:43] LABS: TOT PROT 6.1 g/dl (6.4-8.2)
[2022-02-01] MEDS: ASCORBIC ACID 500 MG TABLET (FP) PO SCH (09:45)
[2022-02-01] MEDS: ZINC SULFATE 220 MG CAPSULE (FP) PO SCH (09:45)
[2022-02-01] MEDS: ANASTROZOLE 1 MG TABLET PO SCH (09:45)
[2022-02-01] MEDS: ENOXAPARIN NA (PORCINE) 40 MG/0.4 ML DISP.SYRIN SQ SCH (09:45)
[2022-02-01] MEDS: LORATADINE 10 MG TABLET PO SCH (09:45)
[2022-02-01] MEDS: CHOLECALCIFEROL (VIT D3) 1,000 UNIT (25 MCG) TABLET PO SCH (09:45)
[2022-02-01] MEDS: LOSARTAN POTASSIUM 25 MG TABLET PO SCH (09:45)
[2022-02-01] MEDS: GABAPENTIN 300 MG CAPSULE PO SCH (21:27)
[2022-02-01] MEDS: LACTOBACILLUS ACIDOPHILUS 1 TABLET PO SCH (21:27)
[2022-02-02] MEDS: KETOROLAC TROMETHAMINE 15 MG/ML VIAL IVPUSH PRN (06:26)
[2022-02-02 07:02] LABS: BASO % 0.6 % (0-2.0); EOS % 3.1 % (0-4.5); HEMATOCRIT 33.7 % (32.4-45.2); HEMOGLOBIN 10.9 GM/dL (10.7-15.3); MCH 28.3 pg (25.7-33.7); MCHC 32.4 g/dl (32.0-36.0); MEAN CELL VOLUME 87.4 fl (80-96); MEAN PLT VOLUME 8.1 fl (7.5-11.1); MONO % 17.3 % (3.8-10.2); PLATELET COUNT 325 10^3/uL (134-434); RBC 3.85 M/mm3 (3.60-5.2); RDW 15.8 % (11.6-15.6); WHITE BLOOD COUNT 4.4 K/mm3 (4.0-10.0)
[2022-02-02] MEDS: LORATADINE 10 MG TABLET PO SCH (10:03)
[2022-02-02] MEDS: ZINC SULFATE 220 MG CAPSULE (FP) PO SCH (10:03)
[2022-02-02] MEDS: CHOLECALCIFEROL (VIT D3) 1,000 UNIT (25 MCG) TABLET PO SCH (10:03)
[2022-02-02] MEDS: ASCORBIC ACID 500 MG TABLET (FP) PO SCH (10:03)
[2022-02-02] MEDS: LOSARTAN POTASSIUM 25 MG TABLET PO SCH (10:03)
[2022-02-02] MEDS: ANASTROZOLE 1 MG TABLET PO SCH (10:03)
[2022-02-02] MEDS: ENOXAPARIN NA (PORCINE) 40 MG/0.4 ML DISP.SYRIN SQ SCH (10:05)
[2022-02-02] MEDS: LACTOBACILLUS ACIDOPHILUS 1 TABLET PO SCH (21:04)
[2022-02-02] MEDS: GABAPENTIN 300 MG CAPSULE PO SCH (21:05)
[2022-02-03] MEDS: KETOROLAC TROMETHAMINE 15 MG/ML VIAL IVPUSH PRN (08:22)
[2022-02-03] MEDS: ASCORBIC ACID 500 MG TABLET (FP) PO SCH (09:37)
[2022-02-03] MEDS: ZINC SULFATE 220 MG CAPSULE (FP) PO SCH (09:37)
[2022-02-03] MEDS: CHOLECALCIFEROL (VIT D3) 1,000 UNIT (25 MCG) TABLET PO SCH (09:37)
[2022-02-03] MEDS: LOSARTAN POTASSIUM 25 MG TABLET PO SCH (09:38)
[2022-02-03] MEDS: ENOXAPARIN NA (PORCINE) 40 MG/0.4 ML DISP.SYRIN SQ SCH (09:38)
[2022-02-03] MEDS: ANASTROZOLE 1 MG TABLET PO SCH (09:38)
[2022-02-03 09:53] LABS: BASO % 0.7 % (0-2.0); EOS % 4.6 % (0-4.5); HEMATOCRIT 33.5 % (32.4-45.2); HEMOGLOBIN 11.3 GM/dL (10.7-15.3); LYMPH % 31.2 % (8-40); MCH 29.3 pg (25.7-33.7); MCHC 33.8 g/dl (32.0-36.0); MEAN CELL VOLUME 86.6 fl (80-96); MEAN PLT VOLUME 7.4 fl (7.5-11.1); MONO % 13.7 % (3.8-10.2); NEUT % 49.8 % (42.8-82.8); PLATELET COUNT 303 10^3/uL (134-434); RBC 3.87 M/mm3 (3.60-5.2); RDW 15.6 % (11.6-15.6); WHITE BLOOD COUNT 4.2 K/mm3 (4.0-10.0)
[2022-02-03] MEDS: LORATADINE 10 MG TABLET PO SCH (10:49)
[2022-02-03] MEDS: GABAPENTIN 300 MG CAPSULE PO SCH (21:11)
[2022-02-03] MEDS: LACTOBACILLUS ACIDOPHILUS 1 TABLET PO SCH (21:11)
[2022-02-04 08:06] LABS: CARCINOEMBRYONIC ANTIGEN 0.6 ng/mL (0.0-4.7)
[2022-02-04 08:51] LABS: BASO % 0.8 % (0-2.0); EOS % 4.9 % (0-4.5); HEMATOCRIT 33.1 % (32.4-45.2); HEMOGLOBIN 10.7 GM/dL (10.7-15.3); LYMPH % 29.6 % (8-40); MCH 28.1 pg (25.7-33.7); MCHC 32.4 g/dl (32.0-36.0); MEAN CELL VOLUME 86.7 fl (80-96); MEAN PLT VOLUME 8.3 fl (7.5-11.1); MONO % 15.1 % (3.8-10.2); NEUT % 49.6 % (42.8-82.8); PLATELET COUNT 300 10^3/uL (134-434); RBC 3.81 M/mm3 (3.60-5.2); RDW 15.9 % (11.6-15.6); WHITE BLOOD COUNT 4.3 K/mm3 (4.0-10.0)
[2022-02-04 09:17] LABS: CALCIUM 8.6 mg/dL (8.5-10.1)
[2022-02-04 09:18] LABS: BLOOD UREA NITROGEN 13.2 mg/dL (7-18)
[2022-02-04 09:21] LABS: CREATININE 0.5 mg/dL (0.55-1.3)
[2022-02-04] MEDS: KETOROLAC TROMETHAMINE 15 MG/ML VIAL IVPUSH PRN ×2 (09:57→21:45)
[2022-02-04] MEDS: CHOLECALCIFEROL (VIT D3) 1,000 UNIT (25 MCG) TABLET PO SCH (10:01)
[2022-02-04] MEDS: ENOXAPARIN NA (PORCINE) 40 MG/0.4 ML DISP.SYRIN SQ SCH (10:01)
[2022-02-04] MEDS: LORATADINE 10 MG TABLET PO SCH (10:01)
[2022-02-04] MEDS: LOSARTAN POTASSIUM 25 MG TABLET PO SCH (10:01)
[2022-02-04] MEDS: ZINC SULFATE 220 MG CAPSULE (FP) PO SCH (10:02)
[2022-02-04] MEDS: ANASTROZOLE 1 MG TABLET PO SCH (10:02)
[2022-02-04] MEDS: ASCORBIC ACID 500 MG TABLET (FP) PO SCH (10:02)
[2022-02-04] MEDS: PORTA CATH FLUSH 10 ML IVPUSH PRN (12:17)
[2022-02-04] MEDS: GABAPENTIN 300 MG CAPSULE PO SCH (21:45)
[2022-02-04] MEDS: LACTOBACILLUS ACIDOPHILUS 1 TABLET PO SCH (21:45)
[2022-02-05 09:21] LABS: BASO % 0.9 % (0-2.0); EOS % 4.1 % (0-4.5); HEMATOCRIT 33.4 % (32.4-45.2); MCH 28.6 pg (25.7-33.7); MCHC 32.9 g/dl (32.0-36.0); MEAN CELL VOLUME 87.1 fl (80-96); MEAN PLT VOLUME 8.4 fl (7.5-11.1); MONO % 16.5 % (3.8-10.2); NEUT % 49.5 % (42.8-82.8); PLATELET COUNT 298 10^3/uL (134-434); RBC 3.84 M/mm3 (3.60-5.2); RDW 15.8 % (11.6-15.6); WHITE BLOOD COUNT 4.5 K/mm3 (4.0-10.0)
[2022-02-05] MEDS: ENOXAPARIN NA (PORCINE) 40 MG/0.4 ML DISP.SYRIN SQ SCH (09:38)
[2022-02-05] MEDS: ANASTROZOLE 1 MG TABLET PO SCH (09:39)
[2022-02-05] MEDS: LOSARTAN POTASSIUM 25 MG TABLET PO SCH (09:39)
[2022-02-05] MEDS: LORATADINE 10 MG TABLET PO SCH (09:39)
[2022-02-05] MEDS: ZINC SULFATE 220 MG CAPSULE (FP) PO SCH (09:39)
[2022-02-05] MEDS: CHOLECALCIFEROL (VIT D3) 1,000 UNIT (25 MCG) TABLET PO SCH (09:39)
[2022-02-05 09:42] VITALS: BP 136/76; PULSE 83; TEMP 98.2
[2022-02-05 09:48] LABS: BLOOD UREA NITROGEN 10.9 mg/dL (7-18)
[2022-02-05 09:50] LABS: CALCIUM 8.7 mg/dL (8.5-10.1)
[2022-02-05 09:54] LABS: CREATININE 0.5 mg/dL (0.55-1.3)
[2022-02-05] MEDS: ASCORBIC ACID 500 MG TABLET (FP) PO SCH (10:52)
[2022-02-05] MEDS: PORTA CATH FLUSH 10 ML IVPUSH PRN (15:35)
== END 2022-02-05 15:35 | disposition home or self-care (01) | DRG 244 ==
LOC: JER 12:02 → JERBED 21:35 → J6S 01-31 01:31
PROVIDERS: ADMIT Hospitalist
DX: K57.92 Diverticulitis of intestine, part unspecified, without perforation or abscess without bleeding (principal); R16.0 Hepatomegaly, not elsewhere classified; C54.1 Malignant neoplasm of endometrium; K76.9 Liver disease, unspecified; I10 Essential (primary) hypertension; S30.1XXA Contusion of abdominal wall, initial encounter; M96.841 Postprocedural hematoma of a musculoskeletal structure following other procedure; R10.32 Left lower quadrant pain; X58.XXXA Exposure to other specified factors, initial encounter; Y93.9 Activity, unspecified; Y92.89 Other specified places as the place of occurrence of the external cause; Y99.9 Unspecified external cause status; D49.0 Neoplasm of unspecified behavior of digestive system; Y83.9 Surgical procedure, unspecified as the cause of abnormal reaction of the patient, or of later complication, without mention of misadventure at the time of the procedure
CPT/HCPCS: 36415; 71045-TC-FY; 74177-TC; 74178-TC; 80048; 80053; 81003; 82105; 82378; 83690; 83735; 84100; 84484; 85025; 85610; 85730; 86140; 87040; 87086; 93005; 93010; 99285-25; C9803-CS; Q9967; U0003; U0005

== ENCOUNTER 2022-02-10 11:09 | Inpatient (IN) | payer OTHER ==
[2022-02-10 11:31] VITALS: BMI 24.4
[2022-02-10] MEDS ORDERED: ACETAMINOPHEN 1000 MG/100 ML BAG IVPB ONE ×2 (11:44→20:10)
[2022-02-10] MEDS ORDERED: ACETAMINOPHEN INJECTION 100 ML IVPB ONE ×2 (12:26→20:32)
[2022-02-10 13:25] LABS: BASO % 0.6 % (0-2.0); EOS % 2.1 % (0-4.5); HEMATOCRIT 37.2 % (32.4-45.2); HEMOGLOBIN 12.1 GM/dL (10.7-15.3); LYMPH % 25.6 % (8-40); MCH 28.4 pg (25.7-33.7); MCHC 32.5 g/dl (32.0-36.0); MEAN CELL VOLUME 87.4 fl (80-96); MEAN PLT VOLUME 9.3 fl (7.5-11.1); MONO % 12.3 % (3.8-10.2); NEUT % 59.4 % (42.8-82.8); PLATELET COUNT 345 10^3/uL (134-434); RBC 4.25 M/mm3 (3.60-5.2); RDW 16.1 % (11.6-15.6); WHITE BLOOD COUNT 6.9 K/mm3 (4.0-10.0)
[2022-02-10 13:34] LABS: CALCIUM 9.4 mg/dL (8.5-10.1)
[2022-02-10 13:35] LABS: ALBUMIN 3.2 g/dl (3.4-5.0)
[2022-02-10 13:38] LABS: CREATININE 0.5 mg/dL (0.55-1.3)
[2022-02-10 13:39] LABS: BILIRUBIN,TOTAL 0.4 mg/dL (0.2-1); TOT PROT 7.2 g/dl (6.4-8.2)
[2022-02-10] MEDS ORDERED: DOCUSATE SODIUM 100 MG CAPSULE (FP) PO PRN (23:09)
[2022-02-10] MEDS ORDERED: POLYETHYLENE GLYCOL (HEALTHYLAX) 3350 17 GM PACKET PO PRN (23:09)
[2022-02-10] MEDS: LIDOCAINE PATCH REMOVAL MC SCH (23:33)
[2022-02-10] MEDS: GABAPENTIN 300 MG CAPSULE PO SCH (23:33)
[2022-02-11] MEDS ORDERED: ACETAMINOPHEN 325 MG TABLET (FP) PO PRN ×2 (06:00→08:58)
[2022-02-11 08:39] LABS: BASO % 0.5 % (0-2.0); EOS % 1.8 % (0-4.5); HEMATOCRIT 33.4 % (32.4-45.2); HEMOGLOBIN 11.2 GM/dL (10.7-15.3); LYMPH % 19.6 % (8-40); MCH 28.8 pg (25.7-33.7); MCHC 33.4 g/dl (32.0-36.0); MEAN CELL VOLUME 86.3 fl (80-96); MEAN PLT VOLUME 8.3 fl (7.5-11.1); MONO % 13.1 % (3.8-10.2); PLATELET COUNT 280 10^3/uL (134-434); RBC 3.87 M/mm3 (3.60-5.2); RDW 15.8 % (11.6-15.6); WHITE BLOOD COUNT 6.9 K/mm3 (4.0-10.0)
[2022-02-11] MEDS ORDERED: traMADol HCL 50 MG TABLET PO PRN (08:59)
[2022-02-11 09:06] LABS: CALCIUM 8.6 mg/dL (8.5-10.1)
[2022-02-11 09:07] LABS: ALBUMIN 2.8 g/dl (3.4-5.0); BLOOD UREA NITROGEN 4.3 mg/dL (7-18)
[2022-02-11 09:10] LABS: CREATININE 0.4 mg/dL (0.55-1.3); PHOSPHOROUS 3.2 mg/dL (2.5-4.9)
[2022-02-11 09:11] LABS: BILIRUBIN,TOTAL 0.3 mg/dL (0.2-1)
[2022-02-11 09:12] LABS: TOT PROT 6.2 g/dl (6.4-8.2)
[2022-02-11 09:27] LABS: INR 1.28 (0.83-1.09); PROTHROMBIN TIME (PATIENT) 14.7 SEC (9.7-13.0)
[2022-02-11 09:30] LABS: ACTIVATED PTT 27.1 SECONDS (25.2-36.5)
[2022-02-11] MEDS: CHOLECALCIFEROL (VIT D3) 1,000 UNIT (25 MCG) TABLET PO SCH (09:30)
[2022-02-11] MEDS: ANASTROZOLE 1 MG TABLET PO SCH (09:30)
[2022-02-11] MEDS: ZINC SULFATE 220 MG CAPSULE (FP) PO SCH (09:30)
[2022-02-11] MEDS: MULTIVITAMINS (DAILY MVI) TABLET (FP) PO SCH (09:31)
[2022-02-11] MEDS: ASCORBIC ACID 500 MG TABLET (FP) PO SCH (09:31)
[2022-02-11] MEDS: SENNOSIDES 8.6MG TABLET (FP) PO SCH ×2 (09:31→21:50)
[2022-02-11] MEDS: LOSARTAN POTASSIUM 25 MG TABLET PO SCH (09:31)
[2022-02-11] MEDS: LIDOCAINE 5% TOPICAL PATCH TP SCH (09:32)
[2022-02-11] MEDS: ENOXAPARIN NA (PORCINE) 40 MG/0.4 ML DISP.SYRIN SQ SCH (09:33)
[2022-02-11] MEDS ORDERED: PATIENT'S OWN MEDICATION (NON-FORMULARY) (Omega-3/Dha/Epa/Fish Oil [Fish Oil 1,000 Mg Soft PO SCH (10:00)
[2022-02-11] MEDS ORDERED: PORTA CATH FLUSH 10 ML IVPUSH PRN (13:52)
[2022-02-11] MEDS: ACETAMINOPHEN 325 MG TABLET (FP) PO PRN ×2 (17:56→21:50)
[2022-02-11] MEDS: LIDOCAINE PATCH REMOVAL MC SCH (21:49)
[2022-02-11] MEDS: GABAPENTIN 300 MG CAPSULE PO SCH (21:50)
[2022-02-12] MEDS: ACETAMINOPHEN 325 MG TABLET (FP) PO PRN ×2 (06:06→17:17)
[2022-02-12 08:57] LABS: BASO % 0.5 % (0-2.0); EOS % 1.7 % (0-4.5); HEMATOCRIT 35.1 % (32.4-45.2); HEMOGLOBIN 11.4 GM/dL (10.7-15.3); LYMPH % 19.2 % (8-40); MCH 28.1 pg (25.7-33.7); MCHC 32.5 g/dl (32.0-36.0); MEAN CELL VOLUME 86.4 fl (80-96); MEAN PLT VOLUME 8.5 fl (7.5-11.1); MONO % 13.2 % (3.8-10.2); NEUT % 65.4 % (42.8-82.8); PLATELET COUNT 293 10^3/uL (134-434); RBC 4.07 M/mm3 (3.60-5.2); RDW 15.7 % (11.6-15.6); WHITE BLOOD COUNT 7.3 K/mm3 (4.0-10.0)
[2022-02-12 09:22] LABS: ALBUMIN 2.8 g/dl (3.4-5.0); CALCIUM 8.8 mg/dL (8.5-10.1)
[2022-02-12 09:25] LABS: CREATININE 0.4 mg/dL (0.55-1.3)
[2022-02-12 09:27] LABS: BILIRUBIN,TOTAL 0.4 mg/dL (0.2-1); TOT PROT 6.2 g/dl (6.4-8.2)
[2022-02-12] MEDS ORDERED: PATIENT'S OWN MEDICATION (NON-FORMULARY) (Omega-3/Dha/Epa/Fish Oil [Fish Oil 1,000 Mg Soft PO SCH (10:00)
[2022-02-12] MEDS: LIDOCAINE 5% TOPICAL PATCH TP SCH (10:45)
[2022-02-12] MEDS: MULTIVITAMINS (DAILY MVI) TABLET (FP) PO SCH (10:46)
[2022-02-12] MEDS: LOSARTAN POTASSIUM 25 MG TABLET PO SCH (10:46)
[2022-02-12] MEDS: ZINC SULFATE 220 MG CAPSULE (FP) PO SCH (10:46)
[2022-02-12] MEDS: SENNOSIDES 8.6MG TABLET (FP) PO SCH ×2 (10:46→21:37)
[2022-02-12] MEDS: ENOXAPARIN NA (PORCINE) 40 MG/0.4 ML DISP.SYRIN SQ SCH (10:46)
[2022-02-12] MEDS: CHOLECALCIFEROL (VIT D3) 1,000 UNIT (25 MCG) TABLET PO SCH (10:46)
[2022-02-12] MEDS: ANASTROZOLE 1 MG TABLET PO SCH (10:47)
[2022-02-12] MEDS: ASCORBIC ACID 500 MG TABLET (FP) PO SCH (10:47)
[2022-02-12] MEDS: GABAPENTIN 300 MG CAPSULE PO SCH (21:37)
[2022-02-12] MEDS: LIDOCAINE PATCH REMOVAL MC SCH (21:38)
[2022-02-13] MEDS: ACETAMINOPHEN 325 MG TABLET (FP) PO PRN ×3 (02:51→18:40)
[2022-02-13] MEDS: LIDOCAINE 5% TOPICAL PATCH TP SCH (09:41)
[2022-02-13] MEDS: CHOLECALCIFEROL (VIT D3) 1,000 UNIT (25 MCG) TABLET PO SCH (09:42)
[2022-02-13] MEDS: MULTIVITAMINS (DAILY MVI) TABLET (FP) PO SCH (09:42)
[2022-02-13] MEDS: ZINC SULFATE 220 MG CAPSULE (FP) PO SCH (09:42)
[2022-02-13] MEDS: ASCORBIC ACID 500 MG TABLET (FP) PO SCH (09:42)
[2022-02-13] MEDS: LOSARTAN POTASSIUM 25 MG TABLET PO SCH (09:42)
[2022-02-13] MEDS: ANASTROZOLE 1 MG TABLET PO SCH (09:42)
[2022-02-13] MEDS: SENNOSIDES 8.6MG TABLET (FP) PO SCH (09:42)
[2022-02-13] MEDS: ENOXAPARIN NA (PORCINE) 40 MG/0.4 ML DISP.SYRIN SQ SCH (09:42)
[2022-02-13 09:50] LABS: BASO % 0.6 % (0-2.0); EOS % 1.6 % (0-4.5); HEMATOCRIT 38.2 % (32.4-45.2); HEMOGLOBIN 12.7 GM/dL (10.7-15.3); LYMPH % 21.6 % (8-40); MCH 28.7 pg (25.7-33.7); MCHC 33.3 g/dl (32.0-36.0); MEAN CELL VOLUME 86.3 fl (80-96); MEAN PLT VOLUME 8.4 fl (7.5-11.1); MONO % 11.8 % (3.8-10.2); NEUT % 64.4 % (42.8-82.8); PLATELET COUNT 343 10^3/uL (134-434); RBC 4.42 M/mm3 (3.60-5.2); RDW 15.8 % (11.6-15.6)
[2022-02-13 10:11] LABS: ALBUMIN 3.2 g/dl (3.4-5.0); BLOOD UREA NITROGEN 7.5 mg/dL (7-18); CALCIUM 9.5 mg/dL (8.5-10.1)
[2022-02-13 10:15] LABS: CREATININE 0.5 mg/dL (0.55-1.3)
[2022-02-13 10:16] LABS: BILIRUBIN,TOTAL 0.3 mg/dL (0.2-1); TOT PROT 7.1 g/dl (6.4-8.2)
[2022-02-13] MEDS ORDERED: KETOROLAC TROMETHAMINE 15 MG/ML VIAL IVPUSH PRN (13:36)
[2022-02-13 14:53] VITALS: BP 138/83; PULSE 100; TEMP 98.3
[2022-02-14 10:08] LABS: CARCINOEMBRYONIC ANTIGEN 0.6 ng/mL (0.0-4.7)
== END 2022-02-13 21:00 | disposition short-term general hospital (02) | DRG 240 ==
LOC: JER 11:09 → JERBED 18:26 → J7W 21:39
PROVIDERS: ADMIT Family Medicine
DX: C78.6 Secondary malignant neoplasm of retroperitoneum and peritoneum (principal); I42.9 Cardiomyopathy, unspecified; R18.8 Other ascites; C54.1 Malignant neoplasm of endometrium; I10 Essential (primary) hypertension; K76.9 Liver disease, unspecified; R10.9 Unspecified abdominal pain; Z85.3 Personal history of malignant neoplasm of breast; G62.9 Polyneuropathy, unspecified
CPT/HCPCS: 36415; 74177-TC; 74183-TC; 80048; 80053; 80076; 82378; 83605; 83690; 83735; 84100; 84484; 85025; 85610; 85651; 85730; 86300; 86304; 93005; 93010; 99285-25; A9579; C1887; C9803-CS; Q9967; U0003; U0005

== ENCOUNTER 2022-02-20 17:33 | Inpatient (IN) | payer OTHER ==
[2022-02-20] MEDS ORDERED: SODIUM CHLORIDE 0.9% 500 ML INFUS.BAG IV ONE (19:09)
[2022-02-20] MEDS ORDERED: ACETAMINOPHEN 1000 MG/100 ML BAG IVPB ONE (19:09)
[2022-02-20] MEDS ORDERED: ACETAMINOPHEN INJECTION 100 ML IVPB ONE (19:12)
[2022-02-20 20:01] LABS: BASO % 0.5 % (0-2.0); EOS % 1.6 % (0-4.5); HEMATOCRIT 36.5 % (32.4-45.2); HEMOGLOBIN 11.9 GM/dL (10.7-15.3); LYMPH % 20.3 % (8-40); MCH 28.2 pg (25.7-33.7); MCHC 32.6 g/dl (32.0-36.0); MEAN CELL VOLUME 86.5 fl (80-96); MEAN PLT VOLUME 8.6 fl (7.5-11.1); MONO % 12.4 % (3.8-10.2); NEUT % 65.2 % (42.8-82.8); PLATELET COUNT 413 10^3/uL (134-434); RBC 4.21 M/mm3 (3.60-5.2); RDW 15.8 % (11.6-15.6); WHITE BLOOD COUNT 8.4 K/mm3 (4.0-10.0)
[2022-02-20 20:03] LABS: PH,URINE 6.5 (5.0-8.0); URINE APPEARANCE CLEAR; URINE BILIRUBIN NEGATIVE (NEGATIVE); URINE COLOR YELLOW; URINE GLUCOSE (UA) NEGATIVE (NEGATIVE); URINE KETONE 3+ (NEGATIVE); URINE LEUK ESTERASE NEGATIVE (NEGATIVE); URINE NITRITE NEGATIVE (NEGATIVE); URINE PROTEIN NEGATIVE (NEGATIVE); URINE UROBILINOGEN 0.2 mg/dL (0.2-1.0)
[2022-02-20 20:10] LABS: INR 1.4 (0.83-1.09); PROTHROMBIN TIME (PATIENT) 16.2 SEC (9.7-13.0)
[2022-02-20 20:12] LABS: ACTIVATED PTT 26.4 SECONDS (25.2-36.5)
[2022-02-20 20:18] LABS: CHLORIDE 98 mmol/L (98-107); SODIUM 134 mmol/L (136-145)
[2022-02-20 20:20] LABS: ANION GAP 11 MMOL/L (8-16); BLOOD UREA NITROGEN 6.6 mg/dL (7-18); CO2 25 mmol/L (21-32); GLUCOSE,RANDOM 100 mg/dL (74-106); LIPASE 118 U/L (73-393)
[2022-02-20 20:21] LABS: ALBUMIN 2.6 g/dl (3.4-5.0); MAGNESIUM 1.8 mg/dL (1.8-2.4)
[2022-02-20 20:23] LABS: CREATININE 0.4 mg/dL (0.55-1.3); PHOSPHOROUS 3.3 mg/dL (2.5-4.9); SGOT/AST 16 U/L (15-37); SGPT/ALT 15 U/L (13-61)
[2022-02-20 20:25] LABS: BILIRUBIN,TOTAL 0.4 mg/dL (0.2-1); TOT PROT 6.2 g/dl (6.4-8.2)
[2022-02-20 20:26] LABS: ALK PHOS 82 U/L (45-117)
[2022-02-20 20:39] LABS: VENOUS BASE EXCESS -1.8 mmol/L (-2-2); VENOUS PCO2 48.8 mmHg (38-52); VENOUS PH 7.323 (7.310-7.410)
[2022-02-20] MEDS ORDERED: ONDANSETRON 4 MG/2 ML VIAL IVPUSH PRN (23:20)
[2022-02-20] MEDS ORDERED: ACETAMINOPHEN 1000 MG/100 ML BAG IVPB PRN (23:21)
[2022-02-20] MEDS ORDERED: ACETAMINOPHEN 325 MG TABLET (FP) PO PRN (23:21)
[2022-02-20] MEDS ORDERED: POLYETHYLENE GLYCOL (HEALTHYLAX) 3350 17 GM PACKET ONE (23:46)
[2022-02-20] MEDS ORDERED: ACETAMINOPHEN 325 MG TABLET (FP) ONE (23:52)
[2022-02-20] MEDS: POLYETHYLENE GLYCOL (HEALTHYLAX) 3350 17 GM PACKET PO SCH (23:59)
[2022-02-20] MEDS: DEXTROSE 5%-NORMAL SALINE 1,000 ML IV SCH (23:59)
[2022-02-21] MEDS: POLYETHYLENE GLYCOL (HEALTHYLAX) 3350 17 GM PACKET PO SCH ×3 (06:21→21:31)
[2022-02-21 07:37] LABS: BASO % 0.4 % (0-2.0); EOS % 1.6 % (0-4.5); HEMATOCRIT 32.3 % (32.4-45.2); HEMOGLOBIN 10.9 GM/dL (10.7-15.3); MCH 28.9 pg (25.7-33.7); MCHC 33.7 g/dl (32.0-36.0); MEAN CELL VOLUME 85.8 fl (80-96); MONO % 11.9 % (3.8-10.2); NEUT % 72.1 % (42.8-82.8); PLATELET COUNT 374 10^3/uL (134-434); RBC 3.76 M/mm3 (3.60-5.2); RDW 15.6 % (11.6-15.6); WHITE BLOOD COUNT 6.7 K/mm3 (4.0-10.0)
[2022-02-21 07:38] LABS: INR 1.4 (0.83-1.09); PROTHROMBIN TIME (PATIENT) 16.2 SEC (9.7-13.0)
[2022-02-21 07:40] LABS: ACTIVATED PTT 28.1 SECONDS (25.2-36.5)
[2022-02-21 08:15] LABS: CALCIUM 8.7 mg/dL (8.5-10.1)
[2022-02-21 08:16] LABS: ALBUMIN 2.6 g/dl (3.4-5.0); BLOOD UREA NITROGEN 5.2 mg/dL (7-18); MAGNESIUM 1.9 mg/dL (1.8-2.4)
[2022-02-21 08:19] LABS: BILIRUBIN,TOTAL 0.5 mg/dL (0.2-1); CREATININE 0.4 mg/dL (0.55-1.3); PHOSPHOROUS 3.3 mg/dL (2.5-4.9)
[2022-02-21] MEDS: LORATADINE 10 MG TABLET PO SCH (09:44)
[2022-02-21] MEDS: MULTIVITAMINS (DAILY MVI) TABLET (FP) PO SCH (09:44)
[2022-02-21] MEDS: LOSARTAN POTASSIUM 50 MG TABLET PO SCH (09:44)
[2022-02-21] MEDS: ASCORBIC ACID 500 MG TABLET (FP) PO SCH (09:44)
[2022-02-21] MEDS: ENOXAPARIN NA (PORCINE) 40 MG/0.4 ML DISP.SYRIN SQ SCH (09:45)
[2022-02-21] MEDS: CHOLECALCIFEROL (VIT D3) 1,000 UNIT (25 MCG) TABLET PO SCH (09:45)
[2022-02-21] MEDS: ANASTROZOLE 1 MG TABLET PO SCH (11:20)
[2022-02-21] MEDS: ZINC SULFATE 220 MG CAPSULE (FP) PO SCH (11:20)
[2022-02-21] MEDS ORDERED: oxyCODONE HCL 5 MG TABLET PO PRN (11:55)
[2022-02-21] MEDS ORDERED: ACETAMINOPHEN 1000 MG/100 ML BAG IVPB PRN (11:57)
[2022-02-21] MEDS ORDERED: PEG 3350/NA SULF BICARB CL/KCL 4000 ML SOLN.RECON PO ONE (14:00)
[2022-02-21] MEDS: DEXTROSE 5%-NORMAL SALINE 1,000 ML IV SCH (15:23)
[2022-02-21] MEDS ORDERED: FAMOTIDINE 20 MG/50 ML IVPB 20 MG/50 ML MG IVPB ONE (20:40)
[2022-02-21] MEDS: GABAPENTIN 300 MG CAPSULE PO SCH (21:31)
[2022-02-21] MEDS: DOCUSATE SODIUM 100 MG CAPSULE (FP) PO SCH (21:31)
[2022-02-22] MEDS ORDERED: ACETAMINOPHEN 1000 MG/100 ML BAG IVPB ONE (02:24)
[2022-02-22] MEDS: DEXTROSE 5%-NORMAL SALINE 1,000 ML IV SCH ×3 (02:38→23:20)
[2022-02-22] MEDS: POLYETHYLENE GLYCOL (HEALTHYLAX) 3350 17 GM PACKET PO SCH ×2 (06:10→13:52)
[2022-02-22 07:34] LABS: BLOOD UREA NITROGEN 3.6 mg/dL (7-18); CALCIUM 8.7 mg/dL (8.5-10.1); MAGNESIUM 1.8 mg/dL (1.8-2.4)
[2022-02-22 07:38] LABS: CREATININE 0.3 mg/dL (0.55-1.3)
[2022-02-22] MEDS: ENOXAPARIN NA (PORCINE) 40 MG/0.4 ML DISP.SYRIN SQ SCH (09:19)
[2022-02-22] MEDS: DOCUSATE SODIUM 100 MG CAPSULE (FP) PO SCH (09:19)
[2022-02-22] MEDS: ZINC SULFATE 220 MG CAPSULE (FP) PO SCH (09:19)
[2022-02-22] MEDS: ANASTROZOLE 1 MG TABLET PO SCH (09:20)
[2022-02-22] MEDS: MULTIVITAMINS (DAILY MVI) TABLET (FP) PO SCH (09:20)
[2022-02-22] MEDS: CHOLECALCIFEROL (VIT D3) 1,000 UNIT (25 MCG) TABLET PO SCH (09:20)
[2022-02-22] MEDS: LOSARTAN POTASSIUM 50 MG TABLET PO SCH (09:20)
[2022-02-22] MEDS: ASCORBIC ACID 500 MG TABLET (FP) PO SCH (09:20)
[2022-02-22] MEDS: LORATADINE 10 MG TABLET PO SCH (09:21)
[2022-02-22] MEDS ORDERED: metoPROLOL SUCCINATE 25 MG TAB.SR.24H (FP) ONE ×2 (09:22→20:44)
[2022-02-22] MEDS: METOPROLOL SUCCINATE PO SCH ×2 (09:24→21:00)
[2022-02-22] MEDS ORDERED: metoPROLOL SUCCINATE 25 MG TAB.SR.24H (FP) PO SCH (10:00)
[2022-02-22] MEDS ORDERED: oxyCODONE HCL 5 MG TABLET PO PRN ×2 (13:34→13:36)
[2022-02-22] MEDS ORDERED: ACETAMINOPHEN 1000 MG/100 ML BAG IVPB PRN (13:35)
[2022-02-22] MEDS ORDERED: POLYETHYLENE GLYCOL (HEALTHYLAX) 3350 17 GM PACKET PO PRN (13:57)
[2022-02-22] MEDS: GABAPENTIN 300 MG CAPSULE PO SCH (21:00)
[2022-02-22] MEDS ORDERED: FAMOTIDINE 20 MG/50 ML IVPB 20 MG/50 ML MG IVPB SCH (22:00)
[2022-02-23 06:39] LABS: BASO % 0.2 % (0-2.0); EOS % 0.3 % (0-4.5); HEMATOCRIT 29.8 % (32.4-45.2); HEMOGLOBIN 9.9 GM/dL (10.7-15.3); LYMPH % 7.9 % (8-40); MCH 28.3 pg (25.7-33.7); MCHC 33.2 g/dl (32.0-36.0); MEAN CELL VOLUME 85.4 fl (80-96); MONO % 8.1 % (3.8-10.2); NEUT % 83.5 % (42.8-82.8); PLATELET COUNT 355 10^3/uL (134-434); RBC 3.49 M/mm3 (3.60-5.2); RDW 15.5 % (11.6-15.6); WHITE BLOOD COUNT 7.4 K/mm3 (4.0-10.0)
[2022-02-23 07:01] LABS: ALBUMIN 2.3 g/dl (3.4-5.0); BLOOD UREA NITROGEN 3.8 mg/dL (7-18); CALCIUM 8.4 mg/dL (8.5-10.1); MAGNESIUM 1.7 mg/dL (1.8-2.4)
[2022-02-23 07:04] LABS: CREATININE 0.3 mg/dL (0.55-1.3); PHOSPHOROUS 2.6 mg/dL (2.5-4.9)
[2022-02-23 07:06] LABS: BILIRUBIN,TOTAL 0.2 mg/dL (0.2-1); TOT PROT 5.5 g/dl (6.4-8.2)
[2022-02-23] MEDS ORDERED: metoPROLOL SUCCINATE 25 MG TAB.SR.24H (FP) ONE ×2 (08:29→21:51)
[2022-02-23] MEDS: DEXTROSE 5%-NORMAL SALINE 1,000 ML IV SCH ×2 (09:05→23:15)
[2022-02-23] MEDS: CHOLECALCIFEROL (VIT D3) 1,000 UNIT (25 MCG) TABLET PO SCH (10:55)
[2022-02-23] MEDS: METOPROLOL SUCCINATE PO SCH ×2 (10:56→21:59)
[2022-02-23] MEDS: MAG HYDROX/AL HYDROX/SIMETH 30 ML UNIT-DOSE CUP PO PRN ×2 (10:56→21:57)
[2022-02-23] MEDS: LOSARTAN POTASSIUM 50 MG TABLET PO SCH (10:57)
[2022-02-23] MEDS: ASCORBIC ACID 500 MG TABLET (FP) PO SCH (10:58)
[2022-02-23] MEDS: MULTIVITAMINS (DAILY MVI) TABLET (FP) PO SCH (10:58)
[2022-02-23] MEDS: LORATADINE 10 MG TABLET PO SCH (10:58)
[2022-02-23] MEDS: ANASTROZOLE 1 MG TABLET PO SCH (10:58)
[2022-02-23] MEDS: ZINC SULFATE 220 MG CAPSULE (FP) PO SCH (10:58)
[2022-02-23] MEDS: FAMOTIDINE 20 MG TABLET PO SCH (10:58)
[2022-02-23] MEDS: ENOXAPARIN NA (PORCINE) 40 MG/0.4 ML DISP.SYRIN SQ SCH (10:58)
[2022-02-23] MEDS ORDERED: SODIUM CHLORIDE 250 ML IVPB ONE (11:00)
[2022-02-23] MEDS ORDERED: PALONOSETRON HCL 0.25 MG/5 ML VIAL IVPUSH ONE (11:30)
[2022-02-23] MEDS ORDERED: FAMOTIDINE/PF 20 MG in DEXTROSE 5%-WATER - 50 ML IVPB ONE (11:30)
[2022-02-23] MEDS ORDERED: DEXAMETHASONE INJECTION 10 MG, DIPHENHYDRAMINE 25 MG in SODIUM CHLORIDE 100 ML IVPB ONE (11:30)
[2022-02-23] MEDS ORDERED: FOSAPREPITANT DIMEGLUMINE 150 MG in SODIUM CHLORIDE 145 ML IVPB ONE (11:30)
[2022-02-23] MEDS ORDERED: DEXAMETHASONE SOD PHOSPHATE 10 MG/1 ML VIAL IVPB ONE (11:57)
[2022-02-23] MEDS ORDERED: SODIUM CHLORIDE IVPB ONE (12:00)
[2022-02-23] MEDS ORDERED: PACLITAXEL IVPB ONE (12:00)
[2022-02-23 13:01] VITALS: BMI 26.7
[2022-02-23] MEDS ORDERED: CARBOPLATIN IV ONE (15:00)
[2022-02-23] MEDS ORDERED: SODIUM CHLORIDE IV ONE (15:00)
[2022-02-23] MEDS ORDERED: PORTA CATH FLUSH 10 ML IVPUSH PRN (15:11)
[2022-02-23] MEDS: GABAPENTIN 300 MG CAPSULE PO SCH (21:57)
[2022-02-24] MEDS: DEXTROSE 5%-NORMAL SALINE 1,000 ML IV SCH ×2 (04:48→21:05)
[2022-02-24 07:10] LABS: HEMATOCRIT 31.1 % (32.4-45.2); HEMOGLOBIN 10.2 GM/dL (10.7-15.3); LYMPH % 10.3 % (8-40); MCH 28.1 pg (25.7-33.7); MCHC 32.9 g/dl (32.0-36.0); MEAN CELL VOLUME 85.5 fl (80-96); MEAN PLT VOLUME 8.5 fl (7.5-11.1); MONO % 1.1 % (3.8-10.2); NEUT % 88.6 % (42.8-82.8); PLATELET COUNT 414 10^3/uL (134-434); RBC 3.64 M/mm3 (3.60-5.2); RDW 15.7 % (11.6-15.6); WHITE BLOOD COUNT 6.1 K/mm3 (4.0-10.0)
[2022-02-24 07:43] LABS: ALBUMIN 2.4 g/dl (3.4-5.0); BLOOD UREA NITROGEN 5.8 mg/dL (7-18); CREATININE 0.3 mg/dL (0.55-1.3)
[2022-02-24 07:45] LABS: BILIRUBIN,TOTAL 0.2 mg/dL (0.2-1); TOT PROT 5.8 g/dl (6.4-8.2)
[2022-02-24 07:46] LABS: CALCIUM 8.4 mg/dL (8.5-10.1)
[2022-02-24] MEDS ORDERED: metoPROLOL SUCCINATE 25 MG TAB.SR.24H (FP) ONE ×2 (11:21→20:52)
[2022-02-24] MEDS: ZINC SULFATE 220 MG CAPSULE (FP) PO SCH (11:25)
[2022-02-24] MEDS: LORATADINE 10 MG TABLET PO SCH (11:25)
[2022-02-24] MEDS: ENOXAPARIN NA (PORCINE) 40 MG/0.4 ML DISP.SYRIN SQ SCH (11:25)
[2022-02-24] MEDS: CHOLECALCIFEROL (VIT D3) 1,000 UNIT (25 MCG) TABLET PO SCH (11:25)
[2022-02-24] MEDS: METOPROLOL SUCCINATE PO SCH ×2 (11:25→21:05)
[2022-02-24] MEDS: FAMOTIDINE 20 MG TABLET PO SCH (11:27)
[2022-02-24] MEDS: ASCORBIC ACID 500 MG TABLET (FP) PO SCH (11:27)
[2022-02-24] MEDS: MULTIVITAMINS (DAILY MVI) TABLET (FP) PO SCH (11:27)
[2022-02-24] MEDS: LOSARTAN POTASSIUM 50 MG TABLET PO SCH (11:28)
[2022-02-24] MEDS: MAG HYDROX/AL HYDROX/SIMETH 30 ML UNIT-DOSE CUP PO PRN (13:20)
[2022-02-24] MEDS: PROCHLORPERAZINE INJECTION 10 MG/2 ML VIAL IVPB PRN (17:24)
[2022-02-24] MEDS: PANTOPRAZOLE SODIUM 40 MG VIAL IVPB SCH (18:20)
[2022-02-24] MEDS: GABAPENTIN 300 MG CAPSULE PO SCH (21:04)
[2022-02-25] MEDS: DEXTROSE 5%-NORMAL SALINE 1,000 ML IV SCH ×2 (06:57→13:01)
[2022-02-25] MEDS ORDERED: metoPROLOL SUCCINATE 25 MG TAB.SR.24H (FP) ONE ×3 (11:04→20:59)
[2022-02-25] MEDS: MULTIVITAMINS (DAILY MVI) TABLET (FP) PO SCH (11:08)
[2022-02-25] MEDS: CHOLECALCIFEROL (VIT D3) 1,000 UNIT (25 MCG) TABLET PO SCH (11:08)
[2022-02-25] MEDS: ZINC SULFATE 220 MG CAPSULE (FP) PO SCH (11:09)
[2022-02-25] MEDS: METOPROLOL SUCCINATE PO SCH ×2 (11:10→21:13)
[2022-02-25] MEDS: LOSARTAN POTASSIUM 50 MG TABLET PO SCH (11:12)
[2022-02-25] MEDS: LORATADINE 10 MG TABLET PO SCH (11:13)
[2022-02-25] MEDS: ASCORBIC ACID 500 MG TABLET (FP) PO SCH (11:13)
[2022-02-25] MEDS: ENOXAPARIN NA (PORCINE) 40 MG/0.4 ML DISP.SYRIN SQ SCH (11:14)
[2022-02-25] MEDS: PANTOPRAZOLE SODIUM 40 MG VIAL IVPB SCH (11:15)
[2022-02-25 13:07] LABS: HEMATOCRIT 30.6 % (32.4-45.2); HEMOGLOBIN 10.2 GM/dL (10.7-15.3); MCH 28.6 pg (25.7-33.7); MCHC 33.5 g/dl (32.0-36.0); MEAN CELL VOLUME 85.3 fl (80-96); MEAN PLT VOLUME 8.4 fl (7.5-11.1); PLATELET COUNT 371 10^3/uL (134-434); RBC 3.59 M/mm3 (3.60-5.2); RDW 16.2 % (11.6-15.6); WHITE BLOOD COUNT 8.2 K/mm3 (4.0-10.0)
[2022-02-25 13:28] LABS: CALCIUM 8.5 mg/dL (8.5-10.1)
[2022-02-25 13:30] LABS: ALBUMIN 2.4 g/dl (3.4-5.0)
[2022-02-25 13:33] LABS: CREATININE 0.3 mg/dL (0.55-1.3)
[2022-02-25 13:34] LABS: BILIRUBIN,TOTAL 0.3 mg/dL (0.2-1); TOT PROT 5.6 g/dl (6.4-8.2)
[2022-02-25 13:50] LABS: ANISOCYTOSIS 0; HELMET CELLS 0; HOWELL-JOLLY BODIES 0; MACROCYTOSIS 0; OVALOCYTE 0; ROULEAU 0; SICKELED CELLS 0; TARGET CELLS 0; TEAR DROP CELLS 0; TOXIC GRANULATION 0
[2022-02-25] MEDS ORDERED: TBO-FILGRASTIM 300 MCG/0.5 ML DISP.SYRINGE SQ ONE (14:00)
[2022-02-25] MEDS: MAG HYDROX/AL HYDROX/SIMETH 30 ML UNIT-DOSE CUP PO PRN ×2 (15:06→21:13)
[2022-02-25] MEDS: PROCHLORPERAZINE INJECTION 10 MG/2 ML VIAL IVPB PRN (16:21)
[2022-02-25] MEDS ORDERED: PALONOSETRON HCL 0.25 MG/5 ML VIAL IVPUSH ONE (18:42)
[2022-02-25] MEDS: GABAPENTIN 300 MG CAPSULE PO SCH (21:13)
[2022-02-26] MEDS: PROCHLORPERAZINE INJECTION 10 MG/2 ML VIAL IVPB PRN ×2 (01:42→10:53)
[2022-02-26] MEDS: DEXTROSE 5%-NORMAL SALINE 1,000 ML IV SCH ×2 (01:44→01:45)
[2022-02-26] MEDS ORDERED: metoPROLOL SUCCINATE 25 MG TAB.SR.24H (FP) ONE (08:49)
[2022-02-26 09:05] LABS: HEMATOCRIT 32.9 % (32.4-45.2); HEMOGLOBIN 10.6 GM/dL (10.7-15.3); MCH 27.7 pg (25.7-33.7); MCHC 32.3 g/dl (32.0-36.0); MEAN CELL VOLUME 85.6 fl (80-96); MEAN PLT VOLUME 8.1 fl (7.5-11.1); PLATELET COUNT 342 10^3/uL (134-434); RBC 3.85 M/mm3 (3.60-5.2); RDW 15.7 % (11.6-15.6); WHITE BLOOD COUNT 2.5 K/mm3 (4.0-10.0)
[2022-02-26 09:31] LABS: BLOOD UREA NITROGEN 13.2 mg/dL (7-18)
[2022-02-26 09:33] LABS: CALCIUM 8.5 mg/dL (8.5-10.1)
[2022-02-26 09:34] LABS: ALBUMIN 2.5 g/dl (3.4-5.0)
[2022-02-26 09:35] LABS: CREATININE 0.5 mg/dL (0.55-1.3)
[2022-02-26 09:36] LABS: BILIRUBIN,TOTAL 0.3 mg/dL (0.2-1)
[2022-02-26 09:37] LABS: TOT PROT 5.6 g/dl (6.4-8.2)
[2022-02-26] MEDS: PANTOPRAZOLE SODIUM 40 MG VIAL IVPB SCH (10:33)
[2022-02-26 10:48] LABS: ANISOCYTOSIS 0; MACROCYTOSIS 0; PLATELET ESTIMATE NORMAL
[2022-02-26] MEDS: ZINC SULFATE 220 MG CAPSULE (FP) PO SCH (11:27)
[2022-02-26] MEDS: LORATADINE 10 MG TABLET PO SCH (11:27)
[2022-02-26] MEDS: LOSARTAN POTASSIUM 50 MG TABLET PO SCH (11:27)
[2022-02-26] MEDS: CHOLECALCIFEROL (VIT D3) 1,000 UNIT (25 MCG) TABLET PO SCH (11:28)
[2022-02-26] MEDS: METOPROLOL SUCCINATE PO SCH (11:28)
[2022-02-26] MEDS: ASCORBIC ACID 500 MG TABLET (FP) PO SCH (11:28)
[2022-02-26] MEDS: MULTIVITAMINS (DAILY MVI) TABLET (FP) PO SCH (11:28)
[2022-02-26] MEDS ORDERED: TBO-FILGRASTIM 300 MCG/0.5 ML DISP.SYRINGE SQ ONE (16:01)
[2022-02-26] MEDS ORDERED: METOPROLOL TARTRATE 5 MG/5 ML VIAL IVPUSH ONE (16:15)
[2022-02-26] MEDS ORDERED: METOPROLOL TARTRATE 5 MG/5 ML VIAL IVPUSH PRN (16:16)
[2022-02-26] MEDS ORDERED: ONDANSETRON 4 MG/2 ML VIAL IVPUSH PRN (16:22)
[2022-02-26] MEDS ORDERED: ACETAMINOPHEN 1000 MG/100 ML BAG IVPB PRN (16:22)
[2022-02-26] MEDS ORDERED: HYDROmorphone HCl 2 MG/ML VIAL IVPB PRN (16:23)
[2022-02-26] MEDS ORDERED: METOPROLOL TARTRATE 50 MG TABLET (FP) PO ONE (17:52)
[2022-02-26] MEDS: AMINO ACIDS 4.25%/D5W 1,000 ML IV SCH (18:57)
[2022-02-26] MEDS: SODIUM CHLORIDE 1,000 ML IV SCH ×2 (19:14→19:29)
[2022-02-26] MEDS ORDERED: SODIUM CHLORIDE 1,000 ML IV SCH (19:28)
[2022-02-26 19:30] LABS: BF WBC & OTHER NUCLEATED CELLS 1146 /mm3; BODY FLUID MACROPHAGES 4 %; BODY FLUID MONOCYTE 18 %
[2022-02-26] MEDS: GABAPENTIN 300 MG CAPSULE PO SCH (21:42)
[2022-02-26] MEDS ORDERED: METOPROLOL TARTRATE 25 MG TABLET (FP) PO ONE (22:00)
[2022-02-27] MEDS ORDERED: ONDANSETRON 4 MG/2 ML VIAL IVPB PRN ×2 (00:38→15:50)
[2022-02-27] MEDS: AMINO ACIDS 4.25%/D5W 1,000 ML IV SCH ×2 (04:45→07:38)
[2022-02-27 08:51] LABS: EOS % 0.2 % (0-4.5); HEMOGLOBIN 9.7 GM/dL (10.7-15.3); LYMPH % 19.2 % (8-40); MCH 28.2 pg (25.7-33.7); MCHC 33.4 g/dl (32.0-36.0); MEAN CELL VOLUME 84.5 fl (80-96); MONO % 2.5 % (3.8-10.2); NEUT % 78.1 % (42.8-82.8); PLATELET COUNT 206 10^3/uL (134-434); RBC 3.44 M/mm3 (3.60-5.2); RDW 15.5 % (11.6-15.6)
[2022-02-27 09:03] LABS: WHITE BLOOD COUNT 1.7 K/mm3 (4.0-10.0)
[2022-02-27 09:16] LABS: ALBUMIN 2.1 g/dl (3.4-5.0); BLOOD UREA NITROGEN 9.9 mg/dL (7-18); CALCIUM 7.7 mg/dL (8.5-10.1); MAGNESIUM 2.3 mg/dL (1.8-2.4)
[2022-02-27 09:19] LABS: PHOSPHOROUS 1.6 mg/dL (2.5-4.9)
[2022-02-27 09:21] LABS: BILIRUBIN,TOTAL 0.5 mg/dL (0.2-1); CREATININE 0.3 mg/dL (0.55-1.3); TOT PROT 4.9 g/dl (6.4-8.2)
[2022-02-27] MEDS ORDERED: metoPROLOL SUCCINATE 25 MG TAB.SR.24H (FP) ONE (09:21)
[2022-02-27] MEDS: PANTOPRAZOLE SODIUM 40 MG VIAL IVPB SCH (09:25)
[2022-02-27] MEDS ORDERED: ENOXAPARIN NA (PORCINE) 40 MG/0.4 ML DISP.SYRIN SQ SCH (10:00)
[2022-02-27] MEDS ORDERED: TBO-FILGRASTIM 300 MCG/0.5 ML DISP.SYRINGE SQ SCH (10:00)
[2022-02-27] MEDS ORDERED: METOPROLOL TARTRATE 50 MG TABLET (FP) PO SCH (10:00)
[2022-02-27] MEDS ORDERED: METOPROLOL SUCCINATE PO SCH ×2 (10:00→22:00)
[2022-02-27] MEDS ORDERED: FUROSEMIDE 40 MG/4 ML INJECTABLE VIAL IVPUSH ONE (10:10)
[2022-02-27 10:29] LABS: ANISOCYTOSIS 0; HELMET CELLS 0; HOWELL-JOLLY BODIES 0; MACROCYTOSIS 0; OVALOCYTE 0; ROULEAU 0; SICKELED CELLS 0; TARGET CELLS 0; TEAR DROP CELLS 0; TOXIC GRANULATION 0
[2022-02-27] MEDS: CHOLECALCIFEROL (VIT D3) 1,000 UNIT (25 MCG) TABLET PO SCH (10:54)
[2022-02-27] MEDS: ASCORBIC ACID 500 MG TABLET (FP) PO SCH (10:54)
[2022-02-27] MEDS: MULTIVITAMINS (DAILY MVI) TABLET (FP) PO SCH (10:54)
[2022-02-27] MEDS: ZINC SULFATE 220 MG CAPSULE (FP) PO SCH (10:55)
[2022-02-27] MEDS: LORATADINE 10 MG TABLET PO SCH (10:55)
[2022-02-27] MEDS ORDERED: POTASSIUM PHOSPHATE 20 MM in SODIUM CHLORIDE 500 ML IVPB ONE (11:00)
[2022-02-27] MEDS ORDERED: POTASSIUM PHOSPHATE 20 MM in SODIUM CHLORIDE 250 ML IVPB ONE (11:00)
[2022-02-27 11:29] LABS: N-TERMINAL BNP 207.9 pg/ml (5-125)
[2022-02-27] MEDS ORDERED: HYDROmorphone HCl 2 MG/ML VIAL IVPB PRN (15:50)
[2022-02-27] MEDS ORDERED: ACETAMINOPHEN 1000 MG/100 ML BAG IVPB PRN (15:50)
[2022-02-27] MEDS ORDERED: PORTA CATH FLUSH 10 ML IVPUSH PRN (15:50)
[2022-02-27] MEDS ORDERED: POLYETHYLENE GLYCOL (HEALTHYLAX) 3350 17 GM PACKET PO PRN (15:50)
[2022-02-27] MEDS ORDERED: PROCHLORPERAZINE INJECTION 10 MG/2 ML VIAL IVPB PRN (15:50)
[2022-02-27] MEDS ORDERED: AZTREONAM 1 GM VIAL (RESTRICTED TO ID) ONE (16:54)
[2022-02-27] MEDS ORDERED: DEXTROSE 5%-WATER - 50 ML IVPB ONE (16:55)
[2022-02-27] MEDS: VANCOMYCIN/WATER FOR INJ (PEG) 1,000 MG/200 ML BAG IVPB SCH (17:00)
[2022-02-27] MEDS: AZTREONAM 1 GM in DEXTROSE 5%-WATER - 50 ML IVPB SCH (17:17)
[2022-02-27] MEDS: GABAPENTIN 300 MG CAPSULE PO SCH (21:38)
[2022-02-28] MEDS ORDERED: AZTREONAM 1 GM VIAL (RESTRICTED TO ID) ONE ×3 (01:06→17:52)
[2022-02-28] MEDS ORDERED: DEXTROSE 5%-WATER - 50 ML IVPB ONE ×3 (01:07→17:52)
[2022-02-28] MEDS: AZTREONAM 1 GM in DEXTROSE 5%-WATER - 50 ML IVPB SCH ×3 (01:13→18:00)
[2022-02-28] MEDS: VANCOMYCIN/WATER FOR INJ (PEG) 1,000 MG/200 ML BAG IVPB SCH ×2 (04:01→16:30)
[2022-02-28 07:49] LABS: HEMATOCRIT 26.5 % (32.4-45.2); HEMOGLOBIN 9.1 GM/dL (10.7-15.3); MCH 28.6 pg (25.7-33.7); MCHC 34.2 g/dl (32.0-36.0); MEAN CELL VOLUME 83.8 fl (80-96); MEAN PLT VOLUME 8.2 fl (7.5-11.1); PLATELET COUNT 165 10^3/uL (134-434); RBC 3.16 M/mm3 (3.60-5.2); RDW 15.6 % (11.6-15.6)
[2022-02-28 08:23] LABS: CALCIUM 7.9 mg/dL (8.5-10.1); MAGNESIUM 1.9 mg/dL (1.8-2.4)
[2022-02-28 08:26] LABS: CREATININE 0.2 mg/dL (0.55-1.3)
[2022-02-28 08:27] LABS: PHOSPHOROUS 1.6 mg/dL (2.5-4.9)
[2022-02-28 08:39] LABS: WHITE BLOOD COUNT 1.6 K/mm3 (4.0-10.0)
[2022-02-28] MEDS: PANTOPRAZOLE SODIUM 40 MG VIAL IVPB SCH (09:33)
[2022-02-28] MEDS: ENOXAPARIN NA (PORCINE) 40 MG/0.4 ML DISP.SYRIN SQ SCH (09:33)
[2022-02-28] MEDS: CHOLECALCIFEROL (VIT D3) 1,000 UNIT (25 MCG) TABLET PO SCH (09:34)
[2022-02-28] MEDS: LORATADINE 10 MG TABLET PO SCH (09:34)
[2022-02-28] MEDS ORDERED: ZINC SULFATE 220 MG CAPSULE (FP) PO SCH (10:00)
[2022-02-28] MEDS ORDERED: ASCORBIC ACID 500 MG TABLET (FP) PO SCH (10:00)
[2022-02-28] MEDS ORDERED: MULTIVITAMINS (DAILY MVI) TABLET (FP) PO SCH (10:00)
[2022-02-28 10:18] LABS: ANISOCYTOSIS 0; MACROCYTOSIS 0; PLATELET ESTIMATE NORMAL; ROULEAU 1+
[2022-02-28] MEDS: TBO-FILGRASTIM 300 MCG/0.5 ML DISP.SYRINGE SQ SCH (11:31)
[2022-02-28] MEDS ORDERED: POTASSIUM PHOSPHATE 20 MM in DEXTROSE 5%-WATER - 250 ML IVPB ONE ×2 (12:00→22:00)
[2022-02-28 14:10] LABS: BODY FLUID ALBUMIN 2.4 g/dL (Not Estab.)
[2022-02-28] MEDS ORDERED: FUROSEMIDE 40 MG/4 ML INJECTABLE VIAL IVPUSH ONE (15:19)
[2022-02-28] MEDS ORDERED: POTASSIUM CHLORIDE TABS 20 MEQ TABLET.ER (FP) PO ONE ×3 (16:57→21:51)
[2022-02-28] MEDS ORDERED: NAPH,MB-DB/K PH,MBDB POWDER PACKET PO ONE (20:00)
[2022-02-28 20:35] LABS: CHLORIDE 100 mmol/L (98-107); SODIUM 137 mmol/L (136-145)
[2022-02-28 20:36] LABS: CALCIUM 7.8 mg/dL (8.5-10.1)
[2022-02-28 20:37] LABS: BLOOD UREA NITROGEN 6.4 mg/dL (7-18); CO2 28 mmol/L (21-32); GLUCOSE,RANDOM 121 mg/dL (74-106)
[2022-02-28 20:40] LABS: CREATININE 0.3 mg/dL (0.55-1.3)
[2022-02-28 21:06] LABS: ANION GAP 9 MMOL/L (8-16)
[2022-02-28] MEDS: GABAPENTIN 300 MG CAPSULE PO SCH (21:47)
[2022-02-28] MEDS: KCL 10 MEQ IVPB 10 MEQ/100 ML INFUS.BAG IVPB SCH ×2 (22:23→23:00)
[2022-03-01] MEDS: KCL 10 MEQ IVPB 10 MEQ/100 ML INFUS.BAG IVPB SCH
[2022-03-01] MEDS ORDERED: AZTREONAM 1 GM VIAL (RESTRICTED TO ID) ONE ×3 (01:27→16:55)
[2022-03-01] MEDS ORDERED: DEXTROSE 5%-WATER - 50 ML IVPB ONE ×3 (01:27→16:56)
[2022-03-01] MEDS: AZTREONAM 1 GM in DEXTROSE 5%-WATER - 50 ML IVPB SCH ×3 (01:35→17:03)
[2022-03-01] MEDS: VANCOMYCIN/WATER FOR INJ (PEG) 1,000 MG/200 ML BAG IVPB SCH ×2 (04:13→17:00)
[2022-03-01] MEDS ORDERED: POTASSIUM CHLORIDE TABS 20 MEQ TABLET.ER (FP) PO ONE ×2 (05:00→17:30)
[2022-03-01 07:36] LABS: HEMATOCRIT 27.2 % (32.4-45.2); HEMOGLOBIN 9.2 GM/dL (10.7-15.3); MCH 28.2 pg (25.7-33.7); MCHC 33.7 g/dl (32.0-36.0); MEAN CELL VOLUME 83.7 fl (80-96); MEAN PLT VOLUME 8.1 fl (7.5-11.1); PLATELET COUNT 157 10^3/uL (134-434); RBC 3.25 M/mm3 (3.60-5.2); RDW 15.8 % (11.6-15.6)
[2022-03-01 07:42] LABS: WHITE BLOOD COUNT 1.7 K/mm3 (4.0-10.0)
[2022-03-01 08:06] LABS: BLOOD UREA NITROGEN 5.3 mg/dL (7-18); MAGNESIUM 1.6 mg/dL (1.8-2.4)
[2022-03-01 08:09] LABS: CREATININE 0.2 mg/dL (0.55-1.3); PHOSPHOROUS 2.1 mg/dL (2.5-4.9)
[2022-03-01] MEDS: LORATADINE 10 MG TABLET PO SCH (10:12)
[2022-03-01] MEDS: FUROSEMIDE 40 MG/4 ML INJECTABLE VIAL IVPUSH SCH (10:14)
[2022-03-01] MEDS: ENOXAPARIN NA (PORCINE) 40 MG/0.4 ML DISP.SYRIN SQ SCH (10:14)
[2022-03-01] MEDS: PANTOPRAZOLE SODIUM 40 MG VIAL IVPB SCH (10:14)
[2022-03-01] MEDS: CHOLECALCIFEROL (VIT D3) 1,000 UNIT (25 MCG) TABLET PO SCH (10:15)
[2022-03-01 11:07] LABS: ANISOCYTOSIS 0; HELMET CELLS 0; HOWELL-JOLLY BODIES 0; MACROCYTOSIS 0; OVALOCYTE 0; ROULEAU 0; SICKELED CELLS 0; TARGET CELLS 0; TEAR DROP CELLS 0; TOXIC GRANULATION 0
[2022-03-01] MEDS: TBO-FILGRASTIM 300 MCG/0.5 ML DISP.SYRINGE SQ SCH (17:02)
[2022-03-01] MEDS ORDERED: MAGNESIUM SULF 50% (8.12 MEQ/2 ML-1 GM VIAL) IVPB ONE (17:29)
[2022-03-01] MEDS ORDERED: NAPH,MB-DB/K PH,MBDB POWDER PACKET PO ONE (17:30)
[2022-03-01] MEDS: GABAPENTIN 300 MG CAPSULE PO SCH (21:44)
[2022-03-02] MEDS ORDERED: AZTREONAM 1 GM VIAL (RESTRICTED TO ID) ONE ×3 (01:22→17:09)
[2022-03-02] MEDS ORDERED: DEXTROSE 5%-WATER - 50 ML IVPB ONE ×3 (01:22→17:09)
[2022-03-02] MEDS: AZTREONAM 1 GM in DEXTROSE 5%-WATER - 50 ML IVPB SCH ×3 (01:26→18:05)
[2022-03-02] MEDS: VANCOMYCIN/WATER FOR INJ (PEG) 1,000 MG/200 ML BAG IVPB SCH ×2 (03:45→16:20)
[2022-03-02 07:56] LABS: HEMATOCRIT 26.7 % (32.4-45.2); HEMOGLOBIN 8.9 GM/dL (10.7-15.3); MCHC 33.4 g/dl (32.0-36.0); MEAN CELL VOLUME 83.9 fl (80-96); MEAN PLT VOLUME 8.2 fl (7.5-11.1); PLATELET COUNT 126 10^3/uL (134-434); RBC 3.18 M/mm3 (3.60-5.2); WHITE BLOOD COUNT 3.5 K/mm3 (4.0-10.0)
[2022-03-02 08:01] LABS: BLOOD UREA NITROGEN 5.2 mg/dL (7-18); CALCIUM 7.5 mg/dL (8.5-10.1); MAGNESIUM 1.9 mg/dL (1.8-2.4)
[2022-03-02 08:04] LABS: CREATININE 0.2 mg/dL (0.55-1.3); PHOSPHOROUS 2.2 mg/dL (2.5-4.9)
[2022-03-02] MEDS: ENOXAPARIN NA (PORCINE) 40 MG/0.4 ML DISP.SYRIN SQ SCH (10:49)
[2022-03-02] MEDS: LORATADINE 10 MG TABLET PO SCH (10:49)
[2022-03-02] MEDS: FUROSEMIDE 40 MG/4 ML INJECTABLE VIAL IVPUSH SCH (10:49)
[2022-03-02] MEDS: PANTOPRAZOLE SODIUM 40 MG VIAL IVPB SCH (10:49)
[2022-03-02] MEDS: CHOLECALCIFEROL (VIT D3) 1,000 UNIT (25 MCG) TABLET PO SCH (10:50)
[2022-03-02 11:38] LABS: ANISOCYTOSIS 0; MACROCYTOSIS 0; PLATELET ESTIMATE DECREASED
[2022-03-02] MEDS: TBO-FILGRASTIM 300 MCG/0.5 ML DISP.SYRINGE SQ SCH (16:21)
[2022-03-02] MEDS: GABAPENTIN 300 MG CAPSULE PO SCH (22:40)
[2022-03-03] MEDS ORDERED: AZTREONAM 1 GM VIAL (RESTRICTED TO ID) ONE ×3 (00:34→17:04)
[2022-03-03] MEDS ORDERED: DEXTROSE 5%-WATER - 50 ML IVPB ONE ×3 (00:34→17:04)
[2022-03-03] MEDS: AZTREONAM 1 GM in DEXTROSE 5%-WATER - 50 ML IVPB SCH ×3 (02:21→17:08)
[2022-03-03] MEDS: VANCOMYCIN/WATER FOR INJ (PEG) 1,000 MG/200 ML BAG IVPB SCH ×2 (03:18→06:18)
[2022-03-03 07:40] LABS: HEMATOCRIT 28.6 % (32.4-45.2); HEMOGLOBIN 9.5 GM/dL (10.7-15.3); MCH 28.1 pg (25.7-33.7); MCHC 33.3 g/dl (32.0-36.0); MEAN CELL VOLUME 84.4 fl (80-96); MEAN PLT VOLUME 8.8 fl (7.5-11.1); PLATELET COUNT 158 10^3/uL (134-434); RBC 3.39 M/mm3 (3.60-5.2); RDW 15.6 % (11.6-15.6); WHITE BLOOD COUNT 10.1 K/mm3 (4.0-10.0)
[2022-03-03 08:01] LABS: CALCIUM 8.2 mg/dL (8.5-10.1)
[2022-03-03 08:02] LABS: BLOOD UREA NITROGEN 5.3 mg/dL (7-18)
[2022-03-03 08:04] LABS: CREATININE 0.2 mg/dL (0.55-1.3)
[2022-03-03 08:06] LABS: BILIRUBIN,TOTAL 0.2 mg/dL (0.2-1); TOT PROT 4.4 g/dl (6.4-8.2)
[2022-03-03 09:10] LABS: ALBUMIN 1.6 g/dl (3.4-5.0)
[2022-03-03] MEDS: PANTOPRAZOLE SODIUM 40 MG VIAL IVPB SCH (10:18)
[2022-03-03] MEDS: LORATADINE 10 MG TABLET PO SCH (10:18)
[2022-03-03] MEDS: FUROSEMIDE 40 MG/4 ML INJECTABLE VIAL IVPUSH SCH (10:18)
[2022-03-03 10:19] LABS: ANISOCYTOSIS 2+; MACROCYTOSIS 0; OVALOCYTE 1+; TEAR DROP CELLS 1+; TOXIC GRANULATION 3+
[2022-03-03] MEDS: CHOLECALCIFEROL (VIT D3) 1,000 UNIT (25 MCG) TABLET PO SCH (10:19)
[2022-03-03] MEDS: ENOXAPARIN NA (PORCINE) 40 MG/0.4 ML DISP.SYRIN SQ SCH (10:26)
[2022-03-03] MEDS: MAG HYDROX/AL HYDROX/SIMETH 30 ML UNIT-DOSE CUP PO PRN (15:39)
[2022-03-03] MEDS: VANCOMYCIN/WATER 1250 MG 1,250 MG/250 ML BAG IVPB SCH (18:35)
[2022-03-03] MEDS: GABAPENTIN 300 MG CAPSULE PO SCH (21:37)
[2022-03-04] MEDS ORDERED: DEXTROSE 5%-WATER - 50 ML IVPB ONE ×3 (01:20→17:19)
[2022-03-04] MEDS ORDERED: AZTREONAM 1 GM VIAL (RESTRICTED TO ID) ONE ×3 (01:20→17:18)
[2022-03-04] MEDS: AZTREONAM 1 GM in DEXTROSE 5%-WATER - 50 ML IVPB SCH ×3 (01:26→17:23)
[2022-03-04] MEDS: VANCOMYCIN/WATER 1250 MG 1,250 MG/250 ML BAG IVPB SCH ×3 (05:40→20:08)
[2022-03-04] MEDS: CHOLECALCIFEROL (VIT D3) 1,000 UNIT (25 MCG) TABLET PO SCH (10:18)
[2022-03-04] MEDS: LORATADINE 10 MG TABLET PO SCH (10:18)
[2022-03-04] MEDS: FUROSEMIDE 40 MG/4 ML INJECTABLE VIAL IVPUSH SCH (10:19)
[2022-03-04] MEDS: PANTOPRAZOLE SODIUM 40 MG VIAL IVPB SCH (10:19)
[2022-03-04] MEDS: ENOXAPARIN NA (PORCINE) 40 MG/0.4 ML DISP.SYRIN SQ SCH (10:19)
[2022-03-04] MEDS: GABAPENTIN 300 MG CAPSULE PO SCH (22:49)
[2022-03-05] MEDS ORDERED: AZTREONAM 1 GM VIAL (RESTRICTED TO ID) ONE ×2 (01:31→09:26)
[2022-03-05] MEDS ORDERED: DEXTROSE 5%-WATER - 50 ML IVPB ONE ×2 (01:31→09:26)
[2022-03-05] MEDS: AZTREONAM 1 GM in DEXTROSE 5%-WATER - 50 ML IVPB SCH ×2 (01:33→09:56)
[2022-03-05] MEDS: MAG HYDROX/AL HYDROX/SIMETH 30 ML UNIT-DOSE CUP PO PRN ×2 (01:33→11:06)
[2022-03-05] MEDS ORDERED: SIMETHICONE 80 MG TAB.CHEW (FP) PO ONE (02:53)
[2022-03-05 07:14] LABS: HEMATOCRIT 29.9 % (32.4-45.2); HEMOGLOBIN 9.8 GM/dL (10.7-15.3); MCH 27.7 pg (25.7-33.7); MCHC 32.9 g/dl (32.0-36.0); MEAN CELL VOLUME 84.2 fl (80-96); MEAN PLT VOLUME 9.3 fl (7.5-11.1); PLATELET COUNT 157 10^3/uL (134-434); RBC 3.55 M/mm3 (3.60-5.2); RDW 15.6 % (11.6-15.6); WHITE BLOOD COUNT 5.7 K/mm3 (4.0-10.0)
[2022-03-05] MEDS: VANCOMYCIN/WATER 1250 MG 1,250 MG/250 ML BAG IVPB SCH (07:30)
[2022-03-05 07:36] LABS: BLOOD UREA NITROGEN 6.8 mg/dL (7-18); MAGNESIUM 1.6 mg/dL (1.8-2.4)
[2022-03-05 07:37] LABS: ALBUMIN 1.7 g/dl (3.4-5.0)
[2022-03-05 07:41] LABS: TOT PROT 4.4 g/dl (6.4-8.2)
[2022-03-05 07:42] LABS: BILIRUBIN,TOTAL 0.2 mg/dL (0.2-1)
[2022-03-05 08:03] LABS: CREATININE 0.2 mg/dL (0.55-1.3)
[2022-03-05] MEDS ORDERED: MAGNESIUM 2GM/50ML STERILE WATER IVPB IVPB ONE (08:45)
[2022-03-05 08:54] LABS: ANISOCYTOSIS 2+; MACROCYTOSIS 0; OVALOCYTE 2+; TEAR DROP CELLS 1+; TOXIC GRANULATION 3+
[2022-03-05] MEDS: PANTOPRAZOLE SODIUM 40 MG VIAL IVPB SCH (09:58)
[2022-03-05] MEDS: CHOLECALCIFEROL (VIT D3) 1,000 UNIT (25 MCG) TABLET PO SCH (09:58)
[2022-03-05] MEDS: LORATADINE 10 MG TABLET PO SCH (09:58)
[2022-03-05] MEDS: FUROSEMIDE 40 MG/4 ML INJECTABLE VIAL IVPUSH SCH (09:58)
[2022-03-05] MEDS: ENOXAPARIN NA (PORCINE) 40 MG/0.4 ML DISP.SYRIN SQ SCH (09:58)
[2022-03-05] MEDS: LOSARTAN POTASSIUM 50 MG TABLET PO SCH (09:59)
[2022-03-05] MEDS ORDERED: POTASSIUM CHLORIDE TABS 20 MEQ TABLET.ER (FP) PO ONE ×2 (10:00→16:00)
[2022-03-05] MEDS ORDERED: metoPROLOL SUCCINATE 25 MG TAB.SR.24H (FP) PO ONE (14:00)
[2022-03-05] MEDS: POTASSIUM CHLORIDE ORAL LIQUID 20 MEQ/15 ML PO SCH ×2 (16:06→22:09)
[2022-03-05] MEDS: GABAPENTIN 300 MG CAPSULE PO SCH (22:09)
[2022-03-06 07:58] LABS: BLOOD UREA NITROGEN 8.3 mg/dL (7-18)
[2022-03-06 08:00] LABS: HEMATOCRIT 28.5 % (32.4-45.2); HEMOGLOBIN 9.3 GM/dL (10.7-15.3); MCH 27.8 pg (25.7-33.7); MCHC 32.8 g/dl (32.0-36.0); MEAN CELL VOLUME 84.7 fl (80-96); MEAN PLT VOLUME 9.5 fl (7.5-11.1); PLATELET COUNT 156 10^3/uL (134-434); RBC 3.36 M/mm3 (3.60-5.2); RDW 16.1 % (11.6-15.6); WHITE BLOOD COUNT 3.7 K/mm3 (4.0-10.0)
[2022-03-06 08:01] LABS: CREATININE 0.3 mg/dL (0.55-1.3); MAGNESIUM 2.1 mg/dL (1.8-2.4)
[2022-03-06 08:48] LABS: ANISOCYTOSIS 2+; MACROCYTOSIS 0; PLATELET ESTIMATE DECREASED
[2022-03-06] MEDS: LOSARTAN POTASSIUM 50 MG TABLET PO SCH (10:46)
[2022-03-06] MEDS: ENOXAPARIN NA (PORCINE) 40 MG/0.4 ML DISP.SYRIN SQ SCH (10:46)
[2022-03-06] MEDS: POTASSIUM CHLORIDE ORAL LIQUID 20 MEQ/15 ML PO SCH (10:46)
[2022-03-06] MEDS: LORATADINE 10 MG TABLET PO SCH (10:46)
[2022-03-06] MEDS: CHOLECALCIFEROL (VIT D3) 1,000 UNIT (25 MCG) TABLET PO SCH (10:47)
[2022-03-06] MEDS: PANTOPRAZOLE SODIUM 40 MG VIAL IVPB SCH (10:56)
[2022-03-06] MEDS: FUROSEMIDE 40 MG/4 ML INJECTABLE VIAL IVPUSH SCH (10:56)
[2022-03-06] MEDS: GABAPENTIN 300 MG CAPSULE PO SCH (21:46)
[2022-03-07 07:24] LABS: HEMATOCRIT 27.5 % (32.4-45.2); HEMOGLOBIN 9.2 GM/dL (10.7-15.3); MCH 27.8 pg (25.7-33.7); MCHC 33.3 g/dl (32.0-36.0); MEAN CELL VOLUME 83.7 fl (80-96); MEAN PLT VOLUME 9.1 fl (7.5-11.1); PLATELET COUNT 161 10^3/uL (134-434); RBC 3.29 M/mm3 (3.60-5.2); RDW 15.7 % (11.6-15.6); WHITE BLOOD COUNT 3.8 K/mm3 (4.0-10.0)
[2022-03-07 08:43] LABS: ANISOCYTOSIS 1+; MACROCYTOSIS 0
[2022-03-07 08:57] LABS: MAGNESIUM 1.8 mg/dL (1.8-2.4)
[2022-03-07 08:58] LABS: BLOOD UREA NITROGEN 6.8 mg/dL (7-18); CALCIUM 8.6 mg/dL (8.5-10.1)
[2022-03-07 09:01] LABS: CREATININE 0.3 mg/dL (0.55-1.3); PHOSPHOROUS 3.5 mg/dL (2.5-4.9)
[2022-03-07] MEDS: FUROSEMIDE 40 MG TABLET (FP) PO SCH (09:42)
[2022-03-07] MEDS: CHOLECALCIFEROL (VIT D3) 1,000 UNIT (25 MCG) TABLET PO SCH (09:42)
[2022-03-07] MEDS: PANTOPRAZOLE 40 MG TABLET PO SCH (09:42)
[2022-03-07] MEDS: LORATADINE 10 MG TABLET PO SCH (09:42)
[2022-03-07] MEDS: GABAPENTIN 300 MG CAPSULE PO SCH (21:41)
[2022-03-08] MEDS: SIMETHICONE 80 MG TAB.CHEW (FP) PO PRN (03:35)
[2022-03-08] MEDS: LORATADINE 10 MG TABLET PO SCH (09:00)
[2022-03-08] MEDS: FUROSEMIDE 40 MG TABLET (FP) PO SCH (09:00)
[2022-03-08] MEDS: PANTOPRAZOLE 40 MG TABLET PO SCH (09:00)
[2022-03-08] MEDS: CHOLECALCIFEROL (VIT D3) 1,000 UNIT (25 MCG) TABLET PO SCH (09:00)
[2022-03-08] MEDS: GABAPENTIN 300 MG CAPSULE PO SCH (22:25)
[2022-03-09 07:17] LABS: HEMATOCRIT 25.9 % (32.4-45.2); HEMOGLOBIN 8.3 GM/dL (10.7-15.3); MCH 27.2 pg (25.7-33.7); MCHC 32.2 g/dl (32.0-36.0); MEAN CELL VOLUME 84.3 fl (80-96); MEAN PLT VOLUME 8.8 fl (7.5-11.1); PLATELET COUNT 186 10^3/uL (134-434); RBC 3.07 M/mm3 (3.60-5.2); WHITE BLOOD COUNT 4.6 K/mm3 (4.0-10.0)
[2022-03-09 07:35] LABS: ALBUMIN 1.7 g/dl (3.4-5.0); BLOOD UREA NITROGEN 4.5 mg/dL (7-18); CALCIUM 8.1 mg/dL (8.5-10.1); MAGNESIUM 1.9 mg/dL (1.8-2.4)
[2022-03-09 07:38] LABS: CREATININE 0.4 mg/dL (0.55-1.3); PHOSPHOROUS 3.8 mg/dL (2.5-4.9)
[2022-03-09 07:39] LABS: BILIRUBIN,TOTAL 0.2 mg/dL (0.2-1); TOT PROT 4.6 g/dl (6.4-8.2)
[2022-03-09 08:27] LABS: ANISOCYTOSIS 2+; MACROCYTOSIS 0
[2022-03-09] MEDS: LORATADINE 10 MG TABLET PO SCH (09:51)
[2022-03-09] MEDS: PANTOPRAZOLE 40 MG TABLET PO SCH (09:51)
[2022-03-09] MEDS: CHOLECALCIFEROL (VIT D3) 1,000 UNIT (25 MCG) TABLET PO SCH (09:51)
[2022-03-09] MEDS: FUROSEMIDE 40 MG TABLET (FP) PO SCH (09:51)
[2022-03-09] MEDS: METOPROLOL SUCCINATE PO SCH ×2 (11:30→21:15)
[2022-03-09] MEDS: SIMETHICONE 80 MG TAB.CHEW (FP) PO PRN (14:00)
[2022-03-09] MEDS ORDERED: METOPROLOL TARTRATE 5 MG/5 ML VIAL IVPUSH ONE ×2 (15:00→19:04)
[2022-03-09] MEDS ORDERED: SODIUM CHLORIDE 250 ML IV STA ×2 (15:32→15:49)
[2022-03-09] MEDS ORDERED: SODIUM CHLORIDE 250 ML IV SCH (16:15)
[2022-03-09] MEDS ORDERED: METOPROLOL TARTRATE 5 MG/5 ML VIAL ONE (19:03)
[2022-03-09] MEDS ORDERED: metoPROLOL SUCCINATE 25 MG TAB.SR.24H (FP) ONE (21:09)
[2022-03-09] MEDS: GABAPENTIN 300 MG CAPSULE PO SCH (21:15)
[2022-03-10] MEDS ORDERED: metoPROLOL SUCCINATE 25 MG TAB.SR.24H (FP) PO ONE (00:54)
[2022-03-10] MEDS ORDERED: METOPROLOL TARTRATE 5 MG/5 ML VIAL IVPUSH PRN (00:54)
[2022-03-10] MEDS: FUROSEMIDE 40 MG TABLET (FP) PO SCH (09:26)
[2022-03-10] MEDS: LORATADINE 10 MG TABLET PO SCH (09:26)
[2022-03-10] MEDS: PANTOPRAZOLE 40 MG TABLET PO SCH (09:26)
[2022-03-10] MEDS: CHOLECALCIFEROL (VIT D3) 1,000 UNIT (25 MCG) TABLET PO SCH (09:26)
[2022-03-10] MEDS: ENOXAPARIN NA (PORCINE) 40 MG/0.4 ML DISP.SYRIN SQ SCH (09:28)
[2022-03-10] MEDS: GABAPENTIN 300 MG CAPSULE PO SCH (21:39)
[2022-03-11 07:13] LABS: HEMATOCRIT 24.8 % (32.4-45.2); HEMOGLOBIN 8.3 GM/dL (10.7-15.3); MCH 27.9 pg (25.7-33.7); MCHC 33.4 g/dl (32.0-36.0); MEAN CELL VOLUME 83.5 fl (80-96); MEAN PLT VOLUME 8.7 fl (7.5-11.1); PLATELET COUNT 226 10^3/uL (134-434); RBC 2.96 M/mm3 (3.60-5.2); RDW 15.7 % (11.6-15.6); WHITE BLOOD COUNT 4.3 K/mm3 (4.0-10.0)
[2022-03-11 07:33] LABS: ALBUMIN 1.7 g/dl (3.4-5.0); CALCIUM 8.3 mg/dL (8.5-10.1)
[2022-03-11 07:34] LABS: BLOOD UREA NITROGEN 5.5 mg/dL (7-18)
[2022-03-11 07:37] LABS: CREATININE 0.4 mg/dL (0.55-1.3)
[2022-03-11 07:38] LABS: BILIRUBIN,TOTAL 0.2 mg/dL (0.2-1); TOT PROT 4.8 g/dl (6.4-8.2)
[2022-03-11] MEDS: LORATADINE 10 MG TABLET PO SCH (09:22)
[2022-03-11] MEDS: ENOXAPARIN NA (PORCINE) 40 MG/0.4 ML DISP.SYRIN SQ SCH (09:22)
[2022-03-11] MEDS: FUROSEMIDE 40 MG TABLET (FP) PO SCH (09:23)
[2022-03-11] MEDS: PANTOPRAZOLE 40 MG TABLET PO SCH (09:23)
[2022-03-11] MEDS: CHOLECALCIFEROL (VIT D3) 1,000 UNIT (25 MCG) TABLET PO SCH (09:23)
[2022-03-11 12:07] LABS: ANISOCYTOSIS 0; HELMET CELLS 0; HOWELL-JOLLY BODIES 0; MACROCYTOSIS 0; OVALOCYTE 0; ROULEAU 0; SICKELED CELLS 0; TARGET CELLS 0; TEAR DROP CELLS 0; TOXIC GRANULATION 0
[2022-03-11] MEDS: GABAPENTIN 300 MG CAPSULE PO SCH (21:29)
[2022-03-12] MEDS: ENOXAPARIN NA (PORCINE) 40 MG/0.4 ML DISP.SYRIN SQ SCH (09:58)
[2022-03-12] MEDS: FUROSEMIDE 20 MG TABLET (FP) PO SCH (09:58)
[2022-03-12] MEDS: CHOLECALCIFEROL (VIT D3) 1,000 UNIT (25 MCG) TABLET PO SCH (09:58)
[2022-03-12] MEDS: LORATADINE 10 MG TABLET PO SCH (09:58)
[2022-03-12] MEDS: PANTOPRAZOLE 40 MG TABLET PO SCH (09:58)
[2022-03-12] MEDS: GABAPENTIN 300 MG CAPSULE PO SCH (21:26)
[2022-03-13 07:47] LABS: HEMATOCRIT 24.4 % (32.4-45.2); MCH 27.4 pg (25.7-33.7); PLATELET COUNT 288 10^3/uL (134-434); RBC 2.93 M/mm3 (3.60-5.2); RDW 15.7 % (11.6-15.6); WHITE BLOOD COUNT 3.8 K/mm3 (4.0-10.0)
[2022-03-13 08:05] LABS: ALBUMIN 1.8 g/dl (3.4-5.0); BLOOD UREA NITROGEN 4.3 mg/dL (7-18); CALCIUM 8.3 mg/dL (8.5-10.1)
[2022-03-13 08:08] LABS: CREATININE 0.4 mg/dL (0.55-1.3)
[2022-03-13 08:10] LABS: BILIRUBIN,TOTAL 0.1 mg/dL (0.2-1); TOT PROT 4.8 g/dl (6.4-8.2)
[2022-03-13] MEDS: ENOXAPARIN NA (PORCINE) 40 MG/0.4 ML DISP.SYRIN SQ SCH (09:25)
[2022-03-13] MEDS: CHOLECALCIFEROL (VIT D3) 1,000 UNIT (25 MCG) TABLET PO SCH (09:25)
[2022-03-13] MEDS: PANTOPRAZOLE 40 MG TABLET PO SCH (09:25)
[2022-03-13] MEDS: LORATADINE 10 MG TABLET PO SCH (09:25)
[2022-03-13] MEDS: FUROSEMIDE 20 MG TABLET (FP) PO SCH (09:25)
[2022-03-13 10:13] LABS: ANISOCYTOSIS 0; HELMET CELLS 0; HOWELL-JOLLY BODIES 0; MACROCYTOSIS 0; OVALOCYTE 0; ROULEAU 0; SICKELED CELLS 0; TARGET CELLS 0; TEAR DROP CELLS 0; TOXIC GRANULATION 0
[2022-03-13 13:44] VITALS: BP 105/56; PULSE 87; TEMP 97.6
== END 2022-03-13 14:04 | DRG 229 ==
LOC: JER 17:33 → JERBED 22:11 → J7W 02-21 01:36 → J2W 02-27 13:42
PROVIDERS: ADMIT Internal Medicine
PROC: 3E04305 Introduction of Other Antineoplastic into Central Vein, Percutaneous Approach (ICD-10-PCS; 2022-02-21)
PROC: 0W9G3ZX Drainage of Peritoneal Cavity, Percutaneous Approach, Diagnostic (ICD-10-PCS; principal; 2022-02-26)
PROC: 0W9G3ZZ Drainage of Peritoneal Cavity, Percutaneous Approach (ICD-10-PCS; 2022-03-10)
DX: C78.6 Secondary malignant neoplasm of retroperitoneum and peritoneum (principal); C54.1 Malignant neoplasm of endometrium; C78.7 Secondary malignant neoplasm of liver and intrahepatic bile duct; A41.89 Other specified sepsis; J18.9 Pneumonia, unspecified organism; R73.03 Prediabetes; K76.0 Fatty (change of) liver, not elsewhere classified; Z85.3 Personal history of malignant neoplasm of breast; R18.8 Other ascites; K59.00 Constipation, unspecified; K57.90 Diverticulosis of intestine, part unspecified, without perforation or abscess without bleeding; M54.50 Low back pain, unspecified; H52.10 Myopia, unspecified eye; R18.0 Malignant ascites; R91.8 Other nonspecific abnormal finding of lung field; G89.29 Other chronic pain; I11.0 Hypertensive heart disease with heart failure; K56.7 Ileus, unspecified; I50.9 Heart failure, unspecified; R09.02 Hypoxemia; G62.9 Polyneuropathy, unspecified; I43 Cardiomyopathy in diseases classified elsewhere; J98.11 Atelectasis; D70.8 Other neutropenia; B96.7 Clostridium perfringens [C. perfringens] as the cause of diseases classified elsewhere; R00.0 Tachycardia, unspecified; R50.81 Fever presenting with conditions classified elsewhere; Z86.718 Personal history of other venous thrombosis and embolism
CPT/HCPCS: 36415; 71045-TC-FY; 71250-TC; 71275-TC; 74177-TC; 76700-TC; 76942-TC; 80048; 80053; 81003; 82042; 82150; 82465; 82553; 82803; 82945; 83605; 83615; 83690; 83735; 83880; 83986; 84100; 84157; 84443; 84478; 84484; 85025; 85610; 85730; 86850; 86900; 86901; 87040; 87070; 87075; 87076; 87086; 87102; 87116; 87205; 87206; 87210; 88108; 88305-TC; 88341-TC; 93005; 93010; 93306-TC; 94010; 97116-GP; 97161-GP; 99285-25; C9803-CS; G0480; J1100; J1447; J1453; J2469; Q9967; U0003; U0005

== ENCOUNTER 2022-03-22 08:24 | Day surgery (SDC) | payer OTHER ==
[2022-03-22] MEDS ORDERED: SODIUM CHLORIDE 250 ML IV ONE (09:00)
[2022-03-22 09:11] LABS: BASO % 0.4 % (0-2.0); EOS % 0.9 % (0-4.5); HEMATOCRIT 31.4 % (32.4-45.2); HEMOGLOBIN 10.2 GM/dL (10.7-15.3); LYMPH % 19.1 % (8-40); MCH 26.7 pg (25.7-33.7); MCHC 32.3 g/dl (32.0-36.0); MEAN CELL VOLUME 82.5 fl (80-96); MEAN PLT VOLUME 7.8 fl (7.5-11.1); NEUT % 66.6 % (42.8-82.8); PLATELET COUNT 614 10^3/uL (134-434); RBC 3.81 M/mm3 (3.60-5.2); RDW 16.6 % (11.6-15.6); WHITE BLOOD COUNT 8.4 K/mm3 (4.0-10.0)
[2022-03-22] MEDS ORDERED: FAMOTIDINE 20 MG/50 ML IVPB 20 MG/50 ML MG IVPB ONE (09:30)
[2022-03-22] MEDS ORDERED: PALONOSETRON HCL 0.25 MG/5 ML VIAL IVPUSH ONE (09:30)
[2022-03-22] MEDS ORDERED: DEXAMETHASONE SODIUM PHOSPHATE 20 MG, DIPHENHYDRAMINE 25 MG in SODIUM CHLORIDE 100 ML IVPB ONE (09:30)
[2022-03-22] MEDS ORDERED: FOSAPREPITANT DIMEGLUMINE 150 MG in SODIUM CHLORIDE 145 ML IVPB ONE (09:30)
[2022-03-22 09:35] LABS: BLOOD UREA NITROGEN 9.9 mg/dL (7-18); CALCIUM 9.2 mg/dL (8.5-10.1); MAGNESIUM 1.8 mg/dL (1.8-2.4)
[2022-03-22 09:38] LABS: BILIRUBIN,DIRECT 0.1 mg/dL (0.0-0.2); CREATININE 0.7 mg/dL (0.55-1.3)
[2022-03-22 09:40] LABS: BILIRUBIN,TOTAL 0.2 mg/dL (0.2-1); TOT PROT 6.7 g/dl (6.4-8.2)
[2022-03-22 09:50] LABS: ALBUMIN 2.6 g/dl (3.4-5.0)
[2022-03-22] MEDS ORDERED: SODIUM CHLORIDE 250 ML IV STA (09:56)
[2022-03-22] MEDS ORDERED: OLANZapine 5 MG TABLET PO ONE (09:57)
[2022-03-22] MEDS ORDERED: PACLITAXEL IVPB ONE ×2 (10:00→10:30)
[2022-03-22] MEDS ORDERED: SODIUM CHLORIDE IVPB ONE ×4 (10:00→11:30)
[2022-03-22] MEDS ORDERED: CARBOPLATIN IVPB ONE ×2 (11:00→11:30)
[2022-03-22] MEDS ORDERED: PORTA CATH FLUSH 10 ML IVPUSH PRN (18:25)
[2022-03-22 18:27] VITALS: PULSE 95; TEMP 98.3
[2022-03-22 18:28] VITALS: BP 127/75
== END 2022-03-22 16:10 | disposition home or self-care (01) ==
LOC: JONCCHEMO 08:24
PROVIDERS: ATTEND Internal Medicine Hematology & Oncology
DX: Z51.11 Encounter for antineoplastic chemotherapy (principal); C50.919 Malignant neoplasm of unspecified site of unspecified female breast
CPT/HCPCS: 36415; 80048; 80076; 83735; 85025; 86304; 96367; 96375; 96413; 96417; J1453; J2469

== ENCOUNTER 2022-03-23 06:23 | Day surgery (SDC) | payer OTHER ==
[2022-03-23] MEDS ORDERED: PEGFILGRASTIM-CBQV (UDENYCA) 6 MG/0.6 ML SYRINGE SQ ONE ×2 (10:00→14:15)
[2022-03-23] MEDS ORDERED: PEGFILGRASTIM (NEULASTA) 6 MG/0.6 ML DISP.SYRIN SQ ONE (10:00)
[2022-03-23] MEDS ORDERED: DEXAMETHASONE SOD PHOSPHATE 20 MG/5 ML VIAL IVPB ONE (10:49)
[2022-03-23] MEDS ORDERED: OLANZapine 5 MG TABLET PO ONE (10:50)
[2022-03-23] MEDS ORDERED: SODIUM CHLORIDE 125 ML IV STA (10:51)
[2022-03-23] MEDS ORDERED: SIMETHICONE 80 MG TAB.CHEW (FP) PO SCH (11:00)
[2022-03-23] MEDS ORDERED: DEXAMETHASONE SOD PHOSPHATE 10 MG/1 ML VIAL IVPB ONE (11:15)
[2022-03-23] MEDS ORDERED: DEXAMETHASONE INJECTION 8 MG in SODIUM CHLORIDE 50 ML IVPB ONE (11:30)
[2022-03-23 17:09] VITALS: BP 122/83; PULSE 95; TEMP 98.4
[2022-03-23] MEDS ORDERED: PORTA CATH FLUSH 10 ML IVPUSH PRN (17:09)
== END 2022-03-23 14:35 | disposition home or self-care (01) ==
LOC: JONCCHEMO 06:23
PROVIDERS: ATTEND Internal Medicine Hematology & Oncology
PROC: 3E043GC Introduction of Other Therapeutic Substance into Central Vein, Percutaneous Approach (ICD-10-PCS; principal; 2022-03-23)
DX: C50.919 Malignant neoplasm of unspecified site of unspecified female breast (principal); Z76.89 Persons encountering health services in other specified circumstances
CPT/HCPCS: 96365; 96368; Q5111

== ENCOUNTER → 2022-03-28 | Day surgery (SDC) | payer OTHER ==
[2022-03-28 10:36] LABS: HEMOGLOBIN 10.3 GM/dL (10.7-15.3); MCH 26.5 pg (25.7-33.7); MCHC 32.3 g/dl (32.0-36.0); MEAN PLT VOLUME 8.7 fl (7.5-11.1); PLATELET COUNT 270 10^3/uL (134-434); RBC 3.91 M/mm3 (3.60-5.2); RDW 16.4 % (11.6-15.6); WHITE BLOOD COUNT 9.5 K/mm3 (4.0-10.0)
[2022-03-28 10:43] LABS: INR 1.27 (0.83-1.09); PROTHROMBIN TIME (PATIENT) 14.6 SEC (9.7-13.0)
[2022-03-28 11:08] LABS: ANISOCYTOSIS 0; HELMET CELLS 0; HOWELL-JOLLY BODIES 0; MACROCYTOSIS 0; OVALOCYTE 0; ROULEAU 0; SICKELED CELLS 0; TARGET CELLS 0; TEAR DROP CELLS 0; TOXIC GRANULATION 0
== END | disposition home or self-care (01) ==
LOC: JRADIR 09:42
PROVIDERS: ATTEND Internal Medicine Hematology & Oncology
PROC: 0W9G3ZZ Drainage of Peritoneal Cavity, Percutaneous Approach (ICD-10-PCS; principal; 2022-03-28)
PROC: BW40ZZZ Ultrasonography of Abdomen (ICD-10-PCS; 2022-03-28)
DX: R18.8 Other ascites (principal)
CPT/HCPCS: 36415; 49083; 76942-TC; 85025; 85610

== ENCOUNTER 2022-04-12 06:27 | Day surgery (SDC) | payer OTHER ==
[2022-04-12 11:13] LABS: HEMATOCRIT 29.4 % (32.4-45.2); HEMOGLOBIN 9.5 GM/dL (10.7-15.3); MCH 26.1 pg (25.7-33.7); MCHC 32.2 g/dl (32.0-36.0); MEAN CELL VOLUME 80.9 fl (80-96); MEAN PLT VOLUME 8.3 fl (7.5-11.1); PLATELET COUNT 569 10^3/uL (134-434); RBC 3.63 M/mm3 (3.60-5.2); WHITE BLOOD COUNT 7.6 K/mm3 (4.0-10.0)
[2022-04-12 11:32] LABS: ACTIVATED PTT 33.5 SECONDS (25.2-36.5); INR 1.39 (0.83-1.09)
[2022-04-12 11:44] LABS: CALCIUM 9.4 mg/dL (8.5-10.1)
[2022-04-12 11:45] LABS: ALBUMIN 2.7 g/dl (3.4-5.0); BLOOD UREA NITROGEN 8.4 mg/dL (7-18)
[2022-04-12] MEDS ORDERED: SODIUM CHLORIDE 250 ML IV ONE (11:45)
[2022-04-12 11:47] LABS: BILIRUBIN,DIRECT 0.1 mg/dL (0.0-0.2)
[2022-04-12 11:48] LABS: CREATININE 0.8 mg/dL (0.55-1.3)
[2022-04-12 11:49] LABS: BILIRUBIN,TOTAL 0.3 mg/dL (0.2-1); TOT PROT 7.3 g/dl (6.4-8.2)
[2022-04-12 12:23] LABS: ANISOCYTOSIS 1+
[2022-04-12] MEDS ORDERED: PALONOSETRON HCL 0.25 MG/5 ML VIAL IVPUSH ONE (12:30)
[2022-04-12] MEDS ORDERED: DEXAMETHASONE INJECTION 20 MG, DIPHENHYDRAMINE 25 MG in SODIUM CHLORIDE 100 ML IVPB ONE (12:30)
[2022-04-12] MEDS ORDERED: FAMOTIDINE 20 MG/50 ML IVPB 20 MG/50 ML MG IVPB ONE (12:30)
[2022-04-12] MEDS ORDERED: FOSAPREPITANT DIMEGLUMINE 150 MG in SODIUM CHLORIDE 145 ML IVPB ONE (12:30)
[2022-04-12] MEDS ORDERED: SODIUM CHLORIDE IVPB ONE ×2 (13:00→16:00)
[2022-04-12] MEDS ORDERED: PACLITAXEL IVPB ONE (13:00)
[2022-04-12] MEDS ORDERED: CARBOPLATIN IVPB ONE (16:00)
[2022-04-12 19:12] VITALS: BP 117/68; PULSE 114; TEMP 97.9
[2022-04-12] MEDS ORDERED: PORTA CATH FLUSH 10 ML IVPUSH PRN (19:19)
== END 2022-04-12 18:45 | disposition home or self-care (01) ==
LOC: JONCCHEMO 06:27
PROVIDERS: ATTEND Internal Medicine Hematology & Oncology
PROC: 3E04305 Introduction of Other Antineoplastic into Central Vein, Percutaneous Approach (ICD-10-PCS; principal; 2022-04-12)
PROC: 3E043GC Introduction of Other Therapeutic Substance into Central Vein, Percutaneous Approach (ICD-10-PCS; 2022-04-12)
PROC: 3E0437Z Introduction of Electrolytic and Water Balance Substance into Central Vein, Percutaneous Approach (ICD-10-PCS; 2022-04-12)
DX: Z51.11 Encounter for antineoplastic chemotherapy (principal); C50.919 Malignant neoplasm of unspecified site of unspecified female breast; Z17.0 Estrogen receptor positive status [ER+]
CPT/HCPCS: 36415; 80048; 80076; 83735; 85025; 85610; 85730; 96367; 96375; 96413; 96415; 96417; J1100; J1453; J2469

== ENCOUNTER 2022-04-13 07:27 | Day surgery (SDC) | payer OTHER ==
[2022-04-13] MEDS ORDERED: PEGFILGRASTIM (NEULASTA) 6 MG/0.6 ML DISP.SYRIN SQ ONE (10:00)
[2022-04-13] MEDS ORDERED: PEGFILGRASTIM-CBQV (UDENYCA) 6 MG/0.6 ML SYRINGE SQ ONE (10:00)
[2022-04-13 13:43] VITALS: BP 109/64; PULSE 90; TEMP 98.3
== END 2022-04-13 13:45 | disposition home or self-care (01) ==
LOC: JONCCHEMO 07:27
PROVIDERS: ATTEND Internal Medicine Hematology & Oncology
PROC: 3E013GC Introduction of Other Therapeutic Substance into Subcutaneous Tissue, Percutaneous Approach (ICD-10-PCS; principal; 2022-04-13)
DX: Z76.89 Persons encountering health services in other specified circumstances (principal); C50.919 Malignant neoplasm of unspecified site of unspecified female breast; Z17.0 Estrogen receptor positive status [ER+]
CPT/HCPCS: 96372; Q5111

== ENCOUNTER → 2022-04-18 | Day surgery (SDC) | payer OTHER | END | disposition home or self-care (01) | LOC: JRADIR 12:06 | PROVIDERS: ATTEND Internal Medicine Hematology & Oncology | PROC: 0W9G3ZX Drainage of Peritoneal Cavity, Percutaneous Approach, Diagnostic (ICD-10-PCS; principal; 2022-04-18) | PROC: BW40ZZZ Ultrasonography of Abdomen (ICD-10-PCS; 2022-04-18) | DX: R18.8 Other ascites (principal) | CPT/HCPCS: 49083; 76942-TC ==

== ENCOUNTER 2022-04-24 12:16 | Inpatient (IN) | payer OTHER ==
[2022-04-24] MEDS ORDERED: ACETAMINOPHEN 1000 MG/100 ML BAG IVPB ONE (13:38)
[2022-04-24] MEDS ORDERED: SODIUM CHLORIDE IV ONE (13:38)
[2022-04-24] MEDS ORDERED: ACETAMINOPHEN INJECTION 100 ML IVPB ONE (14:07)
[2022-04-24] MEDS ORDERED: AZTREONAM 1 GM in DEXTROSE 5%-WATER - 50 ML IVPB ONE (14:25)
[2022-04-24] MEDS ORDERED: AZTREONAM 1 GM VIAL (RESTRICTED TO ID) ONE (14:31)
[2022-04-24] MEDS ORDERED: SODIUM CHLORIDE 0.9% 500 ML INFUS.BAG IV ONE (14:39)
[2022-04-24 14:58] LABS: VENOUS BASE EXCESS 1.9 mmol/L (-2-2); VENOUS O2 SATURATION 53.8 % (70-80); VENOUS PCO2 39.7 mmHg (38-52); VENOUS PH 7.437 (7.310-7.410)
[2022-04-24 15:02] LABS: BASO % 0.1 % (0-2.0); HEMATOCRIT 24.7 % (32.4-45.2); HEMOGLOBIN 7.8 GM/dL (10.7-15.3); LYMPH % 4.8 % (8-40); MCH 25.2 pg (25.7-33.7); MCHC 31.6 g/dl (32.0-36.0); MEAN PLT VOLUME 8.5 fl (7.5-11.1); MONO % 7.4 % (3.8-10.2); NEUT % 87.7 % (42.8-82.8); PLATELET COUNT 185 10^3/uL (134-434); RBC 3.09 M/mm3 (3.60-5.2); RDW 19.3 % (11.6-15.6); WHITE BLOOD COUNT 16.9 K/mm3 (4.0-10.0)
[2022-04-24 15:04] LABS: EPI CELLS >36 /uL (0-25.1); HYALINE CASTS 66 /uL (0-3.1); PH,URINE 5.5 (5.0-8.0); URINE APPEARANCE CLOUDY; URINE BACTERIA 47 /uL (0-1359); URINE BILIRUBIN NEGATIVE (NEGATIVE); URINE COLOR DK YELLOW; URINE GLUCOSE (UA) NEGATIVE (NEGATIVE); URINE KETONE 2+ (NEGATIVE); URINE LEUK ESTERASE TRACE (NEGATIVE); URINE NITRITE NEGATIVE (NEGATIVE); URINE PROTEIN 2+ (NEGATIVE); URINE WBC 167 /uL (0-25.8)
[2022-04-24 15:06] LABS: INR 1.58 (0.83-1.09); PROTHROMBIN TIME (PATIENT) 18.2 SEC (9.7-13.0)
[2022-04-24 15:09] LABS: ACTIVATED PTT 29.9 SECONDS (25.2-36.5)
[2022-04-24 15:21] LABS: ALBUMIN 2.4 g/dl (3.4-5.0); BLOOD UREA NITROGEN 15.6 mg/dL (7-18); CALCIUM 8.7 mg/dL (8.5-10.1)
[2022-04-24 15:24] LABS: CREATININE 0.7 mg/dL (0.55-1.3)
[2022-04-24 15:26] LABS: BILIRUBIN,TOTAL 0.5 mg/dL (0.2-1)
[2022-04-24 15:53] LABS: URINE RBC 22.7 /uL (0-23.9)
[2022-04-25] MEDS ORDERED: POLYETHYLENE GLYCOL (HEALTHYLAX) 3350 17 GM PACKET PO PRN (01:15)
[2022-04-25] MEDS ORDERED: ACETAMINOPHEN 1000 MG/100 ML BAG IVPB ONE (02:11)
[2022-04-25] MEDS ORDERED: AZTREONAM 1 GM VIAL (RESTRICTED TO ID) ONE ×3 (02:18→18:22)
[2022-04-25] MEDS: AZTREONAM 1 GM in DEXTROSE 5%-WATER - 50 ML IVPB SCH ×2 (03:03→12:49)
[2022-04-25] MEDS: INSULIN SLIDING SCALE (NOVOLOG) 1 VIAL SQ SCH ×4 (12:38→22:09)
[2022-04-25] MEDS ORDERED: VANCOMYCIN 1 GRAM (PRE-DOCKED) 1,000 MG/250 ML BAG IVPB ONE (14:07)
[2022-04-25] MEDS ORDERED: LORATADINE 10 MG TABLET ONE (14:16)
[2022-04-25] MEDS: VANCOMYCIN 1 GRAM (PRE-DOCKED) 1,000 MG/250 ML BAG IVPB SCH (14:21)
[2022-04-25] MEDS: LORATADINE 10 MG TABLET PO SCH (14:23)
[2022-04-25] MEDS ORDERED: ACETAMINOPHEN 325 MG TABLET (FP) PO PRN (15:22)
[2022-04-25 17:35] LABS: BF WBC & OTHER NUCLEATED CELLS 1363 /mm3
[2022-04-25 18:21] LABS: BODY FLUID MACROPHAGES 5 %; BODY FLUID MONOCYTE 6 %
[2022-04-25] MEDS: AZTREONAM 2 GM in DEXTROSE 5%-WATER 100 ML IVPB SCH (18:29)
[2022-04-26] MEDS: AZTREONAM 2 GM in DEXTROSE 5%-WATER 100 ML IVPB SCH ×3 (07:27→18:31)
[2022-04-26 07:39] LABS: BASO % 0.3 % (0-2.0); EOS % 0.2 % (0-4.5); HEMATOCRIT 21.6 % (32.4-45.2); LYMPH % 15.7 % (8-40); MCH 26.3 pg (25.7-33.7); MCHC 32.6 g/dl (32.0-36.0); MEAN CELL VOLUME 80.8 fl (80-96); MEAN PLT VOLUME 8.6 fl (7.5-11.1); MONO % 5.9 % (3.8-10.2); NEUT % 77.9 % (42.8-82.8); PLATELET COUNT 215 10^3/uL (134-434); RBC 2.67 M/mm3 (3.60-5.2); RDW 19.2 % (11.6-15.6); WHITE BLOOD COUNT 10.8 K/mm3 (4.0-10.0)
[2022-04-26 07:58] LABS: CALCIUM 8.3 mg/dL (8.5-10.1); MAGNESIUM 1.7 mg/dL (1.8-2.4)
[2022-04-26 08:01] LABS: CREATININE 0.3 mg/dL (0.55-1.3); PHOSPHOROUS 2.8 mg/dL (2.5-4.9)
[2022-04-26] MEDS: INSULIN SLIDING SCALE (NOVOLOG) 1 VIAL SQ SCH ×4 (09:06→22:12)
[2022-04-26] MEDS ORDERED: POTASSIUM CHLORIDE TABS 20 MEQ TABLET.ER (FP) PO ONE (09:15)
[2022-04-26] MEDS ORDERED: LORATADINE 10 MG TABLET ONE (10:17)
[2022-04-26] MEDS ORDERED: POTASSIUM CHLORIDE ORAL LIQUID 20 MEQ/15 ML ONE (10:17)
[2022-04-26] MEDS ORDERED: AZTREONAM 2 GM VIAL (RESTRICTED TO ID) ONE ×2 (10:19→18:25)
[2022-04-26] MEDS: LORATADINE 10 MG TABLET PO SCH (10:28)
[2022-04-26] MEDS ORDERED: SIMETHICONE 80 MG TAB.CHEW (FP) PO PRN (16:58)
[2022-04-26] MEDS: VANCOMYCIN 1 GRAM (PRE-DOCKED) 1,000 MG/250 ML BAG IVPB SCH (17:36)
[2022-04-26] MEDS: AZTREONAM 1 GM in DEXTROSE 5%-WATER - 50 ML IVPB SCH ×2 (17:46→17:47)
[2022-04-26] MEDS ORDERED: DEXTROSE 5%-WATER 100 ML IVPB ONE (18:25)
[2022-04-26] MEDS ORDERED: POLYETHYLENE GLYCOL (HEALTHYLAX) 3350 17 GM PACKET PO PRN (20:58)
[2022-04-26 21:53] LABS: BASO % 0.2 % (0-2.0); MCHC 31.9 g/dl (32.0-36.0); RDW 19.7 % (11.6-15.6); WHITE BLOOD COUNT 9.2 K/mm3 (4.0-10.0)
[2022-04-26] MEDS ORDERED: metoPROLOL SUCCINATE 25 MG TAB.SR.24H (FP) PO SCH (22:00)
[2022-04-26 22:07] LABS: EOS % 0.3 % (0-4.5); HEMATOCRIT 19.7 % (32.4-45.2); LYMPH % 13.4 % (8-40); MCH 25.7 pg (25.7-33.7); MEAN CELL VOLUME 80.5 fl (80-96); MEAN PLT VOLUME 8.2 fl (7.5-11.1); MONO % 7.1 % (3.8-10.2); PLATELET COUNT 210 10^3/uL (134-434); RBC 2.45 M/mm3 (3.60-5.2)
[2022-04-26] MEDS: GABAPENTIN 300 MG CAPSULE PO SCH (22:07)
[2022-04-26 22:17] LABS: HEMOGLOBIN 6.3 GM/dL (10.7-15.3)
[2022-04-26] MEDS ORDERED: PORTA CATH FLUSH 10 ML IVPUSH PRN (23:29)
[2022-04-27] MEDS ORDERED: AZTREONAM 2 GM VIAL (RESTRICTED TO ID) ONE ×2 (01:42→09:54)
[2022-04-27] MEDS ORDERED: DEXTROSE 5%-WATER 100 ML IVPB ONE ×2 (01:42→09:54)
[2022-04-27] MEDS: AZTREONAM 2 GM in DEXTROSE 5%-WATER 100 ML IVPB SCH ×3 (01:47→17:02)
[2022-04-27] MEDS: INSULIN SLIDING SCALE (NOVOLOG) 1 VIAL SQ SCH ×4 (06:12→21:39)
[2022-04-27 07:55] LABS: BASO % 0.3 % (0-2.0); EOS % 0.4 % (0-4.5); HEMATOCRIT 19.2 % (32.4-45.2); LYMPH % 16.7 % (8-40); MCH 25.6 pg (25.7-33.7); MCHC 31.9 g/dl (32.0-36.0); MEAN CELL VOLUME 80.3 fl (80-96); MEAN PLT VOLUME 8.2 fl (7.5-11.1); MONO % 8.1 % (3.8-10.2); NEUT % 74.5 % (42.8-82.8); PLATELET COUNT 203 10^3/uL (134-434); RBC 2.39 M/mm3 (3.60-5.2); RDW 19.8 % (11.6-15.6); RETICULOCYTES 1.28 % (0.5-1.5); WHITE BLOOD COUNT 7.3 K/mm3 (4.0-10.0)
[2022-04-27 08:15] LABS: BLOOD UREA NITROGEN 7.3 mg/dL (7-18)
[2022-04-27 08:18] LABS: CREATININE 0.3 mg/dL (0.55-1.3)
[2022-04-27 08:33] LABS: HEMOGLOBIN 6.1 GM/dL (10.7-15.3)
[2022-04-27] MEDS: PANTOPRAZOLE 40 MG TABLET PO SCH (09:56)
[2022-04-27] MEDS: LORATADINE 10 MG TABLET PO SCH (09:56)
[2022-04-27] MEDS ORDERED: ANASTROZOLE 1 MG TABLET PO SCH (10:00)
[2022-04-27] MEDS ORDERED: LORATADINE 10 MG TABLET PO SCH (10:00)
[2022-04-27] MEDS ORDERED: FUROSEMIDE 40 MG TABLET (FP) PO SCH (10:00)
[2022-04-27 12:46] VITALS: BMI 20.2
[2022-04-27 13:07] LABS: BODY FLUID ALBUMIN 2.4 g/dL (Not Estab.)
[2022-04-27] MEDS: VANCOMYCIN 1 GRAM (PRE-DOCKED) 1,000 MG/250 ML BAG IVPB SCH (15:42)
[2022-04-27 18:38] LABS: HEMATOCRIT 25.4 % (32.4-45.2); HEMOGLOBIN 8.3 GM/dL (10.7-15.3); MCH 26.1 pg (25.7-33.7); MCHC 32.5 g/dl (32.0-36.0); MEAN CELL VOLUME 80.3 fl (80-96); PLATELET COUNT 197 10^3/uL (134-434); RBC 3.16 M/mm3 (3.60-5.2); WHITE BLOOD COUNT 8.3 K/mm3 (4.0-10.0)
[2022-04-27] MEDS ORDERED: metoPROLOL SUCCINATE 25 MG TAB.SR.24H (FP) PO ONE (21:04)
[2022-04-27] MEDS: METOPROLOL SUCCINATE PO SCH (21:37)
[2022-04-27] MEDS: GABAPENTIN 300 MG CAPSULE PO SCH (21:38)
[2022-04-28] MEDS ORDERED: AZTREONAM 2 GM VIAL (RESTRICTED TO ID) ONE ×3 (00:44→14:35)
[2022-04-28] MEDS ORDERED: DEXTROSE 5%-WATER 100 ML IVPB ONE ×3 (00:44→14:35)
[2022-04-28] MEDS: AZTREONAM 2 GM in DEXTROSE 5%-WATER 100 ML IVPB SCH ×3 (01:21→17:26)
[2022-04-28] MEDS: INSULIN SLIDING SCALE (NOVOLOG) 1 VIAL SQ SCH ×4 (06:01→21:19)
[2022-04-28 09:06] LABS: BASO % 0.2 % (0-2.0); EOS % 0.3 % (0-4.5); HEMATOCRIT 27.4 % (32.4-45.2); LYMPH % 15.3 % (8-40); MCH 26.3 pg (25.7-33.7); MCHC 32.8 g/dl (32.0-36.0); MEAN CELL VOLUME 80.4 fl (80-96); MEAN PLT VOLUME 8.2 fl (7.5-11.1); MONO % 8.8 % (3.8-10.2); NEUT % 75.4 % (42.8-82.8); PLATELET COUNT 214 10^3/uL (134-434); RDW 17.5 % (11.6-15.6); WHITE BLOOD COUNT 8.9 K/mm3 (4.0-10.0)
[2022-04-28] MEDS ORDERED: metoPROLOL SUCCINATE 25 MG TAB.SR.24H (FP) PO ONE ×2 (09:20→21:12)
[2022-04-28] MEDS: METOPROLOL SUCCINATE PO SCH ×2 (09:26→21:17)
[2022-04-28] MEDS: PANTOPRAZOLE 40 MG TABLET PO SCH (09:27)
[2022-04-28] MEDS: LORATADINE 10 MG TABLET PO SCH (09:27)
[2022-04-28 09:31] LABS: BLOOD UREA NITROGEN 6.3 mg/dL (7-18); CALCIUM 8.3 mg/dL (8.5-10.1)
[2022-04-28 09:35] LABS: CREATININE 0.3 mg/dL (0.55-1.3)
[2022-04-28 09:40] LABS: ANISOCYTOSIS 2+; MACROCYTOSIS 0
[2022-04-28] MEDS ORDERED: POTASSIUM CHLORIDE TABS 20 MEQ TABLET.ER (FP) PO SCH (10:00)
[2022-04-28] MEDS: VANCOMYCIN 1 GRAM (PRE-DOCKED) 1,000 MG/250 ML BAG IVPB SCH (14:11)
[2022-04-28] MEDS ORDERED: INSULIN (NOVOLOG) ASPART 100 UNITS/ML 10ML VIAL ONE (21:13)
[2022-04-28] MEDS: POTASSIUM CHLORIDE ORAL LIQUID 20 MEQ/15 ML PO SCH (21:17)
[2022-04-28] MEDS: GABAPENTIN 300 MG CAPSULE PO SCH (21:19)
[2022-04-29] MEDS ORDERED: DEXTROSE 5%-WATER 100 ML IVPB ONE ×3 (00:09→17:05)
[2022-04-29] MEDS ORDERED: AZTREONAM 2 GM VIAL (RESTRICTED TO ID) ONE ×3 (00:09→17:05)
[2022-04-29] MEDS: AZTREONAM 2 GM in DEXTROSE 5%-WATER 100 ML IVPB SCH ×3 (01:11→17:06)
[2022-04-29] MEDS: INSULIN SLIDING SCALE (NOVOLOG) 1 VIAL SQ SCH ×4 (06:04→21:27)
[2022-04-29] MEDS ORDERED: metoPROLOL SUCCINATE 25 MG TAB.SR.24H (FP) PO ONE ×3 (08:33→21:23)
[2022-04-29] MEDS: POTASSIUM CHLORIDE ORAL LIQUID 20 MEQ/15 ML PO SCH ×2 (08:59→21:27)
[2022-04-29] MEDS: METOPROLOL SUCCINATE PO SCH ×2 (09:00→21:25)
[2022-04-29] MEDS: PANTOPRAZOLE 40 MG TABLET PO SCH (09:00)
[2022-04-29] MEDS: LORATADINE 10 MG TABLET PO SCH (09:00)
[2022-04-29 09:36] LABS: BASO % 0.3 % (0-2.0); EOS % 0.5 % (0-4.5); HEMATOCRIT 24.8 % (32.4-45.2); HEMOGLOBIN 8.2 GM/dL (10.7-15.3); LYMPH % 18.3 % (8-40); MCH 26.3 pg (25.7-33.7); MCHC 33.1 g/dl (32.0-36.0); MEAN CELL VOLUME 79.6 fl (80-96); MEAN PLT VOLUME 8.4 fl (7.5-11.1); MONO % 10.7 % (3.8-10.2); NEUT % 70.2 % (42.8-82.8); PLATELET COUNT 188 10^3/uL (134-434); RBC 3.12 M/mm3 (3.60-5.2); RDW 17.4 % (11.6-15.6); WHITE BLOOD COUNT 8.3 K/mm3 (4.0-10.0)
[2022-04-29 09:45] LABS: BLOOD UREA NITROGEN 6.8 mg/dL (7-18)
[2022-04-29 09:48] LABS: CREATININE 0.3 mg/dL (0.55-1.3)
[2022-04-29 10:10] LABS: ANISOCYTOSIS 0; HELMET CELLS 0; HOWELL-JOLLY BODIES 0; MACROCYTOSIS 0; OVALOCYTE 0; ROULEAU 0; SICKELED CELLS 0; TARGET CELLS 0; TEAR DROP CELLS 0; TOXIC GRANULATION 0
[2022-04-29] MEDS: VANCOMYCIN 1 GRAM (PRE-DOCKED) 1,000 MG/250 ML BAG IVPB SCH (15:18)
[2022-04-29] MEDS: GABAPENTIN 300 MG CAPSULE PO SCH (21:27)
[2022-04-30] MEDS ORDERED: AZTREONAM 2 GM VIAL (RESTRICTED TO ID) ONE ×3 (00:49→16:27)
[2022-04-30] MEDS ORDERED: DEXTROSE 5%-WATER 100 ML IVPB ONE ×3 (00:49→16:27)
[2022-04-30] MEDS: AZTREONAM 2 GM in DEXTROSE 5%-WATER 100 ML IVPB SCH ×3 (01:24→17:24)
[2022-04-30] MEDS: INSULIN SLIDING SCALE (NOVOLOG) 1 VIAL SQ SCH (06:01)
[2022-04-30] MEDS ORDERED: metoPROLOL SUCCINATE 25 MG TAB.SR.24H (FP) PO ONE ×2 (08:52→21:33)
[2022-04-30] MEDS: POTASSIUM CHLORIDE ORAL LIQUID 20 MEQ/15 ML PO SCH (09:37)
[2022-04-30] MEDS: METOPROLOL SUCCINATE PO SCH ×2 (09:38→22:10)
[2022-04-30] MEDS: PANTOPRAZOLE 40 MG TABLET PO SCH (09:39)
[2022-04-30] MEDS: LORATADINE 10 MG TABLET PO SCH (09:39)
[2022-04-30] MEDS ORDERED: MAGNESIUM SULF 50% (8.12 MEQ/2 ML-1 GM VIAL) IVPB ONE (10:10)
[2022-04-30] MEDS ORDERED: POTASSIUM CHLORIDE TABS 20 MEQ TABLET.ER (FP) PO ONE (10:10)
[2022-04-30 12:40] LABS: HEMATOCRIT 30.7 % (32.4-45.2); HEMOGLOBIN 9.9 GM/dL (10.7-15.3); MCHC 32.2 g/dl (32.0-36.0); MEAN CELL VOLUME 80.7 fl (80-96); MEAN PLT VOLUME 8.5 fl (7.5-11.1); PLATELET COUNT 216 10^3/uL (134-434); RBC 3.81 M/mm3 (3.60-5.2); RDW 17.8 % (11.6-15.6); WHITE BLOOD COUNT 9.1 K/mm3 (4.0-10.0)
[2022-04-30 12:57] LABS: CALCIUM 9.1 mg/dL (8.5-10.1)
[2022-04-30 12:58] LABS: BLOOD UREA NITROGEN 9.5 mg/dL (7-18); MAGNESIUM 1.7 mg/dL (1.8-2.4)
[2022-04-30 13:01] LABS: CREATININE 0.4 mg/dL (0.55-1.3); PHOSPHOROUS 2.9 mg/dL (2.5-4.9)
[2022-04-30 13:10] LABS: ANISOCYTOSIS 3+; MACROCYTOSIS 0; PLATELET ESTIMATE DECREASED
[2022-04-30] MEDS ORDERED: VANCOMYCIN/WATER FOR INJ (PEG) 1,000 MG/250 ML BAG IVPB SCH (13:29)
[2022-04-30] MEDS: ALTEPLASE (CATHFLO) 2 MG/2 ML VIAL NR ONE ×2 (14:28→17:24)
[2022-04-30] MEDS: VANCOMYCIN/WATER FOR INJ (PEG) 1,000 MG/200 ML BAG IVPB SCH (14:32)
[2022-04-30] MEDS: VANCOMYCIN 1 GRAM (PRE-DOCKED) 1,000 MG/250 ML BAG IVPB SCH (14:40)
[2022-04-30] MEDS: GABAPENTIN 300 MG CAPSULE PO SCH (22:08)
[2022-05-01] MEDS ORDERED: AZTREONAM 2 GM VIAL (RESTRICTED TO ID) ONE ×3 (02:37→18:08)
[2022-05-01] MEDS ORDERED: DEXTROSE 5%-WATER 100 ML IVPB ONE ×3 (02:38→18:08)
[2022-05-01] MEDS: AZTREONAM 2 GM in DEXTROSE 5%-WATER 100 ML IVPB SCH ×3 (02:50→18:44)
[2022-05-01 07:55] LABS: HEMATOCRIT 25.3 % (32.4-45.2); HEMOGLOBIN 8.2 GM/dL (10.7-15.3); MCH 26.1 pg (25.7-33.7); MCHC 32.3 g/dl (32.0-36.0); MEAN CELL VOLUME 80.7 fl (80-96); MEAN PLT VOLUME 8.7 fl (7.5-11.1); PLATELET COUNT 187 10^3/uL (134-434); RBC 3.14 M/mm3 (3.60-5.2); RDW 17.9 % (11.6-15.6); WHITE BLOOD COUNT 7.8 K/mm3 (4.0-10.0)
[2022-05-01 08:10] LABS: BLOOD UREA NITROGEN 10.2 mg/dL (7-18); CALCIUM 8.7 mg/dL (8.5-10.1); MAGNESIUM 1.5 mg/dL (1.8-2.4)
[2022-05-01 08:14] LABS: CREATININE 0.4 mg/dL (0.55-1.3); PHOSPHOROUS 3.4 mg/dL (2.5-4.9)
[2022-05-01] MEDS ORDERED: metoPROLOL SUCCINATE 25 MG TAB.SR.24H (FP) PO ONE ×2 (08:57→21:21)
[2022-05-01] MEDS: LORATADINE 10 MG TABLET PO SCH (10:07)
[2022-05-01] MEDS: METOPROLOL SUCCINATE PO SCH ×2 (10:07→23:05)
[2022-05-01] MEDS: PANTOPRAZOLE 40 MG TABLET PO SCH (10:07)
[2022-05-01] MEDS ORDERED: ENOXAPARIN NA (PORCINE) 40 MG/0.4 ML DISP.SYRIN SQ SCH (11:15)
[2022-05-01] MEDS: VANCOMYCIN/WATER FOR INJ (PEG) 1,000 MG/200 ML BAG IVPB SCH (13:44)
[2022-05-01] MEDS: GABAPENTIN 300 MG CAPSULE PO SCH (22:48)
[2022-05-02] MEDS ORDERED: AZTREONAM 2 GM VIAL (RESTRICTED TO ID) ONE (02:05)
[2022-05-02] MEDS ORDERED: DEXTROSE 5%-WATER 100 ML IVPB ONE (02:06)
[2022-05-02] MEDS: AZTREONAM 2 GM in DEXTROSE 5%-WATER 100 ML IVPB SCH (02:11)
[2022-05-02 08:27] LABS: HEMOGLOBIN 8.3 GM/dL (10.7-15.3); MCH 25.7 pg (25.7-33.7); MCHC 31.9 g/dl (32.0-36.0); MEAN CELL VOLUME 80.4 fl (80-96); MEAN PLT VOLUME 8.6 fl (7.5-11.1); PLATELET COUNT 205 10^3/uL (134-434); RBC 3.24 M/mm3 (3.60-5.2); RDW 18.3 % (11.6-15.6)
[2022-05-02 08:44] LABS: CALCIUM 8.6 mg/dL (8.5-10.1)
[2022-05-02 08:45] LABS: BLOOD UREA NITROGEN 12.5 mg/dL (7-18)
[2022-05-02 08:48] LABS: CREATININE 0.5 mg/dL (0.55-1.3)
[2022-05-02] MEDS ORDERED: metoPROLOL SUCCINATE 25 MG TAB.SR.24H (FP) PO ONE ×2 (09:16→21:39)
[2022-05-02] MEDS: LACTATED RINGERS SOLUTION 1,000 ML/1,000 ML INFUS.BAG IV SCH (09:54)
[2022-05-02] MEDS: METOPROLOL SUCCINATE PO SCH ×2 (09:56→21:42)
[2022-05-02] MEDS: LORATADINE 10 MG TABLET PO SCH (09:57)
[2022-05-02] MEDS: PANTOPRAZOLE 40 MG TABLET PO SCH (09:57)
[2022-05-02] MEDS ORDERED: ONDANSETRON 4 MG/2 ML VIAL IVPUSH PRN (18:23)
[2022-05-02] MEDS: GABAPENTIN 300 MG CAPSULE PO SCH (21:42)
[2022-05-03] MEDS ORDERED: MAG HYDROX/AL HYDROX/SIMETH 30 ML UNIT-DOSE CUP PO ONE (02:13)
[2022-05-03 09:28] LABS: CALCIUM 8.4 mg/dL (8.5-10.1)
[2022-05-03 09:29] LABS: BLOOD UREA NITROGEN 9.8 mg/dL (7-18)
[2022-05-03 09:32] LABS: CREATININE 0.4 mg/dL (0.55-1.3)
[2022-05-03] MEDS ORDERED: metoPROLOL SUCCINATE 25 MG TAB.SR.24H (FP) PO ONE ×2 (10:00→21:16)
[2022-05-03] MEDS: LACTATED RINGERS SOLUTION 1,000 ML/1,000 ML INFUS.BAG IV SCH (10:08)
[2022-05-03] MEDS: LORATADINE 10 MG TABLET PO SCH (10:09)
[2022-05-03] MEDS: METOPROLOL SUCCINATE PO SCH ×2 (10:09→22:26)
[2022-05-03] MEDS: PANTOPRAZOLE 40 MG TABLET PO SCH (10:09)
[2022-05-03 10:15] LABS: HEMATOCRIT 25.9 % (32.4-45.2); HEMOGLOBIN 8.2 GM/dL (10.7-15.3); MCH 25.5 pg (25.7-33.7); MCHC 31.5 g/dl (32.0-36.0); MEAN CELL VOLUME 80.7 fl (80-96); MEAN PLT VOLUME 8.8 fl (7.5-11.1); PLATELET COUNT 232 10^3/uL (134-434); RBC 3.21 M/mm3 (3.60-5.2); RDW 18.7 % (11.6-15.6); WHITE BLOOD COUNT 11.3 K/mm3 (4.0-10.0)
[2022-05-03] MEDS: GABAPENTIN 300 MG CAPSULE PO SCH (22:26)
[2022-05-04] MEDS ORDERED: metoPROLOL SUCCINATE 25 MG TAB.SR.24H (FP) PO ONE ×3 (09:28→21:45)
[2022-05-04] MEDS: PANTOPRAZOLE 40 MG TABLET PO SCH (09:34)
[2022-05-04] MEDS: LORATADINE 10 MG TABLET PO SCH (09:34)
[2022-05-04] MEDS: METOPROLOL SUCCINATE PO SCH ×2 (09:34→22:34)
[2022-05-04 09:48] LABS: HEMATOCRIT 24.7 % (32.4-45.2); HEMOGLOBIN 7.8 GM/dL (10.7-15.3); MCH 25.7 pg (25.7-33.7); MCHC 31.7 g/dl (32.0-36.0); MEAN CELL VOLUME 81.2 fl (80-96); MEAN PLT VOLUME 8.7 fl (7.5-11.1); PLATELET COUNT 243 10^3/uL (134-434); RBC 3.05 M/mm3 (3.60-5.2); RDW 18.7 % (11.6-15.6)
[2022-05-04 10:02] LABS: CALCIUM 8.7 mg/dL (8.5-10.1)
[2022-05-04 10:03] LABS: BLOOD UREA NITROGEN 8.8 mg/dL (7-18); MAGNESIUM 1.8 mg/dL (1.8-2.4)
[2022-05-04 10:05] LABS: CREATININE 0.5 mg/dL (0.55-1.3); PHOSPHOROUS 2.7 mg/dL (2.5-4.9)
[2022-05-04 10:07] LABS: BILIRUBIN,TOTAL 0.3 mg/dL (0.2-1); TOT PROT 5.4 g/dl (6.4-8.2)
[2022-05-04 10:16] LABS: ALBUMIN 1.8 g/dl (3.4-5.0)
[2022-05-04 15:33] VITALS: RESP 18
[2022-05-04] MEDS: GABAPENTIN 300 MG CAPSULE PO SCH (22:34)
[2022-05-05 06:15] VITALS: BP 122/67; PULSE 94; TEMP 98.7
[2022-05-05 09:10] LABS: HEMATOCRIT 23.7 % (32.4-45.2); HEMOGLOBIN 7.7 GM/dL (10.7-15.3); MCH 26.3 pg (25.7-33.7); MCHC 32.3 g/dl (32.0-36.0); MEAN CELL VOLUME 81.3 fl (80-96); MEAN PLT VOLUME 8.6 fl (7.5-11.1); PLATELET COUNT 276 10^3/uL (134-434); RBC 2.92 M/mm3 (3.60-5.2); RDW 18.9 % (11.6-15.6)
[2022-05-05 09:13] LABS: ALBUMIN 1.8 g/dl (3.4-5.0); CALCIUM 8.7 mg/dL (8.5-10.1)
[2022-05-05 09:16] LABS: CREATININE 0.6 mg/dL (0.55-1.3)
[2022-05-05 09:18] LABS: BILIRUBIN,TOTAL 0.1 mg/dL (0.2-1); TOT PROT 5.3 g/dl (6.4-8.2)
[2022-05-05] MEDS ORDERED: metoPROLOL SUCCINATE 25 MG TAB.SR.24H (FP) PO ONE (10:24)
[2022-05-05] MEDS: PANTOPRAZOLE 40 MG TABLET PO SCH (10:29)
[2022-05-05] MEDS: LORATADINE 10 MG TABLET PO SCH (10:29)
[2022-05-05] MEDS: METOPROLOL SUCCINATE PO SCH (10:29)
== END 2022-05-05 13:40 | disposition home or self-care (01) | DRG 710 ==
LOC: JER 12:16 → JERBED 23:12 → J7W 04-26 16:32
PROVIDERS: ADMIT Hospitalist; ATTEND Internal Medicine
PROC: 0W9G3ZX Drainage of Peritoneal Cavity, Percutaneous Approach, Diagnostic (ICD-10-PCS; principal; 2022-04-25)
DX: A41.89 Other specified sepsis (principal); C55 Malignant neoplasm of uterus, part unspecified; C54.1 Malignant neoplasm of endometrium; C79.89 Secondary malignant neoplasm of other specified sites; K65.2 Spontaneous bacterial peritonitis; E43 Unspecified severe protein-calorie malnutrition; N13.30 Unspecified hydronephrosis; N20.0 Calculus of kidney; I10 Essential (primary) hypertension; R00.0 Tachycardia, unspecified; R18.0 Malignant ascites; R73.03 Prediabetes; K76.0 Fatty (change of) liver, not elsewhere classified; D64.9 Anemia, unspecified; I95.9 Hypotension, unspecified; Z85.3 Personal history of malignant neoplasm of breast; Z68.20 Body mass index [BMI] 20.0-20.9, adult
CPT/HCPCS: 36415; 36430; 71045-TC-FY; 74177-TC; 76700-TC; 76705-TC; 76942-TC; 80048; 80053; 81003; 82042; 82150; 82272; 82465; 82803; 82945; 82962; 83605; 83615; 83735; 83986; 84100; 84157; 84478; 85025; 85027; 85045; 85610; 85730; 86850; 86900; 86901; 86922; 87040; 87070; 87075; 87086; 87102; 87116; 87205; 87206; 87210; 88108; 88305-TC; 93005; 93010; 97116-GP; 99285-25; C9803-CS; G0480; J2997; P9058; Q9967; U0003; U0005

== ENCOUNTER → 2022-05-23 | Day surgery (SDC) | payer OTHER | END | disposition home or self-care (01) | LOC: JRADIR 11:10 | PROVIDERS: ATTEND Internal Medicine Hematology & Oncology | PROC: 0W9G3ZZ Drainage of Peritoneal Cavity, Percutaneous Approach (ICD-10-PCS; principal; 2022-05-23) | PROC: BW40ZZZ Ultrasonography of Abdomen (ICD-10-PCS; 2022-05-23) | DX: R18.8 Other ascites (principal) | CPT/HCPCS: 76942-TC ==

== ENCOUNTER 2022-05-24 09:07 | Inpatient (IN) | payer OTHER ==
[2022-05-24] MEDS ORDERED: ACETAMINOPHEN 1000 MG/100 ML BAG IVPB ONE (10:21)
[2022-05-24] MEDS ORDERED: SODIUM CHLORIDE 0.9% 1000 ML INFUS.BAG IV ONE (10:21)
[2022-05-24] MEDS ORDERED: ONDANSETRON 4 MG/2 ML VIAL IVPUSH ONE (10:21)
[2022-05-24] MEDS ORDERED: ACETAMINOPHEN INJECTION 100 ML IVPB ONE (10:39)
[2022-05-24] MEDS ORDERED: ONDANSETRON 4 MG/2 ML VIAL ONE (10:39)
[2022-05-24 11:29] LABS: BASO % 0.2 % (0-2.0); EOS % 0.2 % (0-4.5); HEMATOCRIT 29.7 % (32.4-45.2); HEMOGLOBIN 9.3 GM/dL (10.7-15.3); LYMPH % 13.4 % (8-40); MCHC 31.4 g/dl (32.0-36.0); MEAN CELL VOLUME 82.7 fl (80-96); MEAN PLT VOLUME 8.1 fl (7.5-11.1); MONO % 10.1 % (3.8-10.2); NEUT % 76.1 % (42.8-82.8); PLATELET COUNT 330 10^3/uL (134-434); RBC 3.59 M/mm3 (3.60-5.2)
[2022-05-24 11:37] LABS: INR 1.46 (0.83-1.09); PROTHROMBIN TIME (PATIENT) 16.9 SEC (9.7-13.0)
[2022-05-24 11:39] LABS: ACTIVATED PTT 28.7 SECONDS (25.2-36.5)
[2022-05-24 11:50] LABS: CHLORIDE 96 mmol/L (98-107); SODIUM 138 mmol/L (136-145)
[2022-05-24 11:53] LABS: ALBUMIN 2.5 g/dl (3.4-5.0); ANION GAP 13 MMOL/L (8-16); BLOOD UREA NITROGEN 13.7 mg/dL (7-18); CALCIUM 9.4 mg/dL (8.5-10.1); CO2 29 mmol/L (21-32); GLUCOSE,RANDOM 102 mg/dL (74-106); LIPASE 109 U/L (73-393); MAGNESIUM 1.8 mg/dL (1.8-2.4)
[2022-05-24 11:56] LABS: CREATININE 0.9 mg/dL (0.55-1.3)
[2022-05-24 11:57] LABS: BILIRUBIN,TOTAL 0.6 mg/dL (0.2-1); PHOSPHOROUS 2.9 mg/dL (2.5-4.9); SGOT/AST 18 U/L (15-37); TOT PROT 6.9 g/dl (6.4-8.2)
[2022-05-24 11:58] LABS: ALK PHOS 111 U/L (45-117)
[2022-05-24 12:02] LABS: SGPT/ALT < 6 U/L (13-61)
[2022-05-24] MEDS ORDERED: POTASSIUM CHLORIDE TABS 20 MEQ TABLET.ER (FP) PO ONE (16:38)
[2022-05-24 17:44] LABS: EPI CELLS 28 /uL (0-25.1); HYALINE CASTS 24 /uL (0-3.1); URINE APPEARANCE TURBID; URINE BACTERIA 29 /uL (0-1359); URINE BILIRUBIN NEGATIVE (NEGATIVE); URINE COLOR DK YELLOW; URINE GLUCOSE (UA) NEGATIVE (NEGATIVE); URINE KETONE 1+ (NEGATIVE); URINE LEUK ESTERASE TRACE (NEGATIVE); URINE NITRITE NEGATIVE (NEGATIVE); URINE PROTEIN 2+ (NEGATIVE); URINE RBC 15 /uL (0-23.9); URINE WBC 30 /uL (0-25.8)
[2022-05-24] MEDS ORDERED: POTASSIUM CHLORIDE ORAL LIQUID 20 MEQ/15 ML PO ONE (18:05)
[2022-05-24] MEDS ORDERED: POTASSIUM CHLORIDE ORAL LIQUID 20 MEQ/15 ML ONE (18:20)
[2022-05-24] MEDS ORDERED: PROCHLORPERAZINE INJECTION 10 MG/2 ML VIAL IVPB PRN (18:53)
[2022-05-25 08:12] LABS: BASO % 0.2 % (0-2.0); EOS % 0.2 % (0-4.5); HEMATOCRIT 28.7 % (32.4-45.2); LYMPH % 14.2 % (8-40); MCH 25.7 pg (25.7-33.7); MCHC 31.3 g/dl (32.0-36.0); MONO % 9.2 % (3.8-10.2); NEUT % 76.2 % (42.8-82.8); PLATELET COUNT 307 10^3/uL (134-434); RDW 19.9 % (11.6-15.6); WHITE BLOOD COUNT 11.8 K/mm3 (4.0-10.0)
[2022-05-25 08:27] LABS: CHLORIDE 100 mmol/L (98-107); SODIUM 138 mmol/L (136-145)
[2022-05-25 08:34] LABS: ANION GAP 16 MMOL/L (8-16); BLOOD UREA NITROGEN 16.2 mg/dL (7-18); CALCIUM 8.9 mg/dL (8.5-10.1); CO2 23 mmol/L (21-32); MAGNESIUM 1.8 mg/dL (1.8-2.4)
[2022-05-25 08:35] LABS: ALBUMIN 2.3 g/dl (3.4-5.0)
[2022-05-25 08:40] LABS: ALK PHOS 114 U/L (45-117); BILIRUBIN,TOTAL 0.4 mg/dL (0.2-1); CREATININE 0.9 mg/dL (0.55-1.3); GLUCOSE,RANDOM 100 mg/dL (74-106); PHOSPHOROUS 2.9 mg/dL (2.5-4.9); SGOT/AST 16 U/L (15-37); SGPT/ALT < 6 U/L (13-61); TOT PROT 6.3 g/dl (6.4-8.2)
[2022-05-25] MEDS ORDERED: LIDOCAINE HCL 2% JELLY 10 ML CARTRIDGE ONE (09:22)
[2022-05-25] MEDS ORDERED: LIDOCAINE HCL 2% JELLY (5 ML/TUBE) TP ONE (09:24)
[2022-05-25] MEDS ORDERED: PROCHLORPERAZINE INJECTION 10 MG/2 ML VIAL IVPB PRN (09:57)
[2022-05-25] MEDS ORDERED: ANASTROZOLE 1 MG TABLET PO SCH (10:00)
[2022-05-25] MEDS: ANASTROZOLE 1 MG TABLET PO SCH (13:57)
[2022-05-25] MEDS ORDERED: PANTOPRAZOLE 40 MG TABLET PO ONE (17:43)
[2022-05-25] MEDS ORDERED: GABAPENTIN 300 MG CAPSULE PO SCH (22:00)
[2022-05-25 23:15] LABS: LDH 292 U/L (84-246)
[2022-05-26 00:02] LABS: IRON SERUM 22 ug/dL (50-175); TOTAL IRON BINDING CAPACITY 140 ug/dL (250-450)
[2022-05-26 08:48] LABS: HEMATOCRIT 27.8 % (32.4-45.2); HEMOGLOBIN 8.9 GM/dL (10.7-15.3); MCH 26.3 pg (25.7-33.7); MCHC 32.1 g/dl (32.0-36.0); MEAN CELL VOLUME 81.9 fl (80-96); MEAN PLT VOLUME 8.6 fl (7.5-11.1); PLATELET COUNT 277 10^3/uL (134-434); WHITE BLOOD COUNT 10.1 K/mm3 (4.0-10.0)
[2022-05-26 09:14] LABS: CHLORIDE 96 mmol/L (98-107); SODIUM 135 mmol/L (136-145)
[2022-05-26 09:22] LABS: ALBUMIN 2.1 g/dl (3.4-5.0); CALCIUM 8.7 mg/dL (8.5-10.1)
[2022-05-26 09:23] LABS: ANION GAP 12 MMOL/L (8-16); BLOOD UREA NITROGEN 17.3 mg/dL (7-18); CO2 27 mmol/L (21-32); GLUCOSE,RANDOM 77 mg/dL (74-106)
[2022-05-26 09:26] LABS: SGOT/AST 17 U/L (15-37)
[2022-05-26 09:28] LABS: ALK PHOS 114 U/L (45-117); BILIRUBIN,TOTAL 0.4 mg/dL (0.2-1)
[2022-05-26 09:35] LABS: SGPT/ALT < 6 U/L (13-61)
[2022-05-26] MEDS ORDERED: ENOXAPARIN NA (PORCINE) 30 MG/0.3 ML DISP.SYRIN SQ SCH (10:00)
[2022-05-26] MEDS: ANASTROZOLE 1 MG TABLET PO SCH (10:47)
[2022-05-26 16:23] VITALS: BMI 18.3
[2022-05-26] MEDS ORDERED: ENOXAPARIN NA (PORCINE) 40 MG/0.4 ML DISP.SYRIN SQ SCH (17:00)
[2022-05-26] MEDS ORDERED: ENOXAPARIN NA (PORCINE) 60 MG/0.6 ML DISP.SYRIN SQ ONE (17:30)
[2022-05-26] MEDS: ENOXAPARIN NA (PORCINE) 40 MG/0.4 ML DISP.SYRIN SQ SCH (21:10)
[2022-05-27] MEDS: ENOXAPARIN NA (PORCINE) 40 MG/0.4 ML DISP.SYRIN SQ SCH (10:07)
[2022-05-27] MEDS: ANASTROZOLE 1 MG TABLET PO SCH (10:07)
[2022-05-27] MEDS: DEXTROSE 5%-NORMAL SALINE 1,000 ML IV SCH (12:38)
[2022-05-27] MEDS: PANTOPRAZOLE SODIUM 40 MG VIAL IVPUSH SCH ×2 (12:39→21:48)
[2022-05-27 14:09] LABS: BASO % 0.2 % (0-2.0); EOS % 0.3 % (0-4.5); HEMATOCRIT 25.5 % (32.4-45.2); HEMOGLOBIN 8.4 GM/dL (10.7-15.3); LYMPH % 11.9 % (8-40); MCH 27.1 pg (25.7-33.7); MCHC 32.9 g/dl (32.0-36.0); MEAN CELL VOLUME 82.4 fl (80-96); MEAN PLT VOLUME 8.6 fl (7.5-11.1); MONO % 9.6 % (3.8-10.2); PLATELET COUNT 281 10^3/uL (134-434); RBC 3.09 M/mm3 (3.60-5.2); RDW 20.1 % (11.6-15.6)
[2022-05-27 14:32] LABS: CHLORIDE 97 mmol/L (98-107); SODIUM 134 mmol/L (136-145)
[2022-05-27 14:34] LABS: CALCIUM 8.4 mg/dL (8.5-10.1)
[2022-05-27 14:35] LABS: ALBUMIN 1.9 g/dl (3.4-5.0); ANION GAP 13 MMOL/L (8-16); BLOOD UREA NITROGEN 22.1 mg/dL (7-18); CO2 24 mmol/L (21-32); GLUCOSE,RANDOM 102 mg/dL (74-106)
[2022-05-27 14:38] LABS: CREATININE 0.8 mg/dL (0.55-1.3); SGOT/AST 19 U/L (15-37); SGPT/ALT < 6 U/L (13-61)
[2022-05-27 14:39] LABS: BILIRUBIN,TOTAL 0.3 mg/dL (0.2-1); TOT PROT 5.6 g/dl (6.4-8.2)
[2022-05-27 14:41] LABS: ALK PHOS 112 U/L (45-117)
[2022-05-28 08:13] LABS: HEMATOCRIT 24.8 % (32.4-45.2); HEMOGLOBIN 7.9 GM/dL (10.7-15.3); MCH 26.2 pg (25.7-33.7); MCHC 31.9 g/dl (32.0-36.0); MEAN CELL VOLUME 82.2 fl (80-96); MEAN PLT VOLUME 8.7 fl (7.5-11.1); PLATELET COUNT 268 10^3/uL (134-434); RBC 3.02 M/mm3 (3.60-5.2); RDW 19.6 % (11.6-15.6); WHITE BLOOD COUNT 8.4 K/mm3 (4.0-10.0)
[2022-05-28 08:17] LABS: CHLORIDE 102 mmol/L (98-107); SODIUM 136 mmol/L (136-145)
[2022-05-28 08:19] LABS: ANION GAP 8 MMOL/L (8-16); CALCIUM 8.1 mg/dL (8.5-10.1); CO2 26 mmol/L (21-32); GLUCOSE,RANDOM 139 mg/dL (74-106)
[2022-05-28 08:20] LABS: ALBUMIN 1.9 g/dl (3.4-5.0); BLOOD UREA NITROGEN 17.9 mg/dL (7-18)
[2022-05-28 08:22] LABS: SGPT/ALT < 6 U/L (13-61)
[2022-05-28 08:23] LABS: CREATININE 0.8 mg/dL (0.55-1.3); SGOT/AST 18 U/L (15-37)
[2022-05-28 08:24] LABS: BILIRUBIN,TOTAL 0.2 mg/dL (0.2-1); TOT PROT 5.5 g/dl (6.4-8.2)
[2022-05-28 08:26] LABS: ALK PHOS 114 U/L (45-117)
[2022-05-28 08:32] LABS: INR 1.38 (0.83-1.09); PROTHROMBIN TIME (PATIENT) 15.9 SEC (9.7-13.0)
[2022-05-28] MEDS: PANTOPRAZOLE SODIUM 40 MG VIAL IVPUSH SCH ×2 (09:53→21:27)
[2022-05-28] MEDS: ANASTROZOLE 1 MG TABLET PO SCH (10:06)
[2022-05-28 11:28] LABS: RETICULOCYTES 1.84 % (0.5-1.5)
[2022-05-28 11:40] LABS: IRON SERUM 31 ug/dL (50-175); TOTAL IRON BINDING CAPACITY 135 ug/dL (250-450)
[2022-05-28] MEDS: DEXTROSE 5%-NORMAL SALINE 1,000 ML IV SCH (14:52)
[2022-05-29] MEDS: DEXTROSE 5%-NORMAL SALINE 1,000 ML IV SCH ×2 (04:41→16:27)
[2022-05-29 10:04] LABS: HEMATOCRIT 25.3 % (32.4-45.2); MCH 25.9 pg (25.7-33.7); MCHC 31.6 g/dl (32.0-36.0); MEAN PLT VOLUME 8.2 fl (7.5-11.1); PLATELET COUNT 231 10^3/uL (134-434); RBC 3.08 M/mm3 (3.60-5.2); RDW 19.8 % (11.6-15.6)
[2022-05-29 10:17] LABS: CHLORIDE 103 mmol/L (98-107); SODIUM 139 mmol/L (136-145)
[2022-05-29 10:19] LABS: CALCIUM 8.4 mg/dL (8.5-10.1)
[2022-05-29 10:20] LABS: ALBUMIN 1.8 g/dl (3.4-5.0); ANION GAP 13 MMOL/L (8-16); BLOOD UREA NITROGEN 13.1 mg/dL (7-18); CO2 23 mmol/L (21-32); GLUCOSE,RANDOM 124 mg/dL (74-106)
[2022-05-29 10:23] LABS: CREATININE 0.8 mg/dL (0.55-1.3); SGOT/AST 17 U/L (15-37)
[2022-05-29 10:24] LABS: BILIRUBIN,TOTAL 0.3 mg/dL (0.2-1); TOT PROT 5.6 g/dl (6.4-8.2)
[2022-05-29 10:25] LABS: ALK PHOS 113 U/L (45-117)
[2022-05-29 10:40] LABS: SGPT/ALT < 6 U/L (13-61)
[2022-05-29] MEDS: PANTOPRAZOLE SODIUM 40 MG VIAL IVPUSH SCH ×2 (10:53→21:04)
[2022-05-29] MEDS: ENOXAPARIN NA (PORCINE) 30 MG/0.3 ML DISP.SYRIN SQ SCH (10:54)
[2022-05-29] MEDS: ANASTROZOLE 1 MG TABLET PO SCH (10:54)
[2022-05-30] MEDS: DEXTROSE 5%-NORMAL SALINE 1,000 ML IV SCH ×2 (06:27→16:04)
[2022-05-30 08:41] LABS: HEMATOCRIT 24.2 % (32.4-45.2); HEMOGLOBIN 7.9 GM/dL (10.7-15.3); MCH 27.1 pg (25.7-33.7); MCHC 32.8 g/dl (32.0-36.0); MEAN CELL VOLUME 82.5 fl (80-96); MEAN PLT VOLUME 7.9 fl (7.5-11.1); PLATELET COUNT 227 10^3/uL (134-434); RBC 2.93 M/mm3 (3.60-5.2); RDW 19.8 % (11.6-15.6); WHITE BLOOD COUNT 7.7 K/mm3 (4.0-10.0)
[2022-05-30 09:05] LABS: CALCIUM 8.2 mg/dL (8.5-10.1)
[2022-05-30 09:06] LABS: ALBUMIN 1.9 g/dl (3.4-5.0)
[2022-05-30 09:10] LABS: BILIRUBIN,TOTAL 0.3 mg/dL (0.2-1); TOT PROT 5.4 g/dl (6.4-8.2)
[2022-05-30] MEDS: PANTOPRAZOLE SODIUM 40 MG VIAL IVPUSH SCH ×2 (10:49→21:09)
[2022-05-30] MEDS: ENOXAPARIN NA (PORCINE) 30 MG/0.3 ML DISP.SYRIN SQ SCH (10:50)
[2022-05-30] MEDS: ANASTROZOLE 1 MG TABLET PO SCH (10:50)
[2022-05-30] MEDS ORDERED: ALTEPLASE (CATHFLO) 2 MG/2 ML VIAL NR ONE (15:31)
[2022-05-30] MEDS: KCL 10 MEQ IVPB 10 MEQ/100 ML INFUS.BAG IVPB SCH ×3 (16:00→21:09)
[2022-05-30] MEDS: AMINO ACIDS/PROTEIN HYDROLYS 30 ML LIQUID.PKT PO SCH (17:30)
[2022-05-30] MEDS ORDERED: KCL 10 MEQ IVPB 10 MEQ/100 ML INFUS.BAG IVPB SCH (20:45)
[2022-05-31] MEDS: DEXTROSE 5%-NORMAL SALINE 1,000 ML IV SCH ×3 (02:16→23:22)
[2022-05-31 07:34] LABS: CALCIUM 7.8 mg/dL (8.5-10.1)
[2022-05-31 07:35] LABS: ALBUMIN 1.9 g/dl (3.4-5.0)
[2022-05-31 07:38] LABS: BLOOD UREA NITROGEN 13.2 mg/dL (7-18); CREATININE 1.1 mg/dL (0.55-1.3); MAGNESIUM 1.4 mg/dL (1.8-2.4); PHOSPHOROUS 2.5 mg/dL (2.5-4.9)
[2022-05-31 07:39] LABS: BILIRUBIN,TOTAL 0.7 mg/dL (0.2-1); TOT PROT 5.4 g/dl (6.4-8.2)
[2022-05-31 08:21] LABS: HEMATOCRIT 24.9 % (32.4-45.2); HEMOGLOBIN 7.9 GM/dL (10.7-15.3); MCH 26.3 pg (25.7-33.7); MCHC 31.7 g/dl (32.0-36.0); MEAN CELL VOLUME 82.8 fl (80-96); MEAN PLT VOLUME 8.5 fl (7.5-11.1); PLATELET COUNT 214 10^3/uL (134-434); RDW 19.7 % (11.6-15.6)
[2022-05-31] MEDS: ANASTROZOLE 1 MG TABLET PO SCH (10:06)
[2022-05-31] MEDS: AMINO ACIDS/PROTEIN HYDROLYS 30 ML LIQUID.PKT PO SCH ×2 (10:06→18:10)
[2022-05-31] MEDS: PANTOPRAZOLE SODIUM 40 MG VIAL IVPUSH SCH ×2 (10:07→22:21)
[2022-05-31] MEDS: MAGNESIUM SULF 50% (8.12 MEQ/2 ML-1 GM VIAL) IVPB SCH ×2 (10:14→11:57)
[2022-05-31] MEDS: AMINO ACIDS 4.25%/D5W 1,000 ML IV SCH (22:19)
[2022-06-01 08:48] LABS: HEMATOCRIT 23.2 % (32.4-45.2); HEMOGLOBIN 7.4 GM/dL (10.7-15.3); MCH 26.2 pg (25.7-33.7); MCHC 31.9 g/dl (32.0-36.0); MEAN CELL VOLUME 82.2 fl (80-96); MEAN PLT VOLUME 7.9 fl (7.5-11.1); PLATELET COUNT 148 10^3/uL (134-434); RBC 2.82 M/mm3 (3.60-5.2); RDW 20.3 % (11.6-15.6); WHITE BLOOD COUNT 10.4 K/mm3 (4.0-10.0)
[2022-06-01 09:07] LABS: CHLORIDE 106 mmol/L (98-107); SODIUM 137 mmol/L (136-145)
[2022-06-01 09:11] LABS: ALBUMIN 1.6 g/dl (3.4-5.0); ANION GAP 12 MMOL/L (8-16); BLOOD UREA NITROGEN 21.1 mg/dL (7-18); CALCIUM 7.6 mg/dL (8.5-10.1); CO2 18 mmol/L (21-32); GLUCOSE,RANDOM 131 mg/dL (74-106)
[2022-06-01 09:14] LABS: CREATININE 1.3 mg/dL (0.55-1.3); SGOT/AST 13 U/L (15-37)
[2022-06-01 09:16] LABS: ALK PHOS 123 U/L (45-117); BILIRUBIN,TOTAL 0.3 mg/dL (0.2-1); TOT PROT 4.8 g/dl (6.4-8.2)
[2022-06-01 09:18] LABS: SGPT/ALT < 6 U/L (13-61)
[2022-06-01] MEDS: TAMSULOSIN HCL 0.4 MG CAP PO SCH (10:01)
[2022-06-01] MEDS: PANTOPRAZOLE SODIUM 40 MG VIAL IVPUSH SCH ×2 (10:01→22:07)
[2022-06-01] MEDS: ANASTROZOLE 1 MG TABLET PO SCH (10:01)
[2022-06-01] MEDS: AMINO ACIDS/PROTEIN HYDROLYS 30 ML LIQUID.PKT PO SCH ×2 (10:01→16:44)
[2022-06-01] MEDS: AMINO ACIDS 4.25%/D5W 1,000 ML IV SCH ×2 (11:44→22:39)
[2022-06-01] MEDS: KCL 10 MEQ IVPB 10 MEQ/100 ML INFUS.BAG IVPB SCH ×2 (17:08→21:33)
[2022-06-01] MEDS ORDERED: KCL 10 MEQ IVPB 10 MEQ/100 ML INFUS.BAG IVPB SCH (21:15)
[2022-06-01] MEDS ORDERED: ONDANSETRON 4 MG/2 ML VIAL IVPB PRN (21:49)
[2022-06-01] MEDS ORDERED: SODIUM CHLORIDE 500 ML IV STA (23:12)
[2022-06-02] MEDS ORDERED: SODIUM CHLORIDE 1,000 ML IV SCH (08:15)
[2022-06-02 09:39] LABS: HEMATOCRIT 26.3 % (32.4-45.2); HEMOGLOBIN 8.3 GM/dL (10.7-15.3); MCH 26.5 pg (25.7-33.7); MCHC 31.5 g/dl (32.0-36.0); MEAN PLT VOLUME 8.2 fl (7.5-11.1); PLATELET COUNT 132 10^3/uL (134-434); RBC 3.13 M/mm3 (3.60-5.2); RDW 20.1 % (11.6-15.6); WHITE BLOOD COUNT 8.5 K/mm3 (4.0-10.0)
[2022-06-02 09:46] LABS: CHLORIDE 101 mmol/L (98-107); SODIUM 132 mmol/L (136-145)
[2022-06-02] MEDS: TAMSULOSIN HCL 0.4 MG CAP PO SCH (09:51)
[2022-06-02] MEDS: AMINO ACIDS/PROTEIN HYDROLYS 30 ML LIQUID.PKT PO SCH ×2 (09:51→16:34)
[2022-06-02] MEDS: AMINO ACIDS 4.25%/D5W 1,000 ML IV SCH ×2 (09:55→14:52)
[2022-06-02] MEDS: ANASTROZOLE 1 MG TABLET PO SCH (09:55)
[2022-06-02] MEDS: PANTOPRAZOLE SODIUM 40 MG VIAL IVPUSH SCH ×2 (09:55→21:18)
[2022-06-02 09:56] LABS: CALCIUM 8.3 mg/dL (8.5-10.1)
[2022-06-02 09:57] LABS: ALBUMIN 1.7 g/dl (3.4-5.0); ANION GAP 14 MMOL/L (8-16); CO2 18 mmol/L (21-32); GLUCOSE,RANDOM 126 mg/dL (74-106)
[2022-06-02 09:59] LABS: SGOT/AST 15 U/L (15-37)
[2022-06-02 10:00] LABS: CREATININE 1.3 mg/dL (0.55-1.3)
[2022-06-02 10:01] LABS: BILIRUBIN,TOTAL 0.5 mg/dL (0.2-1); TOT PROT 5.6 g/dl (6.4-8.2)
[2022-06-02 10:02] LABS: ALK PHOS 150 U/L (45-117)
[2022-06-02 10:10] LABS: BLOOD UREA NITROGEN 33.8 mg/dL (7-18); SGPT/ALT < 6 U/L (13-61)
[2022-06-02] MEDS: SODIUM CHLORIDE 1,000 ML IV SCH (18:09)
[2022-06-03] MEDS: AMINO ACIDS 4.25%/D5W 1,000 ML IV SCH ×3 (01:42→21:55)
[2022-06-03 08:26] LABS: HEMATOCRIT 24.9 % (32.4-45.2); HEMOGLOBIN 7.9 GM/dL (10.7-15.3); MCH 26.1 pg (25.7-33.7); MCHC 31.8 g/dl (32.0-36.0); MEAN CELL VOLUME 81.9 fl (80-96); MEAN PLT VOLUME 8.4 fl (7.5-11.1); PLATELET COUNT 111 10^3/uL (134-434); RBC 3.04 M/mm3 (3.60-5.2); RDW 19.5 % (11.6-15.6); WHITE BLOOD COUNT 8.8 K/mm3 (4.0-10.0)
[2022-06-03] MEDS: TAMSULOSIN HCL 0.4 MG CAP PO SCH (08:27)
[2022-06-03] MEDS: AMINO ACIDS/PROTEIN HYDROLYS 30 ML LIQUID.PKT PO SCH ×2 (08:27→17:42)
[2022-06-03 08:45] LABS: CHLORIDE 100 mmol/L (98-107); SODIUM 130 mmol/L (136-145)
[2022-06-03 08:47] LABS: ANION GAP 14 MMOL/L (8-16); BLOOD UREA NITROGEN 49.5 mg/dL (7-18); CALCIUM 8.3 mg/dL (8.5-10.1); CO2 16 mmol/L (21-32)
[2022-06-03 08:48] LABS: GLUCOSE,RANDOM 115 mg/dL (74-106); MAGNESIUM 2.1 mg/dL (1.8-2.4)
[2022-06-03 08:51] LABS: CREATININE 1.2 mg/dL (0.55-1.3)
[2022-06-03 08:58] LABS: PHOSPHOROUS 0.8 mg/dL (2.5-4.9)
[2022-06-03] MEDS: ANASTROZOLE 1 MG TABLET PO SCH (09:48)
[2022-06-03] MEDS: PANTOPRAZOLE SODIUM 40 MG VIAL IVPUSH SCH ×2 (09:55→21:55)
[2022-06-03] MEDS ORDERED: SODIUM CHLORIDE 0.9% 500 ML INFUS.BAG IV ONE (10:24)
[2022-06-03] MEDS ORDERED: POTASSIUM PHOSPHATE 30 MM in DEXTROSE 5%-WATER - 500 ML IVPB ONE (10:25)
[2022-06-03 13:19] LABS: LACTIC ACID 4.1 mmol/L (0.4-2.0)
[2022-06-03] MEDS ORDERED: VANCOMYCIN 750 MG in DEXTROSE 5%-WATER - 250 ML IVPB SCH (15:15)
[2022-06-03] MEDS ORDERED: AZTREONAM 1 GM in DEXTROSE 5%-WATER - 50 ML IVPB SCH (15:15)
[2022-06-03 16:18] LABS: CHLORIDE 100 mmol/L (98-107); SODIUM 129 mmol/L (136-145)
[2022-06-03 16:20] LABS: ALBUMIN 1.5 g/dl (3.4-5.0); ANION GAP 13 MMOL/L (8-16); BLOOD UREA NITROGEN 52.1 mg/dL (7-18); CALCIUM 7.8 mg/dL (8.5-10.1); CO2 16 mmol/L (21-32); GLUCOSE,RANDOM 117 mg/dL (74-106)
[2022-06-03 16:23] LABS: CREATININE 1.1 mg/dL (0.55-1.3); SGOT/AST 13 U/L (15-37); SGPT/ALT < 6 U/L (13-61)
[2022-06-03 16:25] LABS: BILIRUBIN,TOTAL 0.2 mg/dL (0.2-1)
[2022-06-03 16:26] LABS: ALK PHOS 141 U/L (45-117)
[2022-06-03] MEDS: AZTREONAM 1 GM in DEXTROSE 5%-WATER - 50 ML IVPB SCH ×2 (17:05→17:48)
[2022-06-03] MEDS: SODIUM CHLORIDE 1,000 ML IV SCH (17:05)
[2022-06-03 18:20] LABS: EPI CELLS >36 /uL (0-25.1); HYALINE CASTS 4 /uL (0-3.1); URINE APPEARANCE CLOUDY; URINE BACTERIA 286 /uL (0-1359); URINE BILIRUBIN NEGATIVE (NEGATIVE); URINE COLOR YELLOW; URINE GLUCOSE (UA) NEGATIVE (NEGATIVE); URINE KETONE NEGATIVE (NEGATIVE); URINE LEUK ESTERASE NEGATIVE (NEGATIVE); URINE NITRITE NEGATIVE (NEGATIVE); URINE PROTEIN 1+ (NEGATIVE); URINE RBC 133 /uL (0-23.9); URINE UROBILINOGEN 0.2 mg/dL (0.2-1.0); URINE WBC 22 /uL (0-25.8)
[2022-06-03] MEDS: VANCOMYCIN/WATER FOR INJ (PEG) 750 MG/150 ML BAG IVPB SCH (20:21)
[2022-06-04] MEDS: AZTREONAM 1 GM in DEXTROSE 5%-WATER - 50 ML IVPB SCH (04:21)
[2022-06-04] MEDS: VANCOMYCIN/WATER FOR INJ (PEG) 750 MG/150 ML BAG IVPB SCH (05:52)
[2022-06-04] MEDS: AMINO ACIDS/PROTEIN HYDROLYS 30 ML LIQUID.PKT PO SCH ×2 (09:54→17:05)
[2022-06-04] MEDS: SODIUM CHLORIDE 1,000 ML IV SCH (09:54)
[2022-06-04] MEDS: PANTOPRAZOLE SODIUM 40 MG VIAL IVPUSH SCH ×2 (09:55→22:12)
[2022-06-04] MEDS: AMINO ACIDS 4.25%/D5W 1,000 ML IV SCH (10:01)
[2022-06-04] MEDS: ANASTROZOLE 1 MG TABLET PO SCH (10:02)
[2022-06-04] MEDS: TAMSULOSIN HCL 0.4 MG CAP PO SCH (10:02)
[2022-06-04 10:29] LABS: BASO % 0.2 % (0-2.0); EOS % 0.1 % (0-4.5); HEMATOCRIT 23.2 % (32.4-45.2); HEMOGLOBIN 7.3 GM/dL (10.7-15.3); MCHC 31.4 g/dl (32.0-36.0); MEAN CELL VOLUME 82.6 fl (80-96); MEAN PLT VOLUME 8.8 fl (7.5-11.1); MONO % 5.2 % (3.8-10.2); NEUT % 85.5 % (42.8-82.8); PLATELET COUNT 100 10^3/uL (134-434); RBC 2.81 M/mm3 (3.60-5.2); RDW 19.4 % (11.6-15.6)
[2022-06-04 11:18] LABS: LACTIC ACID 3.4 mmol/L (0.4-2.0)
[2022-06-04] MEDS ORDERED: ACETAMINOPHEN 1000 MG/100 ML BAG IVPB ONE (12:21)
[2022-06-04 14:39] LABS: CHLORIDE 99 mmol/L (98-107); SODIUM 127 mmol/L (136-145)
[2022-06-04 14:41] LABS: CALCIUM 7.8 mg/dL (8.5-10.1)
[2022-06-04 14:42] LABS: ALBUMIN 1.5 g/dl (3.4-5.0); ANION GAP 15 MMOL/L (8-16); BLOOD UREA NITROGEN 59.9 mg/dL (7-18); CO2 13 mmol/L (21-32); GLUCOSE,RANDOM 98 mg/dL (74-106)
[2022-06-04 14:45] LABS: CREATININE 1.3 mg/dL (0.55-1.3); SGOT/AST 13 U/L (15-37); SGPT/ALT < 6 U/L (13-61)
[2022-06-04 14:46] LABS: BILIRUBIN,TOTAL 0.3 mg/dL (0.2-1)
[2022-06-04 14:48] LABS: ALK PHOS 153 U/L (45-117)
[2022-06-04 14:50] LABS: LDH 258 U/L (84-246)
[2022-06-04] MEDS ORDERED: AMINO ACIDS 4.25%/D5W 1,000 ML IV SCH (16:30)
[2022-06-04] MEDS: METOPROLOL TARTRATE 5 MG/5 ML VIAL IVPB SCH ×2 (18:36→22:17)
[2022-06-04] MEDS: ENOXAPARIN NA (PORCINE) 40 MG/0.4 ML DISP.SYRIN SQ SCH (18:39)
[2022-06-04 21:14] LABS: MAGNESIUM 1.7 mg/dL (1.8-2.4)
[2022-06-04 21:17] LABS: URIC ACID 6.5 mg/dL (2.6-7.2)
[2022-06-04 21:18] LABS: PHOSPHOROUS 2.7 mg/dL (2.5-4.9)
[2022-06-05] MEDS: METOPROLOL TARTRATE 5 MG/5 ML VIAL IVPB SCH ×6 (02:09→22:01)
[2022-06-05] MEDS: AMINO ACIDS/PROTEIN HYDROLYS 30 ML LIQUID.PKT PO SCH ×2 (07:54→16:55)
[2022-06-05] MEDS: TAMSULOSIN HCL 0.4 MG CAP PO SCH (07:55)
[2022-06-05] MEDS: SODIUM CHLORIDE 1,000 ML IV SCH (08:49)
[2022-06-05] MEDS: VANCOMYCIN/WATER FOR INJ (PEG) 750 MG/150 ML BAG IVPB SCH ×2 (08:50→22:39)
[2022-06-05] MEDS: ENOXAPARIN NA (PORCINE) 40 MG/0.4 ML DISP.SYRIN SQ SCH (09:25)
[2022-06-05] MEDS: PANTOPRAZOLE SODIUM 40 MG VIAL IVPUSH SCH ×2 (09:25→22:43)
[2022-06-05] MEDS: ANASTROZOLE 1 MG TABLET PO SCH (09:29)
[2022-06-05] MEDS: AZTREONAM 1 GM in DEXTROSE 5%-WATER - 50 ML IVPB SCH ×2 (09:36→20:45)
[2022-06-05 09:42] LABS: HEMATOCRIT 26.1 % (32.4-45.2); HEMOGLOBIN 8.5 GM/dL (10.7-15.3); MCH 27.1 pg (25.7-33.7); MCHC 32.6 g/dl (32.0-36.0); MEAN PLT VOLUME 9.2 fl (7.5-11.1); PLATELET COUNT 93 10^3/uL (134-434); RBC 3.14 M/mm3 (3.60-5.2); RDW 16.7 % (11.6-15.6)
[2022-06-05 10:07] LABS: CHLORIDE 98 mmol/L (98-107); SODIUM 127 mmol/L (136-145)
[2022-06-05 10:21] LABS: ALBUMIN 1.5 g/dl (3.4-5.0); ANION GAP 16 MMOL/L (8-16); CALCIUM 7.9 mg/dL (8.5-10.1); CO2 13 mmol/L (21-32); GLUCOSE,RANDOM 99 mg/dL (74-106)
[2022-06-05 10:22] LABS: BLOOD UREA NITROGEN 66.2 mg/dL (7-18)
[2022-06-05 10:23] LABS: CREATININE 1.7 mg/dL (0.55-1.3); PHOSPHOROUS 3.2 mg/dL (2.5-4.9)
[2022-06-05 10:24] LABS: ALK PHOS 146 U/L (45-117); BILIRUBIN,TOTAL 0.8 mg/dL (0.2-1); TOT PROT 4.8 g/dl (6.4-8.2)
[2022-06-05 10:25] LABS: SGOT/AST 25 U/L (15-37); SGPT/ALT < 6 U/L (13-61)
[2022-06-05 14:18] LABS: URIC ACID 7.2 mg/dL (2.6-7.2)
[2022-06-05 15:10] LABS: LACTIC ACID 2.1 mmol/L (0.4-2.0)
[2022-06-05] MEDS: METOCLOPRAMIDE HCL INJECTION 10 MG/2 ML VIAL IVPUSH SCH ×2 (15:38→22:14)
[2022-06-05] MEDS ORDERED: AMINO ACIDS 4.25%/D5W 1,000 ML IV SCH (15:44)
[2022-06-05] MEDS: ALBUMIN HUMAN 25% 12.5 GM/50 ML VIAL IV SCH ×2 (17:18→22:18)
[2022-06-06] MEDS: ALBUMIN HUMAN 25% 12.5 GM/50 ML VIAL IV SCH ×2 (00:03→01:13)
[2022-06-06] MEDS: METOPROLOL TARTRATE 5 MG/5 ML VIAL IVPB SCH ×4 (04:34→14:10)
[2022-06-06] MEDS: METOCLOPRAMIDE HCL INJECTION 10 MG/2 ML VIAL IVPUSH SCH ×2 (06:56→15:28)
[2022-06-06] MEDS: AMINO ACIDS/PROTEIN HYDROLYS 30 ML LIQUID.PKT PO SCH ×2 (08:22→17:15)
[2022-06-06] MEDS: TAMSULOSIN HCL 0.4 MG CAP PO SCH (08:22)
[2022-06-06] MEDS: ANASTROZOLE 1 MG TABLET PO SCH (09:37)
[2022-06-06] MEDS: PANTOPRAZOLE SODIUM 40 MG VIAL IVPUSH SCH (09:38)
[2022-06-06] MEDS: ENOXAPARIN NA (PORCINE) 40 MG/0.4 ML DISP.SYRIN SQ SCH (09:38)
[2022-06-06 09:54] LABS: HEMATOCRIT 18.9 % (32.4-45.2); MCH 27.1 pg (25.7-33.7); MEAN PLT VOLUME 9.5 fl (7.5-11.1); PLATELET COUNT 68 10^3/uL (134-434); RBC 2.31 M/mm3 (3.60-5.2); RDW 17.4 % (11.6-15.6); WHITE BLOOD COUNT 4.8 K/mm3 (4.0-10.0)
[2022-06-06 10:01] LABS: HEMOGLOBIN 6.3 GM/dL (10.7-15.3); INR 2.07 (0.83-1.09)
[2022-06-06 10:04] LABS: ACTIVATED PTT 31.2 SECONDS (25.2-36.5)
[2022-06-06 10:44] LABS: BLOOD UREA NITROGEN 79.7 mg/dL (7-18); CALCIUM 7.9 mg/dL (8.5-10.1)
[2022-06-06 10:47] LABS: CREATININE 2.1 mg/dL (0.55-1.3)
[2022-06-06 10:49] LABS: TOT PROT 5.2 g/dl (6.4-8.2)
[2022-06-06 10:54] LABS: ALBUMIN 2.5 g/dl (3.4-5.0)
[2022-06-06 15:30] VITALS: BP 103/51; PULSE 103
[2022-06-06 16:05] VITALS: RESP 18; TEMP 96.8
[2022-06-06] MEDS ORDERED: PROCHLORPERAZINE INJECTION 10 MG/2 ML VIAL IM PRN ×2 (17:19→18:10)
== END 2022-06-06 18:20 | disposition expired | DRG 240 ==
LOC: JER 09:07 → JERBED 15:27 → J7W 05-25 00:52 → J5S 05-28 16:09 → J7W 05-29 21:52
PROVIDERS: ADMIT Internal Medicine; ATTEND Internal Medicine
PROC: 0T9B80Z Drainage of Bladder with Drainage Device, Via Natural or Artificial Opening Endoscopic (ICD-10-PCS; 2022-05-25)
PROC: BT1FZZZ Fluoroscopy of Left Kidney, Ureter and Bladder (ICD-10-PCS; 2022-05-25)
PROC: 0T778DZ Dilation of Left Ureter with Intraluminal Device, Via Natural or Artificial Opening Endoscopic (ICD-10-PCS; principal; 2022-05-25 08:00)
PROC: 06H03DZ Insertion of Intraluminal Device into Inferior Vena Cava, Percutaneous Approach (ICD-10-PCS; 2022-05-28)
PROC: 0D9670Z Drainage of Stomach with Drainage Device, Via Natural or Artificial Opening (ICD-10-PCS; 2022-06-02)
PROC: 30233N1 Transfusion of Nonautologous Red Blood Cells into Peripheral Vein, Percutaneous Approach (ICD-10-PCS; 2022-06-04)
DX: C78.6 Secondary malignant neoplasm of retroperitoneum and peritoneum (principal); C55 Malignant neoplasm of uterus, part unspecified; C78.00 Secondary malignant neoplasm of unspecified lung; C78.7 Secondary malignant neoplasm of liver and intrahepatic bile duct; C79.51 Secondary malignant neoplasm of bone; C50.919 Malignant neoplasm of unspecified site of unspecified female breast; R73.03 Prediabetes; I10 Essential (primary) hypertension; E87.6 Hypokalemia; K56.609 Unspecified intestinal obstruction, unspecified as to partial versus complete obstruction; K76.0 Fatty (change of) liver, not elsewhere classified; E87.1 Hypo-osmolality and hyponatremia; K57.90 Diverticulosis of intestine, part unspecified, without perforation or abscess without bleeding; H52.10 Myopia, unspecified eye; N13.2 Hydronephrosis with renal and ureteral calculous obstruction; K92.0 Hematemesis; I82.4Z2 Acute embolism and thrombosis of unspecified deep veins of left distal lower extremity; N13.1 Hydronephrosis with ureteral stricture, not elsewhere classified; R91.8 Other nonspecific abnormal finding of lung field; D72.829 Elevated white blood cell count, unspecified; K59.00 Constipation, unspecified; R64 Cachexia; Z68.1 Body mass index [BMI] 19.9 or less, adult; M54.50 Low back pain, unspecified; D64.9 Anemia, unspecified; E43 Unspecified severe protein-calorie malnutrition; K56.7 Ileus, unspecified; E87.2 Acidosis; R18.8 Other ascites; J90 Pleural effusion, not elsewhere classified; N17.9 Acute kidney failure, unspecified; E88.09 Other disorders of plasma-protein metabolism, not elsewhere classified; H53.8 Other visual disturbances
CPT/HCPCS: 0241U-QW; 36415; 36430; 37191; 70450-TC; 71045-TC-FY; 74019-TC-FY; 74176-TC; 74177-TC; 76000-TC-FY; 76775-TC; 76942-TC; 80048; 80053; 81003; 82272; 82607; 82728; 82746; 82962; 83010; 83540; 83550; 83605; 83615; 83690; 83735; 84100; 84466; 84550; 85025; 85027; 85045; 85610; 85730; 86304; 86850; 86900; 86901; 86922; 87040; 87086; 87186; 93005; 93010; 93306-TC; 93971-TC; 94760; 99285-25; C1769; C1880; J2997; P9047; P9058; Q9967